=== PATIENT | female | born 1950 | race Caucasian/White ===

== ENCOUNTER 2023-07-16 08:35 | Outpatient (AMB) | payer OTHER, SELFPAY ==
--- NOTE | 2023-07-16 08:55 | MHC.PC.OV ---
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 policy Accompanied by: Self / Same As Patient Allergies bee venom protein (honey bee) Allergy (Intermediate, Verified 07/16/23 09:21) Swelling Penicillins Adverse Reaction (Intermediate, Verified 07/16/23 09:21) hives vicotin Adverse Reaction (Severe, Uncoded 07/16/23 09:07) Flushing Medication List - Last Reconciled 07/16/23 by Perry Silverio PA-C atorvastatin 20 mg PO DAILY 90 days losartan-hydrochlorothiazide 50-12.5 mg 1 tab PO DAILY 90 days metoprolol succinate ER 25 mg PO DAILY 90 days pantoprazole 40 mg PO DAILY 90 days valacyclovir 500 mg PO DAILY 90 days Tobacco use date assessed: 07/16/23 Fall risk assessment: No Falls in past year Last assessed Fall Risk: 07/16/23 Dental Screening Dental Screen Date: 07/16/23 Did you have a dental visit in the last 12 months?: Yes Did you have a dental problem in the last 6 months where you did not have access to dental care?: No Was dental information given to patient?: 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 Patient's past medical history significant for hyperlipidemia, hypertension, right hip osteoarthritis, GERD. Previous PCP was in [place] .. Hypertension: Blood pressure today in office acceptable. She has been off of Aldactone over the last several months in her blood pressure has been stable. Otherwise denies any headaches, vision issues, dizziness or presyncopal episodes. .. Hyperlipidemia: Continues on statin therapy without any side effect. . Now seeing orthopedic right hip and is due for a Hip replacement in October of 2023. She has gotten cortisone injections which have helped her reduce her right hip pain. .. VAccine:UTD with COVID Vaccine, Shingles - see scanned in document MAmmo: had a recent mammo [facility]. Colonoscopy: Has an updated colon cancer - done spring 2022. ( q 5 years) - fmhx of colon cancer. 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 1. Little interest or pleasure in doing things: not at all 2. Feeling down, depressed, or hopeless: not at all 3. Trouble falling or staying asleep, or sleeping too much: not at all 4. Feeling tired or having little energy: not at all 5. Poor appetite or overeating: not at all 6. Feeling bad about yourself - or that you are a failure or have let yourself or your family down: not at all 7. Trouble concentrating on things, such as reading the newspaper or watching television: not at all 8. Moving or speaking so slowly that other people could have noticed. Or the opposite - being so fidgety or restless that you have been moving around a lot more than usual: not at all 9. Thoughts that you would be better off or of hurting yourself in some way: not at all Total score: 0 Depression Screening Interpretation: Negative 48883 - PHQ-9 Billing: Yes Source: Developed by Drs. Adeel Montenegro, Ericka Car, Ruperto Hernández and colleagues, with an educational kelly from [employer]. Thrive Questionnaire I am a: Patient What is your living situation today?: I have a steady place to live Within the past 12 months, did the food you bought not last and you didn't have the money to get more?: Never true Within the past 12 months, did you worry whether your food would run out before you got money to buy more?: Never true Do you have trouble paying for medicines?: No Do you have trouble getting transportation to medical appointments?: No Do you have trouble paying your heating and electricity bill?: No Do you have trouble taking care of your child, family member or friend?: No Do you have trouble with day-to-day activities such as bathing, preparing meals, shopping, managing finances, etc.?: No Are you currently unemployed and looking for a job?: No Are you interested in more education?: No Please select the resources that you would like help with: None AUDIT C Alcohol Use Questionnaire (AUDIT-C) 1. How often do you have a drink containing alcohol?: 2-3 times a week 2. How many drinks containing alcohol do you have on a typical day when you are drinking?: 1 or 2 Total Score: 3 JANETH-7 AMB Questionnaire JANETH-7 Feeling nervous, anxious, or on edge: 0 = Not at all Not being able to stop or control worryin = Not at all Worrying too much about different things: 0 = Not at all Trouble relaxin = Not at all Being so restless that it is hard to sit still: 0 = Not at all Becoming easily annoyed or irritable: 0 = Not at all Feeling afraid as if something awful might happen: 0 = Not at all Total JANETH-7 score (0-4 normal; 5-9 mild; 10-14 moderate; 15-21 severe): 0 Source: Developed by Drs. Adeel Montenegro, Ericka Car, Ruperto Hernández and colleagues, with an educational kelly from [employer]. JANETH-7 Assessment Billing JANETH-7 Assessment Tool: JANETH-7 Assessment 80197 Review of Systems Const Denies headache(s) Eyes Denies loss of vision ENT Denies vertigo, Denies dizziness, Denies headache(s) and Denies sore throat Card Denies chest pain, Denies leg edema and Denies lightheadedness Resp Denies cough, Denies hemoptysis and Denies wheezing GI Denies abdominal pain, Denies melena, Denies constipation, Denies diarrhea and Denies vomiting Denies urinary frequency, Denies dysuria and Denies urinary urgency Musc Denies arthralgias, Denies joint swelling, Denies numbness and Denies tingling Neuro Denies Abnormal speech present, Denies behavioral changes, Denies vertigo, Denies dizziness, Denies headache(s), Denies loss of vision, Denies memory loss, Denies numbness and Denies tingling Psych Denies anxiety, Denies behavioral changes, Denies depression, Denies memory loss and Denies panic attacks Manuel/Lymph Denies easy bleeding and Denies easy bruising Aller/Immun Denies wheezing Physical exam (Primary Care) Vital Signs: Last Vital Signs Pulse 56 07/16/23 08:57 BP 126/70 07/16/23 08:57 Pulse Ox 98 07/16/23 08:57 Oxygen Delivery Method Room Air 07/16/23 08:57 BMI result Body Mass Index 33.3 BMI Assessment/Plan discussion: High Tobacco/Smoking Status: Tobacco use Status Tobacco use date assessed 07/16/23 07/16/23 09:13 Patient Tobacco Use Status Never used Tobacco 07/16/23 09:31 PHQ-9: PHQ-9 Score PHQ-9: Total score 0 07/16/23 09:34 Depression Screening Interpretation: Negative Const Other: Obese General: healthy appearing, no acute distress, alert and awake Nutritional Appearance: well nourished Orientation/consciousness: oriented to person, oriented to place and oriented to time HENMT Ears: TM's normal bilaterally General nose exam: Normal nasal mucous membranes and turbinates present Eyes Conjunctivae: conjunctivae normal Sclerae: sclerae normal Pupils: Equal, round and reactive pupils present Neck Neck: Yes no lymphadenopathy and Yes no JVD Thyroid: Thyroid normal Carotids: no bruits Resp Effort & Inspection: normal respiratory effort and not tachypneic Auscultation: no crackles, no rales, no rhonchi and no wheezes Cardio Rate: regular rate Rhythm: regular rhythm Heart sounds: no murmurs and normal S1 and S2 GI Palpation (GI): Soft to palpation, nontender, no hepatomegaly and no splenomegaly Auscultation: normal bowel sounds Skin General skin exam: no rashes or lesions noted and dry skin Neuro General: oriented to person, oriented to place and oriented to time Cranial nerves: Yes Equal, round and reactive pupils present Speech: No Abnormal speech present Gait exam (Neuro): Normal gait present Motor exam (neuro): no tremor noted Extrem Right upper extremity: full ROM Left upper extremity: full ROM Right lower extremity: full ROM; no edema Left lower extremity: full ROM; no edema Psych Mental Status: mental status grossly normal Speech and movement: Normal speech and movement present Affect: normal affect Attitude: cooperative Thought process: Normal thought process present Assessment and Plan Assessment & Plan (1) HLD (hyperlipidemia): Code(s): E78.5 - Hyperlipidemia, unspecified Qualifiers: Hyperlipidemia type: pure hypercholesterolemia Qualified Code(s): E78.00 - Pure hypercholesterolemia, unspecified Plan: Patient continues on statin therapy and has been stable on current dose. Will check a lipid panel to evaluate for propria total cholesterol and LDL. Goal LDL to be below 130 (2) HTN (hypertension): Code(s): I10 - Essential (primary) hypertension Qualifiers: Hypertension type: primary hypertension Qualified Code(s): I10 - Essential (primary) hypertension Plan: Patient's blood pressure acceptable today in office. Has not been on aldactone for many months and reports her blood pressures have been stable. Will hold off on restarting Aldactone at this time. Goal blood pressures to be below 140/90 (3) Herpes simplex: Code(s): B00.9 - Herpesviral infection, unspecified Plan: Continues on suppressive therapy for herpes simplex virus infections. (4) GERD (gastroesophageal reflux disease): Code(s): K21.9 - Gastro-esophageal reflux disease without esophagitis Qualifiers: Esophagitis presence: without esophagitis Qualified Code(s): K21.9 - Gastro-esophageal reflux disease without esophagitis Plan: She does get GERD symptoms from time to time that is diet related. Does use pantoprazole on a very limited basis. She does report getting endoscopy without any evidence of active gastritis. She will continue to of stain from gastric irritant foods. (5) Osteoarthritis of right hip: Code(s): M16.11 - Unilateral primary osteoarthritis, right hip Qualifiers: Osteoarthritis type: primary Qualified Code(s): M16.11 - Unilateral primary osteoarthritis, right hip Plan: Followed by orthopedic in [place] (Dr. Conley). Reports she is due for right hip replacement in October 2023. (6) Obese: Code(s): E66.9 - Obesity, unspecified Qualifiers: Body mass index: BMI 33.0-33.9 Obesity classification: adult class 1 (BMI 30 - 34.9) Obesity type: due to excess calories Serious obesity comorbidity presence: without serious comorbidity Qualified Code(s): E66.09 - Other obesity due to excess calories; Z68.33 - Body mass index [BMI] 33.0-33.9, adult Plan: Patient does understand her BMI is over 30 and work on being more physically active and adapting to better eating habits to reduce her weight. Orders: Orders Comprehensive Prospect. Panel Fast Today I10 - Essential (primary) hypertension Lipid Panel Today E78.00 - Pure hypercholesterolemia, unspecified Microalbumin, Random (w Creat) Today I10 - Essential (primary) hypertension Medications: New metoprolol succinate ER 25 mg PO DAILY 90 tabs 2RF 90 days I10 - Essential (primary) hypertension losartan-hydrochlorothiazide 50-12.5 mg 1 tab PO DAILY 90 tabs 2RF 90 days I10 - Essential (primary) hypertension valacyclovir 500 mg PO DAILY 90 tabs 2RF 90 days B00.9 - Herpesviral infection, unspecified pantoprazole 40 mg PO DAILY 90 ea 0RF 90 days K21.9 - Gastro-esophageal reflux disease without esophagitis atorvastatin 20 mg PO DAILY 90 tabs 2RF 90 days I10 - Essential (primary) hypertension Coding Level of Care Code New Pt Level 4 (36209) Diagnoses Pure hypercholesterolemia E78.00 Hyperlipidemia type: pure hypercholesterolemia Primary hypertension I10 Hypertension type: primary hypertension Herpes simplex B00.9 Gastroesophageal reflux disease without esophagitis K21.9 Esophagitis presence: without esophagitis Primary osteoarthritis of right hip M16.11 Osteoarthritis type: primary Class 1 obesity due to excess calories without serious comorbidity with body mass index (BMI) of 33.0 to 33.9 in adult E66.09; Z68.33 Body mass index: BMI 33.0-33.9 Obesity classification: adult class 1 (BMI 30 - 34.9) Obesity type: due to excess calories Serious obesity comorbidity presence: without serious comorbidity Additional Codes JANETH-7 Assessment Billing - JANETH-7 Assessment Tool: JANETH-7 Assessment [id number] ([id number])
[2023-07-16 08:57] VITALS: BP 126/70; PULSE 56; O2SAT 98; BMI 33.3
== END 2023-07-16 09:58 | disposition home or self-care (01) ==
PROVIDERS: PCP Physician Assistant; Visit Provider Physician Assistant
DX: I10 Essential (primary) hypertension (principal); K21.9 Gastro-esophageal reflux disease without esophagitis; E66.09 Other obesity due to excess calories; Z68.33 Body mass index [BMI] 33.0-33.9, adult; E78.00 Pure hypercholesterolemia, unspecified; B00.9 Herpesviral infection, unspecified; M16.11 Unilateral primary osteoarthritis, right hip
CPT/HCPCS: 99204

== ENCOUNTER 2023-07-18 08:40 | Outpatient (REF) | payer OTHER, SELFPAY ==
[2023-07-18 10:39] LABS: Alanine Aminotransferase 23 U/L (0-31); Albumin Level 4.4 g/dL (3.5-5.0); Alkaline Phosphatase 61 U/L (39-117); Anion Gap 10 (12-20); Aspartate Amino Transferase 23 U/L (5-31); Bilirubin Total 0.6 mg/dL (0.0-1.0); Blood Urea Nitrogen 17 mg/dL (9-16); Calcium 10.3 mg/dL (8.4-10.2); Carbon Dioxide 30 mmol/L (22-29); Chloride 103 mmol/L (96-108); Cholesterol 177 mg/dL (<200); Estimated Glomerular Filt Rate > 60; Glucose Fasting 100 mg/dL (60-99); HDL Cholesterol 44 mg/dL (>40); LDL Cholesterol Calculated 92 mg/dL (<100); Potassium 4.3 mmol/L (3.3-5.1); Sodium 139 mmol/L (135-145); Total Protein 6.6 g/dL (6.5-8.0); Triglycerides 208 mg/dL (<150)
[2023-07-18 10:57] LABS: Creatinine Urine 137.13 mg/dL; Microalbum/Creatinine Ratio Ur 42.2 ug/mg cr (<30)
== END 2023-07-18 08:41 | disposition home or self-care (01) ==
LOC: HO.LAB 08:40
PROVIDERS: PCP Physician Assistant; Visit Provider Physician Assistant
DX: I10 Essential (primary) hypertension (principal); E78.00 Pure hypercholesterolemia, unspecified
CPT/HCPCS: 36415; 80053; 80061; 82043; 82570

== ENCOUNTER 2023-09-19 09:19 | Outpatient (REF) | payer OTHER, SELFPAY ==
--- NOTE | ~2023-09-19 | XR_ITS ---
EXAMINATION: XR CHEST 2 VIEWS CLINICAL INFORMATION: Acute bronchitis. COMPARISON: None. TECHNIQUE: Frontal and lateral views of the chest were obtained. FINDINGS: The heart, great vessels, pulmonary vasculature and mediastinum are normal. The lungs show no focal infiltrate, effusion or pneumothorax. There is no acute osseous abnormality. XR/XR chest 2V IMPRESSION: No active cardiopulmonary disease.
== END 2023-09-19 09:20 | disposition home or self-care (01) ==
LOC: HO.XRAY 09:19
PROVIDERS: PCP Physician Assistant; Visit Provider Physician Assistant
DX: J20.9 Acute bronchitis, unspecified (principal)
CPT/HCPCS: 71046

== ENCOUNTER 2023-11-27 08:49 | Outpatient (AMB) | payer OTHER, SELFPAY ==
[2023-11-27 09:13] VITALS: BP 152/72; PULSE 60; O2SAT 99; BMI 33.4
--- NOTE | 2023-11-27 09:15 | A.OFFVIS_ITS ---
Intake Vital Signs 11/27/23 09:13 Height 5 ft 8 in Weight 220 lb BMI 33.4 BP 152/72 H Blood Pressure Location Lt brachial Position Sitting Pulse 60 Pulse Source Pulse Oximeter Pulse Oximetry (%) 99 Oxygen Delivery Method Room Air Intake Visit Reasons: AWV G0438 Intake Note: Patient is here for an Annual Wellness Visit. 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 Patient has a past medical history significant for hyperlipidemia, hypertension, GERD, recently had total hip arthroplasty surgery. Today we discussed patient's point hope ira of care and end of life planning. MOLST filled out .. Hypertension: Since her hip replacement she has noted elevated blood pressure, has been taking NSAIDs. She would like to restart spironolactone and increasing her losartan dose for better blood pressure control. Vaccine:UTD with COVID Vaccine, Shingles - see scanned in document MAmmo: had a recent mammo [facility]. Colonoscopy: Has an updated colon cancer - done spring 2022. ( q 5 years) - fmhx of colon cancer. HPI Comments History of Present Illness Details reviewed past medical history- yes reviewed surgical / hospitalization history- yes reviewed current medications- yes reviewed family history- yes home safety throw rugs? grab bars? raised toilet seat? working smoke detectors? activities of daily living difficulty bathing or showering? difficulty dressing? difficulty using the toilet? difficulty getting in and out of bed? difficulty walking? receives help from other person's with any of the above tasks? instrumental activities of daily living uses telephone - gets to place out of walking distance- go shopping for groceries- repairs own meals- does own minor home maintenance- does own laundry- does own housework- manages own money- currently takes medication- end of life planning discussed advanced directives- yes advanced directives on file? discussed wishes expressed in advanced directives. fall risk have you had any falls with injuries in the past year? have you had 2 or more falls in the past year? 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 [employer] Cognitive needs: No Hearing needs: No Vision needs: Yes Questionnaire Medicare Wellness Checkup [age] What gender do you identify with?: female During the past 4 weeks, how much have you been bothered by emotional problems such as feeling anxious, depressed, irritable, sad or downhearted, and blue?: moderately During the past 4 weeks, has your physical & emotional health limited your social activities with family, friends, neighbors, or groups?: quite a bit (Total hip replacement on 10/25/23 at [facility].) During the past 4 weeks, how much bodily pain have you generally had?: moderate pain During the past 4 weeks, was someone available to help you if you needed & wanted help?: yes, as much as I wanted During the past 4 weeks, what was the hardest physical activity you could do for at least 2 minutes?: light Can you get to places out of walking distance without help? (For eg., can you travel alone on buses, taxis or drive your car?): Yes Can you go shopping for groceries or clothes without someone's help?: Yes Can you prepare your own meals?: Yes Can you do your housework without help?: Yes Because of any health problems, do you need the help of another person with your personal care needs such as eating, bathing, dressing or getting around the house?: No Can you handle your own money without help?: Yes During the past 4 weeks, how would you rate your health in general?: good During the past 4 weeks how have things been going for you?: good & bad parts about equal Are you having difficulties driving your car?: no Do you always fasten your seat belt when you are in a car?: yes, usually During past 4 weeks, have you been bothered by the following: never: Sexual problems?, Trouble eating well?, Teeth or denture problems? and Problems using the telephone? and sometimes: Falling or dizzy when standing up and Tiredness or fatigue? Have you fallen 2 or more times in the past year?: No Are you afraid of falling?: No Are you a smoker?: no During the past 4 weeks, how many drinks of wine, beer, or other alcoholic bever ages did you have?: 1 drink or less per week Do you exercise for about 20 minutes 3 or more times a week?: yes, all the time Have you been given information to help with the following?: yes: Hazards in your house that might hurt you? and yes: Keeping track of your medications? How often do you have trouble taking medicines the way you have been told to take them?: I always take medicine as prescribed How confident are you that you can control & manage most of your health problems?: very confident What is your race?: White Mini Mental State Exam (MMSE) Orientation What is the (year) (season) (date) (day) (month)?: year and season Where are we (state) (county) (town or city) (hospital) (floor)?: state and town or city Attention & Calculation (CHOOSE ONE) Ask pt to begin with 100 & count backward by 7. Stop after 5 repeats. If pt cannot ask them to spell the word WORLD backward.: 93, 86, 79, 72 and 65 Spell WORLD backwards (DLROW): 5 letters Score Score: 14 Activity of Daily Living Bathing - sponge bath, tub bath or shower: receives no assistance (gets in/out by self, if usual bathing means Dressing - getting clothes from closets & drawers, including inner/outer garme nts & fasteners.: gets clothes & gets completely dressed without help Toileting - going to the 'toilet room' for urine/bowel elimination & cleaning self/arranging clothes: goes to toilet room, cleans self, arranges clothes without help Transfer: moves in & out of bed and chair without help (may use support object) Continence: has occasional 'accidents' Feeding: feeds self without help Total Score: 0 Information obtained from: patient Using telephone: independent Traveling: independent Shopping: independent Preparing meals: independent Housework: independent Taking medicine: independent Managing money: independent PHQ-9 Over the last 2 weeks, how often have you been bothered by any of the following problems? 1. Little interest or pleasure in doing things: more than half the days 2. Feeling down, depressed, or hopeless: several days 3. Trouble falling or staying asleep, or sleeping too much: not at all 4. Feeling tired or having little energy: several days 5. Poor appetite or overeating: several days 6. Feeling bad about yourself - or that you are a failure or have let yourself or your family down: several days 7. Trouble concentrating on things, such as reading the newspaper or watching television: not at all 8. Moving or speaking so slowly that other people could have noticed. Or the opposite - being so fidgety or restless that you have been moving around a lot more than usual: not at all 9. Thoughts that you would be better off or of hurting yourself in some way: not at all Total score: 6 Depression Screening Interpretation: Positive Depression Screening Follow-up: Existing condition Depression Screening Done: Yes 82187 - PHQ-9 Billing: Yes Source: Developed by Drs. Adeel Montenegro, Ericka Car, Ruperto Hernández and colleagues, with an educational kelly from [employer]. Physical Exam Vital Signs: Last Vital Signs Pulse 60 11/27/23 09:13 BP 152/72 H 11/27/23 09:13 Pulse Ox 99 11/27/23 09:13 Oxygen Delivery Method Room Air 11/27/23 09:13 BMI result Body Mass Index 33.4 HEENT Other: hearing screening whisper test- pss Eyes Other: vision screening- not assessed- wears corrective lenses Other: urinary incontinence? Does report minimal amount of stress incontinence Neuro Other: balance- somewhat impaired due to being status post hip arthroplasty Romberg- normal tandem walk test- able walk-in turned test-able rise from sit to stand- within 5 seconds- recent total hip arthroplasty Assessment & Plan Assessment & Plan (1) Medicare annual wellness visit, initial: Code(s): Z00.00 - Encounter for general adult medical examination without abnormal findings (2) HTN (hypertension): Code(s): I10 - Essential (primary) hypertension Qualifiers: Hypertension type: primary hypertension Qualified Code(s): I10 - Essential (primary) hypertension Plan: Patient's blood pressure elevated today. Likely due to taking NSAIDs secondary to her pain from a total hip arthroplasty. Will restart spironolactone and increase her dose of losartan.. Advised to continue monitoring blood pressure at home (3) HLD (hyperlipidemia): Code(s): E78.5 - Hyperlipidemia, unspecified Qualifiers: Hyperlipidemia type: pure hypercholesterolemia Qualified Code(s): E78.00 - Pure hypercholesterolemia, unspecified Plan: Patient continues on statin therapy. Will recheck her lipid panel to assure normal. Will LDL is to remain below 130 (4) MDD (major depressive disorder), recurrent episode, mild: Code(s): F33.0 - Major depressive disorder, recurrent, mild Plan: Patient's PHQ-9 score positive for mild depression to which she reports is due to being in some pain in his status post total hip arthroplasty. Not interested in starting any depression medication Plan As per HPI today reviewed patient's point hope ira of care and filled out a MOLST form Orders: Orders Lipid Panel Today E78.00 - Pure hypercholesterolemia, unspecified Microalbumin, Random (w Creat) Today I10 - Essential (primary) hypertension Comprehensive [place]. Panel Fast Today I10 - Essential (primary) hypertension Complete Blood Count no Diff Today I10 - Essential (primary) hypertension Medications: New losartan-hydrochlorothiazide 100-12.5 mg 1 tab PO DAILY 90 days 90 tabs 1RF I10 - Essential (primary) hypertension spironolactone 50 mg PO DAILY 90 days 90 tabs 1RF I10 - Essential (primary) hypertension celecoxib 200 mg PO DAILY 30 days PRN 30 caps 0RF pain M16.11 - Unilateral primary osteoarthritis, right hip Quality Reporting (2019) Depression/Bipolar (159/160/161/177) PHQ-9: Total score: 6 Coding Level of Care Code Medicare First (G0438) Est Pt Level 3 (54900) Diagnoses Medicare annual wellness visit, initial Z00.00 Primary hypertension I10 Hypertension type: primary hypertension Pure hypercholesterolemia E78.00 Hyperlipidemia type: pure hypercholesterolemia MDD (major depressive disorder), recurrent episode, mild F33.0 CPT Codes Advance Care Planning - Advance Care Planning discussion: On file, no changes ([id number]) Advance Care Planning - Time spent: 1-15 minutes, on File ([id number]) Advance Care Planning Advance Care Planning discussion: On file, no changes Date of discussion: 11/27/23 Forms completed: MOLST Time spent: 1-15 minutes, on File Actual minutes spent: 8
== END 2023-11-27 10:11 | disposition home or self-care (01) ==
PROVIDERS: PCP Physician Assistant; Visit Provider Physician Assistant
DX: Z00.00 Encounter for general adult medical examination without abnormal findings (principal); I10 Essential (primary) hypertension; E78.00 Pure hypercholesterolemia, unspecified; F33.0 Major depressive disorder, recurrent, mild
CPT/HCPCS: 1123F; G0438

== ENCOUNTER 2024-02-12 13:11 | Outpatient (AMB) | payer OTHER, SELFPAY ==
[2024-02-12 13:17] VITALS: BP 114/62; PULSE 78; O2SAT 97; BMI 32.0
--- NOTE | 2024-02-12 13:17 | A.OFFPC_ITS ---
Vital Signs 02/12/24 13:17 Height 5 ft 8 in Weight 210 lb 8 oz BMI 32.0 BP 114/62 Blood Pressure Location Lt brachial Position Sitting Pulse 78 Pulse Source Pulse Oximeter Pulse Oximetry (%) 97 Oxygen Delivery Method Room Air Intake Visit Reasons: OCULAR MIGRAINE Intake Note: The patient is here for an ocular migraine. Today, the concern is a hard, red spot around the bottom right area that sometimes urias or itches. If scratched, it oozes out. 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 Accompanied by: Self / Same As Patient Allergies bee venom protein (honey bee) Allergy (Intermediate, Verified 02/12/24 13:31) Swelling Penicillins Adverse Reaction (Intermediate, Verified 02/12/24 13:31) hives vicotin Adverse Reaction (Severe, Uncoded 02/12/24 13:27) [place] Medication List - Last Reconciled 02/12/24 by Perry Silverio PA-C atorvastatin 20 mg PO DAILY 90 days celecoxib 200 mg PO DAILY PRN 30 days losartan-hydrochlorothiazide 100-12.5 mg 1 tab PO DAILY 90 days metoprolol succinate ER 25 mg PO DAILY [address] 40 mg PO DAILY 90 days spironolactone 50 mg PO DAILY 90 days valacyclovir 500 mg PO DAILY 90 days Tobacco use date assessed: 02/12/24 Fall risk assessment: No Falls in past year Last assessed Fall Risk: 02/12/24 Dental Screening Dental Screen Date: 02/12/24 Did you have a dental visit in the last 12 months?: Yes Did you have a dental problem in the last 6 months where you did not have access to dental care?: No Was dental information given to patient?: Patient has dentist HPI OCULAR MIGRAINE HPI Details Patient is a 73-year-old female here today for annual wellness visit. Patient has a past medical history significant for hyperlipidemia, hypertension, GERD, recently had total hip arthroplasty surgery. --> She reports she has been having 2 ep isodes forgetfulness, disorientation and forgetting names that last about 20 minutes over the last 6 weeks. She is concerned about these symptoms. She otherwise denies any sustained focal neurological deficits, chest discomfort, dizziness or dyspnea on exertion. Also reports having a coccyx skin lesion that intermittently appears in the upper aspect of her coccyx. She reports this has been evident over the last several years. [facility] Medical History (Updated 02/12/24 @ 13:45 by Perry Silverio PA-C) Encounter for colonoscopy in patient with family history of colon cancer Surgical History History of total right hip replacement Family History Mother Colon cancer Sister Colon polyp Father Esophageal cancer Social History Housing: House Alcohol intake: current Alcohol intake frequency: holidays/special occasions only Patient Tobacco Use Status: Never used Tobacco e-Cigarette/Vaping Use: Never Used Second Hand Smoke Exposure: No Current occupational status: employed and retired Current occupation: [employer] a [employer] Cognitive needs: No Hearing needs: No Vision needs: Yes Review of Systems Const Denies headache(s) Eyes Denies loss of vision ENT Denies vertigo, Denies dizziness, Denies headache(s) and Denies sore throat Card Denies chest pain, Denies leg edema and Denies lightheadedness Resp Denies cough, Denies hemoptysis and Denies wheezing GI Denies abdominal pain, Denies melena, Denies constipation, Denies diarrhea and Denies vomiting Denies urinary frequency, Denies dysuria and Denies urinary urgency Musc Denies arthralgias, Denies joint swelling, Denies numbness and Denies tingling Neuro Denies Abnormal speech present, Denies behavioral changes, Denies vertigo, Denies dizziness, Denies headache(s), Denies loss of vision, Denies memory loss, Denies numbness and Denies tingling Psych Denies anxiety, Denies behavioral changes, Denies depression, Denies memory loss and Denies panic attacks Manuel/Lymph Denies easy bleeding and Denies easy bruising Aller/Immun Denies wheezing Physical exam (Primary Care) Vital Signs: Last Vital Signs Pulse 78 02/12/24 13:17 BP 114/62 02/12/24 13:17 Pulse Ox 97 02/12/24 13:17 Oxygen Delivery Method Room Air 02/12/24 13:17 BMI result Body Mass Index 32.0 Tobacco/Smoking Status: Tobacco use Status Tobacco use date assessed 04/23/24 04/23/24 13:18 Patient Tobacco Use Status Never used Tobacco 02/12/24 13:18 e-Cigarette/Vaping Use Never Used 02/12/24 13:28 Const General: healthy appearing, no acute distress, alert and awake Nutritional Appearance: well nourished Orientation/consciousness: oriented to person, oriented to place and oriented to time HENMT Ears: TM's normal bilaterally General nose exam: Normal nasal mucous membranes and turbinates present Eyes Conjunctivae: conjunctivae normal Sclerae: sclerae normal Pupils: Equal, round and reactive pupils present Neck Neck: Yes no lymphadenopathy and Yes no JVD Thyroid: Thyroid normal Carotids: no bruits Resp Effort & Inspection: normal respiratory effort and not tachypneic Auscultation: no crackles, no rales, no rhonchi and no wheezes Cardio Rate: regular rate Rhythm: regular rhythm Heart sounds: no murmurs and normal S1 and S2 GI Palpation (GI): Soft to palpation, nontender, no hepatomegaly and no splenomegaly Auscultation: normal bowel sounds Skin General skin exam: no rashes or lesions noted and dry skin Neuro General: oriented to person, oriented to place and oriented to time Cranial nerves: Yes Equal, round and reactive pupils present Speech: No Abnormal speech present Gait exam (Neuro): Normal gait present Motor exam (neuro): no tremor noted Extrem Right upper extremity: full ROM Left upper extremity: full ROM Right lower extremity: full ROM; no edema Left lower extremity: full ROM; no edema Psych Mental Status: mental status grossly normal Speech and movement: Normal speech and movement present Affect: normal affect Attitude: cooperative Thought process: Normal thought process present Assessment and Plan Assessment & Plan (1) Amnesia, global, transient: Code(s): G45.4 - Transient global amnesia Plan: Patient reports 2 episodes of acute disorientation, amnesia and forgetting names over the last 6 weeks. Concerns for ? TIAs. Will send for MRI of brain Continue note modify her risk with blood pressure control cholesterol control. (2) Dermatitis: Code(s): L30.9 - Dermatitis, unspecified Plan: Reports over the last several years having intermittent rash over her coccyx region. She does take Valtrex on a as needed basis for possible viral rash. Will supply patient with a topical steroid ointment for flares. Orders: Orders MR head/brain wo con 02/12/24 G45.4 - Transient global amnesia Medications: New triamcinolone acetonide 0.1% 1 appl topical DAILY 30 grams 0RF 30 days L30.9 - Dermatitis, unspecified Refilled atorvastatin 20 mg PO DAILY 90 tabs 2RF 90 days I10 - Essential (primary) hypertension Coding Level of Care Code Est Pt Level 4 (34789) Diagnoses Amnesia, global, transient G45.4 Dermatitis L30.9
== END 2024-02-12 13:51 | disposition home or self-care (01) ==
PROVIDERS: PCP Physician Assistant; Visit Provider Physician Assistant
DX: G45.4 Transient global amnesia (principal); L30.9 Dermatitis, unspecified
CPT/HCPCS: 99214

== ENCOUNTER 2024-03-07 07:03 | Outpatient (REF) | payer OTHER, SELFPAY ==
--- NOTE | ~2024-03-07 | MR_ITS ---
MR BRAIN WITHOUT CONTRAST CLINICAL INFORMATION: Transient Global amnesia. COMPARISON: None available. TECHNIQUE: MRI of the brain was obtained using routine sequences without contrast. FINDINGS: There is no hydrocephalus, extra-axial surface collection, or herniation. There is global cerebral volume loss and there is moderate chronic microangiopathy. The major flow voids at the skull base are preserved. There is no acute infarct on diffusion-weighted imaging. There is no intracranial hemorrhage on the gradient recalled echo acquisition. The midline structures are normal. The cerebellar tonsils are normally positioned. The cerebellum and brainstem are normal. The craniocervical junction is normal. Osseous marrow signal intensity is homogenous. The visualized soft tissues are unremarkable. MR/MR head/brain wo con IMPRESSION: No acute intracranial findings. There are no diffusion restricting foci within the hippocampi. There is global cerebral volume loss and there is moderate chronic microangiopathy.
== END 2024-03-07 07:04 | disposition home or self-care (01) ==
LOC: HO.MRI 07:03
PROVIDERS: PCP Physician Assistant; Visit Provider Physician Assistant
DX: G45.4 Transient global amnesia (principal)
CPT/HCPCS: 70551

== ENCOUNTER 2024-04-07 15:13 | Emergency (ER) | payer OTHER, SELFPAY ==
--- NOTE | ~2024-04-07 | CT_ITS ---
EXAMINATION: CT ABDOMEN AND PELVIS WITH CONTRAST CLINICAL INFORMATION: Abdominal pain. COMPARISON: None available. TECHNIQUE: Multidetector volumetric images were obtained from the superior aspect of the liver through the pubic symphysis following administration 85 mL of Omnipaque 350 intravenous contrast. Sagittal and coronal reformatted images were obtained on the technologist's workstation. Oral contrast: No This CT examination was performed using dose optimization techniques as appropriate, variously including the following: *Automated exposure control *Adjustment of mA and/or kV according to patient size (this includes techniques or standardized protocols for targeted exams where dose is matched to indication/reason for exam; i.e. extremities or head) *Use of iterative reconstruction technique DLP: 768 mGy-cm FINDINGS: LUNG BASES: The visualized lung bases are unremarkable. LIVER, GALLBLADDER, AND BILIARY TREE: The liver is normal in size, shape, and attenuation. No focal hepatic lesion or biliary ductal dilatation is present. The gallbladder is unremarkable with no evidence of radiopaque gallstones, gallbladder wall thickening, or obvious pericholecystic inflammatory changes. PANCREAS: Unremarkable. SPLEEN: Unremarkable. ADRENAL GLANDS: Unremarkable. KIDNEYS AND URETERS: The kidneys are normal in size, shape, and attenuation. There is a nonobstructing 2 mm calculus midpole right kidney. There is no hydronephrosis. BLADDER: Unremarkable. GASTROINTESTINAL TRACT: The small and large bowel are unremarkable. The appendix is unremarkable. ABDOMINAL WALL: No significant hernia is appreciated. LYMPH NODES: Normal. VASCULAR: There is atherosclerotic plaque of the abdominal aorta and proximal branches PELVIC VISCERA: Unremarkable. OSSEOUS STRUCTURES: There is diffuse moderate thoracolumbar degenerative change. A right hip prosthesis is noted. There is mild to moderate left hip degenerative change. CT/CT abdomen pelvis w IV con IMPRESSION: 1. There is a nonobstructing 2 mm calculus in the midpole of the right kidney. There is no hydronephrosis. 2. There is diffuse moderate thoracolumbar degenerative change. There is mild to moderate left hip degenerative change. 3. No acute intra-abdominal process. Fleischner guidelines were followed.
[2024-04-07 15:29] VITALS: BP 160/58; PULSE 59; RESP 16; TEMP 36.1; O2SAT 99; BMI 31.3
--- NOTE | 2024-04-07 15:29 | ED_ITS ---
HPI - Back Pain/Injury General Chief Complaint: Abdominal Pain Stated Complaint: lower back pain,vomiting Time Seen by Provider: 04/07/24 23:18 Source: patient and family Mode of arrival: ambulatory History of Present Illness ED Provider: Dr Galaviz HPI Narrative: 73-year-old male who presents with right-sided back pain but is also experiencing pain on the right lower quadrant and right upper quadrant, this has been associated with nausea and she denies any urinary symptoms such as pain/burning/frequency. She also reports some vomiting and states that initially she had constipation but she took milk of magnesia with good affect. Patient has positive surgical history of hysterectomy. Related Data Previous Rx's ?Medication ?Instructions ?Recorded metoprolol succinate 25 mg 25 mg PO DAILY 90 days #90 tabs 07/16/23 tablet,extended release 24 hr pantoprazole 40 mg granules 40 mg PO DAILY 90 days #90 ea 07/16/23 delayed-release for susp in packet valacyclovir 500 mg tablet 500 mg PO DAILY 90 days #90 tabs 07/16/23 celecoxib 200 mg capsule 200 mg PO DAILY PRN pain 30 days 11/27/23 #30 caps losartan 100 1 tab PO DAILY 90 days #90 tabs 11/27/23 mg-hydrochlorothiazide 12.5 mg tablet spironolactone 50 mg tablet 50 mg PO DAILY 90 days #90 tabs 11/27/23 atorvastatin 20 mg tablet 20 mg PO DAILY 90 days #90 tabs 02/12/24 triamcinolone acetonide 0.1 % 1 appl topical DAILY 30 days #30 02/12/24 topical ointment grams ketorolac 10 mg tablet 10 mg PO Q8H PRN pain #10 tabs 04/08/24 ondansetron 4 mg disintegrating 4 mg PO Q8H PRN nausea and 04/08/24 tablet vomiting #7 tabs tamsulosin 0.4 mg capsule (Flomax) 0.4 mg PO BEDTIME #5 caps 04/08/24 Allergies Allergy/AdvReac Type Severity Reaction Status Date / Time bee venom protein (honey bee) Allergy Intermediate Swelling Verified 04/07/24 15:32 acetaminophen [From Vicodin] Allergy Flushing Verified 04/07/24 15:32 hydrocodone [From Vicodin] Allergy Flushing Verified 04/07/24 15:32 Penicillins AdvReac Intermediate hives Verified 04/07/24 15:32 vicotin AdvReac Severe Flushing Uncoded 02/12/24 13:27 Review of Systems 2 Review of Systems: Pertinent positives and negatives as stated in HPI [facility] Past Medical History Source: nursing notes reviewed Medical History Encounter for colonoscopy in patient with family history of colon cancer Surgical History History of total right hip replacement Family History Family History Mother Colon cancer Sister Colon polyp Father Esophageal cancer Social History Social History Housing: House Alcohol intake: current Alcohol intake frequency: holidays/special occasions only Patient Tobacco Use Status: Never used Tobacco Smoked in Last 30 Days: No e-Cigarette/Vaping Use: Never Used Second Hand Smoke Exposure: No Use of substances other than those prescribed or required for medical reasons: No Advance Directives: No Advance Directives Information Provided: No Current occupational status: employed and retired 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 GENERAL: Well developed, well nourished, in no acute distress. HEAD: Normocephalic/atraumatic EYES: PERRLA, EOMI EARS: Ext canals without abnormality NOSE: Nares patent bilateral OROPHARYNX: no oral lesions noted, posterior pharynx clear NECK: Supple, no adenopathy LUNGS: Normal breath sounds. No adventitious sounds or accessory muscle use. SpO2<98> CARDIOVASCULAR: Regular rate and rhythm without noted murmurs ABDOMEN: Soft, diffusely tender, maximal on the right side, non-distended with bowel sounds. MUSCULOSKELETAL: No tenderness, deformities, or effusions noted on gross inspection. EXTREMITIES: No cyanosis, clubbing or edema. SKIN: Inspection of the skin reveals no rashes NEUROLOGIC: Alert and oriented x 4. Strength and sensation to light touch were grossly intact x 4. Course Course Course Narrative: This is a rapid medical exam completed by Jimy GARCIA: Additional HPI, ROS, PE not included below will be deferred to primary provider. Right sided low back pain with associated nausea and vomiting. Denies urinary issues. Reports she has had loose stools for the past year but had hard stools yesterday and tool miralax with liquid stools today. Right hip replacement in October and has been feeling 'off balance' over the past several weeks. Denies fevers, chills, hematuria Medications Administered Discontinued Medications Generic Name Dose Route Start Last Admin Trade Name Koryq PRN Reason Stop Dose Admin Acetaminophen 975 mg 04/07/24 19:59 04/07/24 20:04 Acetaminophen 325 Mg Tablet PO 04/07/24 20:00 975 mg ONCE ONE Administration Sodium Chloride 1,000 mls @ 999 mls/hr 04/07/24 23:45 04/08/24 01:12 Ns IV 04/08/24 00:45 Infused .Q1H1M JAMEEL Infusion Iohexol 85 ml 04/08/24 00:02 04/08/24 00:02 Iohexol 350 Mg/Ml 100 Ml Infus..Btl IV 04/08/24 00:03 85 ml ONCE ONE Administration Ketorolac Tromethamine 15 mg 04/07/24 23:36 04/08/24 00:02 Ketorolac Tromethamine 30 Mg/Ml Vial IVPUSH 04/07/24 23:37 15 mg ONCE ONE Administration Medical Decision Making Medical Decision Making [facility] Narrative: 2345: 73-year-old female with history and clinical presentation, DDX: Diverticulitis, renal colic, appendicitis, obstruction, UTI I reviewed all investigations and hematologic indices are negative for leukocytosis/anemia/thrombocytopenia. Chemistry indices are negative for ARLETTE/liver enzyme derangements and there is a mild elevation of potassium, patient received IV fluids and will repeat BMP, urinalysis is negative for UTI but evidence of WBCs. Patient received combination analgesics as well as 1 L of IV fluids and on re- evaluation reports complete resolution of pain. CT scan significant for ureterolithiasis and though reported as nonobstructing patient has had pain and discomfort for 2 days with associated nausea. As patient's pain is well controlled and she is able to tolerate p.o. intake she will be discharged and given a referral to follow-up with Dr. Willingham for outpatient treatment Differential Diagnosis Differential Diagnoses: The differential diagnosis associated with the presentation includes Please see the discussion above Admission/Observation Consideration of admission/observation: Escalation of care including admission/observation considered Please see the discussion above Lab Data MDM Lab Attestation statement: I reviewed the patient's lab results. Please see the discussion above 04/07/24 16:27 04/07/24 16:27 Labs: Lab Results 04/07/24 04/07/24 Range/Units 16:27 20:18 WBC 9.7 (4.8-10.8) X10*3/uL RBC 4.50 (4.20-5.50) X10*6/uL Hgb 14.3 (12.0-16.0) g/dl Hct 40.5 (37.0-47.0) % MCV 90.0 (80.0-98.0) fL MCH 31.8 (27.0-33.0) pg MCHC 35.3 H (31.0-35.0) g/dl RDW 13.2 (11.0-16.0) % Plt Count 230 (160-400) X10*3/uL MPV 10.6 (9.4-12.3) fL Immature Gran % (Auto) 0.4 (0.0-0.4) % Neut % (Auto) 80.5 H (45-73) % Lymph % (Auto) 11.9 L (20-40) % Hartley % (Auto) 6.4 (2-11) % Eos % (Auto) 0.5 (0-4) % Baso % (Auto) 0.3 (0-2) % Lymph # (Auto) 1.2 (1.2-4.9) X10*3/uL Hartley # (Auto) 0.6 (0.1-1.2) X10*3/uL Eos # (Auto) 0.1 (0.0-0.4) X10*3/uL Baso # (Auto) 0.0 (0.0-0.2) X10*3/uL Abs Immat Gran (auto) 0.04 H (0.00-0.03) X10*3/uL Absolute Neuts (auto) 7.8 (2.0-8.3) x10*3/uL Absolute Nucleated RBC 0.000 (0.0-0.012) X10*3/uL Nucleated RBC % (auto) 0.0 (0.0-0.2) /100WBC Sodium 136 (135-145) mmol/L Potassium 5.4 H (3.3-5.1) mmol/L Chloride 100 (96-108) mmol/L Carbon Dioxide 28 (22-29) mmol/L Anion Gap 13 (12-20) BUN 26 H (9-16) mg/dL Creatinine 0.80 (0.5-1.4) mg/dL Estim Creat Clear Calc 72.6 Estimated GFR > 60 Random Glucose 108 (60-115) mg/dL Calcium 10.2 (8.4-10.2) mg/dL Total Bilirubin 1.0 (0.0-1.0) mg/dL AST 22 (5-31) U/L ALT 19 (0-31) U/L Alkaline Phosphatase 58 (39-117) U/L Total Protein 7.5 (6.5-8.0) g/dL Albumin 4.9 (3.5-5.0) g/dL Urine Color Yellow Urine Appearance Clear Urine pH 6.0 (5.0-9.0) Ur Specific Clark 1.025 (1.005-1.025) Urine Protein Trace (Neg-Trace) mg/dL Urine Glucose (UA) Negative (Negative) mg/dL Urine Ketones Trace (Negative) mg/dL Urine Blood Negative (Negative) Urine Nitrite Negative (Negative) Ur Leukocyte Esterase Small (1+) H (Negative) Urine RBC 0-2 (0-2) /HPF Urine WBC 11-20 H (0-5) /HPF Ur Squamous Epith Cells 0-2 (0-2) /HPF Urine Bacteria None Seen (None Seen) Hyaline Casts 0-2 (0-2) /LPF Radiology Impression Discussion of test interpretation with radiology: I have reviewed the radiologist's reading. Radiologist Impression: Please see the discussion above Chronic Conditions Patient?s care impacted by: Hypertension Critical Care Time Critical Care Time Critical Care Time: Yes Total Critical Care Time: 60 Attestation: I personally attest to this time spent taking care of the patient. Discharge Plan Discharge Clinical Impression: Renal colic, Ureterolithiasis, Hydronephrosis Patient Disposition: Home, Self-Care Instructions: Renal Colic (ED), Low Oxalate Diet (ED), Hydronephrosis (ED), Ureteral Stones (ED) Additional Instructions: 1. Take medications as prescribed. 2. Call the office of Urology 1st thing in the morning to set up an appointment for re-evaluation further outpatient management. Return to the ER for any worsening symptoms Prescriptions: New ondansetron 4 mg tablet,disintegrating 4 mg PO Q8H PRN (Reason: nausea and vomiting) Qty: 7 0RF tamsulosin [Flomax] 0.4 mg capsule 0.4 mg PO BEDTIME Qty: 5 0RF ketorolac 10 mg tablet 10 mg PO Q8H PRN (Reason: pain) Qty: 10 0RF Rx Instructions: maximum total duration of 5 days from all oral, intranasal, or parenteral formulations No Action atorvastatin 20 mg tablet 20 mg PO DAILY 90 Days Qty: 90 2RF triamcinolone acetonide 0.1 % ointment 1 appl topical DAILY 30 Days Qty: 30 0RF valacyclovir 500 mg tablet 500 mg PO DAILY 90 Days Qty: 90 2RF pantoprazole [address] for susp in packet 40 mg PO DAILY 90 Days Qty: 90 0RF metoprolol succinate 25 mg tablet extended release 24 hr 25 mg PO DAILY 90 Days Qty: 90 2RF spironolactone 50 mg tablet 50 mg PO DAILY 90 Days Qty: 90 1RF losartan-hydrochlorothiazide 100-12.5 mg tablet 1 tab PO DAILY 90 Days Qty: 90 1RF celecoxib 200 mg capsule 200 mg PO DAILY PRN (Reason: pain) 30 Days Qty: 30 0RF Referrals: Parveen Willingham MD [Physician] - Perry Silverio PA-C [Primary Care Provider] - Print Language: Uzbek
[2024-04-07 16:42] LABS: MANUAL DIFF FLAG NO
[2024-04-07 16:47] LABS: Basophils Percent Auto 0.3 % (0-2); Eosinophils Absolute Auto 0.1 X10*3/uL (0.0-0.4); Eosinophils Percent Auto 0.5 % (0-4); Hematocrit 40.5 % (37.0-47.0); Hemoglobin 14.3 g/dl (12.0-16.0); Imm Gran Abs Auto 0.04 X10*3/uL (0.00-0.03); Imm Gran Pct Auto 0.4 % (0.0-0.4); Lymphocytes Absolute Auto 1.2 X10*3/uL (1.2-4.9); Lymphocytes Percent Auto 11.9 % (20-40); Mean Corpuscular HGB Conc 35.3 g/dl (31.0-35.0); Mean Corpuscular Hemoglobin 31.8 pg (27.0-33.0); Mean Platelet Volume 10.6 fL (9.4-12.3); Monocytes Absolute Auto 0.6 X10*3/uL (0.1-1.2); Monocytes Percent Auto 6.4 % (2-11); Neutrophils Absolute Auto 7.8 x10*3/uL (2.0-8.3); Neutrophils Percent Auto 80.5 % (45-73); Platelet Count 230 X10*3/uL (160-400); Red Cell Distribution Width 13.2 % (11.0-16.0); White Blood Count 9.7 X10*3/uL (4.8-10.8)
[2024-04-07 17:00] LABS: Alanine Aminotransferase 19 U/L (0-31); Albumin Level 4.9 g/dL (3.5-5.0); Alkaline Phosphatase 58 U/L (39-117); Anion Gap 13 (12-20); Aspartate Amino Transferase 22 U/L (5-31); Blood Urea Nitrogen 26 mg/dL (9-16); Calcium 10.2 mg/dL (8.4-10.2); Carbon Dioxide 28 mmol/L (22-29); Chloride 100 mmol/L (96-108); Creatinine Clr Calc Pharmacy 72.6; Estimated Glomerular Filt Rate > 60; Glucose Random 108 mg/dL (60-115); Potassium 5.4 mmol/L (3.3-5.1); Sodium 136 mmol/L (135-145); Total Protein 7.5 g/dL (6.5-8.0)
[2024-04-07 19:59] VITALS: BP 152/69; PULSE 54; RESP 18; TEMP 36.5; O2SAT 99
--- NOTE | 2024-04-07 20:00 | PC.NURSE ---
Patient came to triage door stating that she is feeling that she is going to pass out, vital signs updated and stable. Patient still complaining of abdominal pain, tylenol offered and administered per DEC.
[2024-04-07] MEDS: Acetaminophen 325 MG TABLET 975 MG PO (20:04)
[2024-04-07 20:30] LABS: Appearance Urine Clear; Color Urine Yellow; Glucose Urine UA Negative (Negative); Leukocyte Esterase Urine Small (1+) (Negative); Nitrite Urine Negative (Negative); Specific Gravity - Urine 1.025 (1.005-1.025); UMIC TRIGGER UACC YES; Urine Blood Negative (Negative); Urine Ketones Trace mg/dL (Negative); Urine Protein Trace mg/dL (Neg-Trace)
[2024-04-07 20:36] LABS: Bacteria Urine None Seen (None Seen); Hyaline Casts Urine 0-2 /LPF (0-2); RBC Urine 0-2 /HPF (0-2); Squamous Epithelial Cell Urine 0-2 /HPF (0-2); UACC Culture Trigger YES
[2024-04-07 21:10] VITALS: BP 154/63; PULSE 57; RESP 20; TEMP 36.7; O2SAT 98
--- OUTSIDE RECORDS SUMMARY | 2024-04-07 21:15 | XMS_ITS | Continuity of Care Document ---
Author Organization [facility] Address [address] [place] [id number] Care Team Providers Care Professor Of Engineering Name Role Phone Perry Camp Primary Care Physician Encounter [facility] [place] Date(s): 10/25/23 - 10/26/[address] [id number] [[email or web address]] Discharge Disposition: A-Transfer VNA/Home Health Attending Physician: Parveen Conley MD Admitting Physician: Parveen Conley MD Referring Physician: Parveen Conley MD Allergies, Adverse Reactions, Alerts Substance Reaction Severity Status penicillin Active Vicodin facial rash swelling Active Bee Stings rash swelling Active Medications acetaminophen 325 mg oral tablet 650 mg, By Mouth, Every 6 hours, May take OTC not to exceed 3000 mg/day, Refills 0, Maintenance, 10/26/23 7:17:00 EST, Partial fill upon patient request if the prescription is for a schedule II opioid drug. Start Date: 10/26/23 Status: Ordered Aspirin Tablet 325 mg, By Mouth, 2 times a day, Refills 0, Maintenance, 10/26/23 7:21:00 EST, Partial fill upon patient request if the prescription is for a schedule II opioid drug. Start Date: 10/26/23 Status: Ordered atorvastatin 20 mg oral tablet TAKE 1 TABLET BY MOUTH DAILY Start Date: 09/26/23 Status: Ordered celecoxib 200 mg oral capsule = 200 mg, By Mouth, Daily, 0 Refills, Maintenance, 10/26/23 7:27:00 EST, Capsule, Partial fill uponpatient request if the prescription is for a schedule II opioid drug. Start Date: 10/26/23 Status: Ordered Colace Capsule 100 mg, 1, capsule, By Mouth, 2 times a day, Refills 0, Maintenance, 10/26/23 7:28:00 EST, Partial fill upon patient request if the prescription is for a schedule II opioid drug. Start Date: 10/26/23 Status: Ordered hydrochlorothiazide-losartan 12.5 mg-100 mg oral tablet 1 tablet, By Mouth, Daily, # 90 tablet, 0 Refills, Maintenance, 10/18/23 13:54:00 EST, Tablet, Partial fill upon patient request if the prescription is for a schedule II opioid drug. Start Date: 10/18/23 Status: Ordered losartan 50 mg oral tablet 50 mg, Tablet, By Mouth, Hold for: SBP less than 130, 10/26/23 9:00:00 EST Start Date: 10/26/23 Stop Date: 10/26/23 Status: Completed metoprolol 25 mg oral tablet, extended release 25 mg, XL Tablet, By Mouth, 10/26/23 9:00:00 EST Start Date: 10/26/23 Stop Date: 10/26/23 Status: Completed Metoprolol Succinate ER 25 mg oral tablet, extended release TAKE 1 TABLET BY MOUTH DAILY Start Date: 09/26/23 Status: Ordered MiraLax Powder 1 pack/packet = 17 Gm, By Mouth, Daily, PRN Constipation, 0 Refills, Maintenance, 10/26/23 7:28:00 EST, Powder, Partial fill upon patient request if the prescription is for a schedule II opioid drug. Start Date: 10/26/23 Status: Ordered oxyCODONE 5 mg oral tablet See Instructions, PRN, 1-2 tablets By Mouth Every 4 hours, # 84 tablet, Refills 0, Tot. Refills 0, Acute 11/02/23 7:15:00 EST, Pain , Severe, 10/26/23 7:15:00 EST, Instructions Replace Required Details, Route to Pharmacy Electronically, [facility]... Start Date: 10/26/23 Stop Date: 11/02/23 Status: Ordered OxyCODONE IR Tablet 10 mg, Tablet, By Mouth, Every 4 hours, PRN for Pain , Severe, Routine, 10/25/23 10:28:00 EST Start Date: 10/25/23 Stop Date: 10/26/23 Status: Discontinued pantoprazole 40 mg oral delayed release tablet 1 tablet = 40 mg, By Mouth, Daily, PRN heartburn, # 30 tablet, 0 Refills, Maintenance, 09/26/23 11:15:00 EST, EC Tablet Start Date: 09/26/23 Status: Ordered senna 187 mg oral tablet 1 tablet = 8.6 mg, By Mouth, Daily at bedtime, PRN as needed for constipation, 0 Refills, Maintenance, 10/26/23 7:28:00 EST, Tablet, Partial fill upon patient request if the prescription is for a schedule II opioid drug. Start Date: 10/26/23 Status: Ordered traMADol 50 mg oral tablet See Instructions, PRN Pain , Mild, 1-2 tablets By Mouth Every 6 hours not to exceed 400 mg/day, # 56 tablet, 0 Refills, Acute 11/02/23 7:13:00 EST, 10/26/23 7:13:00 EST, Tablet, [facility], Partial fill upon patient request if the pre... Start Date: 10/26/23 Stop Date: 11/02/23 Status: Ordered valACYclovir 500 mg oral tablet TAKE 1 TABLET BY MOUTH DAILY Start Date: 09/26/23 Status: Ordered Problem List Condition Confirmation Course Effective Dates Status H ealth Status Informant Hypertension Confirmed Active Herpes genitalis in women Confirmed Active Hyperlipidemia Confirmed Active Obese class I Confirmed Active Osteoarthritis Confirmed Active Results Radiology Reports * Exam Date Time Procedure Performing Provider Status 10/25/23 10:35 AM Pelvis 1 or 2 Views Ana Rasmussen (Verified) Notes: (Pelvis 1 or 2 Views) Reason For Exam: Postop Prosthesis RESULT: Pelvis 1 or 2 Views Pelvis 1 or 2 Views INDICATION: Status post right hip arthroplasty. COMPARISON: None. FINDINGS: There is no fracture or dislocation. Status post right hip arthroplasty. No obvious prosthesis abnormality. Mild subcutaneous emphysema in the region of the right hip, likely postsurgical. IMPRESSION: Status post right hip arthroplasty with no evidence of acute abnormality. I have personally reviewed the images and I agree with this report. WSN: [id number] Ordering Physician: Jacqueline Washington Dictated By: Ari Ralph MD Dictated Date/Time: 10/25/23 10:54 a Reviewed By: Rosales Alexandre MD, V Signed By: Rosales Alexandre MD, V Signed Date/Time: 10/25/23 10:59 am Transcribed By: JONNA Transcribed Date/Time: 10/25/23 10:49 am * Exam Date Time Procedure Performing Provider Status 10/25/23 9:26 AM C-Arm < 1 Hour Mare Huizar; Auth (Verified) Notes: (C-Arm < 1 Hour) Reason For Exam: osteoarthritis, right total hip replacement, anterior approach RESULT: C-Arm < 1 Hour Pelvis 1 or 2 Views, C-Arm < 1 Hour INDICATION: Reason: osteoarthritis, right total hip replacement, anterior approach COMPARISONS: None TECHNIQUE: Fluoroscopy support was provided. There was no radiologist in attendance. FLUOROSCOPY TIME: 11.3 seconds EXPOSURE: 0.9501 Gycm2 (Dose Area Product) TECHNOLOGIST TIME: 30 minutes FINDINGS: 20 fluoroscopic images of the lower pelvis and right hip obtained by the portable image intensifierin the operating room are available for review. The patient is status post total right hip arthroplasty using computer assisted musculoskeletal navigational technique. The acetabular and femoral components are in excellent position. Please refer to the operative report for more details. IMPRESSION: See above. WSN: [id number] Ordering Physician: Parveen Conley Dictated By: Rosales Alexandre MD, V Dictated Date/Time: 10/25/23 9:35 am Reviewed By: Rosales Alexandre MD, V Signed By: Rosales Alexandre MD, V Signed Date/Time: 10/25/23 9:35 am Transcribed By: JONNA Transcribed Date/Time: 10/25/23 9:32 am * Exam Date Time Procedure Performing Provider Status 10/25/23 9:26 AM Pelvis 1 or 2 Views Mare Huizar; Auth (Verified) Notes: (Pelvis 1 or 2 Views) Reason For Exam: osteoarthritis, right total hip replacement, anterior approach RESULT: Pelvis 1 or 2 Views Pelvis 1 or 2 Views, C-Arm < 1 Hour INDICATION: Reason: osteoarthritis, right total hip replacement, anterior approach COMPARISONS: None TECHNIQUE: Fluoroscopy support was provided. There was no radiologist in attendance. FLUOROSCOPY TIME: 11.3 seconds EXPOSURE: 0.9501 Gycm2 (Dose Area Product) TECHNOLOGIST TIME: 30 minutes FINDINGS: 20 fluoroscopic images of the lower pelvis and right hip obtained by the portable image intensifierin the operating room are available for review. The patient is status post total right hip arthroplasty using computer assisted musculoskeletal navigational technique. The acetabular and femoral components are in excellent position. Please refer to the operative report for more details. IMPRESSION: See above. WSN: [id number] Ordering Physician: Parveen Conley Dictated By: Rosales Alexandre MD, V Dictated Date/Time: 10/25/23 9:35 am Reviewed By: Rosales Alexandre MD, V Signed By: Rosales Alexandre MD, V Signed Date/Time: 10/25/23 9:35 am Transcribed By: JONNA Transcribed Date/Time: 10/25/23 9:32 am Vital Signs Most recent to oldest [Reference Range]: 1 2 3 Height 174 cm (10/26/23 6:33 AM) 174 cm (10/26/23 4:27 AM) 174 cm (10/25/23 11:58 PM) Weight 103.1 kg (10/25/23 11:39 AM) 103.1 kg (10/25/23 6:20 AM) Oxygen Saturation [94-100 %] 98 % (10/26/23 6:33 AM) 98 % (10/26/23 4:27 AM) 100 % (10/25/23 11:58 PM) Pulse Rate [55-90 bpm] 54 bpm *L* (10/26/23 7:55 AM) 52 bpm *L* (10/26/23 6:33 AM) 60 bpm (10/26/23 4:27 AM) Body Mass Index [18.5-24.99 kg/m2] 34.05 kg/m2 *>HHI* (10/25/23 11:39 AM) Blood Pressure [90-138/55-84 mm Hg] 137/52mm Hg (10/26/23 7:56 AM) 137/52mm Hg (10/26/23 7:55 AM) 124/55mm Hg (10/26/23 6:33 AM) Respiratory Rate [16-30 br/min] 18 br/min (10/26/23 7:56 AM) 18 br/min (10/26/23 6:33 AM) 16 br/min (10/26/23 4:36 AM) Temperature [96.8-100.4 DegF] 97.5 DegF (10/26/23 6:33 AM) 98.0 DegF (10/26/23 4:27 AM) 98.6 DegF (10/25/23 11:58 PM) Liters per Minute 6 L/min (10/25/23 10:00 AM) Mode of Delivery (Oxygen) Room air (10/26/23 6:33 AM) Room air (10/26/23 4:27 AM) Room air (10/25/23 11:58 PM) Blood pressure sites Arm, right (10/26/23 6:33 AM) Arm, right (10/26/23 4:27 AM) Arm, right (10/25/23 11:58 PM) Temperature Route Oral (10/26/23 6:33 AM) Oral (10/26/23 4:27 AM) Oral (10/25/23 11:58 PM) Dry Weight 103.1 kg (10/25/23 11:39 AM) Weight Obtained Via Standing scale (10/25/23 11:39 AM) Dry Weight Obtained Via Standing scale (10/25/23 11:39 AM) Social History Social History Type Response Tobacco Other: Lifetime non- smoker. Sex Female History and physical note * Event Display: History and Physical Hospital Authored Date: [id number] * Event Display: History and Physical Hospital Authored Date: [id number] SURGICAL HISTORY AND PHYSICAL DATE: 10/25/2023 PRIMARY DIAGNOSIS: Osteoarthritis of the right hip. REASON FOR ADMISSION: The patient is being admitted for an anterior right total hip arthroplasty with Dr. Parveen Conley, 10/25/2023. HISTORY OF PRESENT ILLNESS: The patient is a pleasant 73-year-old female, who presents here today with complaints of right hip pain. She states the pain has been getting progressively worse. She has tried and failed nonoperative measures, it is interfering with her ability to perform activities of daily living as well as social tasks and she is now ready to pursue an anterior right total hip arthroplasty with Dr. Parveen Conley, 10/25/2023. PAST MEDICAL HISTORY: 1. Osteoarthritis of the right hip. 2. Obesity, BMI 34.1. 3. Hypertension. 4. Hyperlipidemia. 5. Prediabetes. 6. Herpes genitalis. PAST SURGICAL HISTORY: 1. Left knee arthroscopy. 2. Hysterectomy. MEDICATIONS: The current medications include: 1. Atorvastatin 20 mg by mouth once daily. 2. Combination pill hydrochlorothiazide/losartan 12.5/50 by mouth once daily. 3. Metoprolol succinate ER 25 by mouth once daily. 4. Pantoprazole 40 mg by mouth. She states that she takes as needed. 5. Valacyclovir 500 mg by mouth once daily. ALLERGIES: She reports an allergy to VICODIN, PENICILLIN and BEE STINGS, all of which cause hives. SOCIAL HISTORY: The patient is single. She has approximately 1 alcoholic beverage a week. Denies the use of any tobacco or recreational drugs. REVIEW OF SYSTEMS: A 12-point review of systems is negative with the exception in the HPI. PHYSICAL EXAMINATION: VITAL SIGNS: Height 68 inches, weight 225 pounds, temperature 97.3 degrees, blood pressure 134/65, pulse 61 beats per minute. GENERAL: Alert and oriented. Normal insight, affect, grooming. SKIN: Intact without rash or lesion. HEENT: Normocephalic. Conjunctivae pink. CHEST: Lungs are clear to auscultation bilaterally. CARDIOVASCULAR: Heart has a regular rate and rhythm, normal S1, S2. ABDOMEN: Soft, nontender. EXTREMITIES: Lower extremities, the patient's right hip has no erythema, no abrasions and no edema noted. She has a negative straight leg raise test bilaterally. The range of motion, extension 0 degrees, flexion 100-110, internal rotation and flexion 5-15, external rotation 30-35 degrees, [id number] degrees and adduction 10-15 degrees. Bilateral lower extremities have positive motor sensation screening intact. The calves are supple, nontender. Ankle motion is satisfactory and skin about the feet is intact. PREOPERATIVE DIAGNOSTIC DATA: The patient's orthopedic x-ray shows severe DJD present, changes consistent, show joint space narrowing, subchondral sclerosis and osteophyte formation. The arthrosis primarily affects the medial compartment. EKG shows sinus bradycardia at 51 beats per minute. LABORATORY DATA: CBC from 09/26 shows hemoglobin 13.1, hematocrit 39.5, platelet count 230. Coags within normal limits. INR of 1.0. Chemistries demonstrate a hemoglobin A1c of 5.9, creatinine 0.8, estimated GFR of 72. PHYSICIANS: The patient's primary care provider is Ishan Alston ASSESSMENT AND PLAN: The patient has advanced osteoarthritis of the right hip and is now scheduled for an anterior right total hip arthroplasty with Dr. Parveen Conley, 10/25/2023. She was seen by the medical consultative preop clinic, who feel that the patient is a low risk for any major adverse cardiac or pulmonary risk, and there is no absolute medical contraindication to proceeding with the proposed surgery. She reports being up-to-date with dental services. She has no active issues. Wewill plan to use IV tranexamic acid. She will be on aspirin postop for DVT prophylaxis. Discharge plans will be to home with services. The patient has been counseled regarding the risks and benefits of the surgery. Questions have been answered and acknowledges understanding. She wishes to proceed with surgery. She will have one week in-home physical therapy prior to going to outpatient. Prescription sent today include aspirin, Celebrex, Colace, and pantoprazole. She will require script for pain medications upon discharge. CONTACTS: Her sister, Cindy, who can be reached at [phone]. Dictated by: Zelda Alba N.P. Signing Clinician: Parveen Conley M.D. Dictated: 10/17/2023 11:04:44 Transcribed: 05:33:58 AM Transcribed by: DORIS DocID: [id number] PRELIMINARY REPORT UNLESS MANUALLY/ELECTRONICALLY SIGNED Note * Event Display: Adult Preadmission Health Questionnaire Authored Date: [id number] * Matilde Gay RN: PERFORM Event Display: Discharge/Transfer Note Hospital Authored Date: [id number] Nursing Discharge Note Entered On: 10/26/2023 10:55 EST Performed On: 10/26/2023 10:55 EST by Matilde Gay RN Nursing Discharge Note 2 Discharge Time : 10/26/2023 11:55 EST Matilde Gay RN - 10/26/2023 12:01 EST Discharge Level of Care at Discharge : Homehealth/VNA Discharge VNA/Hospice/Home Care(v001) : [facility] Patient Left Unit Via : Wheelchair Patient Accompanied Off Unit with : Responsible adult DC Instructions Provided & Signed by Pt : Yes Patient Understands D/C Instructions : Yes Patient Instructions Discharge Signed : Yes Did Pt have Specialty Bed or Wound Vac : No Matilde Gay RN - 10/26/2023 10:55 EST * Eric Amaral NP: PERFORM, SIGN, VERIFY Event Display: Discharge/Transfer Note Hospital Authored Date: [id number] Patient: BRIANA DIAZ Age: 73 years Sex: Female : 1950 Associated Diagnoses: None Author: Cristin POMPA, Eric Discharge Summary Admission Date: 10/25/2023 Discharge Date: 10/26/2024 Admitting Diagnosis: Right hip osteoarthritis Discharge Diagnosis: Right hip osteoarthritis Final Diagnosis: Right hip osteoarthritis Procedure: Right total hip arthroplasty Surgeon: Dr. Parveen Conley Past Medical History: 1. Osteoarthritis of the right hip. 2. Obesity, BMI 34.1. 3. Hypertension. 4. Hyperlipidemia. 5. Prediabetes. 6. Herpes genitalis. Orthopedics: The patient is status post right total hip arthroplasty. It is anticipated that she will be discharged home today pending PT, OT clearance. The patient is doing well from a surgical standpoint. Her incision is healing well. Neurovascular status is intact. Calves are supple and nontender. The patient is weight bearing as tolerated. Making good progress with Physical Therapy and Occupational therapy. Supervision with ambulation walking 30 feet, ambulating with a walker. Pain is well controlled on her current regimen, Acetaminophen 650 mg every 6 hours, Celebrex, tramadol and oxycodone 5-10 mg every 4 hours as needed. Patient is tolerating this well. She will be sent home with a pr escription for this medication. Prescription: Tramadol 50 mg tablets, take 1 to 2 tablets every 6 hours as needed for mild pain, 7 days, #56 Oxycodone 5 mg tablet, 1-2 tablets every 4 hours as needed for severe pain, 7 days # 84 Hospital course: Relatively uneventful medically. Patient is voiding spontaneously. + bowel sounds. all morning bowel medications will be given in anticipation of a BM prior to discharge. No other issues. No calf tenderness. Current Medication List: Acetaminophen (acetaminophen 325 mg oral tablet) 650 Milligram By Mouth Every 6 hours May take OTC not to exceed 3000 mg/day Aspirin (Aspirin Tablet) 325 Milligram By Mouth 2 times a day Atorvastatin (atorvastatin 20 mg oral tablet) TAKE 1 TABLET BY MOUTH DAILY Celecoxib (celecoxib 200 mg oral capsule) 200 Milligram By Mouth Daily Docusate (Colace Capsule) 100 Milligram 1 capsule By Mouth 2 times a day Hydrochlorothiazide-Losartan (hydrochlorothiazide-losartan 12.5 mg-100 mg oral tablet) 1 tab(s) By Mouth Daily Metoprolol (Metoprolol Succinate ER 25 mg oral tablet, extended release) TAKE 1 TABLET BY MOUTH DAILY Oxycodone (oxyCODONE 5 mg oral tablet) See Instructions as needed 1-2 tablets By Mouth Every 4 hours Pain , Severe Pantoprazole (pantoprazole 40 mg oral delayed release tablet) 1 tab(s) 40 Milligram By Mouth Daily as needed heartburn Polyethylene Glycol 3350 (MiraLax Powder) 1 pack/packet 17 gram By Mouth Daily as needed Constipation Senna (senna 187 mg oral tablet) 1 tab(s) 8.6 Milligram By Mouth Daily at bedtime as needed as needed for constipation Tramadol (traMADol 50 mg oral tablet) See Instructions as needed Pain , Mild 1-2 tablets By Mouth Every 6 hours not to exceed 400 mg/day ValACYclovir (valACYclovir 500 mg oral tablet) TAKE 1 TABLET BY MOUTH DAILY Allergies (Active and Proposed Allergies Only) Bee Stings (Severity: Unknown severity, Onset: Unknown) Reactions: rash swelling Vicodin (Severity: Unknown severity, Onset: Unknown) Reactions: facial rash swelling penicillin (Severity: Unknown severity, Onset: Unknown) Current Labs: BLOOD COUNT & DIFF WBC 14.5 k/mm3 (High) 10/26/2023 00:53 RBC 3.58 m/mm3 (Low) 10/26/2023 00:53 Hgb 11.1 Gm/dL (Low) 10/26/2023 00:53 Hct 32.4 % (Low) 10/26/2023 00:53 MCV 90.5 femtoliters () 10/26/2023 00:53 MCH 31.0 pg () 10/26/2023 00:53 MCHC 34.3 g/dL () 10/26/2023 00:53 Platelet Count 174 k/mm3 () 10/26/2023 00:53 RDW-SD 41.8 femtoliters () 10/26/2023 00:53 MPV 11.2 femtoliters () 10/26/2023 00:53 Nucleated RBC (Automated) 0.0 #/100 WBC'S () 10/26/2023 00:53 Abs. NRBC 0.0 k/mm3 () 10/26/2023 00:53 CHEM GENERAL Sodium 134 mmol/L () 10/26/2023 00:53 Potassium 4.7 mmol/L () 10/26/2023 00:53 Chloride 99 mmol/L () 10/26/2023 00:53 Bicarbonate Level 26 mmol/L () 10/26/2023 00:53 Anion Gap 9 () 10/26/2023 00:53 Glucose, POC 122 mg/dL (High) 10/25/2023 06:35 BUN 28 mg/dL (High) 10/26/2023 00:53 Creatinine-Blood 1.0 mg/dL () 10/26/2023 00:53 Estimated GFR Creatinine 60 ML/MIN/1.73 M2 () 10/26/2023 00:53 URINE OTHER Est Creatinine Clearance 49.92 mL/min () 10/26/2023 03:40 DVT prophylaxis ASA EC 325 mg po bid x 30 days Disposition: Anticipates being discharged today to home. Follow up at [facility] in 2 weeks, patient is aware of this. The patient has an Aquacel dressing in place. She may shower with it and the dressing can be discontinued on POD 14. Discharge Plan Discharge Disposition Discharge: home with VNA. Home Health Face to Face I certify that this patient is under my care and that I or an allowed non- physician practitioner working with me, had a ukyv-fe-kwsy encounter with the patient on this date: 10/26/2023. The encounter with the patient was in whole, or in part, for the following medical condition, whichis the primary reason for home health care: Osteoarthritis of right hip. Physical Therapy: Functional mobility training, Home exercise program to strengthen, increase ROM, Falls prevention training. Occupational Therapy: ADL Management, Fall prevention training, Energy conservation. Homebound due to: Inability to leave home without assistance/supervision, Inability to ambulate without assistance, Pain, decreased strength, and endurance, Unsteady gait, Impaired transfers, Inability to negotiate stairs. Physician Signature: Jarvis AVALOS, Parveen Guerra * Victor Hugo REESE, Matilde: PERFORM Event Display: Patient Education/Instruction Authored Date: [id number] Inpatient Adult Discharge Instructions [place] [id number] Name: BRIANA DIAZ : 1950 Visit: 10/25/2023 05:53:00 Current Date: 10/26/2023 10:56 Account: [id number] Inpatient Adult Discharge Instructions We would like to thank you for allowing us to assist you with your healthcare needs. The following includes patient education materials and information regarding your injury/illness. Our entire staffstrives to provide an excellent experience for our patients and their families. PLEASE ENSURE YOU FOLLOW-UP PER THE INSTRUCTIONS BELOW! ?? YOUR OPINION IS IMPORTANT TO US! Please complete the survey you may receive by mail or email. Your feedback will be used to make improvements to the healthcare experiences of our patients and their families. Surveys are administered by [employer], [employer]. ?? If further treatment with your primary care physician or another doctor is recommended, it is important for you to keep the appointment. Call your primary care physician or return to the Emergency Department immediately if your condition worsens, fails to improve, or new symptoms develop. If you need to find a doctor, you can call [facility] for a referral at [phone] or toll free at [phone] ([phone]) or log in to [email or web address] ?? [facility], in keeping with [facility] guidance, no longer requires face masks for staff, patientsor visitors in most situations. Similiar to time spent indoors at other locations, there is the chance that you were exposed to repiratory viruses during your time with us (such as flu or COVID-19). If you develop symptoms concerning for a viral respiratory infection, please seek testing (and treatment if indicated) from your medical provider or home test kit. ?? You can view and manage your care through the patient portal or by using a health care larissa of your choosing. [employer] is a website that allows you to securely view your medical information including your hospital discharge summary, office visit summaries, medications and follow-up visits. You can also request appointments, renew medications, and request access to your medical information using a health care larissa of your choosing, or just ask a question. You can enroll at [email or web address] or register during your next office visit. You have been discharged from [facility], Patient Care Unit: SW7. If you have any questions regarding these instructions after you leave, please call us and we will be happy to assist you. [facility] Your Care Team Attending Physician Jarvis AVALOS, Parveen Harrell Consulting Providers Jarvis AVALOS, Parveen Harrell Discharging Providers Eric Amaral NP Reason for Admission OA RIGHT HIP 23 HR Your Diagnosis Osteoarthritis of right hip Tests Performed Below is a partial list of the tests performed during your hospitalization. You may have had other tests and procedures not included in this list. Please discuss all test results with your provider. BUN CBC Creatinine Electrolytes GLUCOSE POC XR C-Arm < 1 Hour XR Pelvis 1 or 2 Views Primary Care Provider Perry Camp Advance Directive Health Care Proxy on File No Discharge Vitals Temperature: 97.5 DegF Height: 174 cm Pulse Rate:??54 bpm??Low Weight: 103.1 kg Respiratory Rate: 18 br/min Body Mass Index:??34.05 kg/m2??Critical Systolic Blood Pressure: 137 mm Hg Body surface area: 2.23 Diastolic Blood Pressure:??52 mm Hg??Low ?? Oxygen Saturation: 98 % ?? Studies Pending All tests and labs ordered during this hospital stay have been completed unless listed below. Please discuss all pending results with your provider listed above in these instructions. ?? BUN CBC Creatinine Electrolytes What to do next Instructions From Your Doctor Discharge Orders You Need to Schedule the Following Appointments Follow Up with??[facility] When:??Within Within two weeks Discharge Medications BRIANA DIAZ :1950 Visit Date:10/25/2023 Medications: Please continue your medications until treatment is completed or stopped by your provider. Medications not listed below should be discontinued. Discuss any questions related to medications with your provider. What How Much When Instructions Next Dose New Acetaminophen (acetaminophen 325 mg oral tablet) 650 Milligram Oral Every 6 hours May take OTC ?? not to exceed 3000 mg/ day ?? Oct.26 5:00 pm New Aspirin (Aspirin Tablet) 325 Milligram Oral Twice a day Take 325 mg tablet twice a day for 30 days for the prevention of blood clots. Oct.26 9:00 pm New Celecoxib (celecoxib 200 mg oral capsule) 200 Milligram Oral Daily Oct.27 9:00 am New Docusate (Colace Capsule) 100 Milligram Oral Twice a day Oct.26 9:00 pm New Oxycodone (oxyCODONE 5 mg oral tablet) See instructions 1-2 tablets ??By Mouth Every 4 hours, As needed for Pain , Severe ?? Pickup at [facility] For moderate to severe pain. Do not take if taking Tramadol. Oct.26 12:30??pm New Polyethylene Glycol 3350 (MiraLax Powder) 17 gram Oral Daily as needed for Constipation as needed New Senna (senna 187 mg oral tablet) 1 tab(s) Oral Daily at Bedtime as needed for as needed for constipation as needed New Tramadol (traMADol 50 mg oral tablet) See instructions 1-2 tablets ??By Mouth Every 6 hours not to exceed 400 mg/ day, As needed for Pain , Mild ?? Pickup at [facility] For mild to moderate pain. Do not take if taking Oxycodone. see instructions Unchanged Atorvastatin (atorvastatin 20 mg oral tablet) TAKE 1 TABLET BY MOUTH DAILY ?? Oct.26 9:00 pm Unchanged Hydrochlorothiazide-Losartan (hydrochlorothiazide-losartan 12.5 mg-100 mg oral tablet) 1 tab(s) Oral Daily Oct.27 9:00 am Unchanged Metoprolol (Metoprolol Succinate ER 25 mg oral tablet, extended release) TAKE 1 TABLET BY MOUTH DAILY ?? Oct.27 9:00 am Unchanged Pantoprazole (pantoprazole 40 mg oral delayed release tablet) 1 tab(s) Oral Daily as needed for heartburn Oct.27 9:00 am Unchanged ValACYclovir (valACYclovir 500 mg oral tablet) TAKE 1 TABLET BY MOUTH DAILY ?? Oct.27 9:00 am Pharmacy Information [facility]: [address], [place] [id number] [phone] Test Results Below is a partial list of the most recent Laboratory test results done prior to this discharge. You may have had other tests and procedures not included in this list. Please discuss all test resultswith your provider. Est Creatinine Clearance - 49.92 mL/min (10/26/2023) 23765 (10/25/2023) ? ?Surgical Pathology - Patient Name: BRIANA DIAZ
Lab
Patient : 1950 (Age: 73)
Collection Date: 10/25/2023
Accession Date: 10/25/2023
Sign Out Date: 10/26/2023

Tissue Source:
1:RIGHT FEMORAL HEAD

Final Diagnosis:
Femoral head, right, excision:
- Femoral head with degenerative changes of a rticular cartilaginous surface consistent with osteoarthritis (gross examination).

Primary Pathologist:Jose Martin Hoyos M.D.
electronically signed out by: Jose Martin Hoyos M.D. / KRIS

Clinical History:
Osteoarthritis right hip.

Gross Description:
Labeled "right femoral head . Received in formalin is a 5 x 4.8 x 4.5 cm femoral head with a smooth cut, granular, congested resection margin. The articular surface is diffusely pitted and eroded without eburnation and there is moderate osteophyte formation peripherally. Cut surfaces are focally congested without a discrete mass lesion or areas suspicious for avascular necrosis. The articular surface ranges in thickness from 0.3 to 0.1 cm. The specimen is for gross examination only and no tissue sections are submitted.
(MN)*&lt ;br/>

Phone #: [phone], On-Call Pathologist: [id number] BUN (10/26/2023) ???BUN - 28 mg/dL CBC (10/26/2023) ???WBC - 14.5 k/mm3???RBC - 3.58 m/mm3???Hgb - 11.1 Gm/dL???Hct - 32.4 %???MCV - 90.5 femtoliters???MCH - 31.0 pg???MCHC - 34.3 g/dL???Platelet Count - 174 k/mm3???RDW-SD - 41.8 femtoliters???MPV - 11.2 femtoliters???Nucleated RBC (Automated) - 0.0 #/100 WBC'S???Abs. NRBC - 0.0 k/mm3 Creatinine (10/26/2023) ???Creatinine-Blood - 1.0 mg/dL???Estimated GFR Creatinine - 60 ML/MIN/1.73 M2 Electrolytes (10/26/2023) ???Sodium - 134 mmol/L???Potassium - 4.7 mmol/L???Chloride - 99 mmol/L???Bicarbonate Level - 26 mmol/L???Anion Gap - 9 GLUCOSE POC (10/25/2023) ???Glucose, POC - 122 mg/dL Allergies (NKA means No Known Allergies) Bee Stings??(rash swelling) Vicodin??(facial rash swelling) penicillin Problems Active Problems??(5) Herpes genitalis in women?? Hyperlipidemia?? Hypertension?? Obese class I?? Osteoarthritis?? Education Materials Below is the list of Educational Leaflet Providered with your Discharge Instructions. Total Hip Replacement Discharge Instructions?? Valuables and Belongings I fully understand and agree that [facility] accepts no responsibility for all my personal property including clothing, toilet articles, radios, jewelry, dentures, hearing aids, rings, money, or any other property that is in my possession or is brought to me after admission. I understand certain valuables may be placed in a hospital safe for a short period of time. I understand that the hospital is not liable for loss or damage due to accident, fire, or other natural occurrence while said property is in the safe. I accept full responsibility for any personal property that I keep with me, and will not hold the hospital responsible in case of loss or disappearance. I acknowledge that i have been encouraged to send valuables and belongings home. ?? Review of Valuable and Belonging List: With patient Date for Pt to Sign Valuables/Belongings: 10/25/23 11:48:00 ?? Other Discharge Information ? Case Management Discharge Plan?? Discharge Plan?? Discharge Agency Information?? Discharge Level of Care at Discharge: Homehealth/VNA Name of Agency #1: [facility] Discharge Rx Program: Discharge Prescription Program Service Categories #1: Occupational Therapy, Physical Therapy Discharge [facility]NA/Hospice/Home Care: [facility] Comments #1: The VNA will call you the day after you are discharged to set up a visit time.If you do not hear from them, please call them at [facility] ?? Pulmonary Rehab Status?? Pulmonary Rehab Discharge Status?? Respiratory Rate: 18 br/min ? Common Emergency Awareness Tips IS IT A STROKE? Act FAST and Check for these signs: FACE Does the face look uneven? ARM Does one arm drift down? SPEECH Does their speech sound strange? TIME Call at any sign of stroke ?? Heart Attack Signs Chest discomfort: Most heart attacks involve discomfort in the center of the chest and lasts more than a few minutes, or goes away and comes back. It can feel like uncomfortable pressure, squeezing, fullness or pain. Discomfort in upper body: Symptoms can include pain or discomfort in one or both arms, back, neck, jaw or stomach. Shortness of breath: With or without discomfort. Other signs: Breaking out in a cold sweat, nausea, or lightheaded. Remember, MINUTES DO MATTER. If you experience any of these heart attack warning signs, call to get immediate medical attention! ?? Smoking can increase your chances of developing chronic health problems and can cause harmful effects to other family members in your house. If you smoke, you are strongly encouraged to quit. Please call [facility] at [phone] or [phone] ([phone]) or log in to [email or web address] for referrals to smoking cessation programs. ?? 718 Suicide & Crisis Lifeline is available 14/05 if you or someone you know needs to find a reason to keep living. By calling 468 you'll be connected to a skilled, trained counselor at a crisis center in your area. INPATIENT DISCHARGE INSTRUCTIONS SIGNATURE PAGE BRIANA DIAZ Location:[facility] Registration Date and Time:10/25/2023 05:53 EST Primary Care Physician: Perry Camp, Attending Physician: Jarvis AVALOS, Parveen Harrell, I BRIANA DIAZ, have received the above patient education materials/instructions and have verbalized understanding. If ambulance or transport services are being used I further acknowledge being given a choice of service. ?? If you need to contact me, please call me at this number: . Patient/Supervising Film Or Videotape Editor Name: Patient/Supervising Film Or Videotape Editor Signature: Relationship to Patient: Witness Name/Signature: Date: * Victor Hugo REESE, Matilde: PERFORM Event Display: Patient Education Leaflets Authored Date: [id number] Total Hip Replacement Discharge Instructions ?? 666 Total Hip Replacement Discharge Instructions ? Please read and review your Total Hip Replacement Book for detailed information ??? Your appetite may be decreased but try to maintain a good balanced diet Incision ?Your incision is closed with absorbable stitches and surgical glue. ?The dressing is waterproof. You may shower the next day. ??? Your dressing will stay on for 1-2 weeks ?You cannot go in a bath, pool, ocean, pond, merrill or jacuzzi for 6 weeks. This is to reduce your risk of infection ? You may have some numbness around the incision. This is normal and will improve with time. Some patients have numbness that does not completely go away. ??? You may have skin discoloration (yellowish or bruising) around your incision which may develop. ??? Ice and elevation ? Ice is important to help keep swelling down. ?Keep your leg elevated as much as possible. ?Ice your hip 4 times a day for 20 minutes each time. Be sure not to put the ice/ice pack directly on your skin. Use a dishtowel or something similar between your skin and the ice. ??? Xavier Medrano, and Ericka???Fry patients: The blue wedge is to be used between your knees when sleeping and sitting in a chair for the first few weeks. This keeps your hip in the proper position ? Moving ? Moving is especially important. This helps to prevent blood clots. Take short frequent walks. ? Exercises as per physical therapy ??? No driving until approved by your surgeon ??? Continue to move your foot up and down, these exercises help to prevent blood clots and help to decrease swelling in your hip. ?? When to call the Surgeon?CALL [phone] ? If you have shortness of breath or chestpain, call 911 or go to the nearest emergency department. ??? If you have drainage and/or redness around your wound. ??? If you have a fever greater than 101.5 (38.5 degrees Celsius). ??? If you havepersistent calf pain or swelling (This could be a blood clot). ??? If your pain is worsening. ? If you have any difficulty with urination or burning with urination. ?? Cardiology * Event Display: Cardiac Rhythm Strips Authored Date: Hospital Progress note * Matilde Gay RN: VERIFY, PERFORM, MODIFY, SIGN Event Display: Progress Note Hospital Authored Date: Patient: BRIANA DIAZ Age: 73 years Sex: Female : 1950 Associated Diagnoses: None Author: Matilde Gay RN Findings Problem Related to Alteration in Musculoskeletal : Alteration in Musculoskeletal Func/new 10/26/2023 11:00 EST Alteration in Musculoskeletal Related to Mobility, Orthopedic Procedure, Total joint replacement, Other: R ant THR 10/[address] Conley Goals & Outcomes, Musculoskeletal Affected extremity will maintain color/motion/sensation, Pt able to perform ADL's to best of ability, Pt demonstrates precautions/exercise/ transfers per protocol, Pt will ambulate safely with assistive device, Pt will be free from complications of immobility, Pt will report acceptable level of comfort/pain relief Interventions, Musculoskeletal Resolved problem, Interventions no longer in effect Goals/Interventions, Musculoskeletal Yes Musculoskeletal, Problem Start 10/25/2023 11:20 Reviewed Plan with, Musculoskeletal Patient Patient Progression, Musculoskeletal Resolved problem Musculoskeletal, Problem Resolved 10/26/2023 11:18 . Nursing Data Vital Signs : VITAL SIGNS SECTION 10/26/2023 7:56 EST Respiratory Rate 18 br/min Systolic Blood Pressure 137 mm Hg Diastolic Blood Pressure 52 mm Hg L 10/26/2023 7:55 EST Pulse Rate 54 bpm L Systolic Blood Pressure 137 mm Hg Diastolic Blood Pressure 52 mm Hg L 10/26/2023 6:34 EST Early Warning Score 3.00 10/26/2023 6:33 EST Temperature 97.5 DegF Temperature Route Oral Pulse Rate 52 bpm L Respiratory Rate 18 br/min Systolic Blood Pressure 124 mm Hg Diastolic Blood Pressure 55 mm Hg Blood pressure sites Arm, right Mean Arterial Pressure 78 mm Hg Pulse Pressure 69 mm Hg Oxygen Saturation 98 % Mode of Delivery (Oxygen) Room air . Narrative/Incidental Patient A & O x 4. VSS. POD # 1 for R Ant ABDIRAHMAN by Dr. Conley, 10/25/22. Aquacel CDI. +PP, +DF,+PF, +CMS to R LE. Encouraged ank pumps x20 reps hour. ASA and C- Boots for DVT prophylaxis. States pain at rest, 1/10, with movement, 9/10. Scheduled and prn pain meds given with + effect. Denies CP, SOB, N/V. N/T. LS CTA, Compliant with Inc loni hourly usage. ABD SRNT, +BS. LBM 10/24/23. Patient endorses + flatulence. Voiding without difficulty. Eating and drinking without issues. Safety checks completed. Bed in lowest locked position with call cook within reach. Alarm on for safety. Hourly rounding. Up to recliner chair during the day. Call cook within reach. . Evaluation P:Alteration in Musculoskeletal I: Interventions per Plan E:Patient A & O x 4. VSS. POD # 1 for R Ant ABDIRAHMAN by Dr. Conley, 10/25/22. Aquacel CDI. +PP, +DF,+PF, +CMS to R LE. Encouraged ank pumps x20 reps hour. ASA and C-Boots for DVT prophylaxis. Statespain at rest, 1/10, with movement, 9/10. Scheduled and prn pain meds given with + effect. Participated in PT/OT. Cleared for discharge home. Discharge orders received. Discharge paperwork prepared and verbal and written instructions given with verbal and written acknowledgement of understanding of instructions. Paperwork signed and placed in scanning bin. IV removed with tip intact.Patient left with all belongings via w/c with hospital personnel. . Discharge Information Rehabilitation Discharge : Rehab Discharge Index 10/26/2023 9:27 EST Walker: distance >50 10/25/2023 15:04 EST Comments on treatment indicated 73 yo F s/p R ABDIRAHMAN with Dr. Conley on 10/25/23. RLE WBAT with anterior THPs (avoid (excessive ER/ext). Skilled PT for transfers, gait with RW, stairs, therex. Rec home with services (Modified) Walker: distance 20-50 Distance pt will ambulate 100ft with RW Full chart review completed Yes Hospital course Hospital course Other findings see comment Plan of care PT Gait training, Transfer training, Therapeutic exercise, Functional Activities, Balance training, Neuromuscular education 10/25/2023 14:50 EST Comments on treatment indicated OT to address ADL's, transfers, safety Full chart review completed Yes Hospital course PROCEDURE: Pt s/p anterior right total hip arthroplasty with Dr. Parveen Conley, 10/25/2023. Transfer tub/shower OT Plan Supervision * Briana Ocasio RN: PERFORM, SIGN, VERIFY Event Display: Progress Note Hospital Authored Date: [id number] Patient: BRIANA DIAZ Age: 73 years Sex: Female : 1950 Associated Diagnoses: None Author: Briana Ocasio RN Findings Problem Related to Alteration in Musculoskeletal : Alteration in Musculoskeletal Func/new 10/26/2023 2:29 EST Alteration in Musculoskeletal Related to Mobility, Orthopedic Procedure, Total joint replacement, Other: R ant THR 10/[address] Conley Goals & Outcomes, Musculoskeletal Affected extremity will maintain color/motion/sensation, Pt able to perform ADL's to best of ability, Pt demonstrates precautions/exercise/ transfers per protocol, Pt will ambulate safely with assistive device, Pt will be free from complications of immobility, Pt will report acceptable level of comfort/pain relief Interventions, Musculoskeletal Monitor patients ambulation status, monitor Color/Motion/Sensation, Assist with repositioning, Encourage deep breathing & coughing exercises, Notify MD immediately if tissue perfusion deteriorates, Obtain assistive devices as needed, Teach & Encourage use of Incentive spirometer, Teach Pt/caregiver on ADL's & adaptive equipment, Teach Pt/caregiver on exercises, Teach pt/caregiver on use of pain scale, Teach Pt/caregiver complications of immobility, Teach Pt/caregiver techniques to increase mobility, Teach Pt/caregiver on safety precautions BH Goals/Interventions, Musculoskeletal Yes Musculoskeletal, Problem Start 10/25/2023 11:20 Reviewed Plan with, Musculoskeletal Patient Patient Progression, Musculoskeletal Pt progressing according to plan . Nursing Data Vital Signs : VITAL SIGNS SECTION 10/25/2023 23:58 EST Early Warning Score 0.00 10/25/2023 23:58 EST Early Warning Score 2.00 10/25/2023 23:58 EST Temperature 98.6 DegF Temperature Route Oral Pulse Rate 81 bpm Respiratory Rate 16 br/min Systolic Blood Pressure 110 mm Hg Diastolic Blood Pressure 53 mm Hg L Blood pressure sites Arm, right Mean Arterial Pressure 72 mm Hg Pulse Pressure 57 mm Hg Oxygen Saturation 100 % Mode of Delivery (Oxygen) Room air 10/25/2023 20:06 EST Early Warning Score 2.00 10/25/2023 20:03 EST Respiratory Rate 16 br/min 10/25/2023 19:19 EST Early Warning Score 2.00 10/25/2023 19:18 EST Temperature 97.8 DegF Temperature Route Oral Pulse Rate 92 bpm H Respiratory Rate 16 br/min Systolic Blood Pressure 131 mm Hg Diastolic Blood Pressure 59 mm Hg Blood pressure sites Arm, right Mean Arterial Pressure 83 mm Hg Pulse Pressure 72 mm Hg Oxygen Saturation 99 % Mode of Delivery (Oxygen) Room air . Evaluation P: As per nursing care plans listed above I: See interventions listed in care plans above E: Pt is a 73 yo female, s/p anterior RTHA with Dr. Conley on 10/25. A&Ox4, VSS, lungs clear. Pt has +CMS, +D/P, +PP. Pt reports pain of 4/10 to the right hip, scheduled tylenol q6, PRN PO oxy 5 mg given with +effect. BS+, abdomen soft, nontender, nondistended, last BM 10/24. Pt OOB 1 assist withwalker. Pt voiding cyu in the BR with no issues. Aquacel dressing to the right hip C/D/I, ice in place for swelling and discomfort. Pt will be starting ASA for DVT prophylaxis in AM, cboots on bilaterally, patient was encouraged to use incentive spirometer, bed alarm activated for safety, fall prevention and safety education provided, call cook within reach, bed in low locked position. . Discharge Information Case Management Discharge Plan : Case Management Discharge Plan Data 10/25/2023 12:01 EST Discharge Level of Care at Discharge Homehealth/VNA Discharge [facility]ospice/Home Care [facility] Name of Agency #1 [facility] Service Categories #1 Occupational Therapy, Physical Therapy Service Comments #1 The VNA will call you the day after you are discharged to set up a visit time. If you do not hear from them, please call them at [facility] Rehabilitation Discharge : Rehab Discharge Index 10/25/2023 15:04 EST Comments on treatment indicated 73 yo F s/p R ABDIRAHMAN with Dr. Conley on 10/25/23. RLE WBAT with anterior THPs (avoid (excessive ER/ext). Skilled PT for transfers, gait with RW, stairs, therex. Rec home with services (Modified) Walker: distance 20-50 Distance pt will ambulate 100ft with RW Full chart review completed Yes Hospital course Hospital course Other findings see comment Plan of care PT Gait training, Transfer training, Therapeutic exercise, Functional Activities, Balance training, Neuromuscular education 10/25/2023 14:50 EST Comments on treatment indicated OT to address ADL's, transfers, safety Full chart review completed Yes Hospital course PROCEDURE: Pt s/p anterior right total hip arthroplasty with Dr. Parveen Conley, 10/25/2023. Transfer tub/shower OT Plan Supervision * Earline Cooper RN: VERIFY, PERFORM, SIGN Event Display: Progress Note Hospital Authored Date: Patient: BRIANA DIAZ Age: 73 years Sex: Female : 1950 Associated Diagnoses: None Author: Earline Cooper RN Findings Problem Related to Alteration in Musculoskeletal : Alteration in Musculoskeletal Func/new 10/25/2023 11:00 EST Alteration in Musculoskeletal Related to Mobility, Orthopedic Procedure, Total joint replacement, Other: R ant THR 10/[address] Conley Goals & Outcomes, Musculoskeletal Affected extremity will maintain color/motion/sensation, Pt able to perform ADL's to best of ability, Pt demonstrates precautions/exercise/ transfers per protocol, Pt will ambulate safely with assistive device, Pt will be free from complications of immobility, Pt will report acceptable level of comfort/pain relief Interventions, Musculoskeletal Monitor patients ambulation status, monitor Color/Motion/Sensation, Assist with repositioning, Encourage deep breathing & coughing exercises, Notify MD immediately if tissue perfusion deteriorates, Obtain assistive devices as needed, Teach & Encourage use of Incentive spirometer, Teach Pt/caregiver on ADL's & adaptive equipment, Teach pt/caregiver on useof pain scale, Teach Pt/caregiver on safety precautions, Incision care as ordered, [place] Pt/caregiver to Total Hip Replacement protocol, Instruct pt on gait training BH Goals/Interventions, Musculoskeletal Yes Musculoskeletal, Problem Start 10/25/2023 11:20 Reviewed Plan with, Musculoskeletal Patient Patient Progression, Musculoskeletal Plan Initiation . Nursing Data Vital Signs : VITAL SIGNS SECTION 10/25/2023 11:39 EST Temperature 97.2 DegF Temperature Route Oral Pulse Rate 51 bpm L Respiratory Rate 18 br/min Systolic Blood Pressure 143 mm Hg H Diastolic Blood Pressure 78 mm Hg Blood pressure sites Arm, left Mean Arterial Pressure 100 mm Hg Pulse Pressure 65 mm Hg Oxygen Saturation 100 % Mode of Delivery (Oxygen) Room air . Narrative/Incidental Pt arrived from [facility] via stretcher s/p anterior R THR 10/[address] Conley. Pt tx from stretcher to bed with staff sliding, as pt is still numb. Pt A+O x3. Pt denies any pain upon arrival in her R hip. Discussed post-op pain management at great length, plan to start oral pain medication as soon aspossible-pt verbalizes understanding. IVF running per current orders. Pt denies any nausea/vomitting-regular diet initiated. IS provided and pt educated on proper use. Pt accurately demonstrates, encouraged to use 10x per hour. Pt denies any SOB or chest pain currently. Last BM 10/24. Pt bladder scanned upon arrival for 526, will continue to monitor strict I&Os. R anterior hip with aquacel dsg C /D/I. Very weak DF and PF RLE, +PP RLE-will continue to monitor strict CMS. Ice present for comfort. C-boots and plan for aspirin 325 mg. BID for DVT prophylaxis. Pt positively oriented to room [id number], safety and fall precautions, and use of call cook. Discussed plan of care at great length, all questions answered/addressed. Pt to work with PT/OT shortly once full sensation regained and probable discharge plan home with services pending MD/PT/OT rec.. Discharge Information Case Management Discharge Plan : Case Management Discharge Plan Data 10/25/2023 12:01 EST Discharge Level of Care at Discharge Homehealth/VNA Discharge [facility]NA/Hospice/Home Care [facility] Name of Agency #1 [facility] Service Categories #1 Occupational Therapy, Physical Therapy Service Comments #1 The VNA will call you the day after you are discharged to set up a visit time. If you do not hear from them, please call them at [facility] Patient Care team information Care Team Personnel Name: Perry Camp Position: Reference Physician Member Role: PCP Address: Address: [address] [place] [id number]
--- OUTSIDE RECORDS SUMMARY | 2024-04-07 21:15 | XMS_ITS | Continuity of Care Document ---
Author Organization [facility] Address [address] [place] [address]- Care Team Providers Care Cottage Attendant Name Role Phone Perry Camp Primary Care Physician [phone] Encounter [facility] [place] Date(s): 09/26/23 - 10/03/23 [facility] [address], [place] [address] Attending Physician: David Schafer MD Referring Physician: Jarvis AVALOS, Parveen Harrell Allergies, Adverse Reactions, Alerts Substance Reaction Severity Status penicillin Active Vicodin Active Medications atorvastatin 20 mg oral tablet TAKE 1 TABLET BY MOUTH DAILY Start Date: 09/26/23 Status: Ordered hydrochlorothiazide-losartan 12.5 mg-50 mg oral tablet TAKE 1 TABLET BY MOUTH DAILY Start Date: 09/26/23 Status: Ordered Metoprolol Succinate ER 25 mg oral tablet, extended release TAKE 1 TABLET BY MOUTH DAILY Start Date: 09/26/23 Status: Ordered pantoprazole 40 mg oral delayed release tablet 1 tablet = 40 mg, By Mouth, Daily, PRN heartburn, # 30 tablet, 0 Refills, Maintenance, 09/26/23 11:15:00 EST, EC Tablet Start Date: 09/26/23 Status: Ordered valACYclovir 500 mg oral tablet TAKE 1 TABLET BY MOUTH DAILY Start Date: 09/26/23 Status: Ordered Problem List Condition Confirmation Course Effective Dates Status H ealth Status Informant Hypertension Confirmed Active Herpes genitalis in women Confirmed Active Hyperlipidemia Confirmed Active Obese class I Confirmed Active Osteoarthritis Confirmed Active Procedures Procedure Date Related Diagnosis Body Site Status Hysterectomy; knee arthroscopy Completed Vital Signs Most recent to oldest [Reference Range]: 1 Height 172.5 cm (09/26/23 10:58 AM) Weight 101.5 kg (09/26/23 10:58 AM) Oxygen Saturation [94-100 %] 99 % (09/26/23 10:58 AM) Pulse Rate [55-90 bpm] 57 bpm (09/26/23 10:58 AM) Body Mass Index [18.5-24.99 kg/m2] 34.11 kg/m2 *>HHI* (09/26/23 10:58 AM) Blood Pressure [90-138/55-84 mm Hg] 140/ 71mm Hg *H* (09/26/23 10:58 AM) Respiratory Rate [16-30 br/min] 16 br/mi n (09/26/23 10:58 AM) Mode of Delivery (Oxygen) Room air (09/26/23 10:58 AM) Blood pressure sites Arm, left (09/26/23 10:58 AM) Weight Obtained Via Standing scale (09/26/23 10:58 AM) Social History Social History Type Response Tobacco Other: Lifetime non- smoker. Sex Female EKG study * Event Display: ECG 12-Lead Authored Date: Please click on pdf link to open report * Event Display: ECG 12-Lead Authored Date: Ventricular Rate: 51 BPM Atrial Rate: 51 BPM P-R Interval: 166 ms QRS Duration: 102 ms Q-T Interval: 444 ms QTC Calculation(Bazett): 409 ms P Viking: 47 degrees R Viking: -5 degrees T Viking: 39 degrees Sinus bradycardia Minimal voltage criteria for LVH, may be normal variant Borderline ECG No previous ECGs available Confirmed by DANDY ADKINS MD ([id number]) on 09/26/2023 3:11:10 PM [place]: DANDY ADKINS MD Patient Care team information Care Team Personnel Name: Perry Camp Position: Reference Physician Member Role: PCP Address: Address: [address] [place], [place] [address]
--- OUTSIDE RECORDS SUMMARY | 2024-04-07 21:15 | XMS_ITS | Continuity of Care Document ---
Author Organization [facility] ter Address [address] [place] [address]- Care Team Providers Care Dust Collector Ore Crushing Name Role Phone Perry Camp Primary Care Physician [phone] Encounter [facility] [place] Date(s): 09/26/23 - 10/26/[address] [address] Attending Physician: Partha Smyth Admitting Physician: AdmtrPartha Referring Physician: Admtr, Ar8 Allergies, Adverse Reactions, Alerts Substance Reaction Severity [...] opioid drug. Start Date: 10/18/23 Status: Ordered Metoprolol Succinate ER 25 mg [...] Replace Required Details, Route to Pharmacy Electronically, [facility] Start Date: 10/26/23 Stop Date: 11/02/23 Status: Ordered pantoprazole 40 mg oral delayed [...] 11/02/23 7:13:00 EST, 10/26/23 7:13:00 EST, Tablet, [facility], Partial fill upon patient request if [...] class I Confirmed Active Osteoarthritis Confirmed Active Social History Social History Type Response Tobacco Other: Lifetime non- smoker. Sex Female Patient Care team information Care Team Personnel Name: Perry Camp Position: Reference Physician Member Role: PCP Address: Address: [address] [place], [place] [address]
--- OUTSIDE RECORDS SUMMARY | 2024-04-07 21:15 | XMS_ITS | Continuity of Care Document ---
Author Organization [facility] Address [address] [place] [address]- Care Team Providers Care Bridge Toll Collector Name Role Phone Perry Camp Primary Care Physician [phone] [place] [facility] [place]/26[place] - 10/26/23 [facility] [address] [place], [place] [address] [place] Attending Physician: Partha Smyth Admitting Physician: AdmPartha merchant Referring Physician: AdmtrPartha Allergies, Adverse Reactions, Alerts Substance Reaction Severity [...] Replace Required Details, Route to Pharmacy Electronically, [facility] Start Date: 10/26/23 Stop Date: 11/02/23 [...] 11/02/23 7:13:00 EST, 10/26/23 7:13:00 EST, Tablet, [facility], Partial fill upon patient request [...] Physician Member Role: PCP Address: Address: [address] [place], [place] [address] [place]
[2024-04-07 22:50] VITALS: BP 112/64; PULSE 57; RESP 18; TEMP 36.7; O2SAT 98
[2024-04-08] MEDS: 0.9 % Sodium Chloride 1,000 ML 999 ML IV (00:01)
[2024-04-08] MEDS: Ketorolac Tromethamine 30 MG/ML VIAL 15 MG IVPUSH (00:02)
[2024-04-08] MEDS: iohexoL 350 MG/ML 100 ML INFUS..BTL 85 ML IV (00:02)
[2024-04-08 00:27] VITALS: BP 154/65; PULSE 54; RESP 16; TEMP 36.4; O2SAT 98
[2024-04-08 02:01] VITALS: BP 138/63; PULSE 53; RESP 16; TEMP 36.4; O2SAT 97
[2024-04-08 02:25] LABS: Anion Gap 13 (12-20); Blood Urea Nitrogen 27 mg/dL (9-16); Calcium 9.3 mg/dL (8.4-10.2); Carbon Dioxide 24 mmol/L (22-29); Chloride 103 mmol/L (96-108); Creatinine Clr Calc Pharmacy 67.5; Estimated Glomerular Filt Rate > 60; Glucose Random 88 mg/dL (60-115); Potassium 4.2 mmol/L (3.3-5.1); Sodium 136 mmol/L (135-145)
[2024-04-08 02:33] VITALS: BP 138/63; PULSE 53; RESP 16; TEMP 36.4; O2SAT 97
== END 2024-04-08 02:34 | disposition home or self-care (01) ==
PROVIDERS: Nurse Practitioner Family; Emergency Provider Student in an Organized Health Care Education/Training Program; PCP Physician Assistant
DX: N13.2 Hydronephrosis with renal and ureteral calculous obstruction (principal); M54.50 Low back pain, unspecified; R11.2 Nausea with vomiting, unspecified; R10.31 Right lower quadrant pain; R11.0 Nausea; Z79.899 Other long term (current) drug therapy
CPT/HCPCS: 36415; 74177; 80048; 80053; 81001; 85025; 87086; 96361; 96374; 99284; 99285; J1885; Q9967

== ENCOUNTER 2024-05-12 11:00 | Outpatient (REF) | payer OTHER, SELFPAY ==
[2024-05-12 11:50] LABS: Hematocrit 37.7 % (37.0-47.0); Hemoglobin 12.8 g/dl (12.0-16.0); Mean Corpuscular Hemoglobin 31.8 pg (27.0-33.0); Mean Corpuscular Volume 93.5 fL (80.0-98.0); Mean Platelet Volume 10.2 fL (9.4-12.3); Platelet Count 238 X10*3/uL (160-400); Red Blood Count 4.03 X10*6/uL (4.20-5.50); Red Cell Distribution Width 13.2 % (11.0-16.0); White Blood Count 5.9 X10*3/uL (4.8-10.8)
[2024-05-12 12:07] LABS: Creatinine Urine 51.44 mg/dL; Microalbum/Creatinine Ratio Ur 19.4 ug/mg cr (<30)
[2024-05-13 22:19] LABS: A. Phagocytphilium DNA,RT-PCR NOT DETECTED (NOT DETECTED); Babesia Microti DNA, RT-PCR NOT DETECTED (NOT DETECTED); Borrelia Miyamotoi,DNA RT-PCR NOT DETECTED (NOT DETECTED); E.Chaffeensis DNA RT-PCR NOT DETECTED (NOT DETECTED); Lyme(Borrelia ssp)DNA RT-PCR NOT DETECTED (NOT DETECTED)
== END 2024-05-12 11:01 | disposition home or self-care (01) ==
LOC: HO.LAB 11:00
PROVIDERS: PCP Physician Assistant; Visit Provider Physician Assistant
DX: I10 Essential (primary) hypertension (principal); R53.83 Other fatigue
CPT/HCPCS: 36415; 82043; 82570; 85027; 87468; 87469; 87478; 87484; 87798

== ENCOUNTER 2024-05-16 09:05 | Outpatient (REF) | payer OTHER, SELFPAY ==
[2024-05-16 10:25] LABS: Alanine Aminotransferase 24 U/L (0-31); Albumin Level 4.7 g/dL (3.5-5.0); Alkaline Phosphatase 59 U/L (39-117); Anion Gap 11 (12-20); Aspartate Amino Transferase 26 U/L (5-31); Bilirubin Total 0.9 mg/dL (0.0-1.0); Blood Urea Nitrogen 23 mg/dL (9-16); Calcium 9.8 mg/dL (8.4-10.2); Carbon Dioxide 28 mmol/L (22-29); Chloride 102 mmol/L (96-108); Cholesterol 160 mg/dL (<200); Estimated Glomerular Filt Rate 56; Glucose Fasting 99 mg/dL (60-99); HDL Cholesterol 38 mg/dL (>40); LDL Cholesterol Calculated 82 mg/dL (<100); Potassium 4.7 mmol/L (3.3-5.1); Sodium 136 mmol/L (135-145); Total Protein 7.1 g/dL (6.5-8.0); Triglycerides 200 mg/dL (<150)
== END 2024-05-16 09:06 | disposition home or self-care (01) ==
LOC: HO.LAB 09:05
PROVIDERS: PCP Physician Assistant; Visit Provider Physician Assistant
DX: I10 Essential (primary) hypertension (principal); E78.00 Pure hypercholesterolemia, unspecified
CPT/HCPCS: 36415; 80053; 80061

== ENCOUNTER 2024-05-22 13:49 | Outpatient (AMB) | payer OTHER, SELFPAY ==
--- NOTE | 2024-05-22 13:56 | A.OFFVIS_ITS ---
Intake Visit Reasons: 2mm kidney stone ER follow up Intake Note: New Patient is present for ER Follow up-Kidney stone Visit: 04/08/2024 Prescribed Med from ER: Tamsulosin Antibiotic Allergies: Penicillins Blood Thinner:None Patient states that 10 days after her ER Visit she felt alot better Patient denies any pain or discomfort Denies any urinary Issues Software Quality Analyst Required: No Allergies bee venom protein (honey bee) Allergy (Intermediate, Verified 05/22/24 13:58) Swelling acetaminophen [From Vicodin] Allergy (Verified 05/22/24 13:58) Flushing hydrocodone [From Vicodin] Allergy (Verified 05/22/24 13:58) Flushing Penicillins Adverse Reaction (Intermediate, Verified 05/22/24 13:58) hives vicotin Adverse Reaction (Severe, Uncoded 05/22/24 13:58) Flushing Medication List - Last Reconciled 05/22/24 by Megan Flaherty MD atorvastatin 20 mg PO DAILY 90 days estradiol 0.01%(0.1mg/gram) (Estrace) 1 g vaginal DAILY losartan-hydrochlorothiazide 100-12.5 mg 1 tab PO DAILY 90 days metoprolol succinate ER 25 mg PO DAILY [address] 40 mg PO DAILY 90 days spironolactone 50 mg PO DAILY 90 days triamcinolone acetonide 0.1% 1 appl topical DAILY 30 days valacyclovir 500 mg PO DAILY 90 days HPI Comments Details: Briana is a 73-year-old female who was seen in the emergency room on 04/07/2024 with right flank pain. She had a CT scan on 04/08/2024 which noted a 2 mm right kidney stone. She was treated with tamsulosin and states that after several days the pain went away. She states that her had history of k idney stones and about 3 years ago due to bladder cancer. She complains of vaginal dryness, history of hysterectomy age 37 --she states she was initially on estrogen replacement. I have discussed follow-up renal ultrasound. Discussed vaginal estrogen therapy. Follow-up in 3 months. [facility] Medical History (Updated 05/22/24 @ 15:20 by Megan Flaherty MD) Encounter for colonoscopy in patient with family history of colon cancer Surgical History (Updated 05/22/24 @ 12:49 by SHIRAZ Golden) History of hysterectomy History of total right hip replacement Family History Mother Colon cancer Sister Colon polyp Father Esophageal cancer Social History Housing: House Alcohol intake: current Alcohol intake frequency: holidays/special occasions o nly Patient Tobacco Use Status: Never used Tobacco e-Cigarette/Vaping Use: Never Used Second Hand Smoke Exposure: No Current occupational status: employed and retired 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 [employer] Cognitive needs: No Hearing needs: No Vision needs: Yes Physical Exam Const General: cooperative, healthy appearing and no acute distress Orientation/consciousness: patient oriented x3 HEENT Head: Yes normal to inspection, Yes normocephalic and Yes atraumatic Eyes Conjunctivae: conjunctivae normal Neck Neck: Yes normal visual inspection and Yes trachea midline Chest Chest palpation & inspection: normal inspection of the chest Resp Effort & Inspection: normal respiratory effort Cardio Rate: regular rate GI Inspection: Yes normal to inspection Skin General skin exam: no rashes or lesions noted Neuro General: patient oriented x3 Extrem General: No edema Psych Appearance: grossly normal Results AMB Urinalysis, Automated UA Leukoctes 0 Daisy/uL Last Edit by SHIRAZ Golden on 05/22/24 14:02 UA Nitrite Negative Last Edit by SHIRAZ Golden on 05/22/24 14:02 UA Urobilinogen 0.2 mg/dL Last Edit by SHIRAZ Golden on 05/22/24 14:0 2 UA Protein 0 mg/dL Last Edit by SHIRAZ Golden on 05/22/24 14:02 UA pH 6.0 Last Edit by SHIRAZ Golden on 05/22/24 14:02 UA Blood 0 Misael/uL Last Edit by SHIRAZ Golden on 05/22/24 14:02 UA Specific [place] 1.010 Last Edit by SHIRAZ Golden on 05/22/24 14: 02 UA Ketone Negative Last Edit by SHIRAZ Golden on 05/22/24 14:02 UA Bilirubin 0 mg/dL Last Edit by SHIRAZ Golden on 05/22/24 14:02 UA Glucose 0 mg/dL Last Edit by SHIRAZ Golden on 05/22/24 14:02 Results Reviewed Results Reviewed: Laboratory Last Values Urine pH (Auto) 6.0 05/22/24 13:58 Specific [place] (Auto) 1.010 05/22/24 13:58 Urine Protein (Auto) 0 mg/dL 05/22/24 13:58 Glucose (UA)(Auto) 0 mg/dL 05/22/24 13:58 Urine Ketones (Auto) Negative 05/22/24 13:58 Urine Blood (Auto) 0 Misael/uL 05/22/24 13:58 Urine Nitrite (Auto) Negative 05/22/24 13:58 Urine Bilirubin (Auto) 0 mg/dL 05/22/24 13:58 Urine Urobilinogen (Auto) 0.2 mg/dL 05/22/24 13:58 Leukocyte Esterase (Auto) 0 Daisy/uL 05/22/24 13:58 Date of Service: 04/07/24 EXAMINATION: CT ABDOMEN AND PELVIS WITH CONTRAST CLINICAL INFORMATION: Abdominal pain. COMPARISON: None available. TECHNIQUE: Multidetector volumetric images were obtained from the superior aspect of the liver through the pubic symphysis following administration 85 mL of Omnipaque 350 intravenous contrast. Sagittal and coronal reformatted images were obtained on the technologist's workstation. Oral contrast: No This CT examination was performed using dose optimization techniques as appropriate, variously including the following: *Automated exposure control *Adjustment of mA and/or kV according to patient size (this includes techniques or standardized protocols for targeted exams where dose is matched to indication/reason for exam; i.e. extremities or head) *Use of iterative reconstruction technique DLP: 768 mGy-cm FINDINGS: LUNG BASES: The visualized lung bases are unremarkable. LIVER, GALLBLADDER, AND BILIARY TREE: The liver is normal in size, shape, and attenuation. No focal hepatic lesion or biliary ductal dilatation is present. The gallbladder is unremarkable with no evidence of radiopaque gallstones, gallbladder wall thickening, or obvious pericholecystic inflammatory changes. PANCREAS: Unremarkable. SPLEEN: Unremarkable. ADRENAL GLANDS: Unremarkable. KIDNEYS AND URETERS: The kidneys are normal in size, shape, and attenuation. There is a nonobstructing 2 mm calculus midpole right kidney. There is no hydronephrosis. BLADDER: Unremarkable. GASTROINTESTINAL TRACT: The small and large bowel are unremarkable. The appendix is unremarkable. ABDOMINAL WALL: No significant hernia is appreciated. LYMPH NODES: Normal. VASCULAR: There is atherosclerotic plaque of the abdominal aorta and proximal branches PELVIC VISCERA: Unremarkable. OSSEOUS STRUCTURES: There is diffuse moderate thoracolumbar degenerative change. A right hip prosthesis is noted. There is mild to moderate left hip degenerative change. IMPRESSION: 1. There is a nonobstructing 2 mm calculus in the midpole of the right kidney. There is no hydronephrosis. 2. There is diffuse moderate thoracolumbar degenerative change. There is mild to moderate left hip degenerative change. 3. No acute intra-abdominal process. Assessment & Plan Assessment & Plan (1) Kidney stone: Code(s): N20.0 - Calculus of kidney Category: Medical (2) Right flank pain: Code(s): R10.9 - Unspecified abdominal pain Category: Medical (3) Vaginal atrophy: Code(s): N95.2 - Postmenopausal atrophic vaginitis Category: Medical Plan She was evaluated in the emergency room on 04/07/2024 for flank pain and nausea. CTAP-04/08/2024: 2 mm right kidney stone. Flank pain improved. I have discussed follow-up renal ultrasound. Discussed vaginal estrogen therapy. Follow-up in 3 months. Orders: Orders AMB Urinalysis Automated Today Z13.9 - Encounter for screening, unspecified US renal BI Today N20.0 - Calculus of kidney Medications: New estradiol 0.01%(0.1mg/gram) (Estrace) use pea sized amount with fingertip apply vaginally at bedtime 1 g vaginal DAILY 42.5 grams 1RF Patient Instructions: The patient had an opportunity to ask questions regarding treatment plan. The patient expressed understanding and agreement with the above treatment plan. The patient is aware they should contact our office by phone for worsening of their current condition or the appearance of new symptoms. Compliance is encouraged with any medications and followup testing that is ordered. It is a privilege to be allowed the opportunity to participate in the urologic care of your patient. If you have any questions or concerns regarding treatment for the above conditions please do not hesitate to contact me. The office telephone contact is [phone]. This note is constructed in part using voice recognition software. While every effort has been made to ensure accuracy naval aircrewman errors may have been included. Yours sincerely, Megan Flaherty MD Coding Level of Care Code New Pt Level 4 (00440) Diagnoses Kidney stone N20.0 Right flank pain R10.9 Vaginal atrophy N95.2
== END 2024-05-22 14:41 | disposition home or self-care (01) ==
PROVIDERS: PCP Physician Assistant; Visit Provider Urology
DX: N20.0 Calculus of kidney (principal); R10.9 Unspecified abdominal pain; N95.2 Postmenopausal atrophic vaginitis; Z13.9 Encounter for screening, unspecified
CPT/HCPCS: 99204

== ENCOUNTER → 2024-05-22 13:49 | Outpatient (BNVA) | payer OTHER, SELFPAY | PROVIDERS: PCP Physician Assistant; Visit Provider Urology | DX: N20.0 Calculus of kidney (principal); R10.9 Unspecified abdominal pain; N95.2 Postmenopausal atrophic vaginitis | CPT/HCPCS: 81003; 99202 ==

== ENCOUNTER 2024-05-27 08:31 | Outpatient (AMB) | payer OTHER, SELFPAY ==
[2024-05-27 08:46] VITALS: BP 112/60; PULSE 54; O2SAT 98; BMI 30.4
--- NOTE | 2024-05-27 08:46 | MHC.PC.OV ---
Vital Signs 05/27/24 08:46 Height 5 ft 8 in Weight 200 lb 0.5 oz BMI 30.4 BP 112/60 Blood Pressure Location Lt brachial Position Sitting Pulse 54 Pulse Source Pulse Oximeter Pulse Oximetry (%) 98 Oxygen Delivery Method Room Air Intake Visit Reasons: f/u HTN/ HLD Services Rep Required: No Allergies bee venom protein (honey bee) Allergy (Intermediate, Verified 05/27/24 08:58) Swelling acetaminophen [From Vicodin] Allergy (Verified 05/27/24 08:58) Flushing hydrocodone [From Vicodin] Allergy (Verified 05/27/24 08:58) Flushing Penicillins Adverse Reaction (Intermediate, Verified 05/27/24 08:58) hives vicotin Adverse Reaction (Severe, Uncoded 05/27/24 08:58) Flushing Medication List - Last Reconciled 05/27/24 by Perry Silverio PA-C atorvastatin 20 mg PO DAILY 90 days estradiol 0.01%(0.1mg/gram) (Estrace) 1 g vaginal DAILY losartan-hydrochlorothiazide 100-12.5 mg 1 tab PO DAILY 90 days metoprolol succinate ER 25 mg PO DAILY [address] 40 mg PO DAILY 90 days spironolactone 50 mg PO DAILY 90 days triamcinolone acetonide 0.1% 1 appl topical DAILY 30 days valacyclovir 500 mg PO DAILY 90 days Tobacco use date assessed: 02/12/24 Fall risk assessment: No Falls in past year Last assessed Fall Risk: 05/27/24 Dental Screening Dental Screen Date: 02/12/24 HPI f/u HTN/ HLD HPI Details Patient is a 73-year-old female here today for follow-up visit. Patient's past medical history significant for hyperlipidemia, hypertension, right hip osteoarthritis, GERD. Recently seen at the ER for acute abdominal pain was found to have a small kidney stone which seemed to have passed. No further pain noted. Status post right hip replacement: Does report having some right lateral sharp hip pain when sitting down in driving. Otherwise pain has been not noticeable. Also has some left inguinal reach sternal tightness and pain. PLAN:She will do her own home physical therapy. Concern--> reports she has very sensitive skin often having rash formations over upper extremities to which he attributes to working in her garden. .. Hypertension: Blood pressure today in office acceptable. Otherwise denies any headaches, vision issues, dizziness or presyncopal episodes. .. Hyperlipidemia: Continues on statin therapy without any side effect. Laboratory Tests 05/12/24 05/16/24 11:13 09:14 RBC 4.03 L Hgb 12.8 BUN 23 H Creatinine 0.97 Triglycerides 200 H Cholesterol 160 [facility] Medical History (Updated 05/27/24 @ 12:33 by Perry Silverio PA-C) Herpes simplex Kidney pain Encounter for colonoscopy in patient with family history of colon cancer Surgical History History of hysterectomy History of total right hip replacement Family History Mother Colon cancer Sister Colon polyp Father Esophageal cancer Social History Housing: House Alcohol intake: current Alcohol intake frequency: holidays/special occasions only Patient Tobacco Use Status: Never used Tobacco e-Cigarette/Vaping Use: Never Used Second Hand Smoke Exposure: No Current occupational status: employed and retired 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 How often do you have a drink containing alcohol?: 2-3 times a week 2. How many drinks containing alcohol do you have on a typical day when you are drinking?: 1 or 2 Total Score: 3 Review of Systems Const Denies headache(s) Eyes Denies loss of vision ENT Denies vertigo, Denies dizziness, Denies headache(s) and Denies sore throat Card Denies chest pain, Denies leg edema and Denies lightheadedness Resp Denies cough, Denies hemoptysis and Denies wheezing GI Denies abdominal pain, Denies melena, Denies constipation, Denies diarrhea and Denies vomiting Denies urinary frequency, Denies dysuria and Denies urinary urgency Musc Denies arthralgias, Denies joint swelling, Denies numbness and Denies tingling Neuro Denies Abnormal speech present, Denies behavioral changes, Denies vertigo, Denies dizziness, Denies headache(s), Denies loss of vision, Denies memory loss, Denies numbness and Denies tingling Psych Denies anxiety, Denies behavioral changes, Denies depression, Denies memory loss and Denies panic attacks Manuel/Lymph Denies easy bleeding and Denies easy bruising Aller/Immun Denies wheezing Physical exam (Primary Care) Vital Signs: Last Vital Signs Pulse 54 05/27/24 08:46 BP 112/60 05/27/24 08:46 Pulse Ox 98 05/27/24 08:46 Oxygen Delivery Method Room Air 05/27/24 08:46 BMI result Body Mass Index 30.4 Tobacco/Smoking Status: Tobacco use Status Tobacco use date assessed 02/12/24 05/27/24 08:55 Patient Tobacco Use Status Never used Tobacco 05/27/24 08:55 e-Cigarette/Vaping Use Never Used 05/27/24 08:55 Const General: healthy appearing, no acute distress, alert and awake Nutritional Appearance: well nourished Orientation/consciousness: oriented to person, oriented to place and oriented to time HENMT Ears: TM's normal bilaterally General nose exam: Normal nasal mucous membranes and turbinates present Eyes Conjunctivae: conjunctivae normal Sclerae: sclerae normal Pupils: Equal, round and reactive pupils present Neck Neck: Yes no lymphadenopathy and Yes no JVD Thyroid: Thyroid normal Carotids: no bruits Resp Effort & Inspection: normal respiratory effort and not tachypneic Auscultation: no crackles, no rales, no rhonchi and no wheezes Cardio Rate: regular rate Rhythm: regular rhythm Heart sounds: no murmurs and normal S1 and S2 GI Palpation (GI): Soft to palpation, nontender, no hepatomegaly and no splenomegaly Auscultation: normal bowel sounds Skin General skin exam: no rashes or lesions noted and dry skin Neuro General: oriented to person, oriented to place and oriented to time Cranial nerves: Yes Equal, round and reactive pupils present Speech: No Abnormal speech present Gait exam (Neuro): Normal gait present Motor exam (neuro): no tremor noted Extrem Right upper extremity: full ROM Left upper extremity: full ROM Right lower extremity: full ROM; no edema Left lower extremity: full ROM; no edema Psych Mental Status: mental status grossly normal Speech and movement: Normal speech and movement present Affect: normal affect Attitude: cooperative Thought process: Normal thought process present Assessment and Plan Assessment & Plan (1) HLD (hyperlipidemia): Code(s): E78.5 - Hyperlipidemia, unspecified Qualifiers: Hyperlipidemia type: pure hypercholesterolemia Qualified Code(s): E78.00 - Pure hypercholesterolemia, unspecified Plan: Patient continues on statin therapy and has been stable on current dose. Will check a lipid panel to evaluate for propria total cholesterol and LDL. Goal LDL to be below 130 (2) HTN (hypertension): Code(s): I10 - Essential (primary) hypertension Qualifiers: Hypertension type: primary hypertension Qualified Code(s): I10 - Essential (primary) hypertension Plan: Patient's blood pressure acceptable today in office. Has not been on aldactone for many months and reports her blood pressures have been stable. . Goal blood pressures to be below 140/90 (3) Osteoarthritis of right hip: Code(s): M16.11 - Unilateral primary osteoarthritis, right hip Qualifiers: Osteoarthritis type: primary Qualified Code(s): M16.11 - Unilateral primary osteoarthritis, right hip Plan: Followed by orthopedic in [place] (Dr. Conley). She does report having some upper right lateral hip pain especially when sitting down to try. Likely a greater trochanteric bursitis and offered physical therapy though she declines and will like to do her own Orders: Orders Microalbumin, Random (w Creat) Today I10 - Essential (primary) hypertension Comprehensive Aspen. Panel Fast Today I10 - Essential (primary) hypertension Complete Blood Count no Diff Today K21.9 - Gastro-esophageal reflux disease without esophagitis Lipid Panel Today E78.00 - Pure hypercholesterolemia, unspecified Medications: Refilled metoprolol succinate ER 25 mg PO DAILY 90 tabs 2RF 90 days I10 - Essential (primary) hypertension Patient Instructions: Goal: Blood pressure remain below 140/90, LDL to remain below 130 Barriers: Adherence to physical activity and healthy eating habits Coding Level of Care Code Est Pt Level 4 (27601) Diagnoses Pure hypercholesterolemia E78.00 Hyperlipidemia type: pure hypercholesterolemia Primary hypertension I10 Hypertension type: primary hypertension Primary osteoarthritis of right hip M16.11 Osteoarthritis type: primary
== END 2024-05-27 10:15 | disposition home or self-care (01) ==
PROVIDERS: PCP Physician Assistant; Visit Provider Physician Assistant
DX: E78.00 Pure hypercholesterolemia, unspecified (principal); I10 Essential (primary) hypertension; M16.11 Unilateral primary osteoarthritis, right hip
CPT/HCPCS: 99214

== ENCOUNTER 2024-08-07 07:42 | Outpatient (REF) | payer OTHER, SELFPAY ==
--- NOTE | ~2024-08-07 | US_ITS ---
EXAMINATION: US RETROPERITONEAL LIMITED (RENAL ONLY) CLINICAL INFORMATION: Calculus of kidney. COMPARISON: CT abdomen and pelvis 04/07/2024. TECHNIQUE: Real-time imaging of the kidneys. FINDINGS: RIGHT KIDNEY: 11.4 x 5.2 x 4.9 cm (SAG x AP x TRV). The kidney is normal in size, contour, and echogenicity. Renal cortical thickness is normal. No focal parenchymal lesions or hydronephrosis. Echogenic focus likely nonobstructing stone 2 mm. LEFT KIDNEY: 10.9 x 5.5 x 3.9 cm (SAG x AP x TRV). The kidney is normal in size, contour, and echogenicity. Renal cortical thickness is normal. No calculi or focal parenchymal lesions. No hydronephrosis. US/US renal BI IMPRESSION: 1. Echogenic focus in the right kidney likely a nonobstructing stone 2 mm. 2. No ultrasound evidence of renal obstruction or hydronephrosis. Electronically signed by: Mari Bean MD 09/07/2024 08:01 PM RAEGAN VELASQUEZ
== END 2024-08-07 07:43 | disposition home or self-care (01) ==
LOC: HO.US 07:42
PROVIDERS: PCP Physician Assistant; Visit Provider Urology
DX: N20.0 Calculus of kidney (principal)
CPT/HCPCS: 76775

== ENCOUNTER 2024-09-04 11:32 | Outpatient (AMB) | payer OTHER, SELFPAY ==
--- NOTE | 2024-09-04 11:37 | A.OFFVIS_ITS ---
Intake Visit Reasons: 3m/US(US Pending) Intake Note: 3M/us(US Pending) Blood Thinner: none Hand Buffing Wheel Former Required: No Allergies bee venom protein (honey bee) Allergy (Intermediate, Verified 09/04/24 11:53) Swelling acetaminophen [From Vicodin] Allergy (Verified 09/04/24 11:53) Flushing hydrocodone [From Vicodin] Allergy (Verified 09/04/24 11:53) Flushing Penicillins Adverse Reaction (Intermediate, Verified 09/04/24 11:53) hives vicotin Adverse Reaction (Severe, Uncoded 05/27/24 08:58) Flushing Medication List - Last Reconciled 09/04/24 by Megan Flaherty MD atorvastatin 20 mg PO DAILY 90 days estradiol 0.01%(0.1mg/gram) (Estrace) 1 g vaginal DAILY losartan-hydrochlorothiazide 100-12.5 mg 1 tab PO DAILY 90 days metoprolol succinate ER 25 mg PO DAILY [address] 40 mg PO DAILY 90 days spironolactone 50 mg PO DAILY 90 days triamcinolone acetonide 0.1% 1 appl topical DAILY 30 days valacyclovir 500 mg PO DAILY 90 days HPI Comments Details: 09/01/24--Briana was initially evaluated on 05/22/2024 for kidney stone pain. Follow-up renal ultrasound 08/07/2024 again shows a 2 mm stone in the right kidney no hydronephrosis. She states she gets occasional pain on the right flank area in the morning when she wakes up and it goes away. She states that she is using the estrogen cream and it is working well. I discussed that it may not be related to the stone as the stone is tiny and maybe more related to musculoskeletal. I have discussed diet modification to decrease risk of forming more kidney stones. I have discussed low oxalate diet and specific foods to avoid including certain green leafy vegetables, chocalate, nuts, tea, beets, rubarb; low sodium, decreased use of animal protein and the importance of hydration drinking up to 2-2.5 liters of fluids and use of adding lemon to water to increase citrate in the diet. A pamphlet is also provided today. 30 minutes spent in review of records pertaining to this visit and including [id number] discussion with the patient and documentation of this visit. We will continue to monitor kidney stone. Review of chart: 05/22/24--Briana is a 73-year-old female who was seen in the emergency room on 04/07/2024 with right flank pain. She had a CT scan on 04/08/2024 which noted a 2 mm right kidney stone. She was treated with tamsulosin and states that after several days the pain went away. She states that her had history of kidney stones and about 3 years ago due to bladder cancer. She complains of vaginal dryness, history of hysterectomy age 37 --she states she was initially on estrogen replacement. I have discussed follow-up renal ultrasound. Discussed vaginal estrogen therapy. Follow-up in 3 months. [facility] Medical History Herpes simplex Kidney pain Encounter for colonoscopy in patient with family history of colon cancer Surgical History History of hysterectomy History of total right hip replacement Family History Mother Colon cancer Sister Colon polyp Father Esophageal cancer Social History Housing: House Alcohol intake: current Alcohol intake frequency: holidays/special occasions only Patient Tobacco Use Status: Never used Tobacco e-Cigarette/Vaping Use: Never Used Second Hand Smoke Exposure: No Current occupational status: employed and retired 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 [employer] Cognitive needs: No Hearing needs: No Vision needs: Yes Review of Systems Const All systems reviewed & are unremarkable except as noted in HPI and below Reports no additional complaints Eyes Reports no additional complaints ENT Reports no additional complaints Card Reports no additional complaints Resp Reports no additional complaints GI Reports no additional complaints Reports as per HPI Musc Reports no additional complaints Skin/Breast Reports system reviewed and no additional complaints, except as documented Neuro Reports no additional complaints Psych Reports no additional complaints Endo Reports no additional complaints Manuel/Lymph Reports no additional complaints Aller/Immun Reports no additional complaints Results AMB Urinalysis, Automated UA Leukoctes 0 Daisy/uL Last Edit by Linda Kebede on 09/04/24 12:06 UA Nitrite Negative Last Edit by Linda Kebede on 09/04/24 12:06 UA Urobilinogen 0.2 mg/dL Last Edit by Linda Yandy on 09/04/24 12:06 UA Protein 0 mg/dL Last Edit by Linda Yandy on 09/04/24 12:06 UA pH 6.5 Last Edit by Linad Yandy on 09/04/24 12:06 UA Blood 0 Misael/uL Last Edit by Linda Yandy on 09/04/24 12:06 UA Specific [place] 1.015 Last Edit by Linda Yandy on 09/04/24 12:06 UA Ketone Negative Last Edit by Linda Yandy on 09/04/24 12:06 UA Bilirubin 0 mg/dL Last Edit by Linda Yandy on 09/04/24 12:06 UA Glucose 0 mg/dL Last Edit by Linda Yandy on 09/04/24 12:06 Results Reviewed Results Reviewed: Laboratory Last Values Urine pH (Auto) 6.5 09/04/24 11:54 Specific [place] (Auto) 1.015 09/04/24 11:54 Urine Protein (Auto) 0 mg/dL 09/04/24 11:54 Glucose (UA)(Auto) 0 mg/dL 09/04/24 11:54 Urine Ketones (Auto) Negative 09/04/24 11:54 Urine Blood (Auto) 0 Misael/uL 09/04/24 11:54 Urine Nitrite (Auto) Negative 09/04/24 11:54 Urine Bilirubin (Auto) 0 mg/dL 09/04/24 11:54 Urine Urobilinogen (Auto) 0.2 mg/dL 09/04/24 11:54 Leukocyte Esterase (Auto) 0 Daisy/uL 09/04/24 11:54 Reviewed renal ultrasound images: renal ultrasound 08/07/2024 again shows a 2 mm stone in the right kidney no hydronephrosis. Assessment & Plan Assessment & Plan (1) Kidney stone: Code(s): N20.0 - Calculus of kidney Category: Medical (2) Right flank pain: Code(s): R10.9 - Unspecified abdominal pain Category: Medical (3) Vaginal atrophy: Code(s): N95.2 - Postmenopausal atrophic vaginitis Category: Medical Plan Renal ultrasound in 1 year. Continue Estrace. Orders: Orders AMB Urinalysis Automated Today Z13.9 - Encounter for screening, unspecified Medications: Refilled estradiol 0.01%(0.1mg/gram) (Estrace) use pea sized amount with fingertip apply vaginally at bedtime 1 g vaginal DAILY 42.5 grams 3RF Patient Instructions: The patient had an opportunity to ask questions regarding treatment plan. The patient expressed understanding and agreement with the above treatment plan. The patient is aware they should contact our office by phone for worsening of their current condition or the appearance of new symptoms. Compliance is encouraged with any medications and followup testing that is ordered. It is a privilege to be allowed the opportunity to participate in the urologic care of your patient. If you have any questions or concerns regarding treatment for the above conditions please do not hesitate to contact me. The office telephone contact is [phone]. This note is constructed in part using voice recognition software. While every effort has been made to ensure accuracy senior tax accountant errors may have been included. Yours sincerely, Megan Flaherty MD Coding Level of Care Code Est Pt Level 4 (57286) Diagnoses Kidney stone N20.0 Right flank pain R10.9 Vaginal atrophy N95.2
== END 2024-09-04 12:29 | disposition home or self-care (01) ==
PROVIDERS: PCP Physician Assistant; Visit Provider Urology
DX: N20.0 Calculus of kidney (principal); R10.9 Unspecified abdominal pain; N95.2 Postmenopausal atrophic vaginitis; Z13.9 Encounter for screening, unspecified
CPT/HCPCS: 99214

== ENCOUNTER → 2024-09-04 11:32 | Outpatient (BNVA) | payer OTHER, SELFPAY | PROVIDERS: PCP Physician Assistant; Visit Provider Urology | DX: N20.0 Calculus of kidney (principal); R10.9 Unspecified abdominal pain; N95.2 Postmenopausal atrophic vaginitis | CPT/HCPCS: 81003; 99212 ==

== ENCOUNTER 2024-11-21 07:20 | Outpatient (REF) | payer MEDICARE, SELFPAY ==
--- NOTE | ~2024-11-21 | XR_ITS ---
CLINICAL HISTORY: AP LAT OBLIQUE, LOWER BACK PAIN Exam: AP, lateral, spot lateral, and bilateral oblique views of the lumbar spine. Comparison: None. Findings: Mild convex left mid lumbar curvature with apex at L2-3. Alignment is anatomic on the lateral view. No acute fracture. Moderate to severe multilevel degenerative disc disease and degenerative facet disease throughout the lumbar spine, most pronounced at L4-5. Mild degenerative change of the sacroiliac joints. Partial visualization of a right hip arthroplasty. Impression: Spinal curvature as above with moderate to severe multilevel degenerative changes. This document has been electronically signed by: Raymond Rick MD on 11/21/2024 17:37:52
[2024-11-21 08:17] LABS: Hematocrit 40.1 % (37.0-47.0); Hemoglobin 13.7 g/dl (12.0-16.0); Mean Corpuscular HGB Conc 34.2 g/dl (31.0-35.0); Mean Corpuscular Hemoglobin 30.7 pg (27.0-33.0); Mean Corpuscular Volume 89.9 fL (80.0-98.0); Mean Platelet Volume 10.7 fL (9.4-12.3); Platelet Count 221 X10*3/uL (160-400); Red Blood Count 4.46 X10*6/uL (4.20-5.50); White Blood Count 6.3 X10*3/uL (4.8-10.8)
[2024-11-21 08:53] LABS: Alanine Aminotransferase 36 U/L (0-31); Albumin Level 4.6 g/dL (3.5-5.0); Alkaline Phosphatase 72 U/L (39-117); Anion Gap 13 (12-20); Aspartate Amino Transferase 34 U/L (5-31); Bilirubin Total 0.7 mg/dL (0.0-1.0); Blood Urea Nitrogen 23 mg/dL (9-16); Calcium 10.2 mg/dL (8.4-10.2); Carbon Dioxide 28 mmol/L (22-29); Chloride 100 mmol/L (96-108); Cholesterol 148 mg/dL (<200); Estimated Glomerular Filt Rate 59; Glucose Fasting 110 mg/dL (60-99); HDL Cholesterol 38 mg/dL (>40); LDL Cholesterol Calculated 65 mg/dL (<100); Potassium 4.9 mmol/L (3.3-5.1); Sodium 136 mmol/L (135-145); Total Protein 7.4 g/dL (6.5-8.0); Triglycerides 229 mg/dL (<150)
[2024-11-21 09:01] LABS: Creatinine Urine 281.48 mg/dL; Microalbum/Creatinine Ratio Ur 10.3 ug/mg cr (<30)
== END 2024-11-21 07:21 | disposition home or self-care (01) ==
LOC: HO.LAB 07:20
PROVIDERS: Absent Provider Physician Assistant; PCP Physician Assistant; Visit Provider Podiatrist
DX: G60.9 Hereditary and idiopathic neuropathy, unspecified (principal); I10 Essential (primary) hypertension; K21.9 Gastro-esophageal reflux disease without esophagitis; E78.00 Pure hypercholesterolemia, unspecified
CPT/HCPCS: 36415; 72110; 80053; 80061; 82043; 82570; 85027

== ENCOUNTER → 2024-11-21 07:49 | Outpatient (BNV) | payer MEDICARE, SELFPAY | PROVIDERS: Absent Provider Physician Assistant; PCP Physician Assistant; Visit Provider Radiology Diagnostic Radiology | DX: M51.360 Other intervertebral disc degeneration, lumbar region with discogenic back pain only (principal); M43.9 Deforming dorsopathy, unspecified | CPT/HCPCS: 72110 ==

== ENCOUNTER 2024-12-01 09:11 | Outpatient (AMB) | payer MEDICARE, SELFPAY ==
--- NOTE | 2024-12-01 09:21 | AM.OFFVISMDC ---
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 Accompanied by: Self / Same As Patient Allergies bee venom protein (honey bee) Allergy (Intermediate, Verified 12/01/24 09:33) Swelling acetaminophen [From Vicodin] Allergy (Verified 12/01/24 09:33) Flushing hydrocodone [From Vicodin] Allergy (Verified 12/01/24 09:33) [place] Penicillins Adverse Reaction (Intermediate, Verified 12/01/24 09:33) hives vicotin Adverse Reaction (Severe, Uncoded 12/01/24 09:33) [place]ushing Medication List - Last Reconciled 12/01/24 by Perry Silverio PA-C atorvastatin 20 mg PO DAILY 90 days estradiol 0.01%(0.1mg/gram) (Estrace) 1 g vaginal DAILY losartan-hydrochlorothiazide 100-12.5 mg 1 tab PO DAILY 90 days metoprolol succinate ER 25 mg PO DAILY [address] 40 mg PO DAILY 90 days spironolactone 50 mg PO DAILY 90 days triamcinolone acetonide 0.1% 1 appl topical DAILY 30 days valacyclovir 500 mg PO DAILY 90 days HPI SWV [id number] HPI Details Patient is a 74-year-old female here today for an annual wellness visit. Patient's past medical history significant for hyperlipidemia, hypertension, right hip osteoarthritis, GERD. Today we discussed patient's twenty-nine palms of care and end of life planning. We also did discuss patient's comprehensive care plan that was scanned into patient's chart. Vaccine:UTD with COVID Vaccine, Shingles - see scanned in document MAmmo: had a recent mammo [facility]. Colonoscopy: Has an updated colon cancer - done spring 2022. ( q 5 years) - fmhx of colon cancer. Laboratory Tests 07/18/23 05/16/24 11/21/24 09:06 09:14 07:34 RBC Creatinine Fasting Glucose 100 H 99 ALT 24 Triglycerides 200 H Urine Microalbumin 29.0 11/21/24 07:38 RBC 4.46 Creatinine 0.92 Fasting Glucose 110 H ALT 36 H Triglycerides 229 H Urine Microalbumin HPI Comments History of Present Illness Details reviewed past medical history- yes reviewed surgical / hospitalization history- yes reviewed current medications- yes reviewed family history- yes home safety throw rugs? grab bars? raised toilet seat? working smoke detectors? activities of daily living difficulty bathing or showering? difficulty dressing? difficulty using the toilet? difficulty getting in and out of bed? difficulty walking? receives help from other person's with any of the above tasks? instrumental activities of daily living uses telephone - gets to place out of walking distance- go shopping for groceries- repairs own meals- does own minor home maintenance- does own laundry- does own housework- manages own money- currently takes medication- end of life planning discussed advanced directives- yes advanced directives on file? discussed wishes expressed in advanced directives. fall risk have you had any falls with injuries in the past year? have you had 2 or more falls in the past year? fall risk assessment: [facility] Medical History Herpes simplex Kidney pain Encounter for colonoscopy in patient with family history of colon cancer Surgical History History of hysterectomy History of total right hip replacement Family History Mother Colon cancer Sister Colon polyp Father Esophageal cancer Social History Housing: House Alcohol intake: current Alcohol intake frequency: holidays/special occasions only Patient Tobacco Use Status: Never used Tobacco e-Cigarette/Vaping Use: Never Used Second Hand Smoke Exposure: No Current occupational status: employed and retired 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 [employer] Cognitive needs: No Hearing needs: No Vision needs: Yes Questionnaire Mini Mental State Exam (MMSE) Orientation What is the (year) (season) (date) (day) (month)?: year Where are we (state) (county) (town or city) (hospital) (floor)?: town or city Attention & Calculation (CHOOSE ONE) Spell WORLD backwards (DLROW): 5 letters Score Score: 7 Activity of Daily Living Bathing - sponge bath, tub bath or shower: receives no assistance (gets in/out by self, if usual bathing means Dressing - getting clothes from closets & drawers, including inner/outer garments & fasteners.: gets clothes & gets completely dressed without help Toileting - going to the 'toilet room' for urine/bowel elimination & cleaning self/arranging clothes: goes to toilet room, cleans self, arranges clothes without help Transfer: moves in & out of bed and chair without help (may use support object) Continence: controls urination/bowel movements completely by self Feeding: feeds self without help Total Score: 0 Information obtained from: patient Using telephone: independent Traveling: independent Shopping: independent Preparing meals: independent Housework: independent Taking medicine: independent Managing money: independent Thrive Questionnaire Date Thrive assessed: 12/01/24 I am a: Patient What is your living situation today?: I have a steady place to live Within the past 12 months, did the food you bought not last and you didn't have the money to get more?: Never true Within the past 12 months, did you worry whether your food would run out before you got money to buy more?: Never true Do you have trouble paying for medicines?: No Do you have trouble getting transportation to medical appointments?: No Do you have trouble paying your heating and electricity bill?: No Do you have trouble taking care of your child, family member or friend?: No Do you have trouble with day-to-day activities such as bathing, preparing meals, shopping, managing finances, etc.?: No Are you currently unemployed and looking for a job?: No Are you interested in more education?: No Please select the resources that you would like help with: None Currently or been in a relationship where the following occur: No concerns reported THRIVE Score: 0 JANETH-7 AMB Questionnaire JANETH-7 Date JANETH - 7 assessed: 12/01/24 Feeling nervous, anxious, or on edge: 0 = Not at all Not being able to stop or control worryin = Not at all Worrying too much about different things: 0 = Not at all Trouble relaxin = Not at all Being so restless that it is hard to sit still: 0 = Not at all Becoming easily annoyed or irritable: 0 = Not at all Feeling afraid as if something awful might happen: 0 = Not at all Total JANETH-7 score (0-4 normal; 5-9 mild; 10-14 moderate; 15-21 severe): 0 Source: Developed by Drs. Adeel Montenegro, Ericka Cra, Ruperto Hernández and colleagues, with an educational kelly from [employer]. JANETH-7 Assessment Billing JANETH-7 Assessment Tool: JANETH-7 Assessment 82628 AUDIT C Alcohol Use Questionnaire (AUDIT-C) 1. How often do you have a drink containing alcohol?: Monthly or less 2. How many drinks containing alcohol do you have on a typical day when you are drinking?: 1 or 2 3. How often do you have six or more drinks on one occasion?: Never Total Score: 1 Physical Exam Vital Signs: Last Vital Signs Temp 96.9 F 12/01/24 09:32 Pulse 58 12/01/24 09:32 BP 132/60 12/01/24 09:32 Pulse Ox 97 12/01/24 09:32 Oxygen Delivery Method Room Air 12/01/24 09:32 BMI result Body Mass Index 31.3 HEENT Other: hearing screening whisper test-passed Eyes Other: vision screening- 20 20 OS OD OU Other: urinary incontinence? no Neuro Other: balance Romberg- normal tandem walk test- able walk-in turned test- able rise from sit to stand- within 2 seconds Assessment & Plan Assessment & Plan (1) Annual wellness visit: Code(s): Z00.00 - Encounter for general adult medical examination without abnormal findings Plan: As per HPI (2) Post-menopausal: Code(s): Z78.0 - Asymptomatic menopausal state Plan: Willing to get bone density screening (3) Lumbar spine scoliosis: Code(s): M41.9 - Scoliosis, unspecified Qualifiers: Idiopathic scoliosis type: other Scoliosis type: idiopathic Qualified Code(s): M41.26 - Other idiopathic scoliosis, lumbar region Plan: Does seem to have lumbar curvature moderate to severe arthritis. She is willing to try physical therapy for her balance Orders: Orders XR DEXA axial skeleton 12/01/24 Z78.0 - Asymptomatic menopausal state SARS-CoV2/FLU/RSV 12/01/24 R09.89 - Other specified symptoms and signs involving the circulatory and respiratory systems Coding Level of Care Code Medicare Subsequent (G0439) Diagnoses Annual wellness visit Z00.00 Post-menopausal Z78.0 Other idiopathic scoliosis, lumbar region M41.26 Idiopathic scoliosis type: other Scoliosis type: idiopathic CPT Codes Advance Care Planning - Advance Care Planning discussion: On file, no changes ([id number]) Advance Care Planning - Time spent: 1-15 minutes, on File ([id number]) Additional Codes JANETH-7 Assessment Billing - JANETH-7 Assessment Tool: JANETH-7 Assessment 11325 ([id number]) Advance Care Planning Advance Care Planning discussion: On file, no changes Date of discussion: 12/01/24 Who was present: Patient Forms completed: MOLST Time spent: 1-15 minutes, on File Actual minutes spent: 3
[2024-12-01 09:32] VITALS: BP 132/60; PULSE 58; TEMP 36.1; O2SAT 97; BMI 31.3
--- OUTSIDE RECORDS SUMMARY | 2024-12-01 09:41 | XMS_ITS | Data Portability ---
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 Plan of Treatment Reminders Order Date Submit Date Provider Last Modified By Organization Details Last Modified Time Details Appointments None recorded. Lab BMP, serum or plasma 2020 021 [facility] (Not A Draw Site), [address], Luis Felipe 1, [place], [address] 1 04:38:32 HbA1c (hemoglobi n A1c), blood 2021 022 [facility] (Not A Draw Site), [address], Luis Felipe 1, [place], [address] 2 04:48:59 lipid panel, serum 2021 022 [facility] (Not A Draw Site), [address], Luis Feliep 1, [place], [address] 2 04:49:02 CMP, serum or plasma 2021 022 [facility] (Not A Draw Site), [address], [place], [address] 2 04:49:00 Referral behavioral psychother apy referral 2020 021 [email or web address] Not available 08:16:44 otolaryngo logist referral 2020 [email or web address] Keely Rzivi MD (Virtual Visits Available), [address] [facility] [address], [address], , 08:43:16 Procedures None recorded. Surgeries None recorded. Imaging None recorded. Medication Orders spironolac tone 50 mg tablet 2020 [id number], [address], [place], , 15:32:51 spironolac tone 50 mg tablet 2020 [id number], [address], [place], , 14:56:20 valacyclov ir 500 mg tablet 2020 [facility], [address], [place], [address], 09:08:23 atorvastat in 20 mg tablet 2020 [facility], [address], [place], [address], 09:08:26 spironolac tone 50 mg tablet 2020 [facility], [address], [place], [address], 09:08:25 metoprolol succinate ER 25 mg tablet,ext ended release 24 hr 2020 [facility], [address], [place], [address], 09:08:23 losartan 100 mg-hydroch lorothiazi de 12.5 mg tablet 2020 [facility], [address], [place], [address], 09:08:24 Patient TargetsNo targets recorded. Patient Instructions Encounter Date Encounter Id Patient Instructions Last Modified By Organization Details Last Modified Time 12/23/2020 [id number] Continue working on diet (mostly whole-food, mostly plant-based), and exercise (minimum of 30 minutes, 5 days/week of walking). Continue medication as listed in your Patient Summary, available at your patient portal, or via printing at your request. Notify us immediately if you feel your medications are causing a problem. [email or web address] Not available 12/23/2020 14:58:27 01/25/2021 [id number] Continue working on diet (mostly whole-food, mostly plant-based), and exercise (minimum of 30 minutes, 5 days/week of walking). Continue medication as listed in your Patient Summary, available at your patient portal, or via printing at your request. Notify us immediately if you feel your medications are causing a problem. [email or web address] Not available 01/25/2021 14:24:37 10/13/2021 [id number] well visit, over 65: care instructions ftaweel Not available 10/13/2021 09:08:12 preventing falls : care instructions ftaweel Not available 10/13/2021 09:08:12 advance directiv es: care instructions ftaweel Not available 10/13/2021 09:08:12 To promote good health please follow these recommendations: Diet, Physical Activity and Healthy Weight: -Eat a diet low in trans and saturated fats and high in fiber, fruits and vegetables -Engage in regular physical activity and weight bearing exercise -Aim to achieve and maintain ideal body mass index Tobacco and Alcohol Use: -Don't smoke or use other tobacco products -Avoid excessive alcohol intake Medications: -If you use any medications (prescriptions, wltd-jyx-[id number], supplements, herbal), always do so as directed by your health care provider -Avoid misuse of any substances in a manner that is not in accordance with appropriate use Safety: -Use seat belts whenever in the car -Use sunscreen regularly to reduce the risk of skin cancer -Test smoke detectors and CO detectors every 6 months -Remove loose rugs and use hand rails on steps and in bath Cognition: -Being intellectually engaged may benefit the brain. Lots of activities can keep your mind active. For example, read books and magazines. Play games. Take or teach a class. Learn a new skill or hobby. Work or volunteer. -People who engage in meaningful activities, like volunteering or hobbies, say they feel happier and healthier. Vaccinations: -Get your yearly influenza vaccine and follow all immunization recommendations outlined in your personal wellness plan. Continue working on diet (mostly whole-food, mostly plant-based), and exercise (minimum of 30 minutes, 5 days/week of walking). Continue medication as listed in your Patient Summary, available at your patient portal, or via printing at your request. Notify us immediately if you feel your medications are causing a problem. [email or web address] Not available 10/13/2021 08:27:34 05/04/2022 [id number] salivary gland stone: care instructions [email or web address] Not available 05/04/2022 09:08:37 achilles tendon: exercises ftaweel Not available 05/04/2022 09:07:19 Continue working on diet (mostly whole-food, mostly plant-based), and exercise (minimum of 30 minutes, 5 days/week of walking). Continue medication as listed in your Patient Summary, available at your patient portal, or via printing at your request. Notify us immediately if you feel your medications are causing a problem. 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 0 Not Available [facility] (Not A Draw Site) [address] Luis Felipe 1, [place], [address] 12/20/2020 10:22:35 12/17/19 21 12/17/2020 CMP, serum or plasm a albumin 4.9 g/dL 3.5-5. 2 Not Available [facility] (Not A Draw Site) [address] Luis Felipe [address], [place], [id number] 12/20/2020 10:22:35 12/17/1912/17/2020 CMP, serum or plasm a globulin 1.9 g/dL 1.7-3. 7 Not Available [facility] (Not A Draw Site) [address] Luis Felipe [address], [place], [address] 12/20/2020 10:22:35 12/17/1912/17/2020 CMP, serum or plasm a albumin/glob ulin 2.6 ratio 1.1-2. 9 Not Available [facility] (Not A Draw Site) [address] Luis Felipe 1[place], [id number] 12/20/2020 10:22:35 12/17/19 21 12/17/2020 CMP, serum or plasm a glucose 96 mg/dL 70-99 Not Available [facility] (Not A Draw Site) [address] Luis Felipe [address], [place], [address] 12/20/2020 10:22:35 12/17/1912/17/2020 CMP, serum or plasm a sodium 139 mmol/ L 136-14 5 Not Available [facility] (Not A Draw Site) [address] Luis Felipe 1[place], [address] 12/20/2020 10:22:35 12/17/19 21 12/17/2020 CMP, serum or plasm a potassium 5.4 mmol/ L 3.5-5. 1 high Not Available [facility] (Not A Draw Site) [address] Luis Felipe 1[place], [id number] 12/20/2020 10:22:35 12/17/19 21 12/17/2020 CMP, serum or plasm a chloride 98 mmol/ L 98-107 Not Available [facility] (Not A Draw Site) [address] Luis Felipe [address], [place], [address] 12/20/2020 10:22:35 12/17/19 21 12/17/2020 CMP, serum or plasm a CO2 26 mmol/ L 22-29 Not Available [facility] (Not A Draw Site) [address] [place]ipe 1[place], [address] 12/20/2020 10:22:35 12/17/19 21 12/17/2020 CMP, serum or plasm a BUN 20 mg/dL 8-23 Not Available [facility] (Not A Draw Site) [address] Luis Felipe 1[place], [address] 12/20/2020 10:22:35 12/17/19 21 12/17/2020 CMP, serum or plasm a creatinine 0.82 mg/dL 0.50-0 .90 Not Available [facility] (Not A Draw Site) [address] Luis Felipe 1[place], [address] 12/20/2020 10:22:35 12/17/19 21 12/17/2020 CMP, serum or plasm a eGFR non- 71 mL/mi n >=60 Not Available [facility] (Not A Draw Site) [address] Luis Felipe 1[place], [address] 12/20/2020 10:22:35 12/17/1912/17/2020 CMP, serum or plasm a eGFR 83 mL/mi n >=60 Not Available [facility] (Not A Draw Site) [address] [place] Felipe 1[place], [address] 12/20/2020 10:22:35 12/17/1912/17/2020 CMP, serum or plasm a BUN/creat ratio 24.4 ratio 10.0-2 8.0 Not Available [facility] (Not A Draw Site) [address] [place] 1[place], [address] 12/20/2020 10:22:35 12/17/19 21 12/17/2020 CMP, serum or plasm a calcium 10.2 mg/dL 8.8-10 .2 Not Available [facility] (Not A Draw Site) [place], [address] 12/20/2020 10:22:35 12/17/19 21 12/17/2020 CMP, serum or plasm a bilirubin,to dana 0.6 mg/dL <1.2 Not Available [facility] (Not A Draw Site) [place], [id number] 12/20/2020 10:22:35 12/17/19 21 12/17/2020 CMP, serum or plasm a alkaline phosphatase 70 U/L 35-104 Not Available [facility] (Not A Draw Site) [place], [id number] 12/20/2020 10:22:35 12/17/19 21 12/17/2020 CMP, serum or plasm a AST (SGOT) 28 U/L 10-35 Not Available [facility] (Not A Draw Site) [place], [address] 12/20/2020 10:22:35 12/17/19 21 12/17/2020 CMP, serum or plasm a ALT (SGPT) 18 U/L <33 Not Available [facility] (Not A Draw Site) [place], [address] 12/20/2020 10:22:35 12/17/19 21 12/17/2020 TSH + free T4, serum TSH 2.630 uIU/m L 0.270- 4.200 Not Available [facility] (Not A Draw Site) [place], [address] 12/20/2020 10:22:36 12/17/19 21 12/17/2020 TSH + free T4, serum T4, free (FT4) 1.24 NG/dL 0.93-1 .70 Not Available [facility] (Not A Draw Site) [address] [place], [address] 12/20/2020 10:22:36 01/26/2001/25/2021 BMP, serum or plasm a glucose 92 mg/dL 70-99 Not Available [facility] (Not A Draw Site) [address] [place], [id number] 01/26/2021 04:38:32 01/26/2001/25/2021 BMP, serum or plasm a BUN 21 mg/dL 8-23 Not Available [facility] (Not A Draw Site) [address] [place], [address] 01/26/2021 04:38:32 01/26/2001/25/2021 BMP, serum or plasm a creatinine 0.89 mg/dL 0.50-0 .90 Not Available [facility] (Not A Draw Site) [address] [place], [id number] 01/26/2021 04:38:32 01/26/2001/25/2021 BMP, serum or plasm a BUN/creat ratio 23.6 ratio 10.0-2 8.0 Not Available [facility] (Not A Draw Site) [address] [place], [address] 01/26/2021 04:38:32 01/26/2001/25/2021 BMP, serum or plasm a eGFR 75 mL/mi n >=60 Not Available [facility] (Not A Draw Site) [address] [place], [address] 01/26/2021 04:38:32 01/26/2001/25/2021 BMP, serum or plasm a eGFR non- 65 mL/mi n >=60 Not Available [facility] (Not A Draw Site) [address] [place], [id number] 01/26/2021 04:38:32 01/26/2001/25/2021 BMP, serum or plasm a calcium 10.2 mg/dL 8.6-10 .3 NOTE: New Refer ence Range for adult Calci um imple mente d on 2020. Not Available [facility] (Not A Draw Site) [address] [place], [id number] 01/26/2021 04:38:32 01/26/20 21 01/25/2021 BMP, serum or plasm a sodium 136 mmol/ L 136-14 5 Not Available [facility] (Not A Draw Site) [address] Jessica VictorRobyn MD, 01/26/2021 04:38:32 01/26/2001/25/2021 BMP, serum or plasm a potassium 4.6 mmol/ L 3.5-5. 3 NOTE: New Refer ence Range for Potas sium imple mente d on 2020. Not Available [facility] (Not A Draw Site) [address] [place], [id number] 01/26/2021 04:38:32 01/26/2001/25/2021 BMP, serum or plasm a chloride 96 mmol/ L 98-107 low Not Available [facility] (Not A Draw Site) [address] Luis Felipe 1[place], [id number] 01/26/2021 04:38:32 01/26/20 21 01/25/2021 BMP, serum or plasm a CO2 28 mmol/ L 22-29 Not Available [facility] (Not A Draw Site) [address] [facility] 1[place], [id number] 01/26/2021 04:38:32 06/29/20 21 06/29/2021 NOVEL CORON AVIRU S COVID -19 NASOP HARYN X covid-19 nasal/nasoph arynx Not Detect ed not detect ed Pleas e consi leelee re-co llect ion of a new speci men, if clini joie indic ated. The COVID -19 assay is under Emerg ency Use Autho rizat ion (EUA) by the U.S. Food and Drug Admin istra tion. PMG, [employer] is desig nated as a high compl exity labor atory by the [facility] Labor atory Impro vemen t Amend ments of 1987( CLIA) and is quali fied to perfo rm this test. ASSAY INFOR MATIO N: PCR/T MA (lloyd scrip tion media abilio ampli ficat ion). TMA is a Nucle ic Acid Ampli ficat ion Test (NAAT ) recom robert d by the [facility] for passe nger trave l. Not Available [facility] (Not A Draw Site) [address] Luis Felipe 1, [place], [id number] 06/30/2021 09:41:42 10/06/2010/06/2021 HEMOG LOBIN A1C (GLYC OHGB) hemoglobin A1C 5.7 % <5.7 high HEMOG LOBIN A1c AND eAG REFER ENCE RANGE S A1c(% ) DIABE YUSUF CATEG ORY* <5.7 Mae l (non- diabe tic) 5.7-6 .4 Incre ased risk of diabe yusuf =>6.5 Consi stent with diabe yusuf A1c(% ) eAG(E STIMA ABILIO AVERA GE PLASM A GLUCO SE)(m g/dL) 6 126 7 154 8 183 9 212 10 240 11 269 12 298 *jenny mmend ed range s-Gilda rican Di[employer] yusuf [employer] iatio n(201 0) NOTE: The amoun t of glyca abilio hemog lobin as measu red by the HbA1c test may be overe stima abilio in [place] an Ameri cans and daria d not be used as the sole sanya eter of glyce caity burde n. Simil annette, hemol ysis, bev ic hemog lobin varia nts and chemi joie modif ied hemog lobin deriv ative s (as seen in renal failu re, smoki ng, aspir in use) may also affec t glyca abilio hemog lobin level s. Not Available [facility] (Not A Draw Site) [address] Luis Felipe 1, [place], [id number] 10/07/2021 05:34:37 1210/06/2021 CBC W/O DIFF (HEMO GRAM) PLAT. CT WBC 4.75 10^3/ uL 4.00-1 0.10 Not Available [facility] (Not A Draw Site) [place], [address] 10/07/2021 05:34:37 10/06/20 21 10/06/2021 CBC W/O DIFF (HEMO GRAM) PLAT. CT RBC 4.32 10^6/ uL 3.58-5 .19 Not Available [facility] (Not A Draw Site) [place], [id number] 10/07/2021 05:34:37 10/06/2010/06/2021 CBC W/O DIFF (HEMO GRAM) PLAT. CT HGB 13.5 g/dL 11.0-1 5.5 Not Available [facility] (Not A Draw Site) [place], [address] 10/07/2021 05:34:37 10/06/2010/06/2021 CBC W/O DIFF (HEMO GRAM) PLAT. CT HCT 42.6 % 31.6-4 5.3 Not Available [facility] (Not A Draw Site) [place], [id number] 10/07/2021 05:34:37 10/06/2010/06/2021 CBC W/O DIFF (HEMO GRAM) PLAT. CT MCV 98.6 fL 79.0-9 9.5 Not Available [facility] (Not A Draw Site) [place], [id number] 10/07/2021 05:34:37 10/06/2010/06/2021 CBC W/O DIFF (HEMO GRAM) PLAT. CT MCH 31.3 pg 25.2-3 2.6 Not Available [facility] (Not A Draw Site) [place], [id number] 10/07/2021 05:34:37 10/06/20 21 10/06/2021 CBC W/O DIFF (HEMO GRAM) PLAT. CT MCHC 31.7 g/dL 31.0-3 4.7 Not Available [facility] (Not A Draw Site) Brian Victor, [place], [id number] 10/07/2021 05:34:37 10/06/20 21 10/06/2021 CBC W/O DIFF (HEMO GRAM) PLAT. CT RDW 12.5 % 12.0-1 5.5 Not Available [facility] (Not A Draw Site) Brian Victor, [place], [address] 10/07/2021 05:34:37 10/06/2010/06/2021 CBC W/O DIFF (HEMO GRAM) PLAT. CT platelet count 214 10^3/ uL 140-42 5 Not Available [facility] (Not A Draw Site) [place], [id number] 10/07/2021 05:34:37 10/06/2010/06/2021 CBC W/O DIFF (HEMO GRAM) PLAT. CT MPV 11.4 fL 8.6-12 .1 Not Available [facility] (Not A Draw Site) [place], [id number] 10/07/2021 05:34:37 10/06/2010/06/2021 COMPR EHENS RUI METAB OLIC PANEL total protein 7.0 g/dL 6.0-8. 0 Not Available [facility] (Not A Draw Site) [place], [address] 10/07/2021 05:34:38 10/06/20 21 10/06/2021 COMPR EHENS RUI METAB OLIC PANEL albumin 4.9 g/dL 3.5-5. 2 Not Available [facility] (Not A Draw Site) [place], [id number] 10/07/2021 05:34:38 10/06/20 21 10/06/2021 COMPR EHENS RUI METAB OLIC PANEL globulin 2.1 g/dL 1.7-3. 7 Not Available [facility] (Not A Draw Site) [address] Luis Felipe [place], [place], [address] 10/07/2021 05:34:38 10/06/20 21 10/06/2021 COMPR EHENS RUI METAB OLIC PANEL albumin/glob ulin 2.3 ratio 1.1-2. 9 Not Available [facility] (Not A Draw Site) [address] Luis Felipe [place], [place], [address] 10/07/2021 05:34:38 10/06/2010/06/2021 COMPR EHENS RUI METAB OLIC PANEL glucose 104 mg/dL 70-99 high Not Available [facility] (Not A Draw Site) [address] Luis Felipe [place], [place], [id number] 10/07/2021 05:34:38 10/06/2010/06/2021 COMPR EHENS RUI METAB OLIC PANEL sodium 138 mmol/ L 136-14 5 Not Available [facility] (Not A Draw Site) [address] Luis Felipe [place], [place], [address] 10/07/2021 05:34:38 10/06/2010/06/2021 COMPR EHENS RUI METAB OLIC PANEL potassium 5.2 mmol/ L 3.5-5. 3 Not Available [facility] (Not A Draw Site) [address] [place], [id number] 10/07/2021 05:34:38 10/06/20 21 10/06/2021 COMPR EHENS RUI METAB OLIC PANEL chloride 99 mmol/ L 98-107 Not Available [facility] (Not A Draw Site) [address] Felipe [place], [place], [address] 10/07/2021 05:34:38 10/06/20 21 10/06/2021 COMPR EHENS RUI METAB OLIC PANEL CO2 28 mmol/ L 22-29 Not Available [facility] (Not A Draw Site) [address] Luis Felipe [address], [place], [address] 10/07/2021 05:34:38 10/06/20 21 10/06/2021 COMPR EHENS RUI METAB OLIC PANEL BUN 17 mg/dL 8-23 Not Available [facility] (Not A Draw Site) [address] Luis Felipe [address], MD [place], [id number] 10/07/2021 05:34:38 10/06/20 21 10/06/2021 COMPR EHENS RUI METAB OLIC PANEL creatinine 0.92 mg/dL 0.50-0 .90 high Not Available [facility] (Not A Draw Site) [address] Luis Felipe [address], [place], [address] 10/07/2021 05:34:38 10/06/20 21 10/06/2021 COMPR EHENS RUI METAB OLIC PANEL eGFR non- 62 mL/mi n >=60 Not Available [facility] (Not A Draw Site) [address] Luis Felipe [address], [place], [address] 10/07/2021 05:34:38 10/06/20 21 10/06/2021 COMPR EHENS RUI METAB OLIC PANEL eGFR 71 mL/mi n >=60 Not Available [facility] (Not A Draw Site) [address] Luis Felipe [address], MD [place], [address] 10/07/2021 05:34:38 10/06/20 21 10/06/2021 COMPR EHENS RUI METAB OLIC PANEL BUN/creat ratio 18.5 ratio 10.0-2 8.0 Not Available [facility] (Not A Draw Site) [address] Luis Felipe [address], [place], [address] 10/07/2021 05:34:38 10/06/20 21 10/06/2021 COMPR EHENS RUI METAB OLIC PANEL calcium 10.1 mg/dL 8.6-10 .3 Not Available [facility] (Not A Draw Site) [address] [place]ipe 1[place], [id number] 10/07/2021 05:34:38 10/06/20 21 10/06/2021 COMPR EHENS RUI METAB OLIC PANEL bilirubin,to dana 0.6 mg/dL <1.2 Not Available [facility] (Not A Draw Site) [address] Felipe [place], [place], [id number] 10/07/2021 05:34:38 10/06/20 21 10/06/2021 COMPR EHENS RUI METAB OLIC PANEL alkaline phosphatase 60 U/L 42-127 Not Available [facility] (Not A Draw Site) [address] [place], [id number] 10/07/2021 05:34:38 10/06/20 21 10/06/2021 COMPR EHENS RUI METAB OLIC PANEL AST (SGOT) 30 U/L 10-35 Not Available [facility] (Not A Draw Site) [address] [place], [id number] 10/07/2021 05:34:38 10/06/2010/06/2021 COMPR EHENS RUI METAB OLIC PANEL ALT (SGPT) 24 U/L <33 Not Available [facility] (Not A Draw Site) [address] [place], [id number] 10/07/2021 05:34:38 10/06/20 21 10/06/2021 LIPID SCREE N (BASI C LIPID PROFI LE) cholesterol 146 mg/dL <200 Not Available [facility] (Not A Draw Site) [address] [place], [id number] 10/07/2021 05:34:38 10/06/20 21 10/06/2021 LIPID SCREE N (BASI C LIPID PROFI LE) triglyceride 189 mg/dL <150 high Not Available [facility] (Not A Draw Site) [address] [place]ipe 1[place], [id number] 10/07/2021 05:34:38 10/06/20 21 10/06/2021 LIPID SCREE N (BASI C LIPID PROFI LE) HDL cholesterol 42 mg/dL >=50 low Not Available [facility] (Not A Draw Site) [place], [id number] 10/07/2021 05:34:38 10/06/20 21 10/06/2021 LIPID SCREE N (BASI C LIPID PROFI LE) HDL % cholesterol 29 % >14 Resul t(%): Evalu ation : 0-8 ABOVE AVG. (HIGH RISK) 9-14 ABOVE AVG. (MODE RATE RISK) 15-25 AVERA GE RISK 26-10 0 BELOW AVERA GE RISK Not Available [facility] (Not A Draw Site) [place], [id number] 10/07/2021 05:34:38 10/06/2010/06/2021 LIPID SCREE N (BASI C LIPID PROFI LE) chol/HDL risk ratio 3.5 ratio <5.8 Ratio : Evalu ation : Male: Femal e: 0.0-4 .1 0.0-3 .8 BELOW AVERA GE RISK 4.2-7 .3 3.9-5 .7 AVERA GE RISK 7.4-1 1.5 5.8-9 .0 ABOVE AVG. (MODE RATE RISK) >11.5 >9.0 ABOVE AVG. (HIGH RISK) Not Available [facility] (Not A Draw Site) [place], [id number] 10/07/2021 05:34:38 10/06/2010/06/2021 LIPID SCREE N (BASI C LIPID PROFI LE) LDLC/HDL risk ratio 1.58 ratio <3.56 Not Available [facility] (Not A Draw Site) [place], [address] 10/07/2021 05:34:38 10/06/20 21 10/06/2021 LIPID SCREE N (BASI C LIPID PROFI LE) non-HDL cholesterol 104 mg/dL <130 Not Available [facility] (Not A Draw Site) [address], [place], [address] 10/07/2021 05:34:38 10/06/20 21 10/06/2021 LIPID SCREE N (BASI C LIPID PROFI LE) LDL-calculat ed 66 mg/dL <100 Not Available [facility] (Not A Draw Site) [address] Victor, [place], [address] 10/07/2021 05:34:38 10/06/20 21 10/06/2021 LIPID SCREE N (BASI C LIPID PROFI LE) VLDL 38 mg/dL 7-32 high Not Available [facility] (Not A Draw Site) [address] Victor, [place], [address] 10/07/2021 05:34:38 10/06/20 21 10/06/2021 THYRO ID STIMU LATIN G HORMO NE (TSH) TSH 2.140 uIU/m L 0.278- 4.326 Not Available [facility] (Not A Draw Site) [address] Hawks[address] Victro, [place], [id number] 10/07/2021 05:34:39 10/19/20 21 10/19/2021 NOVEL CORON AVIRU S COVID -19 NASOP HARYN X covid-19 nasal/nasoph arynx Not Detect ed not detect ed Pleas e consi leelee re-co llect ion of a new speci men, if clini joie indic ated. The COVID -19 assay is under Emerg ency Use Autho rizat ion (EUA) by the U.S. Food and Drug Admin istra tion. [employer] is desig nated as a high compl exity labor atory by the [employer] [facility] Labor atory Impro vemen t Amend ments of 1987( CLIA) and is quali fied to perfo rm this test. ASSAY INFOR MATIO N: PCR/T MA (lloyd scrip tion media abilio ampli ficat ion). TMA is a Nucle ic Acid Ampli ficat ion Test (NAAT ) recom robert mcdaniel by the CDC for passe don paulino. Not Available [facility] (Not A Draw Site) [address], [place], [address] 10/22/2021 12:27:16 05/04/20 22 05/04/2022 HEMOG LOBIN A1C (GLYC OHGB) hemoglobin A1C 5.6 % <5.7 HEMOG LOBIN A1c AND eAG REFER ENCE RANGE S A1c(% ) DIABE YUSUF CATEG ORY* <5.7 Mae l (non- diabe tic) 5.7-6 .4 Incre ased risk of diabe yusuf =>6.5 Consi stent with diabe yusuf A1c(% ) eAG(E STIMA ABILIO AVERA GE PLASM A GLUCO SE)(m g/dL) 6 126 7 154 8 183 9 212 10 240 11 269 12 298 *jenny mmend ed range s-[facility] n(201 0) NOTE: The amoun t of glyca abilio hemog lobin as measu red by the HbA1c test may be overe stima bailio in [place] cans and shoul d not be used as the sole sanya eter of glyce caity burde n. Simil annette, hemol ysis, bev ic hemog lobin varia nts and chemi joie modif ied hemog lobin deriv ative s (as seen in renal failu re, smoki ng, aspir in use) may also affec t glyca abilio hemog lobin level s. Not Available [facility] (Not A Draw Site) Brian Briscoe 1[place], [id number] 05/05/2022 04:48:58 05/04/2005/04/2022 COMPR EHENS RUI METAB OLIC PANEL total protein 7.0 g/dL 6.0-8. 0 Not Available [facility] (Not A Draw Site) Brian Briscoe 1Robyn [place], [id number] 05/05/2022 04:49:00 05/04/20 22 05/04/2022 COMPR EHENS RUI METAB OLIC PANEL albumin 5.1 g/dL 3.5-5. 2 Not Available [facility] (Not A Draw Site) [address] Brian Briscoe 1, MD Robyn, [id number] 05/05/2022 04:49:00 05/04/20 22 05/04/2022 COMPR EHENS RUI METAB OLIC PANEL globulin 1.9 g/dL 1.7-3. 7 Not Available [facility] (Not A Draw Site) [address] 1, MD Robyn, [id number] 05/05/2022 04:49:00 05/04/2005/04/2022 COMPR EHENS RUI METAB OLIC PANEL albumin/glob ulin 2.7 ratio 1.1-2. 9 Not Available [facility] (Not A Draw Site) [address] Felipe [place], MD Robyn, [address] 05/05/2022 04:49:00 05/04/2005/04/2022 COMPR EHENS RUI METAB OLIC PANEL glucose 109 mg/dL 70-99 high Not Available [facility] (Not A Draw Site) [address], MD Robyn, [id number] 05/05/2022 04:49:00 05/04/20 22 05/04/2022 COMPR EHENS RUI METAB OLIC PANEL sodium 138 mmol/ L 136-14 5 Not Available [facility] (Not A Draw Site) [address], MD Robyn, [address] 05/05/2022 04:49:00 05/04/2005/04/2022 COMPR EHENS RUI METAB OLIC PANEL potassium 5.4 mmol/ L 3.5-5. 3 high Not Available [facility] (Not A Draw Site) [address], MD Robyn, [id number] 05/05/2022 04:49:00 05/04/2005/04/2022 COMPR EHENS RUI METAB OLIC PANEL chloride 99 mmol/ L 98-107 Not Available [facility] (Not A Draw Site) [address] 1, MD Robyn, [id number] 05/05/2022 04:49:00 05/04/20 22 05/04/2022 COMPR EHENS RUI METAB OLIC PANEL CO2 26 mmol/ L 22-29 Not Available [facility] (Not A Draw Site) Brian Arechigay Luis [place], [id number] 05/05/2022 04:49:00 05/04/20 22 05/04/2022 COMPR EHENS RUI METAB OLIC PANEL BUN 22 mg/dL 8-23 Not Available [facility] (Not A Draw Site) [address] Luis [place], [id number] 05/05/2022 04:49:00 05/04/20 22 05/04/2022 COMPR EHENS RUI METAB OLIC PANEL creatinine 0.94 mg/dL 0.50-0 .90 high Not Available [facility] (Not A Draw Site) Brian [address] Felipe [place], MD Robyn, [address] 05/05/2022 04:49:00 05/04/20 22 05/04/2022 COMPR EHENS RUI METAB OLIC PANEL eGFR non- 60 mL/mi n >=60 Not Available [facility] (Not A Draw Site) [address] Luis [place], [id number] 05/05/2022 04:49:00 05/04/20 22 05/04/2022 COMPR EHENS RUI METAB OLIC PANEL eGFR 69 mL/mi n >=60 Not Available [facility] (Not A Draw Site) Brian [address]os[address] Luis [place], [id number] 05/05/2022 04:49:00 05/04/20 22 05/04/2022 COMPR EHENS RUI METAB OLIC PANEL BUN/creat ratio 23.4 ratio 10.0-2 8.0 Not Available [facility] (Not A Draw Site) [address] [place], [id number] 05/05/2022 04:49:00 05/04/20 22 05/04/2022 COMPR EHENS RUI METAB OLIC PANEL calcium 10.7 mg/dL 8.6-10 .3 high Not Available [facility] (Not A Draw Site) [address], MD Robyn, [address] 05/05/2022 04:49:00 05/04/2005/04/2022 COMPR EHENS RUI METAB OLIC PANEL bilirubin,to dana 0.7 mg/dL <1.2 Not Available [facility] (Not A Draw Site) [address] Felipe [place], MD Robyn, [address] 05/05/2022 04:49:00 05/04/20 22 05/04/2022 COMPR EHENS RUI METAB OLIC PANEL alkaline phosphatase 65 U/L 42-127 Not Available [facility] (Not A Draw Site) Brian [address] Luis Felipe [place], MD Robyn, 05/05/2022 04:49:00 05/04/20 22 05/04/2022 COMPR EHENS RUI METAB OLIC PANEL AST (SGOT) 31 U/L 10-35 Not Available [facility] (Not A Draw Site) [address] Luis Felipe 1, MD Robyn, 05/05/2022 04:49:00 05/04/2005/04/2022 COMPR EHENS RUI METAB OLIC PANEL ALT (SGPT) 26 U/L <33 Not Available [facility] (Not A Draw Site) [address] Luis [place], [id number] 05/05/2022 04:49:00 05/04/2005/04/2022 LIPID SCREE N (BASI C LIPID PROFI LE) cholesterol 170 mg/dL <200 Not Available [facility] (Not A Draw Site) [address] Felipe [place], MD Robyn, [address] 05/05/2022 04:49:02 05/04/20 22 05/04/2022 LIPID SCREE N (BASI C LIPID PROFI LE) triglyceride 181 mg/dL <150 high Not Available [facility] (Not A Draw Site) [address] Luis Felipe 1[place], [id number] 05/05/2022 04:49:02 07/14/20 22 05/04/2022 LIPID SCREE N (BASI C LIPID PROFI LE) HDL cholesterol 44 mg/dL >=50 low Not Available [facility] (Not A Draw Site) Brian Briscoe 1, MD Robyn, [id number] 05/05/2022 04:49:02 05/04/20 22 05/04/2022 LIPID SCREE N (BASI C LIPID PROFI LE) HDL % cholesterol 26 % >14 Resul t(%): Evalu ation : 0-8 ABOVE AVG. (HIGH RISK) 9-14 ABOVE AVG. (MODE RATE RISK) 15-25 AVERA GE RISK 26-10 0 BELOW AVERA GE RISK Not Available [facility] (Not A Draw Site) Brian Briscoe 1, MD Robyn, [id number] 05/05/2022 04:49:02 05/04/2005/04/2022 LIPID SCREE N (BASI C LIPID PROFI LE) chol/HDL risk ratio 3.9 ratio <5.8 Ratio : Evalu ation : Male: Femal e: 0.0-4 .1 0.0-3 .8 BELOW AVERA GE RISK 4.2-7 .3 3.9-5 .7 AVERA GE RISK 7.4-1 1.5 5.8-9 .0 ABOVE AVG. (MODE RATE RISK) >11.5 >9.0 ABOVE AVG. (HIGH RISK) Not Available [facility] (Not A Draw Site) [place], [id number] 05/05/2022 04:49:02 05/04/20 22 05/04/2022 LIPID SCREE N (BASI C LIPID PROFI LE) LDLC/HDL risk ratio 2.04 ratio <3.56 Not Available [facility] (Not A Draw Site) [place], [id number] 05/05/2022 04:49:02 05/04/20 22 05/04/2022 LIPID SCREE N (BASI C LIPID PROFI LE) non-HDL cholesterol 126 mg/dL <130 Not Available [facility] (Not A Draw Site) 203 [place], [address] 05/05/2022 04:49:02 05/04/20 22 05/04/2022 LIPID SCREE N (BASI C LIPID PROFI LE) LDL-calculat ed 90 mg/dL <100 Not Available [facility] (Not A Draw Site) [address] Brian Briscoe 1[place]yn [place], [address] 05/05/2022 04:49:02 05/04/20 22 05/04/2022 LIPID SCREE N (BASI C LIPID PROFI LE) VLDL 36 mg/dL 7-32 high Not Available [facility] (Not A Draw Site) 203 Brian Briscoe 1Robyn MD, [address] 05/05/2022 04:49:02 01/23/20 21 01/11/2021 scree carrington mammo gram 3D digit al W prior s REFERR ING PROVID ER: PATT BARAKAT MD [id number] [facility] [address] [facility] PROCED URES: SCREEN ING MAMMOG SANTOS 3D DIGITA L CLINIC AL HISTOR Y: Jamison arambula is 70 years old and is seen for screen ing. FILMS COMPAR ED: The presen t examin ation has been compar ed to prior imagin g studie s. Bilate ral MAMMOG SANTOS: Low-do se tomosy nthesi s 3D views were obtain ed in combin ation with recons tructe d 2D images . The breast s are hetero geneou sly dense. This may lower the sensit ivity of mammog eva. There are no suspic ious findin gs on this examin ation. Benign findin g(s) are noted. There has been no signif icant interv al change . IMPRES BABITA: There is no eviden ce of malign rashid on this examin ation. Contin ued routin e screen ing mammog eva is recomm ended. This mammog santos was interp reted follow ing analys is with Comput er-Aid ed Detect ion techno logy. By law, a lay copy of this report has been sent to your jamison arambula. FINAL ASSESS MENT: Catego ry 2 - Benign findin g During this public health emerge ncy we are using expand ed cleani ng protoc ols and PPE to protec t the jamison arambula. This report was electr onical ly signed by: COLLEEN MCFARLAND MD COPY FURNIS HED: ftaweel [facility] [place] [address], [place], [address], 01/25/2021 14:22:12 05/01/20 22 04/18/2022 MAMMO , scree carrington, digit al, bilat eral REFERR ING PROVID ER: PATT BARAKAT MD [address] [facility] [address] [facility] PROCED URES: SCREEN ING MAMMOG SANTOS 3D DIGITA L CLINIC AL HISTOR Y: Jamison arambula is 71 years old and is seen for screen ing. FILMS COMPAR ED: The presen t examin ation has been compar ed to prior imagin g studie s. Bilate ral MAMMOG SANTOS: Low-do se tomosy nthesi s 3D views were obtain ed in combin ation with recons tructe d 2D images . The breast s are hetero geneou sly dense. This may lower the sensit ivity of mammog eva. There are no suspic ious findin gs on this examin ation. Benign findin g(s) are noted. There has been no signif icant interv al change . IMPRES BABITA: There is no eviden ce of malign rashid on this examin ation. Contin ued routin e screen ing mammog eva is recomm ended. This mammog santos was interp reted follow ing analys is with Comput er-Aid ed Detect ion techno logy. By law, a lay copy of this report has been sent to your jamison arambula. FINAL ASSESS MENT: Catego ry 2 - Benign findin g This report was electr onical ly signed by: ALBERTA ETIENNE MD COPY FURNIS HED: MANE [facility] ([facility] [place] [address], [place], [address], 07/11/2023 21:52:54 07/12/20 22 04/18/2022 MAMMO , scree carrington, digit al, bilat eral No observ ation record ed. [facility] (Medical Records) [id number] [facility] [address], [place], [address], 05/04/2022 09:20:13 Result Notes None recorded. Problems Name Problem SNOMED Code Status Onset Date Resolution Date Notes Provider Name and Address Organization Details Recorded Time Herpes simplex type 2 infection 599741945 Active Not Available [facility] 2 08:51:10 Abnormal findings on diagnosti c imaging of breast 730517190 Completed 200702/05/[address], [place], [address] , [facility] 4 10:06:16 Mammograp hy abnormal 149144301 Completed 200802/05/2014 MD [address], [place], [address] , [facility] 4 10:06:16 Actinic keratosis 590091083 Completed 200402/05/2014 MD [address], [place], [address] , [facility] 4 10:06:16 Degenerat ion of cervical intervert ebral disc 09535949 Active Not Available [facility] 2 08:51:10 Dyspareun ia 87049103 Completed 200504/13/[address], [place], [address] , [facility] 4 11:43:55 Edema 958773296 Completed 200402/05/[address], [place], [address] , [facility] 4 10:06:16 Family history of malignant neoplasm of gastroint estinal tract 107244067 [facility] 17:51:30 Bleeding 275353571 Completed 200602/05/2014 MD [address], [place], [address] , [facility] 4 10:06:16 Benign essential hypertens ion 4436658 Active Not Available [facility] 2 08:51:10 Metabolic syndrome X 161588321 Active Not Available [facility] 2 08:51:10 Eruption 943631995 Completed 06/11/2015 [facility] 5 17:51:30 Adult health examinati on Completed 10/05/2017 MELISSA Mckeon [address], [place], [address] , [facility] 7 09:16:14 Screening mammograp hy Completed 06[facility]11[facility]2015 [facility] 5 17:51:30 Screening for osteoporo sis Completed 06/11/2015 [facility] 5 17:51:30 Menopausa l symptom 75863540 Completed 06/11/2015 [facility] 5 17:51:30 Spontaneo us ecchymosi s 575363946 Completed 200402/05/2014 MD [address], [place], [address] , [facility] 4 10:06:16 Administr ation of diphtheri a and tetanus vaccine Completed 201002/05/2014 MD [address], [place], [address] , [facility] 4 10:06:16 Acute upper respirato ry infection 31343871 Completed 200502/05/2014 Patt Barakat MD [address], [place], [address] , [facility] 4 10:06:16 Atrophic vaginitis 16915274 Completed 06/11/2015 Patt Barakat MD [address], [place], [address] , [facility] 7 10:54:26 Atrophic vaginitis 89420189 Active 2016 Not Available [facility] 2 08:51:10 Hyperlipi demia 55212459 Active Not Available [facility] 2 08:51:10 Specializ ed medical examinati on Completed 201002/05/2014 Patt Barakat MD [address], [place], [address] , [facility] 4 10:06:16 Influenza vaccine needed 98763018326 06 Completed 201102/05/2014 Patt Barakat MD [address], [place], [address] , [facility] 4 10:06:16 Impaired fasting glycemia 025215964 Completed 10/13/2019 MD [address], [address] , [facility] 9 10:05:37 Carotid atheroscl erosis 440141754 Active Not Available [facility] 2 08:51:10 Osteoarth ritis of hip 021749844 Active 2018 Not Available [facility] 2 08:51:10 Prediabet es 599061808 Active 2018 Not Available [facility] 2 08:51:10 Thyroid stimulati ng hormone level above reference range 519519917 Active 2018 Not Available [facility] 2 08:51:10 Polyp of vaginal wall 648053248 Active 2018 Not Available [facility] 2 08:51:10 Exposure to SARS-CoV- 2 Active 2020 Not Available [facility] 2 08:51:10 Mild major depressio n, single episode 43512130 Active 2020 Not Available [facility] 2 08:51:10 Dom feldman 45532723 Active [address], [place], [address] , [facility] 2 09:08:34 Problem Notes None recorded. Procedures Surgical History Date Name Laterality Status Provider Name and Address Organization Details Recorded Time 04/18/20 22 Date of Last Mammogram completed Stacy [facility] 04/27/2022 10:33:12 10/13/20 21 AWV - safety evaluation completed [facility] 10/13/2021 08:12:25 10/13/20 21 AWV - female prevention plan completed MD [address], [place], [address], [facility] 10/13/2021 08:36:02 01/12/20 21 Most Recent Mammogram completed [facility] 10/13/2021 08:00:12 10/07/20 20 Mini-Cog completed [facility] 10/07/2020 14:00:02 10/07/20 20 AWV - safety evaluation completed [facility] 10/07/2020 14:04:01 10/07/20 20 AWV - female prevention plan completed MD [address], [place], [address], [facility] 10/07/2020 14:32:10 10/13/20 19 Mini-Cog completed [facility] 10/13/2019 08:54:58 10/13/20 19 AWV - safety evaluation completed [facility] 10/13/2019 08:55:50 10/13/20 19 AWV - female prevention plan completed MD [address], [place], [address], [facility] 10/13/2019 09:10:13 07/22/20 19 Dermatologic Surgery completed Patt Barakat MD [address], [place], [address], [facility] 10/07/2020 14:41:52 03/14/20 19 Date of Last Colonoscopy completed Maria Eugenia [facility] 10/13/2019 08:38:45 03/14/20 19 Colonoscopy completed Patt Barakat MD [address], [place], [address], [facility] 10/13/2019 08:59:53 10/11/20 18 Mini-Cog completed Pauline W[facility] 10/11/2018 08:08:20 10/11/20 18 AWV - safety evaluation completed Pauline Wills [facility] 10/11/2018 07:59:40 10/11/20 18 AWV - female prevention plan completed MELISSA Mckeon [address], [place], [address], [facility] 10/11/2018 09:00:09 11/22/19 18 Knee arthroscopy/surg tasha completed [facility] 12/06/2017 15:16:36 10/05/20 17 Mini-Cog completed Monserrat [facility] 10/05/2017 09:11:14 10/05/20 17 AWV - safety evaluation completed Monserrat [facility] 10/05/2017 09:02:59 10/05/20 17 AWV - female prevention plan completed MELISSA Mckeon [address], [place], [address], [facility] 10/05/2017 11:19:09 06/14/20 16 Mini-Cog completed [facility] 06/14/2016 08:40:10 06/14/20 16 AWV - safety evaluation completed [facility] 06/14/2016 08:28:11 06/14/20 16 AWV - female prevention plan completed Patt Barakat MD [address], [place], [address], [facility] 06/14/2016 08:51:15 06/14/20 15 Mini-Cog completed Patt Barakat MD [address], [place], [address], [facility] 06/14/2015 15:15:59 06/14/20 15 AWV - safety evaluation completed Patt Barakat MD [address], [place], [address], [facility] 06/14/2015 15:15:59 06/14/20 15 AWV - female prevention plan completed MD [address], [place], [address], [facility] 06/14/2015 15:15:59 02/17/20 15 Most Recent [facility] 14:20:33 04/13/20 14 PHQ-9 completed Patt Barakat MD [address], [place], [address], [facility] 04/13/2014 12:56:58 01/28/20 14 Colonoscopy completed Patt Barakat MD [address], [address], [facility] 04/13/2014 11:46:34 01/12/20 09 Colonoscopy completed Patt Barakat MD [address], [place], [address], [facility] 06/14/2015 15:10:56 07/06/19 95 Hysterectomy with Oopherectomy (ovaries removed) completed Monserrat [facility] 10/05/2017 09:04:35 10/22/18 90 Breast Biopsy completed Patt Barakat MD [address], [place] [address], [facility] 04/13/2014 13:13:19 04/05/19 63 Oral / Dental Surgery completed Patt Barakat MD [address], [place], [address], [facility] 10/13/2019 09:40:51 Imaging Results Imaging Date Name Status LastModified by Organiz ation Details LastModified Time 01/11/2021 screening mammogram 3D digital W priors completed ftaweel [facility] [address], [place], [address], 01/25/2021 14:22:12 04/18/2022 MAMMO, screening, digital, bilateral completed MANE [facility] [address], [place], [address], 07/11/2023 21:52:54 04/18/2022 MAMMO, screening, digital, bilateral completed [email or web address] (Medical Records) [address], [place], [address], 05/04/2022 09:20:13 Procedure Notes None recorded. Medical Equipment None Reported. Allergies Allergen ID Allergen Name Allergen Category Reaction Reaction Severity Criticality Documentation Date Start Date Code Code System Note Provider Name and Address Organization Details Recorded Time 109 honey bee venom environme nt Not available Not available Not available 10/23/2013 16773 7 RxNorm Not Available Not Available Not Available 2079502 acetamino phen / hydrocodo ne medicatio n flushing Not available Not available 01/07/2019 06929 2 RxNorm Not Available Not Available Not Available 2765560 adhesive tape environme nt,medica tion rash mild Not available 10/07/2020 39659 UNK Not Available Not Available Not Available 57854 Product containin g penicilli n and antibioti c (product) medicatio n hives Not available Not available 02/05/20141954 59418 05 SNOMED Not Available Not Available Not Available Medications Name Sig Start Date Stop Date Status Note LastModified by Organization Details LastModified Time losartan 50 mg tablet TAKE 1 TABLET BY MOUTH EVERY DAY active Not Available Not Available No t Available atorvasta tin 40 mg tablet Take 1 tablet(s ) every day by oral route. 05/23 completed Not Available Not Available Not Available atorvasta tin 20 mg tablet TAKE 1 TABLET EVERY DAY active Not Available Not Available No t Available atorvasta tin 10 mg tablet Take one tablet by mouth daily 05/31 completed not taking this dose. 05/31/20 Not Available Not Available Not Available azithromy wilton 250 mg tablet TAKE 2 TABLETS (500 MG) BY ORAL ROUTE ONCE DAILY FOR 1 DAY THEN 1 TABLET (250 MG) BY ORAL ROUTE ONCE DAILY FOR 4 DAYS 10/13 completed pt not taking Not Available Not Available Not Available hydrocodo ne 5 mg-acetam inophen 325 mg tablet 10/11 completed Not Available Not Available Not Available fluoroura cil 5 % topical cream 10/11 completed Not Available Not Available Not Available amlodipin e 2.5 mg tablet TAKE 1 TABLET BY MOUTH EVERY DAY 09/04 completed Not taking 09/04/19 Not Available Not Available Not Available amlodipin e 5 mg tablet Take 1 tablet every day by oral route for 90 days. 11/18 completed I believe dose was increase d(per BRONWYN notes); patient could not remember . Not Available Not Available Not Available valacyclo vir 500 mg tablet Take 1 tablet twice a day by oral route for 5 days. active Not Available Not Available No t Available ciproflox acin 500 mg tablet Take 1 tablet every 12 hours by oral route for 5 days. 10/11 completed Not Available Not Available Not Available triamtere ne 37.5 mg-hydroc hlorothia zide 25 mg capsule TAKE 1 CAPSULE BY MOUTH EVERY DAY NEEDED 06/04 completed Not Available Not Available Not Available triamcino lone acetonide 0.1 % topical cream 10/11 completed Not Available Not Available Not Available amlodipin e 5 mg-benaze pril 20 mg capsule TAKE 1 CAPSULE EVERY DAY 10/14 completed Not Available Not Available Not Available amlodipin e 10 mg tablet TAKE 1 TABLET BY MOUTH EVERY DAY 12/23 completed Not Available Not Available Not Available econazole nitrate 1 % topical cream APPLY TO AFFECTED AREA DAILY TO TWICE DAILY active Not Available Not Available No t Available triamcino lone acetonide 0.1 % topical ointment 06/22 completed Not Available Not Available Not Available benazepri l 20 mg tablet TAKE 1 TABLET BY MOUTH EVERY DAY 05/20 completed Not Available Not Available Not Available mupirocin 2 % topical ointment active Not Available Not Available Not Available metoprolo l succinate ER 25 mg tablet,ex tended release 24 hr Take 1 tablet every day by oral route. active Not Available Not Available No t Available ketoconaz ole 2 % topical cream APPLY TWICE A DAY TO BOTH FEET active Not Available Not Available No t Available spironola ctone 50 mg tablet TAKE 1 TABLET EVERY DAY active Not Available Not Available No t Available neomycin 3.5 mg/g-poly myxin B 10,000 unit/g-de xameth 0.1 % eye oint APPLY TO EYE LID OF LEFT EYE FOUR TIMES A DAY 06/14 completed Not Available Not Available Not Available Estrace 0.01% (0.1 mg/gram) vaginal cream Insert 1 g 3 times a week by vaginal route. 10/01 completed Not Available Not Available Not Available Femring 0.05 mg/24 hr vaginal INSERT 1 RING VAGINALL Y EVERY 3 MONTHS 2013 active Not Available Not Available Not Avai lable Premarin 0.625 mg/gram vaginal cream 1 applicat or full twice weekly active Not Available Not Available No t Available Crestor 20 mg tablet Take 1 tablet every day by oral route. 10/05 completed See pt case. SB 09/14/14 Not Available Not Available Not Available losartan 100 mg-hydroc hlorothia zide 12.5 mg tablet TAKE 1 TABLET EVERY DAY 2021 active Not Available Not Available Not Avai lable Aldara QD 2007 active Not Available Not Available Not Avai lable calcium w/vit D 09/04 completed Not Available Not Available Not Available B Complex QD active Not Available Not Kassandra ilable Not Available Lipitor QD 12/06 completed Not Available Not Available Not Available Vitamins B Complex DAILY 10/11 completed Not Available Not Available Not Available iron QD active Not Available Not Availa ble Not Available Levaquin QD 10/13 completed Not Available Not Available Not Available Centrum QD 2012 active Not Available Not Available Not Avai lable Lotrel QD 2012 active Not Available Not Available Not Avai lable Vagifem QW 2007 active Not Available Not Available Not Avai lable Adult Aspirin 81mg QD 2003 active has not had it in months.. 05/04/22 Not Available Not Available Not Available Crestor DAILY 2012 active Not Available Not Available Not Avai lable Calcium 500 With D QD 10/13 completed pt not taking Not Available Not Available Not Available Suprep Bowel Prep Kit 17.5 gram-3.13 gram-1.6 gram oral solution TAKE DIRECTED BY 01/08 completed BY: HALI ALMANZA LPN; SIGNED BY: HALI ALMANZA LPN; DATE: 014; GENERIC: NA SULFATE- K SULFATE- MG SULF Not Available Not Available Not Available Fluzone 4603-3587 45 mcg (15 mcg x 3)/0.5 mL intramusc ular suspensio n TO BE ADMINIST ERED BY [employer] FOR IMMUNIZA TION active Not Available Not Available No t Available Fluzone High-Dose 2014- (PF) 180 mcg/0.5 mL intramusc ular syringe active Not Available Not Available Not Available Vitamin B12 active Not Available Not Available Not Available Fluzone High-Dose 0027-0289 (PF) 180 mcg/0.5 mL intramusc ular syringe VACCINAT ION ADMINIST ERED BY [facility]ARMACE[facility]vee [facility] 06/22 completed Not Available Not Available Not Available Shingrix (PF) 50 mcg/0.5 mL intramusc ular suspensio n, kit 05/31 completed Not Available Not Available Not Available Fluad Quad 6540-7415 (65yr up)(PF) 60 mcg (15 mcg x 4)/0.5mL IM syringe VACCINAT ION ADMINIST ERED BY PHARMACEnervee [facility] 08/10 completed Not Available Not Available Not Available Vitals Date Recorded Body height Heart rate Body mass index (BMI) Body weight Body temperature Systolic blood pressure Diastolic blood pressure Provider Name and Address Organization Details Last Updated DateTime 1 172.72 cm 60 /min 31.6 kg/m2 01129.2 1 g 97 [degF] 145 mm[Hg] 77 mm[Hg] Pauline Wills [facility] 1 14:34:55 Date Recorded Body height Body temperature Body mass index (BMI) Body weight Heart rate Systolic blood pressure Diastolic blood pressure Provider Name and Address Organization Details Last Updated DateTime 1 172.72 cm 97.7 [degF] 31.5 kg/m2 53920.6 2 g 60 /min 106 mm[Hg] 64 mm[Hg] Stacy [facility] 1 14:16:23 Date Recorded Body height Body temperature Body mass index (BMI) Body weight Heart rate Systolic blood pressure Diastolic blood pressure Provider Name and Address Organization Details Last Updated DateTime 1 172.72 cm 97.8 [degF] 31.3 kg/m2 00463.0 3 g 56 /min 114 mm[Hg] 64 mm[Hg] [facility] 1 13:44:32 Date Recorded Body height Body temperature Body mass index (BMI) Body weight Heart rate Systolic blood pressure Diastolic blood pressure Provider Name and Address Organization Details Last Updated DateTime 1 172.72 cm 97.5 [degF] 32.2 kg/m2 43274.5 8 g 60 /min 118 mm[Hg] 76 mm[Hg] Gregoria You [facility] 1 08:08:59 Date Recorded Body height Body mass index (BMI) Body weight Body temperature Heart rate Systolic blood pressure Diastolic blood pressure Provider Name and Address Organization Details Last Updated DateTime 2 172.72 cm 31.9 kg/m2 23989.4 g 97.5 [degF] 68 /min 108 mm[Hg] 68 mm[Hg] Maria Eugenia Maya [facility] 2 08:32:52 Social History Question Answer Notes LastModified by Organizat ion Details LastModified Time Tobacco Smoking Status Never Smoker Trey [email or web address] [facility] 10/07/2020 13:50:33 Do You Have An Advance Directive? Yes Information not available 06/14/2015 What Is Your Level Of Alcohol Consumption? Occasional Information not available 10/07/2020 Animal Exposure? Yes Information not available 02/05/2014 Do You Wear A Helmet When Biking? Yes Information not available 10/07/2020 Are You Blind Or Do You Have Difficulty Seeing? No Information not available 10/07/2020 What Is Your Level Of Caffeine Consumption? Moderate Information not available 10/07/2020 How Much Tobacco Do You Chew? None Information not available 10/13/2019 Are You Deaf Or Do You Have Serious Difficulty Hearing? No Information not available 10/07/2020 What Type Of Diet Are You Following? REGULAR Information not available 10/07/2020 Do You Or Have You Ever Used E-cigarettes Or Vape? Never Used Electronic Cigarettes Information not available 10/07/2020 Education 4 Year College Informatio n not available 02/05/2014 What Is Your Occupation? Retired Information not available 10/07/2020 Have There Been Any Changes To Your Family Or Social Situation? No Information not available 10/07/2020 Are There Any Guns Present In Your Home? No Information not available 10/07/2020 Hobbies/Activit ies Sewing [email or web address] Information not available 10/05/2014 Live Alone Or With Others? With Others Information not available 02/05/2014 During The Past 4 Weeks, How Much Have You Been Bothered By Emotional Problems Such As Feeling Anxious, Depressed, Irritable, Sad, Or Downhearted And Blue? Moderately Information not available 10/13/2021 Reviewed Prior Year's Health Risk Assessment Yes Information not available 06/14/2015 During The Past 4 Weeks, Has Your Physical And Emotional Health Limited Your Social Activities With Family, Friends, Neighbors, Or Groups? Not At All Information not available 06/14/2015 During The Past 4 Weeks, How Much Bodily Pain Have You Generally Had? No Pain Information not available 10/13/2021 During The Past 4 Weeks, Was Someone Available To Help You If You Needed And Wanted Help? (For Example, If You [place] Very Nervous, Lonely, Or Blue; Got Sick And Had To Stay In Bed; Needed Someone To Talk To; Needed Help With Daily Chores; Or Needed Help Just Taking Care Of Yourself.) Yes As Much As I Wanted Information not available 06/14/2015 During The Past 4 Weeks, What Was The Hardest Physical Activity You Could Do For At Least 2 Minutes? Heavy Information not available 10/13/2021 Can You Get To Places Out Of Walking Distance Without Help? (For Example, Can You Travel Alone On Buses Or Taxis, Or Drive Your Own Car?) Yes Information not available 06/14/2015 Can You Go Shopping For Groceries Or Clothes Without Someone's Help? Yes Information not available 06/14/2015 Can You Prepare Your Own Meals? Yes Information not available 06/14/2015 Can You Do Your Housework Without Help? Yes Information not available 06/14/2015 Because Of Any Health Problems, Do You Need The Help Of Another Person With Your Personal Care Needs Such As Eating, Bathing, Dressing, Or Getting Around The House? No Information not available 06/14/2015 Can You Handle Your Own Money Without Help? Yes Information not available 06/14/2015 During The Past 4 Weeks, How Would You Rate Your Health In General? Excellent Information not available 10/13/2021 How Have Things Been Going For You During The Past 4 Weeks? Pretty Well Information not available 10/13/2021 Do You Always Fasten Your Seat Belt When You Are In A Car? Yes Usually Information not available 06/14/2015 How Often During The Past 4 Weeks Have You Been Bothered By Trouble Eating Well? Never Information not available 06/14/2015 How Often During The Past 4 Weeks Have You Been Bothered By Teeth Or Denture Problems? Never Information not available 06/14/2015 How Often During The Past 4 Weeks Have You Been Bothered By Problems Using The Telephone? Never Information not available 06/14/2015 How Often During The Past 4 Weeks Have You Been Bothered By Tiredness Or Fatigue? Never Information not available 06/14/2015 Have You Fallen Two Or More Times In The Past Year? No Information not available 06/14/2015 Are You Afraid Of Falling? No Information not available 06/14/2015 During The Past 4 Weeks, How Many Drinks Of Wine, Beer, Or Other Alcoholic Beverages Did You Have? One Drink Or Less Per Week Wine Information not available 10/13/2021 Do You Exercise For About 20 Minutes 3 Or More Days Per Week? Yes Most Of The Time Information not available 06/14/2015 Have You Been Given Any Information To Help You With Hazards In Your House That Might Hurt You? Yes [email or web address] Information not available 10/13/2019 Have You Been Given Any Information To Help You With Keeping Track Of Your Medications? No Information not available 06/14/2015 How Often Do You Have Trouble Taking Medicines The Way You Have Been Told To Take Them? I Always Take Them As Prescribed Information not available 06/14/2015 How Confident Are You That You Can Control And Manage Most Of Your Health Problems? Very Confident Information not available 06/14/2015 Are You Having Difficulty Driving Your Car? No Information not available 06/14/2015 How Often Do You Have A DRINK Containing ALCOHOL? 2-4 Times A Month Information not available 01/25/2021 How Often During The Past 4 Weeks Have You Been Bothered By Falling Or Dizziness When Standing Up?* Never [email or web address] Information not available 10/11/2018 Marital Status Passed 01/2021 Information not available 10/13/2021 What Was The Date Of Your Most Recent Tobacco Screening? 10/13/2021 Information not available 10/13/2021 How Many Children Do You Have? 0 Information not available 10/07/2020 Do You Use Protection During Sex? No Information not available 10/07/2020 Do You Use Your Seat Belt Or Car Seat Routinely? Yes Information not available 10/07/2020 Seat Belts Used Routinely Yes Information not available 04/13/2014 Are You Sexually Active? Yes Information not available 10/07/2020 Do You Have Any Siblings? 4 Information not available 10/07/2020 Do You Have Smoke And Carbon Monoxide Detectors In Your Home? Yes Information not available 10/07/2020 Are You Passively Exposed To Smoke? No Information not available 10/07/2020 Do You Or Have You Ever Used Smokeless Tobacco? Never Used Smokeless Tobacco Information not available 10/07/2020 How Much Tobacco Do You Smoke? No Information not available 10/07/2020 General Stress Level Low Information not available 10/05/2014 Do You Use Sunscreen Routinely? Yes Information not available 10/07/2020 How Many Years Have You Smoked Tobacco? 0 Information not available 10/07/2020 Sex: Unknown Functional Status Question Answer Note LastModified by Organizat ion Details LastModified Time Do you have difficulty walking or climbing stairs? No Information not available 10/07/2020 Do you have difficulty doing errands alone? No Information not available 10/07/2020 Do you have difficulty dressing or bathing? No Information not available 10/07/2020 What is your exercise level? Occasional Information not available 10/07/2020 Mental Status Question Answer Note LastModified by Organization D etails LastModified Time Do you have difficulty concentrating, remembering or making decisions? No Information no t available 10/07/2020 Family History Relationship Description Onset Age of this Age Resolved Age Notes LastModified by Organization Details LastModified Time Father Arthritis 65 Not avai lable 10/07/2020 13:50:26 Father Heart disease 75 85 [email or web address] Not available 09/21 15:53:02 Father Malignant tumor of larynx Not available 13:50:26 Mother Malignant tumor of colon 72 87 [email or web address] Not available 2015 08:28:37 Mother Rheumatoid arthritis 70 82 [email or web address] Not available 09/21 15:53:02 Mother Heart disease 60 87 [email or web address] Not available 2015 08:28:37 Mother Cerebrovascu lar accident 84 87 [email or web address] Not available 09:03:47 Sister Diabetes mellitus 50 [email or web address] Not available 2015 08:28:37 Sister Polyp of colon 20 polyps , half pre cancer [email or web address] Not available 10/07/2020 13:50:26 Sister No current problems or disability Not available 13:50:26 Sister No current problems or disability Not available 13:50:26 Sister Polyp of colon Not available 13:50:26 Brother No current problems or disability Not available 13:50:26 Medical History Condition Response HIV or AIDS N Coronary Artery Disease N Gout N Other N Atrial Fibrillation N Blood Transfusion N Erectile Dysfunction N Congenital Heart Disease N Depression N Pneumonia N Breast Disease N Peripheral Arterial Disease N Emphysema or COPD N Gastrointestinal Disease N Sinusitis N Anxiety Disorder N Obesity N Arthritis Y Infertility N Renal / Kidney Disease N Congenital Disorder N Cancer Y IBS N Varicosities N Hospitalization(s) N Dermatologic Disorder N Vision / Eye Disorder N Aortic Aneurysm N Neurologic Disorder N Cerebrovascular Accident (Stroke) N Arrhythmia N Headaches N Fibromyalgia N Musculoskeletal Disease N Polycystic Ovarian Disease (PCOS) N Endocrine Disorder N Gastroesophageal Reflux Disease (GERD) N Migraines N Deep Venous Thrombosis N Immunologic Disorder N Cataracts N Diabetes Mellitus N Autism Spectrum Disorder N Carotid Artery Disease N Hypertension (high blood pressure) Y Hypothyroidism (under active) N Blood Clots/DVT/Pulmonary Embolism N BPH N Abuse / Domestic Violence N Asthma N Hepatitis N Colon Polyp Y Chicken Pox N Hematologic Disease N Ear or Hearing Disorder N Thyroid Disease N Breast Cancer N Developmental or Behavioral Disorders N Pacemaker N Hyperthyroidism (over active) N Allergies (environmental/food) Y Anesthesia Complications N Genitourinary Disease N Cholelithiasis / Gallstones N Cystic Fibrosis N Chronic Obstructive Pulmonary Disease (C OPD) N Genetic / Hereditary Disorder N Seizures / Epilepsy N Cardiovascular Disease N ADHD N Hepatic / Liver Disease N Head Injury N Pulmonary / Lung Disease N Anticoagulant Therapy N Prostate Cancer N Bi-Polar N Transient Ischemic Attack N Osteoporosis/Osteopenia N Anemia N Multiple Sclerosis N Psychiatric Illness N Ovarian Cancer N Hypercholesterolemia (high cholesterol) Y Heart Murmur N Congestive Heart Failure (CHF) N Valvular Heart Disease N Insomnia N Eczema N Diverticulitis N Sleep Apnea N Bronchitis N Myocardial Infarction (heart attack) N Osteoporosis N Gynecological History Statement/Question Response Abnormal Pap Y Date of Last Colonoscopy 03/14/2019 Date of Last Mammogram 04/18/2022 Most Recent Bone Density 02/16/2015 Sexually Active? Y Post Menopausal Bleeding N Menses Monthly N HPV Vaccine N Most Recent Mammogram 01/11/2021 Current Control Method Hysterectom y Age at Menarche 11 Hormone Replacement Therapy N Obstetrics History GPAL:G 0 P 0 0 0 0 Immunizations Vaccine Type Date Status Note Provider Name and Address Organization Details Recorded Time influenza, unspecified formulation 07/01/20 12 completed Maria Eugenia [facility] 05/04/2022 08:31:43 tetanus toxoid, unspecified formulation 10/22/19 02 completed [facility] 05/04/2022 08:31:44 pneumococcal polysaccharide PPV23 01/21/20 14 completed Maria Eugenia [facility] 05/04/2022 08:31:05 Td(adult) unspecified formulation 11/05/19 02 completed Maria Eugenia [facility] 05/04/2022 08:31:45 influenza, unspecified formulation 07/23/20 18 completed [facility] 05/04/2022 08:31:44 influenza, unspecified formulation 08/22/20 14 completed Maria Eugenia [facility] 05/04/2022 08:31:05 Tdap 12/05/19 11 completed Maria Eugenia [facility] 05/04/2022 08:31:05 Hep A, unspecified formulation 09/21/20 09 completed Maria Eugenia Frances[facility] 05/04/2022 08:31:44 Td(adult) unspecified formulation 10/22/19 02 completed Maria Eugenia [facility] 05/04/2022 08:31:45 Hep B, unspecified formulation 09/21/20 09 completed Maria Eugenia [facility] 05/04/2022 08:31:45 Influenza, high-dose, trivalent, PF 06/11/20 20 completed [facility] 05/04/2022 08:31:43 COVID-19, mRNA, LNP-S, PF, 30 mcg/0.3 mL dose 12/28/19 21 completed Maria Eugenia [facility] 05/04/2022 08:31:04 COVID-19, mRNA, LNP-S, PF, 30 mcg/0.3 mL dose 01/19/20 21 completed Maria Eugenia [facility], [facility] 05/04/2022 08:31:04 Influenza, split virus, quadrivalent, preservative 07/01/20 21 completed Maria Eugenia Francesco null, [facility] 05/04/2022 08:31:44 Influenza, split virus, trivalent, preservative 07/01/20 12 completed Maria Eugenia [facility], [facility] 05/04/2022 08:31:04 pneumococcal polysaccharide PPV23 04/13/20 14 completed [facility] 05/04/2022 08:31:04 Hep A-Hep B 07/13/20 10 completed [facility], [facility] 05/04/2022 08:31:04 tetanus toxoid, adsorbed 10/22/19 02 completed Maria Eugenia [facility], [facility] 05/04/2022 08:31:04 typhoid, oral 10/07/20 09 completed Maria Eugenia [facility] 05/04/2022 08:31:04 Hep A, unspecified formulation 09/21/20 09 completed Maria Eugenia [facility] 05/04/2022 08:31:04 pneumococcal, unspecified formulation 01/21/20 14 completed Maria Eugenia [facility] 05/04/2022 08:31:04 zoster recombinant 12/27/19 20 completed Maria Eugenia Francesco null, [facility] 05/04/2022 08:31:04 Influenza, MDCK, quadrivalent, preservative 09/04/20 19 completed Maria Eugenia [facility], [facility] 05/04/2022 08:31:04 Td(adult) unspecified formulation 10/22/19 02 completed Maria Eugenia Francesco null, [facility] 05/04/2022 08:31:04 Influenza, adjuvanted, trivalent, PF 07/23/20 18 completed Maria Eugenia Francesco null, [facility] 05/04/2022 08:31:04 zoster recombinant 04/26/20 20 completed Maria Eugenia [facility], [facility] 05/04/2022 08:31:04 Hep B, unspecified formulation 09/21/20 09 completed [facility], [facility] 05/04/2022 08:31:05 Influenza, high-dose, trivalent, PF 08/19/20 16 completed Maria Eugeniara Maya [facility], [facility] 05/04/2022 08:31:05 Hep A-Hep B 10/07/20 09 [facility]04[facility] 08:31:05 Influenza, split virus, trivalent, preservative 08/26/20 14 completed [facility] 05/04/2022 08:31:05 COVID-19, mRNA, LNP-S, PF, 100 mcg/0.5mL dose or 50 mcg/0.25mL dose 11/09/19 22 completed Maria Eugenia [facility], [facility] 05/04/2022 08:31:04 Pneumococcal conjugate PCV 13 06/23/20 15 completed Maria Eugenia [facility] 05/04/2022 08:31:44 Td (adult), 5 Lf tetanus toxoid, preservative free, adsorbed 10/13/20 21 completed Maria Eugenia [facility] 05/04/2022 08:31:45 Td (adult), 5 Lf tetanus toxoid, preservative free, adsorbed 10/13/20 21 completed Maria Eugenia [facility], [facility] 05/04/2022 08:31:45 Influenza, MDCK, quadrivalent, PF 06/22/20 17 completed Maria Eugenia [facility], [facility] 05/04/2022 08:31:45 zoster recombinant 06/08/20 20 cancelled patient objection Carlos Eduardo [facility], [facility] 06/08/2020 13:53:34 Influenza, high-dose, trivalent, PF 09/05/20 15 completed Maria Eugeniara Maya [facility], [facility] 05/04/2022 08:31:04 pneumococcal polysaccharide PPV23 01/21/20 14 [facility] 08:31:44 influenza, unspecified formulation 08/19/20 16 completed [facility] 08:31:45 Past Encounters Encounter ID Performer Location Encounter Start Date Encounter Closed Date Diagnosis/Indication Diagnosis SNOMED-CT Code Diagnosis ICD10 Code Diagnosis Note [id number] [facility] () [address] 0 06/16/2004 00:00:00 [id number] [address] [place] [id number] 0 12/23/2004 00:00:00 [id number] [address] 0 06/29/2005 00:00:00 [id number] [address] 0 12/04/2005 00:00:[address] [facility] () [address] [place] [address] 03/01/2006 00:00:00 [id number] () [address] 0 12/31/2006 00:00:00 [id number] [facility] () [address] [place] [address] 07/11/2007 00:00:00 [id number] () [address] 0 10/10/2007 00:00:00 [id number] [facility] () [address] 0 01/16/2008 00:00:00 1615 [facility] (IP) [address] [place] [address] 02/18/2008 00:00:00 1616 [facility] (IP) [address] [place] [address] 10/13/2008 00:00:00 1617 [facility] (IP) [address] [place] [address] 10/20/2009 00:00:00 1618 [facility] ([facility]) [address] [place] [address] 01/19/2010 00:00:00 1619 [facility] (IP) [address] [place] [address] 05/05/2010 00:00:00 1620 G_PMA_V [facility] (IP) [address] [place] [address] 12/05/2010 00:00:00 [id number] Ethel Malhotra MD G_PMA_V [facility] (IP) [address] [place] [address] 03/14/2011 00:00:00 1622 G_PMA_V [facility] (IP) [address] [place] [address] 06/08/2011 00:00:00 1623 [facility] (IP) [address] [place] [address] 01/09/2012 00:00:00 1624 [facility] (IP) [address] [place] [address] 07/01/2012 00:00:00 1625 G_PMA_V [facility] (IP) [address] [place] [address] 02/11/2013 00:00:00 [id number] Patt Barakat MD [facility]_ [facility]* [address] [place] [address] ,[address] [place], [place] [address] 02/05/2014 09:29:37 02/05/2014 10:29:09 Benign essential hypertension 8836928 Hyperlipidemia [id number] Eruption 651752533 Atrophic vaginitis 99891123 [id number] Patt Barakat MD [facility]_ [facility]* [address] [place] [address] ,[address] [place], [place] [address] 04/13/2014 12:30:48 04/13/2014 14:16:28 Adult health examination [id number] Administra tion of pneumococcal vaccine 55876905 Benign ess ential hypertension 0069274 Hyperlipidemia 17251280 Atrophic vaginitis 68329050 [id number] Patt Barakat MD [facility]_ [facility]* [address] [place] [address] ,[address] [place], [place] [address] 10/05/2014 15:34:16 10/05/2014 16:31:27 Benign essential hypertension 1319011 Hyperlipidemia 49723251 Atrophic vaginitis 97681379 [id number] [facility]* [address] [place] [address] ,[address] [place], [place] 9 06/14/2015 14:18:34 06/14/2015 15:34:48 Adult health examination [id number] Carotid atherosclerosis 992117602 Administra tion of pneumococcal vaccine 44501732 Benign ess ential hypertension 3190658 Impaired f asting glycemia 059411835 Hyperlipidemia 82413540 [id number] Patt Barakat MD [facility]_ [facility]* [address] [place] [address] ,[address] [place], [place] 9 12/15/2015 09:47:50 12/15/2015 11:59:06 Impaired fasting glycemia 249063222 R73.01 Hyperlipidemia 42280244 E78.5 Carotid atherosclerosis 101052075 I65.23 Benign ess ential hypertension 8000755 I10 [id number] Patt Barakat MD PMG_IM[facility]_ [facility]* [address] [place] [address] ,[address] [place], [place] 9 06/14/2016 08:27:06 06/14/2016 09:27:55 Adult health examination 849466493 Z00.01 Benign ess ential hypertension 7846179 I10 Impaired f asting glycemia 968755173 R73.01 Herpes sim plex type 2 infection 698157228 B00.9 Hyperlipidemia 26484018 E78.5 [id number] Patt Barakat MD [facility]_ [facility]* [address] [place] [address] ,[address] [place], [place] 9 09/29/2016 10:11:33 09/29/2016 11:43:02 Cough 11265522 R05 [id number] Patt Barakat MD [facility]* [address] [place] [address] ,[address] [place], [place] 9 12/13/2016 07:39:58 12/13/2016 16:17:00 Benign essential hypertension 5075760 I10 Hyperlipidemia 94230167 E78.5 Hallux kailey antwon AND bunion [id number] M20.11 Impaired f asting glycemia 059358476 R73.01 Osteoarthritis 829144006 M15.0 Will send for imaging if pain does not reduce after stretching /exercise/ palliative care [id number] MELISSA Mckeon PM_IMAR_ [facility]* [address] [place] [address] ,[address] [place], [place] 9 10/05/2017 08:42:48 10/05/2017 13:08:14 Adult health examination 883925729 Z00.00 Herpes sim plex type 2 infection 142079754 B00.9 Benign ess ential hypertension 0268585 I10 Impaired f asting glycemia 843548654 R73.01 Hyperlipidemia 09895109 E78.5 Atrophic vaginitis 28849 000 N95.2 Traveler's diarrhea 1184 0006 A04.1 To take along with while travelling to [place] for 2 weeks. [id number] Adeel Momin DPM PMG_DFAC_ [facility]* [address] [place] [address] 01/03/2017 15:16:47 01/03/2017 16:39:54 Acquired hallux valgus 12608090 M20.11 Localized, secondary osteoarthritis of the ankle and/or foot 787342620 M19.271 1st MTPJ Capsulitis 3554278 M77.5 1 Tailor's bunion 4384452 M21.621 [id number] Patt Barakat MD PM_AR_ [facility]* [address] [place] [address] ,[address] [place], [place] 9 06/22/2017 10:09:06 06/22/2017 11:08:24 Benign essential hypertension 5692767 I10 Impaired f asting glycemia 405425843 R73.01 Hyperlipidemia 26497459 E78.5 Atrophic vaginitis 78805 000 N95.2 Herpes sim plex type 2 infection 583600097 B00.9 Administra tion of influenza vaccine 12957765 Z23 [id number] MELISSA Mckeon [facility]* [address] [place] [address] ,[facility] [address] [place], [place] 9 10/11/2018 07:41:10 10/11/2018 15:00:47 Adult health examination 928429457 Z00.00 Hyperlipidemia 18623032 E78.5 Benign ess ential hypertension 8214895 I10 On examina tion - reduced movement of hip 898496599 R29.898 Willing to be donor of kidney 621658297 Z00.5 Would like to be considered for donating her kidney to a friend for whom she is a match. 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 Increase Amlodipine . Weekly home BP and record, and FOV in 3 months with cuff. Carotid atherosclerosis 984789859 I65.23 Hyperlipidemia 41262914 E78.5 Consider increasing Atorvastat in pending Carotid US results. Mammography abnormal 168 645988 R92.8 Osteoarthritis of hip 23 7513481 M16.9 Prediabetes 228808909 R7 3.[address] imulating hormone level above reference range 636145885 R79.89 Discussed; no need for supplement and will recheck in 3 months. Polyp of vaginal wall 24 8596281 N84.2 No concerning features on exam. Recheck in 3 months, and consider Cp Bleacher Operator referral if worsens or becomes more symptomati c. [id number] MELISSA Mckeon PM_IMAR_ [facility]* [address] [place] [address] ,[address] [place], [place] 9 01/07/2019 08:09:42 01/07/2019 10:00:41 Benign essential hypertension 4513923 I10 Increase benazepril to BID dosing. Recheck BP 2x/day for 1 week, report values back via portal for further recs. [id number] Shanique Das NP PM_AR_ [facility]* [address] [place] [address] ,[address] [place], [place] 9 05/20/2019 15:24:08 05/21/2019 09:40:17 Benign essential hypertension 8304268 I10 will use dyazide prn for now for edema and reduce to 5mg amlodipine daily and continue to monitor home BP; if swelling resolves and BP acceptable on only 5mg amlodipine will continue w/ just the 5mg amlodipine ; otherwise, consider switch to diovan or losartan Edema of l ower extremity 740308454 R60.0 [id number] Shanique Das NP [facility]* [address] [place] [address] ,[address] [place], [place] 9 06/19/2019 11:01:25 06/19/2019 12:40:38 Benign essential hypertension 6122199 I10 increase losartan and add HCT to help w/ swelling and better BP control; TLC encouraged as well, watch salt; will f/u w/ pt in 3 wks for BP log [id number] Rani Pastor MD PMG_IMAR_ [facility]* [address] [place] [address] ,[address] [place], [place] 9 09/04/2019 13:41:40 09/05/2019 12:21:04 Benign essential hypertension 7129919 I10 Active or passive immunization 416363093 Z23 Screening for malignant neoplasm of breast 415998892 Z12.39 Administra tion of influenza vaccine 94952306 Z23 [id number] Patt Barakat MD PM_IMAR_ [facility]* [address] [place] [address] ,[address] [place], [place] 9 01/11/2020 17:44:00 01/13/2020 12:57:26 Hyperlipidemia 08063794 E78.5 Labs reviewed. Improved. Continue current medication . Recheck at [facility]. Carotid atherosclerosis 356073141 I65.23 Verified again by carotid US. Consider repeat scan 2024. Benign ess ential hypertension 9548889 I10 Improved. Recheck at [facility] and refill meds. [id number] Patt Barakat MD [facility]* [address] [place] [address] ,[facility] [address] [place], [place] 9 05/31/2020 13:10:35 06/01/2020 14:50:47 Benign essential hypertension 3127059 I10 As above reduce amlodipine and watch. Herpes sim plex type 2 infection 574348612 B00.9 Edema of l ower extremity 685017855 R60.0 New problem. Discussed; likely multifacto rial. Discussed more aggressive salt reduction. Reduce amlodipine to 5 mg daily, elevation, and FOV 2 months. [id number] Patt Barakat MD [facility]* [address] [place] [address] ,[facility] [address] [place], [place] 9 08/10/2020 13:20:55 08/11/2020 14:23:34 Benign essential hypertension 1450059 I10 Continue current meds as BP controlled , with reduced edema on lower amlodipine dose. Hyperlipidemia 52628615 E78.5 Labs reviewed. Improved. Continue current medication . Recheck at [facility]. [id number] Patt Barakat MD PM_AR_ [facility]* [address] [place] [address] ,[address] [place], [place] 9 10/07/2020 13:48:08 10/07/2020 15:10:48 Adult health examination 616605272 Z00.01 Hyperlipidemia 12285576 E78.5 Labs reviewed. Improved. Continue current medication . Recheck at [facility]. Carotid atherosclerosis 244981019 I65.23 Verified again by carotid US. Consider repeat scan 2024. Thyroid st imulating hormone level above reference range 092496334 R79.89 Prediabetes 184511018 R7 3.03 Improved. Watch yearly. Benign ess ential hypertension 8610505 I10 Screening mammography 24 800734 Z12.31 [id number] Patt Barakat MD PM_IMAR_ [facility]* [address] [place] [address] ,[address] [place], [place] 9 11/18/2020 14:19:19 11/23/2020 13:33:26 Edema of lower extremity 492781713 R60.0 Worsened problem. Due to poor compliance to diet, due to critically ill. Will add spironolac tone and FOV for recheck and labs in 1 month, sooner if no better/wor se. [id number] Patt Barakat MD [facility]_ [facility]* [address] [place] [address] ,[address] [place], [place] 9 12/23/2020 14:04:29 12/24/2020 14:30:20 Benign essential hypertension 8081325 I10 Hold Amlodipine , continue spironolac tone, metoprolol , Los HCTZ, and recheck in 1 month with BMP at that time. If home BP's > 140/90, add back 5 mg Amlodipine . [id number] Patt Barakat MD PM_IMAR_ [facility]* [address] [place] [address] ,[address] [place], [place] 9 01/25/2021 13:35:01 01/26/2021 12:28:02 Benign essential hypertension 0530163 I10 Improved based on her home numbers. IF BMP is OK, continue current rx (refill Spironolac tone once labs are back). [id number] Patt Barakat MD PM_IMTETE_ [facility]* [address] [place] [address] ,[address] [place], [place] 9 10/13/2021 07:44:18 10/17/2021 13:04:30 Adult health examination 790832513 Z00.01 Benign ess ential hypertension 0320765 I10 Well controlled . Refill meds. Herpes sim plex type 2 infection 175718433 B00.9 Hyperlipidemia 26840436 E78.5 Controlled on current rx. Prediabetes 021628588 R7 3.03 Worse. Recheck in 6 months at [facility]. Mild major depression, single episode 19201562 F32.0 New onset. Due to loss of 02/09. She has good support system, and therapy through her islam. Re-eval in 6 months. Administra tion of diphtheria and tetanus vaccine 03050220 Z23 Chronic pharyngitis 1400 04 J31.2 [id number] Patt Barakat MD PMG_IMAR_ [facility]* [address] [facility] ,[address] [place] [address] 05/04/2022 08:25:18 05/04/2022 12:35:17 Benign essential hypertension 6856540 I10 Well controlled . Continue current meds. Hyperlipidemia 48267749 E78.5 Recheck labs and continue current meds. Prediabetes 906445155 R7 3.03 Worse. Recheck today. Healthy lifestyle discussed. Mild major depression, single episode 63682226 F32.0 Ongoing, but mildly improved. Due to loss of 02/09. She has good support system, and therapy through her islam. She feels she does not need further interventi on at this time. Discussed [place]; she will consider. Left Achil les tendinitis 8040825495 32913 M76.62 Sialoadenitis 05485905 K 11.20 Health Concerns Section Related Observation LastModified by Organization Detai ls LastModified Time None Recorded Concern Status LastModified by Organization Details LastModified Time None Recorded Advance Directives Directive Y: Payers Encounter Date Sequence Insurance Name Policy Number Policy Lawrence Covered Member ID Lawrence Member ID Guarantor Name 11/18/2020 2 [employer] (MEDICARE SUPPLEMENT) Briana Verdin [id number] Briana Verdin 11/18/2020 1 MEDICARE B-DC: [employer] [place] Briana Verdin [id number] Briana Verdin 12/23/2020 2 [employer] (MEDICARE SUPPLEMENT) Briana Verdin [id number] Briana Verdin 12/23/2020 1 MEDICARE B-DC: [employer] [place] Briana Hernandezty [id number] Briana Nielsen Grasty 01/25/2021 2 [employer] (MEDICARE SUPPLEMENT) Briana Hernandezty [id number] Briana Nielsen Grasty 01/25/2021 1 MEDICARE B-DC: [employer] [place] Briana Hernandezty [id number] 1 Briana Nielsen Grasty 10/13/2021 2 [employer] (MEDICARE SUPPLEMENT) Briana Hernandezty [id number] Briana Nielsen Grasty 10/13/2021 1 MEDICARE B-DC: [employer] [place] Briana Hernandezty [id number] 1 Briana Nielsen Grasty 05/04/2022 1 [employer] (MEDICARE REPLACEMENT/ ADVANTAGE - PPO) Briana Hernandezty [id number] Briana Nielsen Grasty 05/04/2022 2 [employer] (MEDICARE SUPPLEMENT) Briana Nielsen Grasty [id number] Briana Hernandezty Notes Date Note Type Note Provider Name and Address Organization Details Recorded Time 1 text/html EdemaReported bypatient.Symptoms:no shortness of breath; no shortness of breath during exertion; no cough;swelling in lower legs only;weight gain (8 lbs) Quality:legs swell equally Context:prior history of edema Patt Barakat MD [address], [place], [address], [facility] 11/18/2020 15:33:31 1 text/html EdemaReported bypatient.Symptoms:no shortness of breath; no shortness of breath during exertion; no cough;swelling in lower legs only;weight gain (8 lbs) Quality:legs swell equally Context:prior history of edemaF/U HypertensionReported bypatient.Blood Pressure Readings:does not monitor blood pressure Lifestyle:compliant with diet N; compliant with exercise N Medications:taking medications as directed Y; side effects from medication N Associated Symptoms:no dizziness/lightheadedness; no chest pain; no shortness of breath; no palpitations; no numbness/loss of sensation; no calf pain with exertion;edema(improved on spironolactone) Also from metastatic bladder cancer. Sister here for support. Also stress related ocular migraines. MD [address], [place], [address], [facility] 12/23/2020 14:59:12 1 text/html F/U HypertensionReported bypatient.Blood Pressure Readings:average blood pressure readings: 130/70's; average pulse: 58 Lifestyle:compliant with diet N; compliant with exercise N Medications:taking medications as directed Y; side effects from medication N Associated Symptoms:no dizziness/lightheadedness; no chest pain; no shortness of breath; no palpitations; no numbness/loss of sensation; no calf pain with exertion;edema(improved on spironolactone and off amlodipine) Also from metastatic bladder cancer. Sister here for support. Also stress related ocular migraines. Patt Barakat MD [address], [place], [address], [facility] 01/25/2021 14:28:38 1 text/html F/U Diabetes/Pre-diabetesReport ed bypatient.Control:usually well controlled;worsened since last visit Compliance:compliant with diet; gets regular/adequate exerciseF/U HyperlipidemiaReported bypatient.Type of hyperlipidemia:combined Control:at goal Current Therapy:prescription medication: atorvastatin Compliance:compliant with diet N; adequate exercise N; compliant with medication Y; side effects of medication N Risk Factors:carotid ultrasound plaque Associated Symptoms:no chest pain; no shortness of breath; no calf pain with exertion; no myalgiaF/U HypertensionReported bypatient.Blood Pressure Readings:average blood pressure readings: 120's/upper 70's; average pulse: upper 50's; measured at home Lifestyle:compliant with diet N; compliant with exercise N Medications:taking medications as directed Y; side effects from medication N Associated Symptoms:no dizziness/lightheadedness; no chest pain; no shortness of breath; no palpitations; no edema; no numbness/loss of sensation; no calf pain with exertion Noticing stiffness in hips, groin area, gradually over the last year. Not limiting. Also had stage 4 bladder cancer, and 01/2021.Also ST, recurrent, L sided, lasts for 30 min and goes away, 2-3 months. No hoarseness. Sl. improvement. Also has intermittent rash on chest, occasional mild itch, for several months. Currently gone. MD [address], [place], [address], [facility] 10/13/2021 09:10:59 2 text/html F/U Diabetes/Pre-diabetesReport ed bypatient.Control:usually well controlled;worsened since last visit Compliance:compliant with diet; gets regular/adequate exerciseF/U HyperlipidemiaReported bypatient.Type of hyperlipidemia:combined Control:at goal Current Therapy:prescription medication: atorvastatin Compliance:compliant with diet N; adequate exercise Y (for several weeks); compliant with medication Y; side effects of medication N Risk Factors:carotid ultrasound plaque Associated Symptoms:no chest pain; no shortness of breath; no calf pain with exertion; no myalgiaF/U HypertensionReported bypatient.Blood Pressure Readings:average blood pressure readings: 120's/low 70's; average pulse: upper 50's; measured at home Lifestyle:compliant with diet N; compliant with exercise Y (for several weeks) Medications:taking medications as directed Y; side effects from medication N Associated Symptoms:no dizziness/lightheadedness; no chest pain; no shortness of breath; no palpitations; no edema; no numbness/loss of sensation; no calf pain with exertion Also pain L Achilles area since 10/2021. Saw Adeel Hudson (Maintenance Engineer), rx'd boot and stretches, with mild improvement.Also had episode of L parotid gland swelling. Resolved with chewing on lemon wedges. MD [address], [place], [address], [facility] 05/04/2022 09:16:55 OBGyn Episode No OBEpisode recorded.
== END 2024-12-01 11:10 | disposition home or self-care (01) ==
PROVIDERS: PCP Physician Assistant; Visit Provider Physician Assistant
DX: Z00.00 Encounter for general adult medical examination without abnormal findings (principal); Z78.0 Asymptomatic menopausal state; M41.26 Other idiopathic scoliosis, lumbar region

== ENCOUNTER → 2024-12-01 09:11 | Outpatient (BNVA) | payer MEDICARE, SELFPAY | PROVIDERS: PCP Physician Assistant; Visit Provider Physician Assistant | DX: Z00.00 Encounter for general adult medical examination without abnormal findings (principal); Z78.0 Asymptomatic menopausal state; M41.26 Other idiopathic scoliosis, lumbar region | CPT/HCPCS: 96127 ==

== ENCOUNTER 2025-01-02 09:00 | Outpatient (REF) | payer MEDICARE, SELFPAY ==
--- NOTE | ~2025-01-02 | MM_ITS ---
EXAMINATION: DXA BONE DENSITY AXIAL HISTORY: Estrogen deficiency TECHNIQUE: [employer] Dual energy absorptiometry (DEXA) of the lumbar spine, total left hip, and femoral neck was performed. COMPARISON: There are no prior studies for comparison. FINDINGS: The bone mineral density of the lumbar spine is 1.739 with a T-score of 4.7, and a Z-score of 5.5. The bone mineral density of the left total hip is 1.253 with a T-score of 2.0, and a Z-score of 3.1. The bone mineral density of the left femoral neck is 1.232 with a T-score of 1.4, and a Z-score of 2.8. FRACTURE RISK: The FRAX index suggests a risk of major osteoporotic fracture of 5.4%, and of hip fracture 0.2%. MM/XR DEXA axial skeleton IMPRESSION: Based on bone mineral density, and according to World Health Organization (WHO) criteria, the diagnosis is consistent with normal bone mineral density. All bone density values are in grams per centimeter squared (g/cm2). Statistically, 68% of repeat scans fall within 1 SD (+/- 0.010 g/cm2 for AP spine L1-L4) and 1 SD (+/- 0.012 g/cm2 for femur total) FRAX is a trademark of the [employer] [place] for Metabolic Bone Disease, a World Health Organization (WHO) Collaborating Center. Electronically signed by: Adeel Bridges MD 01/02/2025 09:58 AM EDT
== END 2025-01-02 09:01 | disposition home or self-care (01) ==
LOC: HO.MAMMO 09:00
PROVIDERS: PCP Physician Assistant; Visit Provider Physician Assistant
DX: Z13.820 Encounter for screening for osteoporosis (principal); Z78.0 Asymptomatic menopausal state
CPT/HCPCS: 77080

== ENCOUNTER → 2025-01-02 09:15 | Outpatient (BNV) | payer MEDICARE, SELFPAY | PROVIDERS: PCP Physician Assistant; Visit Provider Radiology Diagnostic Radiology | DX: E28.39 Other primary ovarian failure (principal) | CPT/HCPCS: 77080 ==

== ENCOUNTER 2025-03-02 09:18 | Outpatient (REF) | payer MEDICARE, SELFPAY ==
--- OUTSIDE RECORDS SUMMARY | 2025-03-02 09:25 | XMS_ITS ---
Author Name [facility] Organization Unknown Encounters Encounter Type Encounter Reason Primary Diagnosis Location Date Ambulatory [facility] 05/04/2022 Ambulatory [facility] 10/19/2021 Ambulatory [facility] 10/13/2021 Ambulatory [facility] 10/06/2021 Ambulatory [facility] 06/29/2021
[2025-03-02 11:23] LABS: Hematocrit 38.8 % (37.0-47.0); Hemoglobin 13.2 g/dl (12.0-16.0); Mean Corpuscular Volume 91.1 fL (80.0-98.0); Mean Platelet Volume 11.5 fL (9.4-12.3); Platelet Count 207 X10*3/uL (160-400); Red Blood Count 4.26 X10*6/uL (4.20-5.50); White Blood Count 6.1 X10*3/uL (4.8-10.8)
[2025-03-02 13:43] LABS: Alanine Aminotransferase 32 U/L (0-31); Albumin Level 4.4 g/dL (3.5-5.0); Anion Gap 13 (12-20); Aspartate Amino Transferase 37 U/L (5-31); Bilirubin Total 0.6 mg/dL (0.0-1.0); Blood Urea Nitrogen 19 mg/dL (9-16); Calcium 9.9 mg/dL (8.4-10.2); Carbon Dioxide 26 mmol/L (22-29); Chloride 102 mmol/L (96-108); Cholesterol 144 mg/dL (<200); Estimated Glomerular Filt Rate > 60; Glucose Fasting 117 mg/dL (60-99); HDL Cholesterol 41 mg/dL (>40); LDL Cholesterol Calculated 66 mg/dL (<100); Potassium 4.7 mmol/L (3.3-5.1); Sodium 136 mmol/L (135-145); Total Protein 6.6 g/dL (6.5-8.0); Triglycerides 189 mg/dL (<150)
[2025-03-02 15:17] LABS: Alkaline Phosphatase 59 U/L (39-117)
== END 2025-03-02 09:19 | disposition home or self-care (01) ==
LOC: HO.WFDLDS 09:18
PROVIDERS: Visit Provider Physician Assistant
DX: I10 Essential (primary) hypertension (principal); E78.00 Pure hypercholesterolemia, unspecified
CPT/HCPCS: 36415; 80053; 80061; 85027

== ENCOUNTER 2025-03-04 10:17 | Outpatient (AMB) | payer MEDICARE, SELFPAY ==
--- NOTE | 2025-03-04 10:35 | A.OFFPC_ITS ---
Vital Signs 03/04/25 10:38 Height 5 ft 6.77 in Weight 206 lb 6 oz BMI 32.5 BP 120/56 L Blood Pressure Location Lt brachial Position Sitting Respiration 16 Pulse 52 Pulse Source Pulse Oximeter Temp 97.1 F Temp Source Temporal Artery Scan Pulse Oximetry (%) 97 Oxygen Delivery Method Room Air Intake Visit Reasons: f/u IGM Cotton Baler Required: No Accompanied by: Self / Same As Patient Allergies bee venom protein (honey bee) Allergy (Intermediate, Verified 03/04/25 10:57) Swelling acetaminophen [From Vicodin] Allergy (Verified 03/04/25 10:57) Flushing hydrocodone [From Vicodin] Allergy (Verified 03/04/25 10:57) [place] Penicillins Adverse Reaction (Intermediate, Verified 03/04/25 10:57) hives vicotin Adverse Reaction (Severe, Uncoded 03/04/25 10:57) [place] Medication List - Last Reconciled 03/04/25 by Perry Silverio PA-C atorvastatin 20 mg PO DAILY 90 days estradiol 0.01%(0.1mg/gram) (Estrace) 1 g vaginal DAILY losartan-hydrochlorothiazide 100-12.5 mg 1 tab PO DAILY 90 days metoprolol succinate ER 25 mg PO DAILY [address] 40 mg PO DAILY 90 days spironolactone 50 mg PO DAILY 90 days triamcinolone acetonide 0.1% 1 appl topical DAILY 30 days valacyclovir 500 mg PO DAILY 90 days Tobacco use date assessed: 03/04/25 Fall risk assessment: No Falls in past year Last assessed Fall Risk: 03/04/25 Dental Screening Dental Screen Date: 03/04/25 Did you have a dental visit in the last 12 months?: Yes Did you have a dental problem in the last 6 months where you did not have access to dental care?: No Was dental information given to patient?: Patient has dentist HPI f/u IGM HPI Details Patient is a 74-year-old female here today for follow-up visit. Patient's past medical history significant for hyperlipidemia, hypertension, right hip osteoarthritis, GERD. Status post right hip replacement: Does report having some right lateral sharp hip pain when sitting down in driving. Otherwise pain has been not noticeable. Also has some left inguinal reach sternal tightness and pain. PLAN:She will do her own home physical therapy. Concern--> has multiple concerns today in office... reports she has very sensitive skin often having rash formations over upper extremities to which he attributes to working in her garden. Also reports continues to have loose stools and has an upcoming appointment with GI and will discuss colonoscopy. She does have family history of colon cancer. She has gotten regular colonoscopies which have been benign. -->She also reports getting somewhat benjamin rt of breath upon walking further distances. Unclear if this is related to lower heart rate secondary to a beta- skylar. Advised on taking only half dose (12.5 mg) of her metoprolol to see if her exercise tolerance gets better. .. Hypertension: Blood pressure today in office slightly on the lower side today. Otherwise denies any headaches, vision issues, dizziness or presyncopal episodes. .. Hyperlipidemia: Continues on statin therapy without any side effect. Reviewed patient's lab and noted elevated liver enzymes and a fasting blood sugar recently. Laboratory Tests 11/21/24 11/21/24 03/02/25 07:34 07:38 09:19 RBC 4.26 Creatinine 0.87 Fasting Glucose 110 H 117 H AST 37 H ALT 32 H Triglycerides 189 H Cholesterol 144 LDL Cholesterol, C alc 66 HDL Cholesterol 41 Urine Microalbumin 29.0 PFSH Medical History Herpes simplex Kidney pain Encounter for colonoscopy in patient with family history of colon cancer Surgical History History of hysterectomy History of total right hip replacement Family History Mother Colon cancer Sister Colon polyp Father Esophageal cancer Social History Housing: House Alcohol intake: current Alcohol intake frequency: holidays/special occasions only Patient Tobacco Use Status: Never used Tobacco e-Cigarette/Vaping Use: Never Used Second Hand Smoke Exposure: No service: No Current occupational status: employed and retired 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 1. Little interest or pleasure in doing things: several days 2. Feeling down, depressed, or hopeless: not at all 3. Trouble falling or staying asleep, or sleeping too much: not at all 4. Feeling tired or having little energy: several days 5. Poor appetite or overeating: several days 6. Feeling bad about yourself - or that you are a failure or have let yourself or your family down: not at all 7. Trouble concentrating on things, such as reading the newspaper or watching television: not at all 8. Moving or speaking so slowly that other people could have noticed. Or the opposite - being so fidgety or restless that you have been moving around a lot more than usual: not at all 9. Thoughts that you would be better off or of hurting yourself in some way: not at all Total score: 3 Depression Screening Interpretation: Positive Depression Screening Follow-up: Existing condition Depression Screening Done: Yes 42723 - PHQ-9 Billing: Yes Source: Developed by Drs. Adeel Montenegro, Ericka Car, Ruperto Hernández and colleagues, with an educational kelly from [employer]. Thrive Questionnaire Date Thrive assessed: 03/04/25 I am a: Patient What is your living situation today?: I have a steady place to live Within the past 12 months, did the food you bought not last and you didn't have the money to get more?: Never true Within the past 12 months, did you worry whether your food would run out before you got money to buy more?: Never true Do you have trouble paying for medicines?: No Do you have trouble getting transportation to medical appointments?: No Do you have trouble paying your heating and electricity bill?: No Do you have trouble taking care of your child, family member or friend?: No Do you have trouble with day-to-day activities such as bathing, preparing meals, shopping, managing finances, etc.?: No Are you currently unemployed and looking for a job?: No Are you interested in more education?: No Please select the resources that you would like help with: None Currently or been in a relationship where the following occur: No concerns reported THRIVE Score: 0 AUDIT C Alcohol Use Questionnaire (AUDIT-C) 1. How often do you have a drink containing alcohol?: 2-3 times a week 2. How many drinks containing alcohol do you have on a typical day when you are drinking?: 1 or 2 3. How often do you have six or more drinks on one occasion?: Never Total Score: 3 JANETH-7 AMB Questionnaire JANETH-7 Date JANETH - 7 assessed: 03/04/25 Feeling nervous, anxious, or on edge: 0 = Not at all Not being able to stop or control worryin = Not at all Worrying too much about different things: 0 = Not at all Trouble relaxin = Not at all Being so restless that it is hard to sit still: 0 = Not at all Becoming easily annoyed or irritable: 1 = Several days Feeling afraid as if something awful might happen: 0 = Not at all Total JANETH-7 score (0-4 normal; 5-9 mild; 10-14 moderate; 15-21 severe): 1 Source: Developed by Drs. Adeel Montenegro, Ericka Car, Ruperto Hernández and colleagues, with an educational kelly from [employer]. JANETH-7 Assessment Billing JANETH-7 Assessment Tool: JANETH-7 Assessment 34204 Review of Systems Const Denies headache(s) Eyes Denies loss of vision ENT Denies vertigo, Denies dizziness, Denies headache(s) and Denies sore throat Card Denies chest pain, Denies leg edema and Denies lightheadedness Resp Denies cough, Denies hemoptysis and Denies wheezing GI Denies abdominal pain, Denies melena, Denies constipation, Denies diarrhea and Denies vomiting Denies urinary frequency, Denies dysuria and Denies urinary urgency Musc Denies arthralgias, Denies joint swelling, Denies numbness and Denies tingling Neuro Denies Abnormal speech present, Denies behavioral changes, Denies vertigo, Denies dizziness, Denies headache(s), Denies loss of vision, Denies memory loss, Denies numbness and Denies tingling Psych Denies anxiety, Denies behavioral changes, Denies depression, Denies memory loss and Denies panic attacks Manuel/Lymph Denies easy bleeding and Denies easy bruising Aller/Immun Denies wheezing Physical exam (Primary Care) Vital Signs: Last Vital Signs Temp 97.1 F 03/04/25 10:38 Pulse 52 03/04/25 10:38 Resp 16 03/04/25 10:38 BP 120/56 L 03/04/25 10:38 Pulse Ox 97 03/04/25 10:38 Oxygen Delivery Method Room Air 03/04/25 10:38 BMI result Body Mass Index 32.5 Tobacco/Smoking Status: Tobacco use Status Tobacco use date assessed 03/04/25 03/04/25 10:48 Patient Tobacco Use Status Never used Tobacco 03/04/25 10:35 e-Cigarette/Vaping Use Never Used 03/04/25 10:35 PHQ-9: PHQ-9 Score PHQ-9: Total score 3 03/04/25 11:12 Depression Screening Interpretation: Positive Depression Screening Follow-up: Existing condition Thrive Assessment: Date of Thrive Assessment Date Thrive assessed 03/04/25 03/04/25 10:48 Currently or been in a relationship where the following occur: No concerns reported Const General: healthy appearing, no acute distress, alert and awake Nutritional Appearance: well nourished Orientation/consciousness: oriented to person, oriented to place and oriented to time HENMT Ears: TM's normal bilaterally General nose exam: Normal nasal mucous membranes and turbinates present Eyes Conjunctivae: conjunctivae normal Sclerae: sclerae normal Pupils: Equal, round and reactive pupils present Neck Neck: Yes no lymphadenopathy and Yes no JVD Thyroid: Thyroid normal Carotids: no bruits Resp Effort & Inspection: normal respiratory effort and not tachypneic Auscultation: no crackles, no rales, no rhonchi and no wheezes Cardio Rate: regular rate Rhythm: regular rhythm Heart sounds: no murmurs and normal S1 and S2 GI Palpation (GI): Soft to palpation, nontender, no hepatomegaly and no splenomegaly Auscultation: normal bowel sounds Skin General skin exam: no rashes or lesions noted and dry skin Neuro General: oriented to person, oriented to place and oriented to time Cranial nerves: Yes Equal, round and reactive pupils present Speech: No Abnormal speech present Gait exam (Neuro): Normal gait present Motor exam (neuro): no tremor noted Extrem Right upper extremity: full ROM Left upper extremity: full ROM Right lower extremity: full ROM; no edema Left lower extremity: full ROM; no edema Psych Mental Status: mental status grossly normal Speech and movement: Normal speech and movement present Affect: normal affect Attitude: cooperative Thought process: Normal thought process present Coding Level of Care Code Est Pt Level 4 (89146) Diagnoses Primary hypertension I10 Hypertension type: primary hypertension Pure hypercholesterolemia E78.00 Hyperlipidemia type: pure hypercholesterolemia Gastroesophageal reflux disease without esophagitis K21.9 Esophagitis presence: without esophagitis Diarrhea, unspecified type R19.7 Diarrhea type: unspecified type Liver enzyme elevation R74.8 Elevated fasting blood sugar R73.01 Class 1 obesity E66.811 MDD (major depressive disorder), recurrent episode, mild F33.0 Additional Codes JANETH-7 Assessment Billing - JANETH-7 Assessment Tool: JANETH-7 Assessment 94030 ([id number]) PHQ-9 - 06168 - PHQ-9 Billing: Yes ([id number]) Assessment & Plan Assessment & Plan (1) HTN (hypertension): Code(s): I10 - Essential (primary) hypertension Category: Medical Qualifiers: Hypertension type: primary hypertension Qualified Code(s): I10 - Essential (primary) hypertension Plan: Patient's blood pressure acceptable today, noted diastolic on a bit of lower side. Will discontinue her hydrochlorothiazide and continue losartan at current dose of 100 mg. Advised to continue monitoring blood pressure at home, goal blood pressures to be below 140/90 and above 100/60 (2) HLD (hyperlipidemia): Code(s): E78.5 - Hyperlipidemia, unspecified Category: Medical Qualifiers: Hyperlipidemia type: pure hypercholesterolemia Qualified Code(s): E78.0 0 - Pure hypercholesterolemia, unspecified Plan: Patient continues on statin therapy. Most recent lipid panel showing good control over total cholesterol and LDL.. Will reduce her atorvastatin potency as we have noted elevated liver enzymes recently. Will recheck her lipid panel to assure normal. Will LDL is to remain below 130 (3) GERD (gastroesophageal reflux disease): Code(s): K21.9 - Gastro-esophageal reflux disease without esophagitis Category: Medical Qualifiers: Esophagitis presence: without esophagitis Qualified Code(s): K21.9 - Gastro-esophageal reflux disease without esophagitis Plan: Continues on pantoprazole with decent affect on reducing her GERD symptoms. (4) Frequent loose stools: Code(s): R19.7 - Diarrhea, unspecified Category: Medical Qualifiers: Diarrhea type: unspecified type Qualified Code(s): R19.7 - Diarrhea, unspecified Plan: Metamucil recommended to manage symptoms while awaiting gastroenterology consultation. (5) Liver enzyme elevation: Code(s): R74.8 - Abnormal levels of other serum enzymes Category: Medical Plan: Will reduce her dose of statin therapy and recheck liver enzymes. Of note did have CT of the abdomen in 2022 that did not show any evidence of fatty liver. (6) Elevated fasting blood sugar: Code(s): R73.01 - Impaired fasting glucose Category: Medical Plan: Patient will work on low carbohydrate diet in trying to be more physically active to reduce weight. Will continue to follow fasting blood sugar (7) Class 1 obesity: Code(s): E66.811 - Obesity, class 1 Category: Medical Plan: Patient does understand her BMI is over 30 will try to work on being more physically active and adapt to better eating habits to reduce her weight (8) MDD (major depressive disorder), recurrent episode, mild: Code(s): F33.0 - Major depressive disorder, recurrent, mild Category: Medical Plan: Patient's PHQ-9 score positive for mild depression which has been existing condition for her. She is not interested in any medication or mental health therapy at this time as she feels she has good family support. Orders: Orders PT Evaluation and Treatment 03/04/25 M41.26 - Other idiopathic scoliosis, lumbar region Lipid Panel 03/04/25 E78.00 - Pure hypercholesterolemia, unspecified Complete Blood Count no Diff 03/04/25 I10 - Essential (primary) hypertension Comprehensive [place]. Panel Fast 03/04/25 I10 - Essential (primary) hypertension Hemoglobin A1c 03/04/25 R73.01 - Impaired fasting glucose Medications: New atorvastatin 10 mg PO DAILY 90 tabs 1RF 90 days E78.00 - Pure hypercholesterolemia, unspecified losartan 100 mg PO DAILY 90 tabs 1RF 90 days I10 - Essential (primary) hypertension Refilled metoprolol succinate ER 25 mg PO DAILY 90 tabs 2RF 90 days I10 - Essential (primary) hypertension triamcinolone acetonide 0.1% 1 appl topical DAILY 30 grams 0RF 30 days L30.9 - Dermatitis, unspecified Discontinued atorvastatin Discontinued Reason: Doctor's Order 20 mg PO DAILY 90 days 90 tabs 2RF I10 - Essential (primary) hypertension On Hold losartan-hydrochlorothiazide 100-12.5 mg Hold Comment: Doctor's Order 1 tab PO DAILY 90 days 90 tabs 2RF I10 - Essential (primary) hypertension Patient Instructions: Goal: Blood pressure to be below 140/90 Barriers: Adherence to physical activity and healthy eating habits
[2025-03-04 10:38] VITALS: BP 120/56; PULSE 52; RESP 16; TEMP 36.2; O2SAT 97; BMI 32.5
--- OUTSIDE RECORDS SUMMARY | 2025-03-04 11:17 | XMS_ITS | Data Portability ---
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 Plan of Treatment Reminders Order Date Submit Date Provider Last Modified By Organization Details Last Modified Time Details Appointments None recorded. Lab HbA1c (hemoglobi n A1c), blood [address] [facility] (Not A Draw Site), [address], Luis Felipe 1, [place], [id number] 2 04:48:59 lipid panel, serum [address] [facility] (Not A Draw Site), [address], Luis Felipe 1, [place], [address] 2 04:49:02 CMP, serum or plasma [address] [facility] (Not A Draw Site), [address], Luis Felipe 1, [place], [address] 2 04:49:00 BMP, serum or plasma [address] [facility] (Not A Draw Site), [address], Luis Felipe 1, [place], [address] 1 04:38:32 Referral behavioral psychother apy referral 2020 021 [email or web address] Not available 08:16:44 otolaryngo logist referral 2020 Keely Rizvi MD (Virtual Visits Available), [address] [facility], [address], [address], 08:43:16 Procedures None recorded. Surgeries None recorded. Imaging None recorded. Medication Orders valacyclov ir 500 mg tablet 2020 [facility], [address], [place], [address], 09:08:23 atorvastat in 20 mg tablet 2020 [facility], [address], [place], [address], 09:08:26 spironolac tone 50 mg tablet 2020 [facility], [address], [place], [address], 09:08:25 metoprolol succinate ER 25 mg tablet,ext ended release 24 hr 2020 [facility], [address], [place], [address], 09:08:23 losartan 100 mg-hydroch lorothiazi de 12.5 mg tablet 2020 [facility], [address], [place], [address], 09:08:24 spironolac tone 50 mg tablet 2020 021 [id number], [address], [place], , 14:56:20 spironolac tone 50 mg tablet 01/28/ 2021 01/28/2 021 INTERFACE [id number], [address] [place], [address], 15:32:51 Patient TargetsNo targets recorded. Patient Instructions Encounter Date Encounter Id Patient Instructions Last Modified By Organization Details Last Modified Time 12/23/2020 [id number] Continue working on diet (mostly whole-food, mostly plant-based), and exercise (minimum of 30 minutes, 5 days/week of walking). Continue medication as listed in your Patient Summary, available at your patient portal, or via printing at your request. Notify us immediately if you feel your medications are causing a problem. [email or web address] Not available 12/23/2020 14:58:27 01/25/2021 [id number] Continue working on diet (mostly whole-food, mostly plant-based), and exercise (minimum of 30 minutes, 5 days/week of walking). Continue medication as listed in your Patient Summary, available at your patient portal, or via printing at your request. Notify us immediately if you feel your medications are causing a problem. [email or web address] Not available 01/25/2021 14:24:37 10/13/2021 [id number] well visit, over 65: care instructions [email or web address] [...] Medications: -If you use any medications (prescriptions, [id number], supplements, herbal), always do so as directed [...] problem. [email or web address] Not available 10/13/2021 08:27:34 05/04/2022 [id number] salivary gland stone: care instructions [email or web address] Not [...] Patt Barakat, Internal Medicine, Encounter Date: 10/13/2021 Equipment Service Technician Referral fo r Chronic pharyngitis Referring Physician: Patt Barakat, Internal Medicine, Encounter Date: 10/13/2021 Results Created Date Observation Date Name Description Value Unit Range Abnormal Flag Note LastModifiedBy Organization Detail LastModifiedTime 12/17/19 21 12/17/2020 CMP, serum or plasm a total protein 6.8 g/dL 6.0-8. [address] [facility] (Not A Draw Site) [address] Luis Felipe 1, [place], [address] 12/20/2020 10:22:35 12/17/19 21 12/17/2020 CMP, serum or plasm a albumin 4.9 g/dL 3.5-5. [address] [facility] (Not A Draw Site) [address] Luis Felipe 1, [place], [address] 12/20/2020 10:22:35 12/17/1912/17/2020 CMP, serum or plasm a globulin 1.9 g/dL 1.7-3. [address] [facility] (Not A Draw Site) [address] Luis Felipe 1, [place], [address] 12/20/2020 10:22:35 12/17/1912/17/2020 CMP, serum or plasm a albumin/glob ulin 2.6 ratio 1.1-2. [address] [facility] (Not A Draw Site) [address] Luis Felipe 1[place], [address] 12/20/2020 10:22:35 12/17/19 21 12/17/2020 CMP, serum or plasm a glucose 96 mg/dL 70-[address] [facility] (Not A Draw Site) [address] Luis Felipe 1, [place], [address] 12/20/2020 10:22:35 12/17/1912/17/2020 CMP, serum or plasm a sodium 139 mmol/ L 136-[address] [facility] (Not A Draw Site) [address] [place] 1[place], [id number] 12/20/2020 10:22:35 12/17/19 21 12/17/2020 CMP, serum or plasm a potassium 5.4 mmol/ L 3.5-5. [address] [facility] (Not A Draw Site) [address] Luis Felipe 1[place], [id number] 12/20/2020 10:22:35 12/17/19 21 12/17/2020 CMP, serum or plasm a chloride 98 mmol/ L 98-[address] [facility] (Not A Draw Site) [address] Luis Felipe 1, [place], [address] 12/20/2020 10:22:35 12/17/19 21 12/17/2020 CMP, serum or plasm a CO2 26 mmol/ L 22-[address] [facility] (Not A Draw Site) [address] Luis Felipe 1[place], [address] 12/20/2020 10:22:35 12/17/19 21 12/17/2020 CMP, serum or plasm a BUN 20 mg/dL 8-[address] [facility] (Not A Draw Site) [address] Luis Felipe 1[place], [address] 12/20/2020 10:22:35 12/17/19 21 12/17/2020 CMP, serum or plasm a creatinine 0.82 mg/dL 0.50-[address] [facility] (Not A Draw Site) [address] Luis Felipe 1[place], [address] 12/20/2020 10:22:35 12/17/19 21 12/17/2020 CMP, serum or plasm a eGFR non- 71 mL/mi n >=[address] [facility] (Not A Draw Site) [address] Luis Felipe 1[place], [address] 12/20/2020 10:22:35 12/17/1912/17/2020 CMP, serum or plasm a eGFR 83 mL/mi n >=[address] [facility] (Not A Draw Site) [address] Luis Felipe 1[place], [address] 12/20/2020 10:22:35 12/17/1912/17/2020 CMP, serum or plasm a BUN/creat ratio 24.4 ratio 10.0-[address] [facility] (Not A Draw Site) [address] Luis Felipe 1[place], [address] 12/20/2020 10:22:35 12/17/19 21 12/17/2020 CMP, serum or plasm a calcium 10.2 mg/dL 8.8-[address] [facility] (Not A Draw Site) [place], [id number] 12/20/2020 10:22:35 12/17/19 21 12/17/2020 CMP, serum or plasm a bilirubin,to dana 0.6 mg/dL <1.[address] [facility] (Not A Draw Site) [place], [address] 12/20/2020 10:22:35 12/17/19 21 12/17/2020 CMP, serum or plasm a alkaline phosphatase 70 U/L 35-104 Not Available [facility] (Not A Draw Site) [place], [address] 12/20/2020 10:22:35 12/17/19 21 12/17/2020 CMP, serum or plasm a AST (SGOT) 28 U/L 10-[address] [facility] (Not A Draw Site) [place], [address] 12/20/2020 10:22:35 12/17/19 21 12/17/2020 CMP, serum or plasm a ALT (SGPT) 18 U/L <[address] [facility] (Not A Draw Site) [place], [address] 12/20/2020 10:22:35 12/17/19 21 12/17/2020 TSH + free T4, serum TSH 2.630 uIU/m L 0.270- 4.[address] [facility] (Not A Draw Site) [place], [address] 12/20/2020 10:22:36 12/17/19 21 12/17/2020 TSH + free T4, serum T4, free (FT4) 1.24 NG/dL 0.93-[address] [facility] (Not A Draw Site) [address] [place], [address] 12/20/2020 10:22:36 01/26/2001/25/2021 BMP, serum or plasm a glucose 92 mg/dL 70-[address] [facility] (Not A Draw Site) [address] [place], [address] 01/26/2021 04:38:32 01/26/2001/25/2021 BMP, serum or plasm a BUN 21 mg/dL 8-[address] [facility] (Not A Draw Site) [address] [place], [address] 01/26/2021 04:38:32 01/26/2001/25/2021 BMP, serum or plasm a creatinine 0.89 mg/dL 0.50-[address] [facility] (Not A Draw Site) [address] [place], [address] 01/26/2021 04:38:32 01/26/2001/25/2021 BMP, serum or plasm a BUN/creat ratio 23.6 ratio 10.0-[address] [facility] (Not A Draw Site) [address] [place], [address] 01/26/2021 04:38:32 01/26/2001/25/2021 BMP, serum or plasm a eGFR 75 mL/mi n >=[address] [facility] (Not A Draw Site) [address] [place], [address] 01/26/2021 04:38:32 01/26/2001/25/2021 BMP, serum or plasm a eGFR non- 65 mL/mi n >=[address] [facility] (Not A Draw Site) [address], [address] 01/26/2021 04:38:32 01/26/2001/25/2021 BMP, serum or plasm a calcium 10.2 mg/dL 8.6-10 .3 NOTE: New Refer ence Range for adult Calci um imple mente d on 2020. Not Available [facility] (Not A Draw Site) [address] [place], [address] 01/26/2021 04:38:32 01/26/20 21 01/25/2021 BMP, serum or plasm a sodium 136 mmol/ L 136-[address] [facility] (Not A Draw Site) [address] Jessica VictorRobyn MD, 01/26/2021 04:38:32 01/26/2001/25/2021 BMP, serum or plasm a potassium 4.6 mmol/ L 3.5-5. 3 NOTE: New Refer ence Range for Potas sium imple mente d on 2020. Not Available [facility] (Not A Draw Site) [address] [place], [id number] 01/26/2021 04:38:32 01/26/2001/25/2021 BMP, serum or plasm a chloride 96 mmol/ L 98-[address] [facility] (Not A Draw Site) [address] Luis [place] 1[place], [address] 01/26/2021 04:38:32 01/26/20 21 01/25/2021 BMP, serum or plasm a CO2 28 mmol/ L 22-[address] [facility] (Not A Draw Site) [address] [facility] 1[place], [address] 01/26/2021 04:38:32 06/29/20 21 06/29/2021 NOVEL CORON AVIRU S COVID -19 NASOP HARYN X covid-19 nasal/nasoph arynx Not Detect ed not detect ed Pleas e consi leelee re-co llect ion of a new speci men, if clini joie indic ated. The COVID -19 assay is under Emerg ency Use Autho rizat ion (EUA) by the U.S. Food and Drug Admin istra tion. PMG, [employer] is desig nated as a high [...] (NAAT ) recom robert d by the [facility] for passe nger trave l. Not Available [facility] (Not A Draw Site) [address] Luis Felipe 1, [place], [address] 06/30/2021 09:41:42 10/06/2010/06/2021 HEMOG LOBIN A1C (GLYC [...] abilio hemog lobin level s. Not Available [facility] (Not A Draw Site) [address] Luis Felipe 1, [place], [address] 10/07/2021 05:34:37 1210/06/2021 CBC W/O DIFF (HEMO GRAM) PLAT. CT WBC 4.75 10^3/ uL 4.00-[address] [facility] (Not A Draw Site) [place], [address] 10/07/2021 05:34:37 10/06/20 21 10/06/2021 CBC W/O DIFF (HEMO GRAM) PLAT. CT RBC 4.32 10^6/ uL 3.58-[address] [facility] (Not A Draw Site) [place], [address] 10/07/2021 05:34:37 10/06/2010/06/2021 CBC W/O DIFF (HEMO GRAM) PLAT. CT HGB 13.5 g/dL 11.0-[address] [facility] (Not A Draw Site) [place], [address] 10/07/2021 05:34:37 10/06/2010/06/2021 CBC W/O DIFF (HEMO GRAM) PLAT. CT HCT 42.6 % 31.6-[address] [facility] (Not A Draw Site) [place], [address] 10/07/2021 05:34:37 10/06/2010/06/2021 CBC W/O DIFF (HEMO GRAM) PLAT. CT MCV 98.6 fL 79.0-[address] [facility] (Not A Draw Site) [place], [id number] 10/07/2021 05:34:37 10/06/2010/06/2021 CBC W/O DIFF (HEMO GRAM) PLAT. CT MCH 31.3 pg 25.2-[address] [facility] (Not A Draw Site) [place], [address] 10/07/2021 05:34:37 10/06/20 21 10/06/2021 CBC W/O DIFF (HEMO GRAM) PLAT. CT MCHC 31.7 g/dL 31.0-[address] [facility] (Not A Draw Site) Brian Victor, [place], [address] 10/07/2021 05:34:37 10/06/20 21 10/06/2021 CBC W/O DIFF (HEMO GRAM) PLAT. CT RDW 12.5 % 12.0-[address] [facility] (Not A Draw Site) Brian Victor, [place], [address] 10/07/2021 05:34:37 10/06/2010/06/2021 CBC W/O DIFF (HEMO GRAM) PLAT. CT platelet count 214 10^3/ uL 140-[address] [facility] (Not A Draw Site) [place], [address] 10/07/2021 05:34:37 10/06/2010/06/2021 CBC W/O DIFF (HEMO GRAM) PLAT. CT MPV 11.4 fL 8.6-[address] [facility] (Not A Draw Site) [place], [id number] 10/07/2021 05:34:37 10/06/2010/06/2021 COMPR EHENS RUI METAB OLIC PANEL total protein 7.0 g/dL 6.0-8. [address] [facility] (Not A Draw Site) [place], [address] 10/07/2021 05:34:38 10/06/20 21 10/06/2021 COMPR EHENS RUI METAB OLIC PANEL albumin 4.9 g/dL 3.5-5. [address] [facility] (Not A Draw Site) [place], [address] 10/07/2021 05:34:38 10/06/20 21 10/06/2021 COMPR EHENS RUI METAB OLIC PANEL globulin 2.1 g/dL 1.7-3. [address] [facility] (Not A Draw Site) [address] Luis Felipe [place], [place], [address] 10/07/2021 05:34:38 10/06/20 21 10/06/2021 COMPR EHENS RUI METAB OLIC PANEL albumin/glob ulin 2.3 ratio 1.1-2. [address] [facility] (Not A Draw Site) [address] Luis Felipe [place], [place], [address] 10/07/2021 05:34:38 10/06/2010/06/2021 COMPR EHENS RUI METAB OLIC PANEL glucose 104 mg/dL 70-[address] [facility] (Not A Draw Site) [address] Luis Felipe [place], [place], [address] 10/07/2021 05:34:38 10/06/2010/06/2021 COMPR EHENS RUI METAB OLIC PANEL sodium 138 mmol/ L 136-[address] [facility] (Not A Draw Site) [address] Luis Felipe [place], [place], [id number] 10/07/2021 05:34:38 10/06/2010/06/2021 COMPR EHENS RUI METAB OLIC PANEL potassium 5.2 mmol/ L 3.5-5. [address] [facility] (Not A Draw Site) [address] [place], [address] 10/07/2021 05:34:38 10/06/20 21 10/06/2021 COMPR EHENS RUI METAB OLIC PANEL chloride 99 mmol/ L 98-[address] [facility] (Not A Draw Site) [address] Luis Felipe [place], [place], [address] 10/07/2021 05:34:38 10/06/20 21 10/06/2021 COMPR EHENS RUI METAB OLIC PANEL CO2 28 mmol/ L 22-[address] [facility] (Not A Draw Site) [address] Luis Felipe 1, MD [place], [address] 10/07/2021 05:34:38 10/06/20 21 10/06/2021 COMPR EHENS RUI METAB OLIC PANEL BUN 17 mg/dL 8-[address] [facility] (Not A Draw Site) [address] Luis Felipe 1, MD [place], [address] 10/07/2021 05:34:38 10/06/20 21 10/06/2021 COMPR EHENS RUI METAB OLIC PANEL creatinine 0.92 mg/dL 0.50-0 [address] [facility] (Not A Draw Site) [address] Luis Felipe [address], MD [place], [address] 10/07/2021 05:34:38 10/06/20 21 10/06/2021 COMPR EHENS RUI METAB OLIC PANEL eGFR non- 62 mL/mi n >=[address] [facility] (Not A Draw Site) [address] Luis Felipe [address], MD [place], [address] 10/07/2021 05:34:38 10/06/20 21 10/06/2021 COMPR EHENS RUI METAB OLIC PANEL eGFR 71 mL/mi n >=[address] [facility] (Not A Draw Site) [address] Luis Felipe 1, MD [place], [address] 10/07/2021 05:34:38 10/06/20 21 10/06/2021 COMPR EHENS RUI METAB OLIC PANEL BUN/creat ratio 18.5 ratio 10.0-[address] [facility] (Not A Draw Site) [address] Luis Felipe 1, MD [place], [address] 10/07/2021 05:34:38 10/06/20 21 10/06/2021 COMPR EHENS RUI METAB OLIC PANEL calcium 10.1 mg/dL 8.6-[address] [facility] (Not A Draw Site) [address] [place] 1[place], [address] 10/07/2021 05:34:38 10/06/20 21 10/06/2021 COMPR EHENS RUI METAB OLIC PANEL bilirubin,to dana 0.6 mg/dL <1.[address] [facility] (Not A Draw Site) [address] Luis Felipe [place], [place], [address] 10/07/2021 05:34:38 10/06/20 21 10/06/2021 COMPR EHENS RUI METAB OLIC PANEL alkaline phosphatase 60 U/L 42-127 Not Available [facility] (Not A Draw Site) [address] [place], [address] 10/07/2021 05:34:38 10/06/20 21 10/06/2021 COMPR EHENS RUI METAB OLIC PANEL AST (SGOT) 30 U/L 10-[address] [facility] (Not A Draw Site) [address] [place], [address] 10/07/2021 05:34:38 10/06/2010/06/2021 COMPR EHENS RUI METAB OLIC PANEL ALT (SGPT) 24 U/L <[address] [facility] (Not A Draw Site) [address], [address] 10/07/2021 05:34:38 10/06/20 21 10/06/2021 LIPID SCREE N (BASI C LIPID PROFI LE) cholesterol 146 mg/dL <[address] [facility] (Not A Draw Site) [address] [place], [address] 10/07/2021 05:34:38 10/06/20 21 10/06/2021 LIPID SCREE N (BASI C LIPID PROFI LE) triglyceride 189 mg/dL <150 high Not Available [facility] (Not A Draw Site) [address] Luis Felipe 1[place], [address] 10/07/2021 05:34:38 10/06/20 21 10/06/2021 LIPID SCREE N (BASI C LIPID PROFI LE) HDL cholesterol 42 mg/dL >=50 low Not Available [facility] (Not A Draw Site) [place], [address] 10/07/2021 05:34:38 10/06/20 21 10/06/2021 LIPID SCREE N (BASI C LIPID PROFI LE) HDL % cholesterol 29 % >14 Resul t(%): Evalu ation : 0-8 ABOVE AVG. (HIGH RISK) 9-14 ABOVE AVG. (MODE RATE RISK) 15-25 AVERA GE RISK 26-10 0 BELOW AVERA GE RISK Not Available [facility] (Not A Draw Site) [place], [id number] 10/07/2021 05:34:38 10/06/2010/06/2021 LIPID SCREE N (BASI C LIPID PROFI LE) chol/HDL risk ratio 3.5 ratio <5.8 Ratio : Evalu ation : Male: Femal e: 0.0-4 .1 0.0-3 .8 BELOW AVERA GE RISK 4.2-7 .3 3.9-5 .7 AVERA GE RISK 7.4-1 1.5 5.8-9 .0 ABOVE AVG. (MODE RATE RISK) >11.5 >9.0 ABOVE AVG. (HIGH RISK) Not Available [facility] (Not A Draw Site) [place], [address] 10/07/2021 05:34:38 10/06/2010/06/2021 LIPID SCREE N (BASI C LIPID PROFI LE) LDLC/HDL risk ratio 1.58 ratio <3.56 Not Available [facility] (Not A Draw Site) [place], [address] 10/07/2021 05:34:38 10/06/20 21 10/06/2021 LIPID SCREE N (BASI C LIPID PROFI LE) non-HDL cholesterol 104 mg/dL <130 Not Available [facility] (Not A Draw Site) [address] Victor, [place], [address] 10/07/2021 05:34:38 10/06/20 21 10/06/2021 LIPID SCREE N (BASI C LIPID PROFI LE) LDL-calculat ed 66 mg/dL <[address] [facility] (Not A Draw Site) [address] Hawks[address] Victor, [place], [address] 10/07/2021 05:34:38 10/06/20 21 10/06/2021 LIPID SCREE N (BASI C LIPID PROFI LE) VLDL 38 mg/dL 7-[address] [facility] (Not A Draw Site) [address] Hawksrinivasa Victor, [place], [address] 10/07/2021 05:34:38 10/06/20 21 10/06/2021 THYRO ID STIMU LATIN G HORMO NE (TSH) TSH 2.140 uIU/m L 0.278- 4.[address] [facility] (Not A Draw Site) [address] Hawksrinivasa Victor, [place], [address] 10/07/2021 05:34:39 10/19/20 21 10/19/2021 NOVEL CORON AVIRU S COVID -19 NASOP HARYN X covid-19 nasal/nasoph arynx Not Detect ed not detect ed Pleas e consi leelee re-co llect ion of a new speci men, if clini joie indic ated. The COVID -19 assay is under Emerg ency Use Autho rizat ion (EUA) by the U.S. Food and Drug Admin istra tion. [employer] is desig nated as a high compl [...] CDC for passe don paulino. Not Available [facility] (Not A Draw Site) [address] Luis Felipe 1, [place], [address] 10/22/2021 12:27:16 05/04/20 22 05/04/2022 HEMOG LOBIN [...] abilio in [place] [employer] and shoul [...] abilio hemog lobin level s. Not Available [facility] (Not A Draw Site) [address] [place], [id number] 05/05/2022 04:48:58 05/04/2005/04/2022 COMPR EHENS RUI METAB OLIC PANEL total protein 7.0 g/dL 6.0-8. [address] [facility] (Not A Draw Site) [address] [place] 1[place], [address] 05/05/2022 04:49:00 05/04/20 22 05/04/2022 COMPR EHENS RUI METAB OLIC PANEL albumin 5.1 g/dL 3.5-5. [address] [facility] (Not A Draw Site) [address], [place], [address] 05/05/2022 04:49:00 05/04/20 22 05/04/2022 COMPR EHENS RUI METAB OLIC PANEL globulin 1.9 g/dL 1.7-3. [address] [facility] (Not A Draw Site) [address] Luis Felipe 1, [place], [address] 05/05/2022 04:49:00 05/04/2005/04/2022 COMPR EHENS RUI METAB OLIC PANEL albumin/glob ulin 2.7 ratio 1.1-2. [address] [facility] (Not A Draw Site) [address] Luis Felipe [place], [place], [address] 05/05/2022 04:49:00 05/04/2005/04/2022 COMPR EHENS RUI METAB OLIC PANEL glucose 109 mg/dL 70-[address] [facility] (Not A Draw Site) [address] Luis Felipe 1, [place], [address] 05/05/2022 04:49:00 05/04/20 22 05/04/2022 COMPR EHENS RUI METAB OLIC PANEL sodium 138 mmol/ L 136-[address] [facility] (Not A Draw Site) [address] Luis Felipe 1, MD [place], [address] 05/05/2022 04:49:00 05/04/2005/04/2022 COMPR EHENS RUI METAB OLIC PANEL potassium 5.4 mmol/ L 3.5-5. [address] [facility] (Not A Draw Site) [address] Luis Felipe [address], [place], [address] 05/05/2022 04:49:00 05/04/2005/04/2022 COMPR EHENS RUI METAB OLIC PANEL chloride 99 mmol/ L 98-[address] [facility] (Not A Draw Site) [address] Luis Felipe 1, MD [place], [address] 05/05/2022 04:49:00 05/04/20 22 05/04/2022 COMPR EHENS RUI METAB OLIC PANEL CO2 26 mmol/ L 22-[address] [facility] (Not A Draw Site) [address] [place] [place], [address] 05/05/2022 04:49:00 05/04/20 22 05/04/2022 COMPR EHENS RUI METAB OLIC PANEL BUN 22 mg/dL 8-[address] [facility] (Not A Draw Site) [address] [place], [address] 05/05/2022 04:49:00 05/04/20 22 05/04/2022 COMPR EHENS RUI METAB OLIC PANEL creatinine 0.94 mg/dL 0.50-0 [address] [facility] (Not A Draw Site) [address] Luis Felipe [place], [place], [address] 05/05/2022 04:49:00 05/04/20 22 05/04/2022 COMPR EHENS RUI METAB OLIC PANEL eGFR non- 60 mL/mi n >=[address] [facility] (Not A Draw Site) [address] [place], [address] 05/05/2022 04:49:00 05/04/20 22 05/04/2022 COMPR EHENS RUI METAB OLIC PANEL eGFR 69 mL/mi n >=[address] [facility] (Not A Draw Site) [address] [place], [address] 05/05/2022 04:49:00 05/04/20 22 05/04/2022 COMPR EHENS RUI METAB OLIC PANEL BUN/creat ratio 23.4 ratio 10.0-[address] [facility] (Not A Draw Site) Brian [address] [place], [id number] 05/05/2022 04:49:00 05/04/20 22 05/04/2022 COMPR EHENS RUI METAB OLIC PANEL calcium 10.7 mg/dL 8.6-[address] [facility] (Not A Draw Site) [address], [place], [address] 05/05/2022 04:49:00 05/04/2005/04/2022 COMPR EHENS RUI METAB OLIC PANEL bilirubin,to dana 0.7 mg/dL <1.[address] [facility] (Not A Draw Site) [address] [place], [place], [address] 05/05/2022 04:49:00 05/04/20 22 05/04/2022 COMPR EHENS RUI METAB OLIC PANEL alkaline phosphatase 65 U/L 42-127 Not Available [facility] (Not A Draw Site) [address] Fair[place], MD [place]yn, 05/05/2022 04:49:00 05/04/20 22 05/04/2022 COMPR EHENS RUI METAB OLIC PANEL AST (SGOT) 31 U/L 10-[address] [facility] (Not A Draw Site) [address], MD Robyn, 05/05/2022 04:49:00 05/04/2005/04/2022 COMPR EHENS RUI METAB OLIC PANEL ALT (SGPT) 26 U/L <[address] [facility] (Not A Draw Site) [address] [place], [id number] 05/05/2022 04:49:00 05/04/2005/04/2022 LIPID SCREE N (BASI C LIPID PROFI LE) cholesterol 170 mg/dL <[address] [facility] (Not A Draw Site) [address] [place], [place], [address] 05/05/2022 04:49:02 05/04/20 22 05/04/2022 LIPID SCREE N (BASI C LIPID PROFI LE) triglyceride 181 mg/dL <150 high Not Available [facility] (Not A Draw Site) [address] 1[place], [address] 05/05/2022 04:49:02 07/14/20 22 05/04/2022 LIPID SCREE N (BASI C LIPID PROFI LE) HDL cholesterol 44 mg/dL >=50 low Not Available [facility] (Not A Draw Site) [address], MD [place], [address] 05/05/2022 04:49:02 05/04/20 22 05/04/2022 LIPID SCREE N (BASI C LIPID PROFI LE) HDL % cholesterol 26 % >14 Resul t(%): Evalu ation : 0-8 ABOVE AVG. (HIGH RISK) 9-14 ABOVE AVG. (MODE RATE RISK) 15-25 AVERA GE RISK 26-10 0 BELOW AVERA GE RISK Not Available [facility] (Not A Draw Site) [address] 1, MD [place], [address] 05/05/2022 04:49:02 05/04/2005/04/2022 LIPID SCREE N (BASI C LIPID PROFI LE) chol/HDL risk ratio 3.9 ratio <5.8 Ratio : Evalu ation : Male: Femal e: 0.0-4 .1 0.0-3 .8 BELOW AVERA GE RISK 4.2-7 .3 3.9-5 .7 AVERA GE RISK 7.4-1 1.5 5.8-9 .0 ABOVE AVG. (MODE RATE RISK) >11.5 >9.0 ABOVE AVG. (HIGH RISK) Not Available [facility] (Not A Draw Site) [place], [address] 05/05/2022 04:49:02 05/04/20 22 05/04/2022 LIPID SCREE N (BASI C LIPID PROFI LE) LDLC/HDL risk ratio 2.04 ratio <3.56 Not Available [facility] (Not A Draw Site) [place], [address] 05/05/2022 04:49:02 05/04/20 22 05/04/2022 LIPID SCREE N (BASI C LIPID PROFI LE) non-HDL cholesterol 126 mg/dL <130 Not Available [facility] (Not A Draw Site) [address] [place], [address] 05/05/2022 04:49:02 05/04/20 22 05/04/2022 LIPID SCREE N (BASI C LIPID PROFI LE) LDL-calculat ed 90 mg/dL <[address] [facility] (Not A Draw Site) [address] Briscoe 1[place]yn [place], [address] 05/05/2022 04:49:02 05/04/20 22 05/04/2022 LIPID SCREE N (BASI C LIPID PROFI LE) VLDL 36 mg/dL 7-[address] [facility] (Not A Draw Site) [address] Briscoe 1[place]yn [place], [address] 05/05/2022 04:49:02 01/23/20 21 01/11/2021 scree carrington mammo gram 3D digit al W prior s REFERR ING PROVID ER: PATT BARAKAT MD [id number] [facility] [facility] PROCED URES: SCREEN ING MAMMOG SANTOS [...] COLLEEN MCFARLAND MD COPY FURNIS HED: ftaweel [facility] [place] [address], [place], [address], 01/25/2021 14:22:12 05/01/20 22 04/18/2022 MAMMO , scree carrington, digit al, bilat eral REFERR ING PROVID ER: PATT BARAKAT MD [address] [facility] [facility] PROCED URES: SCREEN ING MAMMOG SANTOS [...] ALBERTA ETIENNE MD COPY FURNIS HED: MANE [facility] [place] [address], [place], [address], 07/11/2023 21:52:54 07/12/20 22 04/18/2022 MAMMO , scree carrington, digit al, bilat eral No observ ation record ed. [facility] (Medical Records) [id number] [facility] [address], [place], [address], 05/04/2022 09:20:13 Result Notes None recorded. 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 Not Available [facility] 2 08:51:10 Abnormal findings on diagnosti c imaging of breast 199591291 Completed 200702/05/[address], [place], [address] , [facility] 4 10:06:16 Mammograp hy abnormal 378055944 Completed 200802/05/2014 MD [address], [place], [address] , [facility] 4 10:06:16 Actinic keratosis 589571428 Completed 200402/05/2014 MD [address], [place], [address] , [facility] 4 10:06:16 Degenerat ion of cervical intervert ebral disc 12526399 Active Not Available [facility] 2 08:51:10 Dyspareun ia 48622031 Completed 200504/13/[address], [place], [address] , [facility] 4 11:43:55 Edema 938613955 Completed 200402/05/[address], [place], [address] , [facility] 4 10:06:16 Family history of malignant neoplasm of gastroint estinal tract 643524881 Com[facility] 06/11/2015 [facility] 5 17:51:30 Bleeding 661286591 Completed 200602/05/2014 MD [address], [place], [address] , [facility] 4 10:06:16 Benign essential hypertens ion 7195298 Active Not Available [facility] 2 08:51:10 Metabolic syndrome X 371757259 Active Not Available [facility] 2 08:51:10 Eruption 928464771 Completed 06/11/2015 [facility] 5 17:51:30 Adult health examinati on Completed 10/05/2017 MELISSA Mckeon [address], [place], [address] , [facility] 7 09:16:14 Screening mammograp hy Completed 06/11/2015 [facility] 5 17:51:30 Screening for osteoporo sis Completed 06/11/2015 [facility] 5 17:51:30 Menopausa l symptom 24517023 Completed 06/11/2015 [facility] 5 17:51:30 Spontaneo us ecchymosi s 309467882 Completed 200402/05/2014 MD [address], [place], [address] , [facility] 4 10:06:16 Administr ation of diphtheri a and tetanus vaccine Completed 201002/05/2014 MD [address], [place], [address] , [facility] 4 10:06:16 Acute upper respirato ry infection 82992010 Completed 200502/05/2014 Patt Barakat MD [address], [place], [address] , [facility] 4 10:06:16 Atrophic vaginitis 58786404 Completed 06/11/2015 Patt Barakat MD [address], [place], [address] , [facility] 7 10:54:26 Atrophic vaginitis 74593538 Active 2016 Not Available [facility] 2 08:51:10 Hyperlipi demia 47749200 Active Not Available [facility] 2 08:51:10 Specializ ed medical examinati on Completed 201002/05/2014 Patt Barakat MD [address], [place], [address] , [facility] 4 10:06:16 Influenza vaccine needed 71596890425 06 Completed 201102/05/2014 Patt Barakat MD [address], [place], [address] , [facility] 4 10:06:16 Impaired fasting glycemia 352309233 Completed 10/13/2019 MD [address], [place], [address] , [facility] 9 10:05:37 Carotid atheroscl erosis 193142541 Active Not Available [facility] 2 08:51:10 Osteoarth ritis of hip 276353223 Active 2018 Not Available [facility] 2 08:51:10 Prediabet es 518755761 Active 2018 Not Available [facility] 2 08:51:10 Thyroid stimulati ng hormone level above reference range 652222178 Active 2018 Not Available [facility] 2 08:51:10 Polyp of vaginal wall 335762292 Active 2018 Not Available [facility] 2 08:51:10 Exposure to SARS-CoV- 2 Active 2020 Not Available [facility] 2 08:51:10 Mild major depressio n, single episode 14034984 Active 2020 Not Available [facility] 2 08:51:10 Dom feldman 01248876 Active [address], [place], [address] , [facility] 2 09:08:34 Problem Notes None recorded. Procedures Surgical History Date Name Laterality Status Provider Name and Address Organization Details Recorded Time 04/18/20 22 Date of Last Mammogram completed Stacy Andrews [facility] 04/27/2022 10:33:12 10/13/20 21 AWV - safety evaluation completed [facility] 10/13/2021 08:12:25 10/13/20 21 AWV - female prevention plan completed MD [address], [place], [address], [facility] 10/13/2021 08:36:02 01/12/20 21 Most Recent Mammogram completed [facility] 10/13/2021 08:00:12 10/07/20 20 Mini-Cog completed [facility] 10/07/2020 14:00:02 10/07/20 20 AWV - safety evaluation completed [facility] 10/07/2020 14:04:01 10/07/20 20 AWV - female prevention plan completed MD [address], [place], [address], [facility] 10/07/2020 14:32:10 10/13/20 19 Mini-Cog completed [facility] 10/13/2019 08:54:58 10/13/20 19 AWV - safety evaluation completed [facility] 10/13/2019 08:55:50 10/13/20 19 AWV - female prevention plan completed MD [address], [place], [address], [facility] 10/13/2019 09:10:13 07/22/20 19 Dermatologic Surgery completed Patt Barakat MD [address], [place], [address], [facility] 10/07/2020 14:41:52 03/14/20 19 Date of Last Colonoscopy completed Maria Eugenia Maya [facility] 10/13/2019 08:38:45 03/14/20 19 Colonoscopy completed Patt Barakat MD [address], [place], [address], [facility] 10/13/2019 08:59:53 10/11/20 18 Mini-Cog completed Pauline Wills [facility] 10/11/2018 08:08:20 10/11/20 18 AWV - safety evaluation completed Pauline Wills [facility] 10/11/2018 07:59:40 10/11/20 18 AWV - female prevention plan completed MELISSA Mckeon [address], [place], [address], [facility] 10/11/2018 09:00:09 11/22/19 18 Knee arthroscopy/surg tasha completed [facility] 12/06/2017 15:16:36 10/05/20 17 Mini-Cog completed Monserrat [facility] 10/05/2017 09:11:14 10/05/20 17 AWV - safety evaluation completed Monserrat [facility] 10/05/2017 09:02:59 10/05/20 17 AWV - female prevention plan completed MELISSA Mckeon [address], [place], [address], [facility] 10/05/2017 11:19:09 06/14/20 16 Mini-Cog completed [facility] 06/14/2016 08:40:10 06/14/20 16 AWV - safety evaluation completed [facility] 06/14/2016 08:28:11 06/14/20 16 AWV - female prevention plan completed Patt Barakat MD [address], [place], [address], [facility] 06/14/2016 08:51:15 06/14/20 15 Mini-Cog completed Patt Barakat MD [address], [place], [address], [facility] 06/14/2015 15:15:59 06/14/20 15 AWV - safety evaluation completed Patt Barakat MD [address], [place], [address], [facility] 06/14/2015 15:15:59 06/14/20 15 AWV - female prevention plan completed MD [address], [place], [address], [facility] 06/14/2015 15:15:59 02/17/20 15 Most Recent [facility]2015 14:20:33 04/13/20 14 PHQ-9 completed Patt Barakat MD [address], [place], [address], [facility] 04/13/2014 12:56:58 01/28/20 14 Colonoscopy completed Patt Barakat MD [address], [place], [address], [facility] 04/13/2014 11:46:34 01/12/20 09 Colonoscopy completed Patt Barakat MD [address], [place], [address], [facility] 06/14/2015 15:10:56 07/06/19 95 Hysterectomy with Oopherectomy (ovaries removed) completed Monserrat Santa [facility] 10/05/2017 09:04:35 10/22/18 90 Breast Biopsy completed Patt Barakat MD [address], [place] [address], [facility] 04/13/2014 13:13:19 04/05/19 63 Oral / Dental Surgery completed MD [address], [place], [address], [facility] 10/13/2019 09:40:51 Imaging Results Imaging Date Name Status LastModified by Organiz ation Details LastModified Time 01/11/2021 screening mammogram 3D digital W priors completed ftaweel [facility] [place] [address], [place], [address], 01/25/2021 14:22:12 04/18/2022 MAMMO, screening, digital, bilateral completed MANE [facility] [place] [address], [place], [address], 07/11/2023 21:52:54 04/18/2022 MAMMO, screening, digital, bilateral completed [email or web address] [facility] (Medical Records) [address], [place], [address], 05/04/2022 09:20:13 Procedure Notes None recorded. Medical Equipment None Reported. Allergies Allergen ID Allergen Name Allergen Category Reaction Reaction Severity Criticality Documentation Date Start Date Code Code System Note Provider Name and Address Organization Details Recorded Time 109 honey bee venom environme nt Not available Not available Not available 10/23/2013 84184 7 RxNorm Miracle Guy [facility] 5 17:54:41 6981406 acetamino phen / hydrocodo ne medicatio n flushing Not available Not available 01/07/2019 56733 2 RxNorm Mandy Link [facility] 9 08:22:11 7551446 adhesive tape environme nt,medica tion rash mild Not available 10/07/2020 [address] UNK MD [address], [place], [address], [facility] 0 15:02:57 29769 Product containin g penicilli n (product) medicatio n hives Not available Not available 02/05/20141954 97895 8001 TEVIN Barakat MD [address], [place], [address], [facility] 4 09:57:35 Medications Name Sig Start Date Stop Date [...] Not Available Not Available Not Available Fluzone 45 mcg (15 mcg x 3)/0.5 mL intramusc ular suspensio n TO BE ADMINIST ERED BY [employer] FOR IMMUNIZA TION active Not Available Not Available No t Available Fluzone High-Dose (PF) 180 mcg/0.5 mL intramusc ular syringe active Not Available Not Available Not Available Vitamin B12 active Not Available Not Available Not Available Fluzone High-Dose (PF) 180 mcg/0.5 mL intramusc ular syringe VACCINAT ION ADMINIST ERED BY PHARMACI ST 06/22 completed Not Available Not Available Not Available Shingrix (PF) 50 mcg/0.5 mL intramusc ular tomasz ba kit 05/31 completed Not Available Not Available Not Available Fluad Quad (65yr up)(PF) 60 mcg (15 mcg x 4)/0.5mL IM syringe VACCINAT ION ADMINIST ERED BY KEM FARFAN 08/10 completed Not Available Not Available Not Available Vitals Date Recorded Body height Heart rate Body mass index (BMI) Body weight Body temperature Systolic blood pressure Diastolic blood pressure Provider Name and Address Organization Details Last Updated DateTime 1 172.72 cm 60 /min 31.6 kg/m2 02187.2 1 g 97 [degF] 145 mm[Hg] 77 mm[Hg] Pauline Wills [facility] 1 14:34:55 Date Recorded Body height Body temperature Body mass index (BMI) Body weight Heart rate Systolic blood pressure Diastolic blood pressure Provider Name and Address Organization Details Last Updated DateTime 1 172.72 cm 97.7 [degF] 31.5 kg/m2 73043.6 2 g 60 /min 106 mm[Hg] 64 mm[facility]Hg[facility] 14:16:23 Date Recorded Body height Body temperature Body mass index (BMI) Body weight Heart rate Systolic blood pressure Diastolic blood pressure Provider Name and Address Organization Details Last Updated DateTime 1 172.72 cm 97.8 [degF] 31.3 kg/m2 83174.0 3 g 56 /min 114 mm[Hg] 64 mm[Hg] [facility] 1 13:44:32 Date Recorded Body height Body temperature Body mass index (BMI) Body weight Heart rate Systolic blood pressure Diastolic blood pressure Provider Name and Address Organization Details Last Updated DateTime 1 172.72 cm 97.5 [degF] 32.2 kg/m2 61994.5 8 g 60 /min 118 mm[Hg] 76 mm[Hg] Gregoria Orta [facility] 1 08:08:59 Date Recorded Body height Body mass index (BMI) Body weight Body temperature Heart rate Systolic blood pressure Diastolic blood pressure Provider Name and Address Organization Details Last Updated DateTime 2 172.72 cm 31.9 kg/m2 66842.4 g 97.5 [degF] 68 /min 108 mm[Hg] 68 mm[Hg] Maria Eugenia Maya [facility] 2 08:32:52 Social History Question Answer Notes LastModified by Organizat ion Details LastModified Time Tobacco Smoking Status Never Smoker [facility] 10/07/2020 13:50:33 Do You Have An Advance Directive? Yes Information not available 06/14/2015 Animal Exposure? Yes Information not available 02/05/2014 [...] You Following? REGULAR Information not available 10/07/2020 Education 4 Year College Informatio n not available 02/05/2014 Have There Been Any Changes To Your Family Or Social Situation? No Information not available 10/07/2020 Are There Any Guns Present In Your Home? No Information not available 10/07/2020 Hobbies/Activit ies Sewing [email or web address] Information not available 10/05/2014 Live Alone Or [...] And Wanted Help? (For Example, If You Delton Very Nervous, Lonely, Or Blue; Got Sick [...] Your House That Might Hurt You? Yes [email or web address] Information not available 10/13/2019 Have You Been [...] DRINK Containing ALCOHOL? 2-4 Times A Month [email or web address] Information not available 01/25/2021 How Often During The Past 4 Weeks Have You Been Bothered By Falling Or Dizziness When Standing Up?* Never [email or web address] Information not available 10/11/2018 Marital Status Passed [...] To Smoke? No Information not available 10/07/2020 How Much Tobacco Do You Smoke? No Information not available 10/07/2020 General Stress Level Low [email or web address] Information not available 10/05/2014 Do You Use Sunscreen Routinely? Yes Information not available 10/07/2020 How Many Years Have You Smoked Tobacco? 0 Information not available 10/07/2020 Do You Have Difficulty Walking Or Climbing Stairs? No Information not available 10/07/2020 Sex: Unknown Functional Status Question Answer Note LastModified by Organizat ion Details LastModified Time What is your level of alcohol consumption? Occasional Information not available 10/07/2020 Do you or have you ever used smokeless tobacco? Never used smokeless tobacco Information not available 10/07/2020 Do you have difficulty doing errands alone? No Information not available 10/07/2020 What is your occupation? retired Information not available 10/07/2020 Do you have difficulty dressing or bathing? No Information not available 10/07/2020 Do you or have you ever used e-cigarettes or vape? Never used electronic cigarettes Information not available 10/07/2020 What is your [...] LastModified Time Father Arthritis 65 Not avai [email or web address] 10/07/2020 13:50:26 Father Heart disease 75 85 [email or web address] Not available 09/21 15:53:02 Father Malignant tumor of larynx Not available 13:50:26 Mother Malignant tumor of colon 72 87 [email or web address] Not available 2015 08:28:37 Mother Rheumatoid arthritis 70 82 [email or web address] Not available 09/21 15:53:02 Mother Heart disease [...] N Blood Transfusion N Erectile Dysfunction N Depression N Congenital Heart Disease N Pneumonia N Breast Disease N Peripheral Arterial Disease N Emphysema or COPD N Gastrointestinal Disease N Sinusitis N Anxiety Disorder N Obesity N Arthritis Y Infertility N Renal / Kidney Disease N Congenital Disorder N Cancer Y IBS N Varicosities N Hospitalization(s) N Dermatologic Disorder N Aortic Aneurysm N Vision / Eye Disorder N Neurologic Disorder N Cerebrovascular Accident (Stroke) N Arrhythmia N Fibromyalgia N Headaches N Musculoskeletal Disease N Polycystic Ovarian Disease (PCOS) N Endocrine Disorder N Gastroesophageal Reflux Disease (GERD) N Migraines N Deep Venous Thrombosis N Immunologic Disorder N Cataracts N Diabetes Mellitus N Autism Spectrum Disorder N Carotid Artery Disease N Hypertension (high blood pressure) Y Hypothyroidism (under active) N BPH N Blood Clots/DVT/Pulmonary Embolism N Abuse / Domestic Violence N Asthma [...] Injury N Pulmonary / Lung Disease N Prostate Cancer N Anticoagulant Therapy N Bi-Polar N Transient Ischemic Attack N [...] unspecified formulation 07/01/20 12 completed Maria Eugenia [facility] 05/04/2022 08:31:43 tetanus toxoid, unspecified formulation 10/22/19 02 completed Maria Eugenia [facility] 05/04/2022 08:31:44 pneumococcal polysaccharide PPV23 01/21/20 14 completed Maria Eugenia [facility] 05/04/2022 08:31:05 Td(adult) unspecified formulation 11/05/19 02 completed Maria Eugenia Francesco [facility] 05/04/2022 08:31:45 influenza, unspecified formulation 07/23/20 18 completed Maria Eugenia Francesco [facility] 05/04/2022 08:31:44 influenza, unspecified formulation 08/22/20 14 completed Maria Eugenia [facility] 05/04/2022 08:31:05 Tdap 12/05/19 11 completed Maria Eugenia Francesco [facility] 05/04/2022 08:31:05 Hep A, unspecified formulation 09/21/20 09 completed Maria Eugenia [facility] 05/04/2022 08:31:44 Td(adult) unspecified formulation 10/22/19 02 completed Maria Eugenia Francesco [facility], [facility] 05/04/2022 08:31:45 Hep B, unspecified formulation 09/21/20 09 completed Maria Eugenia Francesco [facility], [facility] 05/04/2022 08:31:45 Influenza, high-dose, trivalent, PF 06/11/20 20 completed Maria Eugenia Francesco [facility], [facility] 05/04/2022 08:31:43 COVID-19, mRNA, LNP-S, PF, 30 mcg/0.3 mL dose 12/28/19 21 completed Maria Eugenia Francesco null, [facility] 05/04/2022 08:31:04 COVID-19, mRNA, LNP-S, PF, 30 mcg/0.3 mL dose 01/19/20 21 completed Maria Eugenia [facility], [facility] 05/04/2022 08:31:04 Influenza, split virus, quadrivalent, preservative 07/01/20 21 completed Maria Eugenia Francesco [facility], [facility] 05/04/2022 08:31:44 Influenza, split virus, trivalent, preservative 07/01/20 12 completed Maria Eugenia [facility], [facility] 05/04/2022 08:31:04 pneumococcal polysaccharide PPV23 04/13/20 14 completed Maria Eugenia [facility] 05/04/2022 08:31:04 Hep A-Hep B 07/13/20 10 completed Maria Eugenia [facility], [facility] 05/04/2022 08:31:04 tetanus toxoid, adsorbed 10/22/19 02 completed Maria Eugenia Francesco null, [facility] 05/04/2022 08:31:04 typhoid, oral 10/07/20 09 completed Maria Eugenia Francesco [facility], [facility] 05/04/2022 08:31:04 Hep A, unspecified formulation 09/21/20 09 completed Maria Eugenia Francesco null, [facility] 05/04/2022 08:31:04 pneumococcal, unspecified formulation 01/21/20 14 completed [facility] 08:31:04 zoster recombinant 12/27/19 20 completed Maria Eugenia [facility] 05/04/2022 08:31:04 Influenza, MDCK, quadrivalent, preservative 09/04/20 19 completed [facility] 05/04/2022 08:31:04 Td(adult) unspecified formulation 10/22/19 02 completed [facility] 05/04/2022 08:31:04 Influenza, adjuvanted, trivalent, PF 07/23/20 18 completed Maria Eugenia [facility] 05/04/2022 08:31:04 zoster recombinant 04/26/20 20 completed [facility] 05/04/2022 08:31:04 Hep B, unspecified formulation 09/21/20 09 completed [facility] 05/04/2022 08:31:05 Influenza, high-dose, trivalent, PF 08/19/20 16 completed [facility] 05/04/2022 08:31:05 Hep A-Hep B 10/07/20 09 completed [facility] 05/04/2022 08:31:05 Influenza, split virus, trivalent, preservative 08/26/20 14 completed [facility] 05/04/2022 08:31:05 COVID-19, mRNA, LNP-S, PF, 100 mcg/0.5mL dose or 50 mcg/0.25mL dose 11/09/19 22 completed [facility] 05/04/2022 08:31:04 Pneumococcal conjugate PCV 13 06/23/20 15 completed [facility] 05/04/2022 08:31:44 Td (adult), 5 Lf tetanus toxoid, preservative free, adsorbed 10/13/20 21 completed [facility] 05/04/2022 08:31:45 Td (adult), 5 Lf tetanus toxoid, preservative free, adsorbed 10/13/20 21 completed Maria Eugenia [facility] 05/04/2022 08:31:45 Influenza, MDCK, quadrivalent, PF 06/22/20 17 completed Maria Eugenia Francesco null, [facility] 05/04/2022 08:31:45 zoster recombinant 06/08/20 20 cancelled patient objection Carlos Eduardo Vo [facility], [facility] 06/08/2020 13:53:34 Influenza, high-dose, trivalent, PF 09/05/20 15 completed [facility] null, [facility] 05/04/2022 08:31:04 pneumococcal polysaccharide PPV23 01/21/20 14 completed [facility] null, [facility] 05/04/2022 08:31:44 influenza, unspecified formulation 08/19/20 16 completed [facility], [facility] 05/04/2022 08:31:45 Past Encounters Encounter ID Performer Location Encounter Start Date Encounter Closed Date Diagnosis/Indication Diagnosis SNOMED-CT Code Diagnosis ICD10 Code Diagnosis Note [id number] () [address] [place] [address] 06/16/2004 00:00:00 1607 [facility] () [address] [place] [address] 12/23/2004 00:00:00 1608 [facility] () [address] [place] [address] 06/29/2005 00:00:00 1609 [facility] () [address] [place] [address] 12/04/2005 00:00:00 1610 [facility] () [address] [place] [address] 03/01/2006 00:00:00 1611 [facility] () [address] [place] [address] 12/31/2006 00:00:00 1612 [facility] () [address] [place] [address] 07/11/2007 00:00:00 1613 [facility] (IP) [address] [place] [address] 10/10/2007 00:00:[address] [facility] (IP) [address] [place] [address] 01/16/2008 00:00:00 1615 [facility] (IP) [address] [place] [address] 02/18/2008 00:00:00 1616 [facility] (IP) [address] [place] [address] 10/13/2008 00:00:00 1617 [facility] (IP) [address] [place] [address] 10/20/2009 00:00:00 1618 [facility] (IP) [address] [place] [address] 01/19/2010 00:00:00 1619 [facility] (IP) [address] [place] [address] 05/05/2010 00:00:00 1620 [facility] (IP) [address] [place] [address] 12/05/2010 00:00:00 1621 [facility] (IP) [address] [place] [address] 03/14/2011 00:00:00 1622 [facility] (IP) [address] [place] [address] 06/08/2011 00:00:00 1623 [facility] (IP) [address] [place] [address] 01/09/2012 00:00:00 1624 [facility] () [address] [place] [address] 07/01/2012 00:00:00 1625 [facility] (IP) [address] [place] [address] 02/11/2013 00:00:00 [id number] Patt Barakat MD [facility]* [address] [place] [address] ,[address] [place], [place] 9 02/05/2014 09:29:37 02/05/2014 10:29:09 Benign essential hypertension 8093632 Hyperlipidemia 05659767 Eruption 115680997 Atrophic vaginitis 00591698 [id number] Patt Barakat MD [facility]* [address] [place] [address] ,[address] [place], [place] 9 04/13/2014 12:30:48 04/13/2014 14:16:28 Adult health examination 231431703 Administra tion of pneumococcal vaccine 64018800 Benign ess ential hypertension 8166032 Hyperlipidemia 17706358 Atrophic vaginitis 79590305 [id number] Patt Barakat MD [facility]* [address] [place] [address] ,[address] [place], [place] 9 10/05/2014 15:34:16 10/05/2014 16:31:27 Benign essential hypertension 8329039 Hyperlipidemia 54241497 Atrophic vaginitis 02786223 [id number] Patt Barakat MD [facility]* [address] [place] [address] ,[address] [place], [place] 9 06/14/2015 14:18:34 06/14/2015 15:34:48 Adult health examination 978921420 Carotid atherosclerosis 959124131 Administra tion of pneumococcal vaccine 61744425 Benign ess ential hypertension 1708596 Impaired f asting glycemia 961812579 Hyperlipidemia 95933631 [id number] Patt Barakat MD [facility]* [address] [place] [address] ,[address] [place], [place] 9 12/15/2015 09:47:50 12/15/2015 11:59:06 Impaired fasting glycemia 936061427 R73.01 Hyperlipidemia 12535683 E78.5 Carotid atherosclerosis 952848455 I65.23 Benign ess ential hypertension 1028960 I10 [id number] Patt Barakat MD [facility]* [address] [place] [address] ,[address] [place], [place] 9 06/14/2016 08:27:06 06/14/2016 09:27:55 Adult health examination 968305764 Z00.01 Benign ess ential hypertension 6813255 I10 Impaired f asting glycemia 145703869 R73.01 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 Hyperlipidemia 33002044 E78.5 [id number] MELISSA Mckeon [facility]_ [facility]* [address] [place] [address] ,[address] [place], [place] 9 09/29/2016 10:11:33 09/29/2016 11:43:02 Cough 26995806 R05 [id number] MELISSA Mckeon [facility]_ [facility]* [address] [place] [address] ,[address] [place], [place] 9 12/13/2016 07:39:58 12/13/2016 16:17:00 Benign essential hypertension 8563758 I10 Hyperlipidemia 92675619 E78.5 Hallux kailey antwon AND bunion 314387865 M20.11 Impaired f asting glycemia 297031338 R73.01 Osteoarthritis 976465471 M15.0 Will send for imaging if pain does not reduce after stretching /exercise/ palliative care [id number] MELISSA Mckeon [facility]IM[facility]_ [facility]* [address] [place] [address] ,[address] [place], [place] 9 10/05/2017 08:42:48 10/05/2017 13:08:14 Adult health examination 708078019 Z00.00 Herpes sim plex type 2 infection 158993962 B00.9 Benign ess ential hypertension 7667377 I10 Impaired f asting glycemia 516252959 R73.01 Hyperlipidemia 69159865 E78.5 Atrophic vaginitis 87578 000 N95.2 Traveler's diarrhea 1184 0006 A04.1 To take along with while travelling to [place] for 2 weeks. [id number] Adeel Momin DPM [facility]_ [place] [facility]* [address] [place] [address] 01/03/2017 15:16:47 01/03/2017 16:39:54 Acquired hallux valgus 48257444 M20.11 Localized, secondary osteoarthritis of the ankle and/or foot 163917319 M19.271 1st MTPJ Capsulitis 1809048 M77.5 1 Tailor's bunion 0897130 M21.621 [id number] Patt Barakat MD [facility]* [address] [place] [address] ,[address] [place], [place] 9 06/22/2017 10:09:06 06/22/2017 11:08:24 Benign essential hypertension 3882910 I10 Impaired f asting glycemia 852408628 R73.01 Hyperlipidemia 83016860 E78.5 Atrophic vaginitis 40748 000 N95.2 Herpes sim plex type 2 infection 829219006 B00.9 Administra tion of influenza vaccine 38802573 Z23 [id number] MELISSA Mckeon [facility]_ [facility]* [address] [place] [address] ,[address] [place], [place] 9 10/11/2018 07:41:10 10/11/2018 15:00:47 Adult health examination 529142463 Z00.00 Hyperlipidemia 83878604 E78.5 Benign ess ential hypertension 1915156 I10 On examina tion - reduced movement of hip 371403451 R29.898 Willing to be donor of kidney 012231090 Z00.5 Would like to be considered for donating her kidney to a friend for whom she is a match. 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 Increase Amlodipine . Weekly home BP and record, and FOV in 3 months with cuff. Carotid atherosclerosis 401344863 I65.23 Hyperlipidemia 36066194 E78.5 Consider increasing Atorvastat in pending Carotid US results. Mammography abnormal 168 495941 R92.8 Osteoarthritis of hip 23 9022627 M16.9 Prediabetes 203588279 R7 3.[address] imulating hormone level above reference range 701613765 R79.89 Discussed; no need for supplement and will recheck in 3 months. 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 Recheck in 3 months, and consider Advanced Practice Provider referral if worsens or becomes more symptomati c. [id number] MELISSA Mckeon [facility]* [address] [place] [address] ,[address] [place], [place] 9 01/07/2019 08:09:42 01/07/2019 10:00:41 Benign essential hypertension 2095942 I10 Increase benazepril to BID dosing. Recheck BP 2x/day for 1 week, report values back via portal for further recs. [id number] Shanique Das NP [facility]* [address] [place] [address] ,[address] [place], [place] 9 05/20/2019 15:24:08 05/21/2019 09:40:17 Benign essential hypertension 6438879 I10 will use dyazide prn for now for edema and reduce to 5mg amlodipine daily and continue to monitor home BP; if swelling resolves and BP acceptable on only 5mg amlodipine will continue w/ just the 5mg amlodipine ; otherwise, consider switch to diovan or losartan Edema of l ower extremity 571948774 R60.0 [id number] Shanique Das NP [facility]* [address] [place] [address] ,[address] [place], [place] 9 06/19/2019 11:01:25 06/19/2019 12:40:38 Benign essential hypertension 3318325 I10 increase losartan and add HCT to help w/ swelling and better BP control; TLC encouraged as well, watch salt; will f/u w/ pt in 3 wks for BP log [id number] Rani Pastor MD [facility]* [address] [place] [address] ,[address] [place], [place] 9 09/04/2019 13:41:40 09/05/2019 12:21:04 Benign essential hypertension 9206752 I10 Active or passive immunization 675270412 Z23 Screening for malignant neoplasm of breast 319512298 Z12.39 Administra tion of influenza vaccine 41145960 Z23 [id number] Patt Barakat MD [facility]* [address] [place] [address] ,[facility] [address] [place], [place] 9 01/11/2020 17:44:00 01/13/2020 12:57:26 Hyperlipidemia 99279815 E78.5 Labs reviewed. Improved. Continue current medication . Recheck at [facility]. Carotid atherosclerosis 192058249 I65.23 Verified again by carotid US. Consider repeat scan 2024. Benign ess ential hypertension 3098123 I10 Improved. Recheck at [facility] and refill meds. [id number] Patt Barakat MD [facility]* [address] [place] [address] ,[facility] [address] [place], [place] 9 05/31/2020 13:10:35 06/01/2020 14:50:47 Benign essential hypertension 0856164 I10 As above reduce amlodipine and watch. Herpes sim plex type 2 infection 222625998 B00.9 Edema of l ower extremity 269389066 R60.0 New problem. Discussed; likely multifacto rial. Discussed more aggressive salt reduction. Reduce amlodipine to 5 mg daily, elevation, and FOV 2 months. [id number] Patt Barakat MD [facility]* [address] [place] [address] ,[address] [place], [place] 9 08/10/2020 13:20:55 08/11/2020 14:23:34 Benign essential hypertension 4647704 I10 Continue current meds as BP controlled , with reduced edema on lower amlodipine dose. Hyperlipidemia 56479607 E78.5 Labs reviewed. Improved. Continue current medication . Recheck at AW. [id number] Patt Barakat MD PM_[facility]TETE_ [facility]* [address] [place] [address] ,[address] [place], [place] 9 10/07/2020 13:48:08 10/07/2020 15:10:48 Adult health examination 144036343 Z00.01 Hyperlipidemia 67244270 E78.5 Labs reviewed. Improved. Continue current medication . Recheck at [facility]. Carotid atherosclerosis 384194685 I65.23 Verified again by carotid US. Consider repeat scan 2024. Thyroid st imulating hormone level above reference range 362091750 R79.89 Prediabetes 793781403 R7 3.03 Improved. Watch yearly. Benign ess ential hypertension 1355343 I10 Screening mammography 24 031449 Z12.31 [id number] Patt Barakat MD [facility]_ [facility]* [address] [place] [address] ,[address] [place], [place] 9 11/18/2020 14:19:19 11/23/2020 13:33:26 Edema of lower extremity 998861895 R60.0 Worsened problem. Due to poor compliance to diet, due to critically ill. Will add spironolac tone and FOV for recheck and labs in 1 month, sooner if no better/wor se. [id number] Patt Barakat MD [facility]_ [facility]* [address] [place] [address] ,[address] [place], [place] 9 12/23/2020 14:04:29 12/24/2020 14:30:20 Benign essential hypertension 1474338 I10 Hold Amlodipine , continue spironolac tone, metoprolol , Los HCTZ, and recheck in 1 month with BMP at that time. If home BP's > 140/90, add back 5 mg Amlodipine . [id number] Patt Barakat MD PM_TETE_ [facility]* [address] [place] [address] ,[address] [place], [place] 9 01/25/2021 13:35:01 01/26/2021 12:28:02 Benign essential hypertension 3827940 I10 Improved based on her home numbers. IF BMP is OK, continue current rx (refill Spironolac tone once labs are back). [id number] Patt Barakat MD [facility]_ [facility]* [address] [place] [address] ,[address] [place], [place] 9 10/13/2021 07:44:18 10/17/2021 13:04:30 Adult health examination 833608089 Z00.01 Benign ess ential hypertension 7915200 I10 Well controlled . Refill meds. Herpes sim plex type 2 infection 162828152 B00.9 Hyperlipidemia 21183402 E78.5 Controlled on current rx. Prediabetes 416202719 R7 3.03 Worse. Recheck in 6 months at [facility]. 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 Due to loss of 02/09. She has good support system, and therapy through her zoroastrianism. Re-eval in 6 months. Administra tion of diphtheria and tetanus vaccine 19529056 Z23 Chronic pharyngitis 1400 04 J31.2 [id number] Patt Barakat MD [facility]_ [place] [facility]* [address] ,[address] [place], [place] [address] 05/04/2022 08:25:18 05/04/2022 12:35:17 Benign essential hypertension 2192990 I10 Well controlled . Continue current meds. Hyperlipidemia 26039647 E78.5 Recheck labs and continue current meds. Prediabetes 673143832 R7 3.03 Worse. Recheck today. Healthy lifestyle discussed. Mild major depression, single episode 51365091 F32.0 Ongoing, but mildly improved. Due to loss of 02/09. She has good support system, and therapy through her zoroastrianism. She feels she does not need further interventi on at this time. Discussed [place]; she will consider. Left Achil les tendinitis 6798012522 97102 M76.62 Sialoadenitis 52207786 K 11.20 Health Concerns Section Related Observation LastModified by Organization Ollie villalobos LastModified Time None Recorded Concern Status LastModified by Organization Details LastModified Time None Recorded Advance Directives Directive Y: Payers Insurance Date Sequence Insurance Name Policy Number Policy Lawrence Covered Member ID Lawrence Member ID Guarantor Name 05/06/2022 1 [employer] (MEDICARE REPLACEMENT/ADV ANTAGE - PPO) Briana Nielsen Grasty [id number] Briana Nielsen Grasty 10/02/2021 1 [facility]: ANTHEM BCBS (PPO) PCU Briana Nielsen Grasty [id number] Briana Nielsen Grasty 10/02/2021 1 [facility]: [employer] (PPO) PCU Briana Nielsen Grasty [id number] Briana Nielsen Grasty 10/02/2021 1 [place] Briana Nielsen Grasty [id number] Briana Nielsen Grasty 10/02/2021 1 [employer] - CHOICE [facility] (MEDICARE REPLACEMENT PPO) [id number] Briana Grasty [id number] Briana Nielsen Grasty 10/02/2021 2 [employer] (MEDICARE REPLACEMENT/ADV ANTAGE - PPO) Briana Grasty [id number] Briana M Grasty 10/02/2021 2 [employer] (MEDICARE SUPPLEMENT) Briana Grasty [id number] Briana M Grasty 10/02/2021 2 [employer] (MEDICARE SUPPLEMENT) Briana Nielsen Grasty [id number] Briana Nielsen Grasty 10/25/2022 2 [employer] (MEDICARE SUPPLEMENT) Briana Nielsen Grasty [id number] Briana Nielsen Grasty 05/04/2022 1 MEDICARE B-DC: [employer] MEDICARE [place] Briana Nielsen Grasty [id number] Briana Nielsen Grasty Notes Date Note Type Note Provider Name and Address Organization Details Recorded Time 1 text/html EdemaReported bypatient.Symptoms:no shortness of breath; no shortness of breath during exertion; no cough;swelling in lower legs only;weight gain (8 lbs) Quality:legs swell equally Context:prior history of edema Patt Barakat MD [address], [place], [address], [facility] 11/18/2020 15:33:31 1 text/html EdemaReported bypatient.Symptoms:no shortness [...] MD Cynthia Hat[address], [place], [address], [facility] 12/23/2020 14:59:12 1 text/html F/U HypertensionReported bypatient.Blood [...] MD Cynthia [address], [place], [address], [facility] 01/25/2021 14:28:38 1 text/html F/U Diabetes/Pre-diabetesReport ed [...] mild itch, for several months. Currently gone. Patt aBrakat MD [address], [place], [address], [facility] [employer], [facility] 10/13/2021 09:10:59 2 text/html F/U Diabetes/Pre-diabetesReport ed [...] Achilles area since 10/2021. Saw Adeel Hudson ([employer]), rx'd boot and stretches, with mild improvement.Also had episode of L parotid gland swelling. Resolved with chewing on lemon wedges. Patt Barakat MD [address], [place], [address], [facility] 05/04/2022 09:16:55 OBGyn Episode No OBEpisode recorded.
== END 2025-03-04 11:37 | disposition home or self-care (01) ==
LOC: HO.HMCH 10:18
PROVIDERS: PCP Physician Assistant; Visit Provider Physician Assistant
DX: I10 Essential (primary) hypertension (principal); E78.00 Pure hypercholesterolemia, unspecified; E66.811 Obesity, class 1; Z68.32 Body mass index [BMI] 32.0-32.9, adult; K21.9 Gastro-esophageal reflux disease without esophagitis; R19.7 Diarrhea, unspecified; R74.8 Abnormal levels of other serum enzymes; R73.01 Impaired fasting glucose; F33.0 Major depressive disorder, recurrent, mild

== ENCOUNTER → 2025-03-04 10:17 | Outpatient (BNVA) | payer MEDICARE, SELFPAY | PROVIDERS: PCP Physician Assistant; Visit Provider Physician Assistant | DX: I10 Essential (primary) hypertension (principal); M16.11 Unilateral primary osteoarthritis, right hip; K21.9 Gastro-esophageal reflux disease without esophagitis; R06.02 Shortness of breath; E78.00 Pure hypercholesterolemia, unspecified; R19.7 Diarrhea, unspecified; R74.8 Abnormal levels of other serum enzymes; R73.01 Impaired fasting glucose; E66.811 Obesity, class 1; F33.0 Major depressive disorder, recurrent, mild; M41.26 Other idiopathic scoliosis, lumbar region; L30.9 Dermatitis, unspecified; Z68.32 Body mass index [BMI] 32.0-32.9, adult | CPT/HCPCS: 96127; 99212 ==

== ENCOUNTER 2025-04-21 11:58 | Outpatient (REF) | payer MEDICARE, SELFPAY ==
--- NOTE | ~2025-04-21 | XR_ITS ---
CLINICAL HISTORY: J40 - Bronchitis, not specified as acute or chronic 2 view chest x-ray Comparison: None provided Findings: The lungs are clear. Heart size is normal. No acute fracture. IMPRESSION: 1. No acute findings. This document has been electronically signed by: Basil Funez MD on 04/23/2025 09:58:14
--- OUTSIDE RECORDS SUMMARY | 2025-04-21 13:08 | XMS_ITS ---
Author Name [facility] Organization Unknown Encounters Encounter Type Encounter Reason Primary Diagnosis Location Date Ambulatory [facility] 05/04/2022 Ambulatory [facility] 10/19/2021 Ambulatory [facility] 10/13/2021 Ambulatory [facility] 10/06/2021 Ambulatory [facility] 06/29/2021
--- OUTSIDE RECORDS SUMMARY | 2025-04-21 13:09 | XMS_ITS | Data Portability ---
Author Organization [facility], [facility] Office* Address [address] [place] [address] Care Team Providers Care Fundraising Sale Representative Name Role Phone PATT BARAKAT Primary Care Provider [phone] Assessment No assessment recorded. Plan of Treatment Reminders Order Date Submit Date Provider Last Modified By Organization Details Last Modified Time Details Appointments None recorded. Lab HbA1c (hemoglobi n A1c), blood 2021 022 [facility] (Not A Draw Site), [address], [place], [address] 2 04:48:59 lipid panel, serum 2021 022 [facility] (Not A Draw Site), [address], Luis Felipe 1, [place], [address] 2 04:49:02 CMP, serum or plasma 2021 022 [facility] (Not A Draw Site), [address], Luis Felipe 1, [place], [address] 2 04:49:00 BMP, serum or plasma 2020 021 [facility] (Not A Draw Site), [address], Luis Felipe 1, [place], [address] 1 04:38:32 Referral behavioral psychother apy referral 2020 021 [email or web address] Not available 08:16:44 [email or web address] logist referral 2020 [email or web address] Keely Rizvi MD (Virtual Visits Available), [id number] [facility], [address], , 08:43:16 Procedures None recorded. Surgeries None recorded. Imaging None recorded. Medication Orders valacyclov ir 500 mg tablet 2020 [facility], [address] [facility], [place], [address], 09:08:23 atorvastat in 20 mg tablet 2020 [facility], [address] [facility], [place], [address], 09:08:26 spironolac tone 50 mg tablet 2020 [facility], [address] [facility], [place], [address], 09:08:25 metoprolol succinate ER 25 mg tablet,ext ended release 24 hr 2020 [facility], [address] [facility], [place], [address], 09:08:23 losartan 100 mg-hydroch lorothiazi de 12.5 mg tablet 2020 [facility], [address] [facility], [place], [address], 09:08:24 spironolac tone 50 mg tablet 2020 [id number], [address] [place], [place], , 14:56:20 spironolac tone 50 mg tablet 2020 021 [id number], [address] [facility], [place], [address], 15:32:51 Patient TargetsNo targets recorded. Patient Instructions Encounter Date Encounter Id Patient Instructions Last Modified By Organization Details Last Modified Time 12/23/2020 [id number] Continue working on diet (mostly whole-food, mostly plant-based), and exercise (minimum of 30 minutes, 5 days/week of walking). Continue medication as listed in your Patient Summary, available at your patient portal, or via printing at your request. Notify us immediately if you feel your medications are causing a problem. [email or web address] Not available 12/23/2020 14:58:27 01/25/2021 [id number] Continue working on diet (mostly whole-food, mostly plant-based), and exercise (minimum of 30 minutes, 5 days/week of walking). Continue medication as listed in your Patient Summary, available at your patient portal, or via printing at your request. Notify us immediately if you feel your medications are causing a problem. [email or web address] Not available 01/25/2021 14:24:37 10/13/2021 [id number] well visit, over 65: care instructions [email or web address] [...] Medications: -If you use any medications (prescriptions, uwth-woo-fcbtfag, supplements, herbal), always do so as directed [...] problem. 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 0 Not Available [facility] (Not A Draw Site) [address] [place], [id number] 12/20/2020 10:22:35 12/17/19 21 12/17/2020 CMP, serum or plasm a albumin 4.9 g/dL 3.5-5. 2 Not Available [facility] (Not A Draw Site) [address] [place] [address], [id number] 12/20/2020 10:22:35 12/17/19 21 12/17/2020 CMP, serum or plasm a globulin 1.9 g/dL 1.7-3. 7 Not Available [facility] (Not A Draw Site) [address] [place], [id number] 12/20/2020 10:22:35 12/17/19 21 12/17/2020 CMP, serum or plasm a albumin/glob ulin 2.6 ratio 1.1-2. 9 Not Available [facility] (Not A Draw Site) [address] [place] [address], [id number] 12/20/2020 10:22:35 12/17/19 21 12/17/2020 CMP, serum or plasm a glucose 96 mg/dL 70-99 Not Available [facility] (Not A Draw Site) [address] [place], [address] 12/20/2020 10:22:35 12/17/1912/17/2020 CMP, serum or plasm a sodium 139 mmol/ L 136-14 5 Not Available [facility] (Not A Draw Site) [address] [place], [address] 12/20/2020 10:22:35 12/17/19 21 12/17/2020 CMP, serum or plasm a potassium 5.4 mmol/ L 3.5-5. 1 high Not Available [facility] (Not A Draw Site) [address] [place] 1[place], [id number] 12/20/2020 10:22:35 12/17/19 21 12/17/2020 CMP, serum or plasm a chloride 98 mmol/ L 98-107 Not Available [facility] (Not A Draw Site) [address] [place], [address] 12/20/2020 10:22:35 12/17/19 21 12/17/2020 CMP, serum or plasm a CO2 26 mmol/ L 22-29 Not Available [facility] (Not A Draw Site) [address] [place], [address] 12/20/2020 10:22:35 12/17/19 21 12/17/2020 CMP, serum or plasm a BUN 20 mg/dL 8-23 Not Available [facility] (Not A Draw Site) [address] [place], [address] 12/20/2020 10:22:35 12/17/19 21 12/17/2020 CMP, serum or plasm a creatinine 0.82 mg/dL 0.50-0 .90 Not Available [facility] (Not A Draw Site) [address] [place], [id number] 12/20/2020 10:22:35 12/17/19 21 12/17/2020 CMP, serum or plasm a eGFR non- 71 mL/mi n >=60 Not Available [facility] (Not A Draw Site) [address] [place], [address] 12/20/2020 10:22:35 12/17/19 21 12/17/2020 CMP, serum or plasm a eGFR 83 mL/mi n >=60 Not Available [facility] (Not A Draw Site) [address] [place], [address] 12/20/2020 10:22:35 12/17/19 21 12/17/2020 CMP, serum or plasm a BUN/creat ratio 24.4 ratio 10.0-2 8.0 Not Available [facility] (Not A Draw Site) [address] [place] 1[place], [address] 12/20/2020 10:22:35 12/17/19 21 12/17/2020 CMP, serum or plasm a calcium 10.2 mg/dL 8.8-10 .2 Not Available [facility] (Not A Draw Site) [place], [address] 12/20/2020 10:22:35 12/17/19 21 12/17/2020 CMP, serum or plasm a bilirubin,to dana 0.6 mg/dL <1.2 Not Available [facility] (Not A Draw Site) [place], [address] 12/20/2020 10:22:35 12/17/19 21 12/17/2020 CMP, serum or plasm a alkaline phosphatase 70 U/L 35-104 Not Available [facility] (Not A Draw Site) [place], [address] 12/20/2020 10:22:35 12/17/19 21 12/17/2020 CMP, serum or plasm a AST (SGOT) 28 U/L 10-35 Not Available [facility] (Not A Draw Site) [address], [address] 12/20/2020 10:22:35 12/17/19 21 12/17/2020 CMP, serum or plasm a ALT (SGPT) 18 U/L <33 Not Available [facility] (Not A Draw Site) [place], [address] 12/20/2020 10:22:35 12/17/19 21 12/17/2020 TSH + free T4, serum TSH 2.630 uIU/m L 0.270- 4.200 Not Available [facility] (Not A Draw Site) [place], [address] 12/20/2020 10:22:36 12/17/19 21 12/17/2020 TSH + free T4, serum T4, free (FT4) 1.24 NG/dL 0.93-1 .70 Not Available [facility] (Not A Draw Site) [address] [place] [address], [address] 12/20/2020 10:22:36 01/26/2001/25/2021 BMP, serum or plasm a glucose 92 mg/dL 70-99 Not Available [facility] (Not A Draw Site) [address] [place], [address] 01/26/2021 04:38:32 01/26/2001/25/2021 BMP, serum or plasm a BUN 21 mg/dL 8-23 Not Available [facility] (Not A Draw Site) [address] [place], [address] 01/26/2021 04:38:32 01/26/2001/25/2021 BMP, serum or plasm a creatinine 0.89 mg/dL 0.50-0 .90 Not Available [facility] (Not A Draw Site) [address] [place], [address] 01/26/2021 04:38:32 01/26/2001/25/2021 BMP, serum or plasm a BUN/creat ratio 23.6 ratio 10.0-2 8.0 Not Available [facility] (Not A Draw Site) [address] [place] [address], [address] 01/26/2021 04:38:32 01/26/2001/25/2021 BMP, serum or plasm a eGFR 75 mL/mi n >=60 Not Available [facility] (Not A Draw Site) [address] [place] 1[place], [address] 01/26/2021 04:38:32 01/26/2001/25/2021 BMP, serum or plasm a eGFR non- 65 mL/mi n >=60 Not Available [facility] (Not A Draw Site) [address] [place] [address], [address] 01/26/2021 04:38:32 01/26/2001/25/2021 BMP, serum or plasm a calcium 10.2 mg/dL 8.6-10 .3 NOTE: New Refer ence Range for adult Calci um imple mente d on 2020. Not Available [facility] (Not A Draw Site) [address] [place] [address], [address] 01/26/2021 04:38:32 01/26/2001/25/2021 BMP, serum or plasm a sodium 136 mmol/ L 136-14 5 Not Available [facility] A Draw Site) [facility] 1[place], [address] 01/26/2021 04:38:32 01/26/2001/25/2021 BMP, serum or plasm a potassium 4.6 mmol/ L 3.5-5. 3 NOTE: New Refer ence Range for Potas sium imple mente d on 2020. Not Available [facility] (Not A Draw Site) [place] [facility] 1[place], [address] 01/26/2021 04:38:32 01/26/2001/25/2021 BMP, serum or plasm a chloride 96 mmol/ L 98-107 low Not Available [facility] (Not A Draw Site) [place] [facility] 1, [place], [address] 01/26/2021 04:38:32 01/26/2001/25/2021 BMP, serum or plasm a CO2 28 mmol/ L 22-29 Not Available [facility] (Not A Draw Site) [place] [facility] 1[place], [address] 01/26/2021 04:38:32 06/29/20 21 06/29/2021 NOVEL CORON AVIRU S COVID -19 NASOP HARYN X covid-19 nasal/nasoph arynx Not Detect ed not detect ed Pleas e consi leelee re-co llect ion of a new speci men, if clini joie indic ated. The COVID -19 assay is under Emerg ency Use Autho rizat ion (EUA) by the U.S. Food and Drug Admin istra tion. PMG, [employer] is desig nated as a high [...] (NAAT ) recom robert d by the CDC for passe nger trave l. Not Available [facility] (Not A Draw Site) [address] [place] 1, [place], [address] 06/30/2021 09:41:42 10/06/20 21 10/06/2021 HEMOG LOBIN A1C (GLYC OHGB) hemoglobin A1C [...] 0) NOTE: The amoun t of glyca aiblio hemog lobin as measu red by the [...] abilio hemog lobin level s. Not Available [facility] (Not A Draw Site) [address] [place] 1, [place], [address] 10/07/2021 05:34:37 10/06/20 21 10/06/2021 CBC W/O DIFF (HEMO GRAM) PLAT. CT WBC 4.75 10^3/ uL 4.00-1 0.10 Not Available [facility] (Not A Draw Site) [address], [place], [address] 10/07/2021 05:34:37 10/06/20 21 10/06/2021 CBC W/O DIFF (HEMO GRAM) PLAT. CT RBC 4.32 10^6/ uL 3.58-5 .19 Not Available [facility] (Not A Draw Site) [address], [place], [address] 10/07/2021 05:34:37 10/06/2010/06/2021 CBC W/O DIFF (HEMO GRAM) PLAT. CT HGB 13.5 g/dL 11.0-1 5.5 Not Available [facility] (Not A Draw Site) [place], [id number] 10/07/2021 05:34:37 10/06/20 21 10/06/2021 CBC W/O DIFF (HEMO GRAM) PLAT. CT HCT 42.6 % 31.6-4 5.3 Not Available [facility] (Not A Draw Site) [place], [address] 10/07/2021 05:34:37 10/06/2010/06/2021 CBC W/O DIFF (HEMO GRAM) PLAT. CT MCV 98.6 fL 79.0-9 9.5 Not Available [facility] (Not A Draw Site) [place], [address] 10/07/2021 05:34:37 10/06/2010/06/2021 CBC W/O DIFF (HEMO GRAM) PLAT. CT MCH 31.3 pg 25.2-3 2.6 Not Available [facility] (Not A Draw Site) [place], [address] 10/07/2021 05:34:37 10/06/20 21 10/06/2021 CBC W/O DIFF (HEMO GRAM) PLAT. CT MCHC 31.7 g/dL 31.0-3 4.7 Not Available [facility] (Not A Draw Site) [address], [place], [address] 10/07/2021 05:34:37 10/06/20 21 10/06/2021 CBC W/O DIFF (HEMO GRAM) PLAT. CT RDW 12.5 % 12.0-1 5.5 Not Available [facility] (Not A Draw Site) [address], [place], [address] 10/07/2021 05:34:37 10/06/2010/06/2021 CBC W/O DIFF (HEMO GRAM) PLAT. CT platelet count 214 10^3/ uL 140-42 5 Not Available [facility] (Not A Draw Site) [place], [address] 10/07/2021 05:34:37 10/06/2010/06/2021 CBC W/O DIFF (HEMO GRAM) PLAT. CT MPV 11.4 fL 8.6-12 .1 Not Available [facility] (Not A Draw Site) [place], [address] 10/07/2021 05:34:37 10/06/2010/06/2021 COMPR EHENS RUI METAB OLIC PANEL total protein 7.0 g/dL 6.0-8. 0 Not Available [facility] (Not A Draw Site) [place], [address] 10/07/2021 05:34:38 10/06/2010/06/2021 COMPR EHENS RUI METAB OLIC PANEL albumin 4.9 g/dL 3.5-5. 2 Not Available [facility] (Not A Draw Site) [place], [address] 10/07/2021 05:34:38 10/06/20 21 10/06/2021 COMPR EHENS RIU METAB OLIC PANEL globulin 2.1 g/dL 1.7-3. 7 Not Available [facility] (Not A Draw Site) [address] [place], [place], [address] 10/07/2021 05:34:38 10/06/20 21 10/06/2021 COMPR EHENS RUI METAB OLIC PANEL albumin/glob ulin 2.3 ratio 1.1-2. 9 Not Available [facility] (Not A Draw Site) [address] [place], [place], [address] 10/07/2021 05:34:38 10/06/2010/06/2021 COMPR EHENS RUI METAB OLIC PANEL glucose 104 mg/dL 70-99 high Not Available [facility] (Not A Draw Site) [address] [place], [address] 10/07/2021 05:34:38 10/06/2010/06/2021 COMPR EHENS RUI METAB OLIC PANEL sodium 138 mmol/ L 136-14 5 Not Available [facility] (Not A Draw Site) [address] [place], [place], [address] 10/07/2021 05:34:38 10/06/2010/06/2021 COMPR EHENS RUI METAB OLIC PANEL potassium 5.2 mmol/ L 3.5-5. 3 Not Available [facility] (Not A Draw Site) [address] [place], [address] 10/07/2021 05:34:38 10/06/20 21 10/06/2021 COMPR EHENS RUI METAB OLIC PANEL chloride 99 mmol/ L 98-107 Not Available [facility] (Not A Draw Site) [address] [place], [place], [address] 10/07/2021 05:34:38 10/06/20 21 10/06/2021 COMPR EHENS RUI METAB OLIC PANEL CO2 28 mmol/ L 22-29 Not Available [facility] (Not A Draw Site) [address] [place], [place], [address] 10/07/2021 05:34:38 10/06/20 21 10/06/2021 COMPR EHENS RUI METAB OLIC PANEL BUN 17 mg/dL 8-23 Not Available [facility] (Not A Draw Site) [address] [place], [place], [address] 10/07/2021 05:34:38 10/06/20 21 10/06/2021 COMPR EHENS RUI METAB OLIC PANEL creatinine 0.92 mg/dL 0.50-0 .90 high Not Available [facility] (Not A Draw Site) [address], [place], [address] 10/07/2021 05:34:38 10/06/20 21 10/06/2021 COMPR EHENS RUI METAB OLIC PANEL eGFR non- 62 mL/mi n >=60 Not Available [facility] (Not A Draw Site) [address], [place], [address] 10/07/2021 05:34:38 10/06/20 21 10/06/2021 COMPR EHENS RUI METAB OLIC PANEL eGFR 71 mL/mi n >=60 Not Available [facility] (Not A Draw Site) [address] [place], [address] 10/07/2021 05:34:38 10/06/2010/06/2021 COMPR EHENS RUI METAB OLIC PANEL BUN/creat ratio 18.5 ratio 10.0-2 8.0 Not Available [facility] (Not A Draw Site) [address] [place], [address] 10/07/2021 05:34:38 10/06/20 21 10/06/2021 COMPR EHENS RUI METAB OLIC PANEL calcium 10.1 mg/dL 8.6-10 .3 Not Available [facility] (Not A Draw Site) [address] [place], [id number] 10/07/2021 05:34:38 10/06/20 21 10/06/2021 COMPR EHENS RUI METAB OLIC PANEL bilirubin,to dana 0.6 mg/dL <1.2 Not Available [facility] (Not A Draw Site) [address] [place], [place], [address] 10/07/2021 05:34:38 10/06/20 21 10/06/2021 COMPR EHENS RUI METAB OLIC PANEL alkaline phosphatase 60 U/L 42-127 Not Available [facility] (Not A Draw Site) [address] [place], [place], [address] 10/07/2021 05:34:38 10/06/20 21 10/06/2021 COMPR EHENS RUI METAB OLIC PANEL AST (SGOT) 30 U/L 10-35 Not Available [facility] (Not A Draw Site) [address], [place], [address] 10/07/2021 05:34:38 10/06/20 21 10/06/2021 COMPR EHENS RUI METAB OLIC PANEL ALT (SGPT) 24 U/L <33 Not Available [facility] (Not A Draw Site) [address] [place], [place], [address] 10/07/2021 05:34:38 10/06/20 21 10/06/2021 LIPID SCREE N (BASI C LIPID PROFI LE) cholesterol 146 mg/dL <200 Not Available [facility] (Not A Draw Site) [address] [place], [place], [address] 10/07/2021 05:34:38 10/06/20 21 10/06/2021 LIPID SCREE N (BASI C LIPID PROFI LE) triglyceride 189 mg/dL <150 high Not Available [facility] (Not A Draw Site) [address] [place], [place], [address] 10/07/2021 05:34:38 10/06/20 21 10/06/2021 LIPID SCREE N (BASI C LIPID PROFI LE) HDL cholesterol 42 mg/dL >=50 low Not Available [facility] (Not A Draw Site) [place], [id number] 10/07/2021 05:34:38 10/06/20 21 10/06/2021 LIPID SCREE N (BASI C LIPID PROFI LE) HDL % cholesterol 29 % >14 Resul t(%): Evalu ation : 0-8 ABOVE AVG. (HIGH RISK) 9-14 ABOVE AVG. (MODE RATE RISK) 15-25 AVERA GE RISK 26-10 0 BELOW AVERA GE RISK Not Available [facility] (Not A Draw Site) [place], [address] 10/07/2021 05:34:38 10/06/20 21 10/06/2021 LIPID SCREE N (BASI C LIPID PROFI LE) chol/HDL risk ratio 3.5 ratio <5.8 Ratio : Evalu ation : Male: Femal e: 0.0-4 .1 0.0-3 .8 BELOW AVERA GE RISK 4.2-7 .3 3.9-5 .7 AVERA GE RISK 7.4-1 1.5 5.8-9 .0 ABOVE AVG. (MODE RATE RISK) >11.5 >9.0 ABOVE AVG. (HIGH RISK) Not Available [facility] (Not A Draw Site) [place], [address] 10/07/2021 05:34:38 10/06/20 21 10/06/2021 LIPID SCREE N (BASI C LIPID PROFI LE) LDLC/HDL risk ratio 1.58 ratio <3.56 Not Available [facility] (Not A Draw Site) [place], [address] 10/07/2021 05:34:38 10/06/20 21 10/06/2021 LIPID SCREE N (BASI C LIPID PROFI LE) non-HDL cholesterol 104 mg/dL <130 Not Available [facility] (Not A Draw Site) [address], [place], [address] 10/07/2021 05:34:38 10/06/20 21 10/06/2021 LIPID SCREE N (BASI C LIPID PROFI LE) LDL-calculat ed 66 mg/dL <100 Not Available [facility] (Not A Draw Site) [address] [place], [place], [address] 10/07/2021 05:34:38 10/06/20 21 10/06/2021 LIPID SCREE N (BASI C LIPID PROFI LE) VLDL 38 mg/dL 7-32 high Not Available [facility] (Not A Draw Site) [address] [place], [place], [address] 10/07/2021 05:34:38 10/06/20 21 10/06/2021 THYRO ID STIMU LATIN G HORMO NE (TSH) TSH 2.140 uIU/m L 0.278- 4.326 Not Available [facility] (Not A Draw Site) [address], [place], [address] 10/07/2021 05:34:39 10/19/20 21 10/19/2021 NOVEL CORON AVIRU S COVID -19 NASOP HARYN X covid-19 nasal/nasoph arynx Not Detect ed not detect ed Pleas e consi leelee re-co llect ion of a new speci men, if clini joie indic ated. The COVID -19 assay is under Emerg ency Use Autho rizat ion (EUA) by the U.S. Food and Drug Admin istra tion. PMG, [employer]. is desig nated as a high compl [...] CDC for passe don paulino. Not Available [facility] (Not A Draw Site) [address] [place] 1, [place], [address] 10/22/2021 12:27:16 05/04/2005/04/2022 HEMOG LOBIN A1C (GLYC OHGB) hemoglobin A1C [...] abilio hemog lobin level s. Not Available [facility] (Not A Draw Site) [address], [place], [address] 05/05/2022 04:48:58 05/04/20 22 05/04/2022 COMPR EHENS RUI METAB OLIC PANEL total protein 7.0 g/dL 6.0-8. 0 Not Available [facility] (Not A Draw Site) [address], [place], [address] 05/05/2022 04:49:00 05/04/2005/04/2022 COMPR EHENS RUI METAB OLIC PANEL albumin 5.1 g/dL 3.5-5. 2 Not Available [facility] (Not A Draw Site) [address] [place], [place], [address] 05/05/2022 04:49:00 05/04/20 22 05/04/2022 COMPR EHENS RUI METAB OLIC PANEL globulin 1.9 g/dL 1.7-3. 7 Not Available [facility] (Not A Draw Site) [address] [place], [place], [address] 05/05/2022 04:49:00 05/04/2005/04/2022 COMPR EHENS RUI METAB OLIC PANEL albumin/glob ulin 2.7 ratio 1.1-2. 9 Not Available [facility] (Not A Draw Site) [address] [place], [place], [address] 05/05/2022 04:49:00 05/04/20 22 05/04/2022 COMPR EHENS RUI METAB OLIC PANEL glucose 109 mg/dL 70-99 high Not Available [facility] (Not A Draw Site) [address] [place], [place], [address] 05/05/2022 04:49:00 05/04/20 22 05/04/2022 COMPR EHENS RUI METAB OLIC PANEL sodium 138 mmol/ L 136-14 5 Not Available [facility] (Not A Draw Site) [address] [place], [address] 05/05/2022 04:49:00 05/04/20 22 05/04/2022 COMPR EHENS RUI METAB OLIC PANEL potassium 5.4 mmol/ L 3.5-5. 3 high Not Available [facility] (Not A Draw Site) [address], [place], [address] 05/05/2022 04:49:00 05/04/2005/04/2022 COMPR EHENS RUI METAB OLIC PANEL chloride 99 mmol/ L 98-107 Not Available [facility] (Not A Draw Site) [address] [place], [place], [address] 05/05/2022 04:49:00 0705/04/2022 COMPR EHENS RUI METAB OLIC PANEL CO2 26 mmol/ L 22-29 Not Available [facility] (Not A Draw Site) [address], [place], [address] 05/05/2022 04:49:00 05/04/20 22 05/04/2022 COMPR EHENS RUI METAB OLIC PANEL BUN 22 mg/dL 8-23 Not Available [facility] (Not A Draw Site) [address], [place], [address] 05/05/2022 04:49:00 05/04/20 22 05/04/2022 COMPR EHENS RUI METAB OLIC PANEL creatinine 0.94 mg/dL 0.50-0 .90 high Not Available [facility] (Not A Draw Site) [address] [place], [address] 05/05/2022 04:49:00 05/04/20 22 05/04/2022 COMPR EHENS RUI METAB OLIC PANEL eGFR non- 60 mL/mi n >=60 Not Available [facility] (Not A Draw Site) [address], [place], [address] 05/05/2022 04:49:00 05/04/20 22 05/04/2022 COMPR EHENS RUI METAB OLIC PANEL eGFR 69 mL/mi n >=60 Not Available [facility] (Not A Draw Site) [address] [place], [address] 05/05/2022 04:49:00 05/04/20 22 05/04/2022 COMPR EHENS RUI METAB OLIC PANEL BUN/creat ratio 23.4 ratio 10.0-2 8.0 Not Available [facility] (Not A Draw Site) [address] Felipe 1[place], [id number] 05/05/2022 04:49:00 05/04/20 22 05/04/2022 COMPR EHENS RUI METAB OLIC PANEL calcium 10.7 mg/dL 8.6-10 .3 high Not Available [facility] (Not A Draw Site) [address] Felipe [place], [place], [id number] 05/05/2022 04:49:00 05/04/2005/04/2022 COMPR EHENS RUI METAB OLIC PANEL bilirubin,to dana 0.7 mg/dL <1.2 Not Available [facility] (Not A Draw Site) [address] Luis Felipe [place], [id number] 05/05/2022 04:49:00 05/04/20 22 05/04/2022 COMPR EHENS RUI METAB OLIC PANEL alkaline phosphatase 65 U/L 42-127 Not Available [facility] (Not A Draw Site) Brian [place]igay [place], [id number] 05/05/2022 04:49:00 05/04/20 22 05/04/2022 COMPR EHENS RUI METAB OLIC PANEL AST (SGOT) 31 U/L 10-35 Not Available [facility] (Not A Draw Site) Brian Ríoswy [place], [id number] 05/05/2022 04:49:00 05/04/20 22 05/04/2022 COMPR EHENS RUI METAB OLIC PANEL ALT (SGPT) 26 U/L <33 Not Available [facility] (Not A Draw Site) Brian Ríoswy [place], [id number] 05/05/2022 04:49:00 05/04/20 22 05/04/2022 LIPID SCREE N (BASI C LIPID PROFI LE) cholesterol 170 mg/dL <200 Not Available [facility] (Not A Draw Site) [address] [place], [id number] 05/05/2022 04:49:02 05/04/20 22 05/04/2022 LIPID SCREE N (BASI C LIPID PROFI LE) triglyceride 181 mg/dL <150 high Not Available [facility] (Not A Draw Site) [place], [id number] 05/05/2022 04:49:02 05/04/20 22 05/04/2022 LIPID SCREE N (BASI C LIPID PROFI LE) HDL cholesterol 44 mg/dL >=50 low Not Available [facility] (Not A Draw Site) Brian Briscoe 1, MD Robyn, [id number] 05/05/2022 04:49:02 05/04/20 22 05/04/2022 LIPID SCREE N (BASI C LIPID PROFI LE) HDL % cholesterol 26 % >14 Resul t(%): Evalu ation : 0-8 ABOVE AVG. (HIGH RISK) 9-14 ABOVE AVG. (MODE RATE RISK) 15-25 AVERA GE RISK 26-10 0 BELOW AVERA GE RISK Not Available [facility] (Not A Draw Site) Brian Briscoe 1, MD Robyn, [id number] 05/05/2022 04:49:02 05/04/2005/04/2022 LIPID SCREE N (BASI C LIPID PROFI LE) chol/HDL risk ratio 3.9 ratio <5.8 Ratio : Evalu ation : Male: Femal e: 0.0-4 .1 0.0-3 .8 BELOW AVERA GE RISK 4.2-7 .3 3.9-5 .7 AVERA GE RISK 7.4-1 1.5 5.8-9 .0 ABOVE AVG. (MODE RATE RISK) >11.5 >9.0 ABOVE AVG. (HIGH RISK) Not Available [facility] (Not A Draw Site) Brianroland Briscoe 1[place]yn [place], [id number] 05/05/2022 04:49:02 05/04/20 22 05/04/2022 LIPID SCREE N (BASI C LIPID PROFI LE) LDLC/HDL risk ratio 2.04 ratio <3.56 Not Available [facility] (Not A Draw Site) Brian Jessica Briscoe 1[place]yn [place], [id number] 05/05/2022 04:49:02 05/04/20 22 05/04/2022 LIPID SCREE N (BASI C LIPID PROFI LE) non-HDL cholesterol 126 mg/dL <130 Not Available [facility] (Not A Draw Site) [address] [place], [id number] 05/05/2022 04:49:02 05/04/20 22 05/04/2022 LIPID SCREE N (BASI C LIPID PROFI LE) LDL-calculat ed 90 mg/dL <100 Not Available [facility] (Not A Draw Site) 203 Brian Briscoe 1[place]yn [place], [id number] 05/05/2022 04:49:02 05/04/20 22 05/04/2022 LIPID SCREE N (BASI C LIPID PROFI LE) VLDL 36 mg/dL 7-32 high Not Available [facility] (Not A Draw Site) Brian Briscoe 1[place]yn [place], [id number] 05/05/2022 04:49:02 01/23/20 21 01/11/2021 scree carrington mammo gram 3D digit al W prior s REFERR ING PROVID ER: PATT BARAKAT MD [address] [facility] [address] [facility] PROCED URES: SCREEN ING MAMMOG SANTOS 3D [...] There is no eviden ce of malign rashdi on this examin ation. Contin ued routin [...] ols and PPE to protec t the patirigoberto arambula. This report was electr onical ly signed by: COLLEEN MCFARLAND MD COPY FURNIS HED: [email or web address] [facility] ([facility] [place] [address], [place], [address], 01/25/2021 14:22:12 05/01/20 22 04/18/2022 MAMMO , scree carrington, digit al, bilat eral REFERR ING PROVID ER: PATT BARAKAT MD [address] [facility] [address] [facility] PROCED URES: SCREEN ING MAMMOG SANTOS 3D DIGITA L CLINIC AL HISTOR Y: Patirigoberto arambula is 71 years old and is [...] this report has been sent to your patirigoberto t. FINAL ASSESS MENT: Catego ry 2 - Benign findin g This report was electr onical ly signed by: ALBERTA ETIENNE MD COPY FURNIS HED: MANE [facility] ([facility] [place] [address], [place], [address], 07/11/2023 21:52:54 05/02/20 22 04/18/2022 MAMMO , kendall shultz, digit al, bilat eral No observ ation record ed. ycdanny [facility] (Medical Records) [id number] [facility] [address], [place], [address], 05/04/2022 09:20:13 Result Notes Documentation Provider Name and Address Organization Details Recorded Time Mammo, Screening, Digital, Bilateral : REFERRING PROVIDER: PATT BARAKAT MD [address] [facility] [address] [facility] PROCEDURES: SCREENING MAMMOGRAM 3D DIGITAL CLINICAL HISTORY: Patient is 71 years old and is seen for screening. FILMS COMPARED: The present examination has been compared to prior imaging studies. Bilateral MAMMOGRAM: Low-dose tomosynthesis 3D views were obtained in combination with reconstructed 2D images. The breasts are heterogeneously dense. This may lower the sensitivity of mammography. There are no suspicious findings on this examination. Benign finding(s) are noted. There has been no significant interval change. IMPRESSION: There is no evidence of malignancy on this examination. Continued routine screening mammography is recommended. This mammogram was interpreted following analysis with Computer-Aided Detection technology. By law, a lay copy of this report has been sent to your patient. FINAL ASSESSMENT: Category 2 - Benign finding This report was electronically signed by: NEVA ETIENNE MD COPY FURNISHED: Stacy Andrews [facility] 05/08/2022 08:39:31 Problems Name Problem SNOMED Code Status Onset Date Resolution Date Notes Provider Name and Address Organization Details Recorded Time Herpes simplex type 2 infection 124909583 Active Not Available [facility] 2 08:51:10 Abnormal findings on diagnosti c imaging of breast 907280241 Completed 200702/05/2014 MD Cynthia [address], [place], [address] , [facility] 4 10:06:16 Mammograp hy abnormal 891866985 Completed 200802/05/2014 MD Cynthia [address], [place], [address] , [facility] 4 10:06:16 Actinic keratosis 040835738 Completed 200402/05/2014 Patt Barakat MD [address], [place], [address] , [facility] 4 10:06:16 Degenerat ion of cervical intervert ebral disc 98197900 Active Not Available [facility] 2 08:51:10 Dyspareun ia 89179665 Completed 200504/13/2014 Patt Barakat MD [address], [place], [address] , [facility] 4 11:43:55 Edema 461480829 Completed 200402/05/2014 Patt Barakat MD [address], [place], [address] , [facility] 4 10:06:16 Family history of malignant neoplasm of gastroint estinal tract 613887280 [facility]11[facility] 5 17:51:30 Bleeding 509121136 Completed 200602/05/2014 Patt Barakat MD [address], [place], [address] , [facility] 4 10:06:16 Benign essential hypertens ion 8763329 Active Not Available [facility] 2 08:51:10 Metabolic syndrome X 578424386 Active Not Available [facility] 2 08:51:10 Eruption 221761688 Completed 06/11/2015 [facility] 5 17:51:30 Adult health examinati on Completed 10/05/2017 MELISSA Mckeon [address], [place], [address] , [facility] 7 09:16:14 Screening mammograp hy Completed 06/11/2015 Miracle zavala, [facility] 5 17:51:30 Screening for osteoporo sis Completed 06/11/2015 [facility] 5 17:51:30 Menopausa l symptom 88645186 Completed 06/11/2015 [facility] 5 17:51:30 Spontaneo us ecchymosi s 685538326 Completed 200402/05/2014 MD Cynthia [address], [place], [address] , [facility] 4 10:06:16 Administr ation of diphtheri a and tetanus vaccine Completed 201002/05/2014 MD Cynthia [address], [place], [address] , [facility] 4 10:06:16 Acute upper respirato ry infection 70431328 Completed 200502/05/2014 MD Cynthia [address], [place], [address] , [facility] 4 10:06:16 Atrophic vaginitis 52527331 Completed 06/11/2015 MD Cynthia [address], [place], [address] , [facility] 7 10:54:26 Atrophic vaginitis 87003641 Active 2016 Not Available [facility] 2 08:51:10 Hyperlipi demia 82265187 Active Not Available [facility] 2 08:51:10 Specializ ed medical examinati on Completed 201002/05/2014 MD Cynthia [address], [place], [address] , [facility] 4 10:06:16 Influenza vaccine needed 93600420330 06 Completed 201102/05/2014 MD [address], [place], [address] , [facility] 4 10:06:16 Impaired fasting glycemia 887224326 Completed 10/13/2019 Patt Barakat MD [address], [place], [address] , [facility] 9 10:05:37 Carotid atheroscl erosis 229503937 Active Not Available [facility] 2 08:51:10 Osteoarth ritis of hip 166511041 Active 2018 Not Available [facility] 2 08:51:10 Prediabet es 596177269 Active 2018 Not Available [facility] 2 08:51:10 Thyroid stimulati ng hormone level above reference range 519928841 Active 2018 Not Available [facility] 2 08:51:10 Polyp of vaginal wall 634505910 Active 2018 Not Available [facility] 2 08:51:10 Exposure to SARS-CoV- 2 Active 2020 Not Available [facility] 2 08:51:10 Mild major depressio n, single episode 59878468 Active 2020 Not Available [facility] 2 08:51:10 Sialoaden itis 57118508 Active 2021 Patt Barakat MD [address], [place], [address] , [facility] 2 09:08:34 Problem Notes None recorded. Procedures Surgical History Date Name Laterality Status Provider Name and Address Organization Details Recorded Time 04/18/20 22 Date of Last Mammogram completed Stacy Andrews [facility] 04/27/2022 10:33:12 10/13/20 21 AWV - safety evaluation completed Gregoria Orta [facility] 10/13/2021 08:12:25 10/13/20 21 AWV - female prevention plan completed MD [address], [place], [address], [facility] 10/13/2021 08:36:02 01/12/20 21 Most Recent Mammogram completed Gregoria Orta [facility] 10/13/2021 08:00:12 10/07/20 20 Mini-Cog completed [facility] 10/07/2020 14:00:02 10/07/20 20 AWV - safety evaluation completed [facility] 10/07/2020 14:04:01 10/07/20 20 AWV - female prevention plan completed MD Cynthia [address], [place], [address], [facility] 10/07/2020 14:32:10 10/13/20 19 Mini-Cog completed [facility] 10/13/2019 08:54:58 10/13/20 19 AWV - safety evaluation completed [facility] 10/13/2019 08:55:50 10/13/20 19 AWV - female prevention plan completed Patt Barakat MD [address], [place], [address], [facility] 10/13/2019 09:10:13 07/22/20 19 Dermatologic Surgery completed Patt Barakat MD [address], [place], [address], [facility] 10/07/2020 14:41:52 03/14/20 19 Date of Last Colonoscopy completed [facility] 10/13/2019 08:38:45 03/14/20 19 Colonoscopy completed Patt Barakat MD [address], [place], [address], [facility] 10/13/2019 08:59:53 10/11/20 18 [facility] 08:08:20 10/11/20 18 AWV - safety evaluation completed [facility] 10/11/2018 07:59:40 10/11/20 18 AWV - female prevention plan completed MELISSA Mckeon [address], [place], [address], [facility] 10/11/2018 09:00:09 11/22/19 18 Knee arthroscopy/surg tasha completed [facility] 12/06/2017 15:16:36 10/05/20 17 Mini-Cog completed [facility] 10/05/2017 09:11:14 10/05/20 17 AWV - safety evaluation completed [facility] 10/05/2017 09:02:59 10/05/20 17 AWV - female prevention plan completed MELISSA Mckeon [address], [place], [address], [facility] 10/05/2017 11:19:09 06/14/20 16 Mini-Cog completed [facility] 06/14/2016 08:40:10 06/14/20 16 AWV - safety evaluation completed [facility] 06/14/2016 08:28:11 06/14/20 16 AWV - female prevention plan completed Patt Barakat MD [address], [place], [address], [facility] 06/14/2016 08:51:15 06/14/20 15 Mini-Cog completed Patt Barakat MD [address], [place], [address], [facility] 06/14/2015 15:15:59 06/14/20 15 AWV - safety evaluation completed Patt Barakat MD [address], [place], [address], [facility] 06/14/2015 15:15:59 06/14/20 15 AWV - female prevention plan completed Patt Barakat MD [address], [place], [address], [facility] 06/14/2015 15:15:59 02/17/20 15 Most Recent Bone Density completed [facility] 06/14/2015 14:20:33 04/13/20 14 PHQ-9 completed MD [address], [place], [place], [address] [place] [address], [facility] 04/13/2014 12:56:58 01/28/20 14 Colonoscopy completed MD Cynthia [address], [place], [place], [address] [place] [address], [facility] 04/13/2014 11:46:34 01/12/20 09 Colonoscopy completed MD Cynthia [address], [place], [place], [address] [place] [address], [facility] 06/14/2015 15:10:56 07/06/19 95 Hysterectomy with Oopherectomy (ovaries removed) completed Monserrat Santa [facility] 10/05/2017 09:04:35 10/22/18 90 Breast Biopsy completed MD Cynthia [address], [place], [place], [address] [place] [address], [facility] 04/13/2014 13:13:19 04/05/19 63 Oral / Dental Surgery completed MD Cynthia [address], [place], [place], [address] [place] [address], [facility] 10/13/2019 09:40:51 Imaging Results None recorded. Procedure Notes None recorded. Medical Equipment None Reported. Allergies Allergen ID Allergen Name Allergen Category Reaction Reaction Severity Criticality Documentation Date Start Date Code Code System Note Provider Name and Address Organization Details Recorded Time 109 honey bee venom environme nt Not available Not available Not available 10/23/2013 15469 7 RxNorm Miracle Guy [facility] 5 17:54:41 0766333 acetamino phen / hydrocodo ne medicatio n flushing Not available Not available 01/07/2019 57222 2 RxNorm Mandy Goins [facility] 9 08:22:11 1152457 adhesive tape environme nt,medica tion rash mild Not available 10/07/2020 13458 UNK Patt Barakat MD [address], [place], [address], [facility] 0 15:02:57 26509 Product containin g penicilli n (product) medicatio n hives Not available Not available 02/05/20141954 24276 8001 SNOMED Patt Barakat MD [address], [place], [address], [facility] 4 09:57:35 Medications Name Sig Start Date [...] route. 10/05 completed See pt case. SB 11/24/14 Not Available Not Available Not Available losartan [...] Not Available Not Available Not Available Fluzone 1230-3031 45 mcg (15 mcg x 3)/0.5 mL intramusc ular suspensio n TO BE ADMINIST ERED BY [employer] FOR IMMUNIZA TION active Not Available Not Available No t Available Fluzone High-Dose (PF) 180 mcg/0.5 mL intramusc ular syringe active Not Available Not Available Not Available Vitamin B12 active Not Available Not Available Not Available Fluzone High-Dose (PF) 180 mcg/0.5 mL intramusc ular syringe VACCINAT ION ADMINIST ERED BY [facility] ST 06/22 completed Not Available Not Available Not Available Shingrix (PF) 50 mcg/0.5 mL intramusc ular suspensio n, kit 05/31 completed Not Available Not Available Not Available Fluad Quad (65yr up)(PF) 60 mcg (15 mcg x 4)/0.5mL IM syringe VACCINAT ION ADMINIST ERED BY PHARMACI ST 08/10 completed Not Available Not Available Not Available Vitals Date Recorded Body height Heart rate Body mass index (BMI) Body weight Body temperature Systolic blood pressure Diastolic blood pressure Provider Name and Address Organization Details Last Updated DateTime 1 172.72 cm 60 /min 31.6 kg/m2 97722.2 1 g 97 [degF] 145 mm[Hg] 77 mm[Hg] Pauline Wills [facility] 1 14:34:55 Date Recorded Body height Body temperature Body mass index (BMI) Body weight Heart rate Systolic blood pressure Diastolic blood pressure Provider Name and Address Organization Details Last Updated DateTime 1 172.72 cm 97.7 [degF] 31.5 kg/m2 17949.6 2 g 60 /min 106 mm[Hg] 64 mm[Hg] [facility] 1 14:16:23 Date Recorded Body height Body temperature Body mass index (BMI) Body weight Heart rate Systolic blood pressure Diastolic blood pressure Provider Name and Address Organization Details Last Updated DateTime 1 172.72 cm 97.8 [degF] 31.3 kg/m2 91687.0 3 g 56 /min 114 mm[Hg] 64 mm[Hg] Stacy [facility] 1 13:44:32 Date Recorded Body height Body mass index (BMI) Body weight Body temperature Heart rate Systolic blood pressure Diastolic blood pressure Provider Name and Address Organization Details Last Updated DateTime 2 172.72 cm 31.9 kg/m2 66491.4 g 97.5 [degF] 68 /min 108 mm[Hg] 68 mm[Hg] Maria Eugenia Maya [facility] 2 08:32:52 Date Recorded Body height Body temperature Body mass index (BMI) Body weight Heart rate Systolic blood pressure Diastolic blood pressure Provider Name and Address Organization Details Last Updated DateTime 1 172.72 cm 97.5 [degF] 32.2 kg/m2 17797.5 8 g 60 /min 118 mm[Hg] 76 mm[Hg] Gregoria Orta [facility] 1 08:08:59 Social History Question Answer Notes LastModified by Organizat ion Details LastModified Time Tobacco Smoking Status [facility]2020 13:50:33 Do You Have An Advance [...] Information not available 10/07/2020 Hobbies/Activit ies Sewing [email or web address] Information not available 10/05/2014 Live Alone Or [...] And Wanted Help? (For Example, If You [place] Very Nervous, Lonely, Or Blue; Got Sick [...] Your House That Might Hurt You? Yes [email or web address] Information not available 10/13/2019 Have You Been [...] DRINK Containing ALCOHOL? 2-4 Times A Month [email or web address] Information not available 01/25/2021 How Often During The Past 4 Weeks Have You Been Bothered By Falling Or Dizziness When Standing Up?* Never [email or web address] Information not available 10/11/2018 Marital Status Passed [...] not available 10/07/2020 General Stress Level Low [email or web address] Information not available 10/05/2014 Do You Use [...] 10/07/2020 13:50:26 Father Heart disease 75 85 [email or web address] Not available 09/21 15:53:02 Father Malignant tumor of larynx Not available 13:50:26 Mother Malignant tumor of colon 72 87 [email or web address] Not available 2015 08:28:37 Mother Rheumatoid arthritis 70 82 [email or web address] Not available 09/21 15:53:02 Mother Heart disease [...] Headaches N Fibromyalgia N Musculoskeletal Disease N Endocrine Disorder N Polycystic Ovarian Disease (PCOS) N Gastroesophageal Reflux Disease (GERD) N Migraines [...] Hereditary Disorder N Seizures / Epilepsy N ADHD N Cardiovascular Disease N Hepatic / Liver Disease N Head [...] unspecified formulation 07/01/20 12 completed Maria Eugenia [facility] 05/04/2022 08:31:43 tetanus toxoid, unspecified formulation 10/22/19 02 completed Maria Eugenia Maya [facility] 05/04/2022 08:31:44 pneumococcal polysaccharide PPV23 01/21/20 14 completed Maria Eugenia [facility] 05/04/2022 08:31:05 Td(adult) unspecified formulation 11/05/19 02 completed Maria Eugenia Maya [facility] 05/04/2022 08:31:45 influenza, unspecified formulation 07/23/20 18 completed Maria Eugenia Maya [facility] 05/04/2022 08:31:44 influenza, unspecified formulation 08/22/20 14 completed [facility] 08:31:05 Tdap 12/05/19 11 completed Maria Eugenia Maya [facility] 05/04/2022 08:31:05 Hep A, unspecified formulation 09/21/20 09 completed Maria Eugenia [facility], [facility] 05/04/2022 08:31:44 Td(adult) unspecified formulation 10/22/19 02 completed Maria Eugenia Francesco [facility], [facility] 05/04/2022 08:31:45 Hep B, unspecified formulation 09/21/20 09 completed Maria Eugenia Francesco null, [facility] 05/04/2022 08:31:45 Influenza, high-dose, trivalent, PF 06/11/20 20 completed Maria Eugenia Francesco null, [facility] 05/04/2022 08:31:43 COVID-19, mRNA, LNP-S, PF, 30 mcg/0.3 mL dose 12/28/19 21 completed Maria Eugenia [facility], [facility] 05/04/2022 08:31:04 COVID-19, mRNA, LNP-S, PF, 30 mcg/0.3 mL dose 01/19/20 21 completed Maria Eugenia Francesco [facility], [facility] 05/04/2022 08:31:04 Influenza, split virus, quadrivalent, preservative 07/01/20 21 completed Maria Uegenia Francesco [facility], [facility] 05/04/2022 08:31:44 Influenza, split virus, trivalent, preservative 07/01/20 12 completed Maria Eugenia [facility], [facility] 05/04/2022 08:31:04 pneumococcal polysaccharide PPV23 04/13/20 14 completed Maria Eugeniara Maya [facility], [facility] 05/04/2022 08:31:04 Hep A-Hep B 07/13/20 10 completed Maria Eugenia Francesco null, [facility] 05/04/2022 08:31:04 tetanus toxoid, adsorbed 10/22/19 02 completed Maria Eugenia Francesco null, [facility] 05/04/2022 08:31:04 typhoid, oral 10/07/20 09 completed [facility] 08:31:04 Hep A, unspecified formulation 09/21/20 09 completed Maria Eugeniara Maya null, [facility] 05/04/2022 08:31:04 pneumococcal, unspecified formulation 01/21/20 14 completed Maria Eugenia Francesco null, [facility] 05/04/2022 08:31:04 zoster recombinant 12/27/19 20 completed Maria Eugenia Francesco null, [facility] 05/04/2022 08:31:04 Influenza, MDCK, quadrivalent, preservative 09/04/20 19 completed Maria Eugenia Francesco null, [facility] 05/04/2022 08:31:04 Td(adult) unspecified formulation 10/22/19 02 completed Maria Eugenia Francesco null, [facility] 05/04/2022 08:31:04 Influenza, adjuvanted, trivalent, PF 07/23/20 18 completed Maria Eugenia Francesco null, [facility] 05/04/2022 08:31:04 zoster recombinant 04/26/20 20 completed Maria Eugenia Francesco null, [facility] 05/04/2022 08:31:04 Hep B, unspecified formulation 09/21/20 09 completed Maria Eugeniara Maya [facility] 05/04/2022 08:31:05 Influenza, high-dose, trivalent, PF 08/19/20 16 [facility] 08[facility]31[facility]05 Hep A-Hep B 10/07/20 09 completed Maria Eugenia Francesco [facility] 05/04/2022 08:31:05 Influenza, split virus, trivalent, preservative 08/26/20 14 completed Maria Eugenia [facility] 05/04/2022 08:31:05 COVID-19, mRNA, LNP-S, PF, 100 mcg/0.5mL dose or 50 mcg/0.25mL dose 11/09/19 22 completed Maria Eugenia Francesco null, [facility] 05/04/2022 08:31:04 Pneumococcal conjugate PCV 13 06/23/20 15 [facility] 08:31:44 Td (adult), 5 Lf tetanus toxoid, preservative free, adsorbed 10/13/20 21 completed Maria Eugenia Francesco null, [facility] 05/04/2022 08:31:45 Td (adult), 5 Lf tetanus toxoid, preservative free, adsorbed 10/13/20 21 completed Maria Eugeniara Maya null, [facility] 05/04/2022 08:31:45 Influenza, MDCK, quadrivalent, PF 06/22/20 17 completed Maria Eugenia Francesco null, [facility] 05/04/2022 08:31:45 zoster recombinant 06/08/20 20 cancelled patient objection Carlos Eduardo Vo null, [facility] 06/08/2020 13:53:34 Influenza, high-dose, trivalent, PF 09/05/20 15 completed Maria Eugeniara Maya null, [facility] 05/04/2022 08:31:04 pneumococcal polysaccharide PPV23 01/21/20 14 completed [facility] null, [facility] 05/04/2022 08:31:44 influenza, unspecified formulation 08/19/20 16 completed [facility], [facility] 05/04/2022 08:31:45 Past Encounters Encounter ID Performer Location Encounter Start Date Encounter Closed Date Diagnosis/Indication Diagnosis SNOMED-CT Code Diagnosis ICD10 Code Diagnosis Note [id number] [facility] () [address] [place] [address] 06/16/2004 00:00:00 1607 [facility] () [address] [place] [address] 12/23/2004 00:00:00 1608 [facility] () [address] [place] [address] 06/29/2005 00:00:00 1609 [facility] () [address] [place] [address] 12/04/2005 00:00:00 1610 [facility] () [place] [address] 03/01/2006 00:00:00 1611 [facility] () [address] [place] [address] 12/31/2006 00:00:00 1612 [facility] (IP) [address] [place] [address] 07/11/2007 00:00:00 1613 [facility] (IP) [address] [place] [address] 10/10/2007 00:00:00 1614 [facility] (IP) [address] [address] 01/16/2008 00:00:00 1615 [facility] (IP) [address] [address] 02/18/2008 00:00:00 1616 [facility] (IP) [address] [place] [address] 10/13/2008 00:00:00 1617 [facility] (IP) [address] [place] [address] 10/20/2009 00:00:00 1618 [facility] (IP) [address] [place] [address] 01/19/2010 00:00:00 1619 [facility] (IP) [address] [place] [address] 05/05/2010 00:00:00 1620 [facility] (IP) [address] [place] [address] 12/05/2010 00:00:00 1621 [facility] (IP) [address] [place] [address] 03/14/2011 00:00:00 1622 [facility] (IP) [address] [place] [address] 06/08/2011 00:00:00 1623 [facility] () [address] [place] [address] 01/09/2012 00:00:00 1624 [facility] () [address] [place] [address] 07/01/2012 00:00:00 1625 [facility] () [address] [place] [address] 02/11/2013 00:00:00 [id number] Patt Barakat MD PMG_IMAR_ [facility]* [address] [place] [address] ,[address] [place], [place] [address] 02/05/2014 09:29:37 02/05/2014 10:29:09 Benign essential hypertension 3857108 Hyperlipidemia 22349040 Eruption 137127226 Atrophic vaginitis 98058695 [id number] Patt Barakat MD [facility]* [address] [place] [address] ,[address] [place], [place] [address] 04/13/2014 12:30:48 04/13/2014 14:16:28 Adult health examination 067778489 Administra tion of pneumococcal vaccine 95644615 Benign ess ential hypertension 2223197 Hyperlipidemia 41471553 Atrophic vaginitis 02484520 [id number] Patt Barakat MD [facility]_ [facility]* [address] [place] [address] ,[address] [place], [place] 9 10/05/2014 15:34:16 10/05/2014 16:31:27 Benign essential hypertension 1884522 Hyperlipidemia 10205271 Atrophic vaginitis 31018688 [id number] Patt Barakat MD [facility]* [address] [place] [address] ,[address] [place], [place] 9 06/14/2015 14:18:34 06/14/2015 15:34:48 Adult health examination 986372206 Carotid atherosclerosis 847010345 Administra tion of pneumococcal vaccine 24001018 Benign ess ential hypertension 2261567 Impaired f asting glycemia 360625237 Hyperlipidemia 50008700 [id number] Patt Barakat MD [facility]_ [facility]* [address] ,[address] [place], [place] [address] 12/15/2015 09:47:50 12/15/2015 11:59:06 Impaired fasting glycemia 269641319 R73.01 Hyperlipidemia 58115515 E78.5 Carotid atherosclerosis 770356817 I65.23 Benign ess ential hypertension 9689475 I10 [id number] Patt Barakat MD [facility]_ [facility]* [address] [place] [address] ,[address] [place], [place] 9 06/14/2016 08:27:06 06/14/2016 09:27:55 Adult health examination 720788119 Z00.01 Benign ess ential hypertension 1366163 I10 Impaired f asting glycemia 910561847 R73.01 Herpes sim plex type 2 infection 409026644 B00.9 Hyperlipidemia 60221724 E78.5 [id number] MELISSA Mckeon JeannetteIMTETE_ [facility]* [address] [place] [address] ,[address] [place], [place] [address] 09/29/2016 10:11:33 09/29/2016 11:43:02 Cough 21711522 R05 [id number] MELISSA Mckeon JeannetteIMTETE_ [facility]* [address] [place] [address] ,[address] [place], [place] 9 12/13/2016 07:39:58 12/13/2016 16:17:00 Benign essential hypertension 1680598 I10 Hyperlipidemia 72943487 E78.5 Hallux kailey antwon AND bunion 267243844 M20.11 Impaired f asting glycemia 424777691 R73.01 Osteoarthritis 006572324 M15.0 Will send for imaging if pain does not reduce after stretching /exercise/ palliative care [id number] MELISSA MckeonIMTETE_ [facility]* [address] [place] [address] ,[address] [place], [place] 9 10/05/2017 08:42:48 10/05/2017 13:08:14 Adult health examination 491699994 Z00.00 Herpes sim plex type 2 infection 963974827 B00.9 Benign ess ential hypertension 5103727 I10 Impaired f asting glycemia 865094269 R73.01 Hyperlipidemia 61767185 E78.5 Atrophic vaginitis 31009 000 N95.2 Traveler's diarrhea 1184 0006 A04.1 To take along with while travelling to [place] for 2 weeks. [id number] Adeel Momin DPM PM_DFAC_ [facility]* [address] [place] [address] 01/03/2017 15:16:47 01/03/2017 16:39:54 Acquired hallux valgus 38653432 M20.11 Localized, secondary osteoarthritis of the ankle and/or foot 708478275 M19.271 1st MTPJ Capsulitis 7286478 M77.5 1 Tailor's bunion 5163021 M21.621 [id number] Patt Barakat MD [facility]* [address] [facility] ,[address] [place], [place] [address] 06/22/2017 10:09:06 06/22/2017 11:08:24 Benign essential hypertension 6806615 I10 Impaired f asting glycemia 978872487 R73.01 Hyperlipidemia 33942228 E78.5 Atrophic vaginitis 59040 000 N95.2 Herpes sim plex type 2 infection 342318720 B00.9 Administra tion of influenza vaccine 37559459 Z23 [id number] MELISSA Mckeon [facility]* [address] ,[address] [place], [place] [address] 10/11/2018 07:41:10 10/11/2018 15:00:47 Adult health examination 000039577 Z00.00 Hyperlipidemia 95830914 E78.5 Benign ess ential hypertension 1720720 I10 On examina tion - reduced movement of hip 030728477 R29.898 Willing to be donor of kidney 350332666 Z00.5 Would like to be considered for donating her kidney to a friend for whom she is a match. 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 Increase Amlodipine . Weekly home BP and record, and FOV in 3 months with cuff. Carotid atherosclerosis 093828370 I65.23 Hyperlipidemia 44009693 E78.5 Consider increasing Atorvastat in pending Carotid US results. Mammography abnormal 168 675772 R92.8 Osteoarthritis of hip 23 3622233 M16.9 Prediabetes 565464231 R7 3.[address] imulating hormone level above reference range 644150317 R79.89 Discussed; no need for supplement and will recheck in 3 months. Polyp of vaginal wall 24 6441516 N84.2 No concerning features on exam. Recheck in 3 months, and consider Cad[employer]ater referral if worsens or becomes more symptomati c. [id number] MELISSA Mckeon PMG_IMAR_ [facility]* [address] [place] [address] ,[address] [place], [place] [address] 01/07/2019 08:09:42 01/07/2019 10:00:41 Benign essential hypertension 7807751 I10 Increase benazepril to BID dosing. Recheck BP 2x/day for 1 week, report values back via portal for further recs. [id number] Shanique Das NP PMG_IMTETE_ [facility]* [address] [place] [address] ,[address] [place], [place] [address] 05/20/2019 15:24:08 05/21/2019 09:40:17 Benign essential hypertension 0359200 I10 will use dyazide prn for now for edema and reduce to 5mg amlodipine daily and continue to monitor home BP; if swelling resolves and BP acceptable on only 5mg amlodipine will continue w/ just the 5mg amlodipine ; otherwise, consider switch to diovan or losartan Edema of l ower extremity 269504547 R60.0 [id number] Shanique Das NP [facility]_ [facility]* [address] [place] [address] ,[address] [place], [place] [address] 06/19/2019 11:01:25 06/19/2019 12:40:38 Benign essential hypertension 3298990 I10 increase losartan and add HCT to help w/ swelling and better BP control; TLC encouraged as well, watch salt; will f/u w/ pt in 3 wks for BP log [id number] Rani Pastor MD PM_IMAR_ [facility]* [address] [place] [address] ,[address] [place], [place] [address] 09/04/2019 13:41:40 09/05/2019 12:21:04 Benign essential hypertension 8218800 I10 Active or passive immunization 791254320 Z23 Screening for malignant neoplasm of breast 009539610 Z12.39 Administra tion of influenza vaccine 82225954 Z23 [id number] Patt Barakat MD PM_IMAR_ [facility]* [address] [place] [address] ,[address] [place], [place] [address] 01/11/2020 17:44:00 01/13/2020 12:57:26 Hyperlipidemia 42146430 E78.5 Labs reviewed. Improved. Continue current medication . Recheck at [facility]. Carotid atherosclerosis 540192846 I65.23 Verified again by carotid US. Consider repeat scan 2024. Benign ess ential hypertension 2643038 I10 Improved. Recheck at [facility] and refill meds. [id number] Patt Barakat MD [facility]_ [facility]* [address] [place] [address] ,[address] [place], [place] [address] 05/31/2020 13:10:35 06/01/2020 14:50:47 Benign essential hypertension 0486485 I10 As above reduce amlodipine and watch. Herpes sim plex type 2 infection 147520050 B00.9 Edema of l ower extremity 262167963 R60.0 New problem. Discussed; likely multifacto rial. Discussed more aggressive salt reduction. Reduce amlodipine to 5 mg daily, elevation, and FOV 2 months. [id number] Patt Barakat MD [facility]G_IM[facility]_ [facility]* [address] [place] [address] ,[address] [place], [place] [address] 08/10/2020 13:20:55 08/11/2020 14:23:34 Benign essential hypertension 7307635 I10 Continue current meds as BP controlled , with reduced edema on lower amlodipine dose. Hyperlipidemia 59138683 E78.5 Labs reviewed. Improved. Continue current medication . Recheck at [facility]. [id number] Patt Barakat MD PM_IMTETE_ [facility]* [address] [place] [address] ,[address] [place], [place] 9 10/07/2020 13:48:08 10/07/2020 15:10:48 Adult health examination 441537134 Z00.01 Hyperlipidemia 90497556 E78.5 Labs reviewed. Improved. Continue current medication . Recheck at [facility]. Carotid atherosclerosis 904362512 I65.23 Verified again by carotid US. Consider repeat scan 2024. Thyroid st imulating hormone level above reference range 767988159 R79.89 Prediabetes 678068981 R7 3.03 Improved. Watch yearly. Benign ess ential hypertension 3267608 I10 Screening mammography 24 352084 Z12.31 [id number] Patt Barakat MD [facility]_ [facility]* [address] [place] [address] ,[address] [place], [place] [address] 11/18/2020 14:19:19 11/23/2020 13:33:26 Edema of lower extremity 250050441 R60.0 Worsened problem. Due to poor compliance to diet, due to critically ill. Will add spironolac tone and FOV for recheck and labs in 1 month, sooner if no better/wor se. [id number] Patt Barakat MD [facility]_ [facility]* [address] [place] [address] ,[address] [place], [place] [address] 12/23/2020 14:04:29 12/24/2020 14:30:20 Benign essential hypertension 2584062 I10 Hold Amlodipine , continue spironolac tone, metoprolol , Los HCTZ, and recheck in 1 month with BMP at that time. If home BP's > 140/90, add back 5 mg Amlodipine . [id number] Patt Barakat MD PMG_IMAR_ [facility]* [address] [place] [address] ,[address] [place], [place] [address] 01/25/2021 13:35:01 01/26/2021 12:28:02 Benign essential hypertension 5557869 I10 Improved based on her home numbers. IF BMP is OK, continue current rx (refill Spironolac tone once labs are back). [id number] Patt Barakat MD [facility]* [address] [place] [address] ,[address] [place], [place] [address] 10/13/2021 07:44:18 10/17/2021 13:04:30 Adult health examination 199781648 Z00.01 Benign ess ential hypertension 7118506 I10 Well controlled . Refill meds. Herpes sim plex type 2 infection 752184923 B00.9 Hyperlipidemia 06402293 E78.5 Controlled on current rx. Prediabetes 291022911 R7 3.03 Worse. Recheck in 6 months at [facility]. Mild major depression, single episode 39537745 F32.0 New onset. Due to loss of 02/09. She has good support system, and therapy through her hindu. Re-eval in 6 months. Administra tion of diphtheria and tetanus vaccine 83264704 Z23 Chronic pharyngitis 1400 04 J31.2 [id number] Patt Barakat MD [facility]* [address] ,[address] [place], [place] [address] 05/04/2022 08:25:18 05/04/2022 12:35:17 Benign essential hypertension 8776500 I10 Well controlled . Continue current meds. Hyperlipidemia 43483401 E78.5 Recheck labs and continue current meds. Prediabetes 561147791 R7 3.03 Worse. Recheck today. Healthy lifestyle discussed. Mild major depression, single episode 54459100 F32.0 Ongoing, but mildly improved. Due to loss of 02/09. She has good support system, and therapy through her hindu. She feels she does not need further interventi on at this time. Discussed [place]; she will consider. Left Achil les tendinitis 0708651053 23084 M76.62 Sialoadenitis 56430345 K 11.20 Health Concerns Section Related Observation LastModified by Organization Detai ls LastModified Time None Recorded Concern Status LastModified by Organization Details LastModified Time None Recorded Advance Directives Directive Y: Payers Insurance Date Sequence Insurance Name Policy Number Policy Lawrence Covered Member ID Lawrence Member ID Guarantor Name 05/06/2022 1 [employer] (MEDICARE REPLACEMENT/ADV ANTAGE - PPO) Briana Nielsen Grasty [id number] Briana Nielsen Grasty 10/02/2021 1 [facility] (PPO[facility]U Briana Nielsen Grasty [id number] Briana Nielsen Grasty 10/02/2021 1 [facility]: [employer] (PPO) PCU Briana Nielsen Grasty [id number] Briana Nielsen Grasty 10/02/2021 1 [place] Briana Nielsen Grasty [id number] Briana Nielsen Grasty 10/02/2021 1 [employer] (MEDICARE REPLACEMENT/ADV ANTAGE - PPO) [id number] Briana Grasty [id number] Briana Nielsen Grasty 10/02/2021 2 [employer] (MEDICARE REPLACEMENT/ADV ANTAGE - PPO) Briana Grasty [id number] Briana Gia Grasty 10/02/2021 2 [employer] (MEDICARE SUPPLEMENT) Briana Grasty [id number] Briana M Grasty 10/02/2021 2 [employer] (MEDICARE SUPPLEMENT) Briana Nielsen Grasty [id number] Briana Nielsen Grasty 10/25/2022 2 [employer] [employer] (MEDICARE SUPPLEMENT) Briana Nielsen Grasty [id number] Briana Nielsen Grasty 05/04/2022 1 MEDICARE B-DC: [employer] MED[place]ARE [place] Briana Nielsen Grasty [id number] Briana Nielsen Grasty Notes Date Note Type Note Provider Name and Address Organization Details Recorded Time 1 text/html EdemaReported bypatient.Symptoms:no shortness of breath; no shortness of breath during exertion; no cough;swelling in lower legs only;weight gain (8 lbs) Quality:legs swell equally Context:prior history of edema Patt TaMD [address], [place], [address], [facility] 11/18/2020 15:33:31 1 text/html EdemaReported bypatient.Symptoms:no shortness [...] stress related ocular migraines. MD [address], [place], [address], [facility] 12/23/2020 14:59:12 1 text/html F/U HypertensionReported bypatient.Blood [...] stress related ocular migraines. MD [address], [place], [address], [facility] 01/25/2021 14:28:38 1 text/html F/U Diabetes/Pre-diabetesReport ed [...] itch, for several months. Currently gone. Patt Barakat MD [address], [place], [address], [facility] [employer] [facility] 10/13/2021 09:10:59 2 text/html F/U Diabetes/Pre-diabetesReport [...] Achilles area since 10/2021. Saw Adeel Hudson ([employer] Driver), rx'd boot and stretches, with mild improvement.Also had episode of L parotid gland swelling. Resolved with chewing on lemon wedges. Patt Barakat MD [address], [place], [address], [facility] 05/04/2022 09:16:55 OBGyn Episode No OBEpisode recorded.
== END 2025-04-21 11:59 | disposition home or self-care (01) ==
LOC: HO.XRAY 11:58
PROVIDERS: PCP Physician Assistant; Visit Provider Physician Assistant
DX: J40 Bronchitis, not specified as acute or chronic (principal)
CPT/HCPCS: 71046

== ENCOUNTER → 2025-04-21 12:07 | Outpatient (BNV) | payer MEDICARE, SELFPAY | PROVIDERS: PCP Physician Assistant; Visit Provider Specialist | DX: J40 Bronchitis, not specified as acute or chronic (principal) | CPT/HCPCS: 71046 ==

== ENCOUNTER 2025-06-03 08:47 | Outpatient (AMB) | payer MEDICARE, SELFPAY ==
--- NOTE | 2025-06-03 08:48 | MHC.OFFVIS ---
Intake Visit Reasons: Diarrhea Intake Note: Briana presents as a telehealth today for diarrhea and hx of colon cancer. CC: states that she has had loose stools for 2 years - history of colion cancer for her and her family. No blood or pains in the stomach and states that sometimes her stools are like baby poop . Last colonoscopy was in 2022 Swing Type Lathe Operator Required: No Allergies bee venom protein (honey bee) Allergy (Intermediate, Verified 03/04/25 10:57) Swelling acetaminophen (From Vicodin) Allergy (Verified 03/04/25 10:57) Flushing hydrocodone (From Vicodin) Allergy (Verified 03/04/25 10:57) Flushing Penicillins Adverse Reaction (Intermediate, Verified 03/04/25 10:57) hives vicotin Adverse Reaction (Severe, Uncoded 03/04/25 10:57) Flushing HPI Comments Details: 74 y.o F with PMH of HLD, HTN, hx of hip replacement who is here as telehealth visit to establish care for chronic diarrhea. Reports moved from [place] in early 2022. Had a colonoscopy at that time which was routine. Since moving to [place] she has noticed BM fluctuate between soft to hard marbles. Stool caliber is thinner. No abd pain, no blood. She has very extensive fam hx of CRC and looking to get a relook colo. Most recent colo 2022 with 2-3 polyps. Fam hx: mother CRC in her 60s. sister: 40 polyps in most recent colonoscopy. niece (daughter of said sister): dx with stage IV CRC [facility] Medical History (Updated 06/03/25 @ 12:01 by Pinky Hall MD) Herpes simplex Kidney pain Encounter for colonoscopy in patient with family history of colon cancer Surgical History (Updated 06/03/25 @ 08:54 by SHIRAZ Egan) Hx of colonoscopy History of hysterectomy History of total right hip replacement Family History Mother Colon cancer Sister Colon polyp Father Esophageal cancer Family/Other Colon cancer Social History Housing: House Alcohol intake: current Alcohol intake frequency: holidays/special occasions only Patient Tobacco Use Status: Never used Tobacco e-Cigarette/Vaping Use: Never Used Second Hand Smoke Exposure: No service: No Current occupational status: employed and retired 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 [employer] Cognitive needs: No Hearing needs: No Vision needs: Yes Review of Systems Const All systems reviewed & are unremarkable except as noted in HPI and below Physical Exam Exam Exam: Video visit: No acute distress No icterus noted No facial asymmetry Speaking in full sentences Telehealth Telehealth Telehealth Platform: [employer] Location of provider rendering services: practice address Location of patient: address on file Patient Identification confirmed using: Name, : Yes Telehealth method: video Patient verbally consented to treatment: Yes Patient verbally consented to billing insurance company: Yes Patient informed of any privacy concerns related to visit: Yes Minutes spent on Phone/Video with Pt.: 15 Assessment & Plan Assessment & Plan (1) Change in bowel habit: Code(s): R19.4 - Change in bowel habit Category: Medical (2) Family history of colon cancer: Code(s): Z80.0 - Family history of malignant neoplasm of digestive organs Category: Medical Plan Given the recent change in bowel habits in the setting of strong family hx, imperative to do luminal eval to r/o large friable polyp, mass etc. She was also advised to discuss any genetic testing results her sister may have had. Low suspicion for colitis as pt does not report alyse diarrhea but rather change in consistency and caliber of stools. Will check celiac serology. Pt reports will be going for blood work later this week for pcp. Plan: - Labs as below - Urgent colo to be booked - PEG prep sent and instructions reviewed and sent on portal Orders: Orders Transglutaminase IgA Today R19.4 - Change in bowel habit Immunoglobulin A Today R19.4 - Change in bowel habit Medications: New peg 3350-electrolytes 236-22.74-6.74 -5.86 gram (Golytely) as per split prep instructions, until fecal effluent is clear 240 mL PO Q10M 4,000 mL 0RF colonoscopy Coding Level of Care Code Tele New Pt Level 4 (75167) Diagnoses Change in bowel habit R19.4 Family history of colon cancer Z80.0
--- OUTSIDE RECORDS SUMMARY | 2025-06-03 09:03 | XMS_ITS | Encounter Summary ---
Author Organization [facility] Address [address] [place] [id number] Phone Care Team Providers Care Test Equipment Mechanic Name Role Phone Perry Silverio Primary Care Provider + Encounter Details Date Type Department Care Team (Late st Contact Info) Description 06/13/2023 Procedure Pass [facility], [address] [address] Social History Tobacco Use Types Packs/Day Years Used Date Smoking Tobacco: Never Alcohol Use Standard Drinks/Week Comments Yes 3 (1 standard drink = 0.6 oz pur e alcohol) Education Answer Date Recorded Are you interested in more education? Not on katelyn e 03/02/2023 Are you concerned about learning? Not on file 03/02/2023 No 03/02/2023 No 03/02/2023 Digital Access Answer Date Recorded No 03/20/2023 No 03/20/2023 Reliable internet access at home? Not on file 03/20/2023 Device with a working camera? Not on file Comments No Sex and Gender Information Value Date Recorded Sex Assigned at Female 06/06/2024 4:33 PM EDT Legal Sex Female 9:54 AM EST Gender Identity Female 06/06/2024 4:33 PM EDT Sexual Orientation Straight 06/06/2024 4: 33 PM EDT documented as of this encounter Plan of Treatment Not on file documented as of this encounter Visit Diagnoses Not on filedocumented in this encounter Care Teams Test Equipment Mechanic Relationship Specialty Start Date End Date Perry Silverio PA [address] [place] [address] PCP - General Physician Adult Education Professional 06/13/23 documented as of this encounter Additional Source Comments The information contained in this document represents components of the legal health record. It is not the complete legal health record.[facility]
== END 2025-06-03 18:22 | disposition home or self-care (01) ==
LOC: HO.HGI 08:47
PROVIDERS: PCP Physician Assistant; Visit Provider Internal Medicine
DX: R19.4 Change in bowel habit (principal); Z80.0 Family history of malignant neoplasm of digestive organs
CPT/HCPCS: 99204

== ENCOUNTER 2025-06-05 06:46 | Outpatient (REF) | payer MEDICARE, SELFPAY ==
[2025-06-06 08:18] LABS: Immunoglobulin A 135 mg/dL (70-320)
== END 2025-06-05 06:47 | disposition home or self-care (01) ==
LOC: HO.LAB 06:46
PROVIDERS: Internal Medicine; PCP Physician Assistant; Visit Provider Physician Assistant
DX: Z01.84 Encounter for antibody response examination (principal); R19.4 Change in bowel habit
CPT/HCPCS: 36415; 82784; 86364

== ENCOUNTER 2025-06-10 09:58 | Outpatient (AMB) | payer MEDICARE, SELFPAY ==
[2025-06-10 10:01] VITALS: BP 110/64; PULSE 77; O2SAT 99; BMI 32.5
--- NOTE | 2025-06-10 10:01 | A.OFFPC_ITS ---
Vital Signs 06/10/25 10:01 Height 5 ft 6.77 in Weight 206 lb 2 oz BMI 32.5 BP 110/64 Blood Pressure Location Lt brachial Position Sitting Pulse 77 Pulse Oximetry (%) 99 Oxygen Delivery Method Room Air Intake Visit Reasons: f/u HTN/ HLD Peripheral Equipment Operator Required: No Accompanied by: Self / Same As Patient Allergies bee venom protein (honey bee) Allergy (Intermediate, Verified 06/10/25 10:16) Swelling acetaminophen (From Vicodin) Allergy (Verified 06/10/25 10:16) Flushing hydrocodone (From Vicodin) Allergy (Verified 06/10/25 10:16) Flushing Penicillins Adverse Reaction (Intermediate, Verified 06/10/25 10:16) hives vicotin Adverse Reaction (Severe, Uncoded 06/10/25 10:16) Flushing Medication List - Last Reconciled 06/10/25 by Perry Silverio PA-C atorvastatin 10 mg PO DAILY 90 days estradiol 0.01%(0.1mg/gram) (Estrace) 1 g vaginal DAILY losartan 100 mg PO DAILY 90 days metoprolol succinate ER 25 mg PO DAILY 90 days peg 3350-electrolytes 236-22.74-6.74 -5.86 gram (Golytely) 240 mL PO Q10M spironolactone 50 mg PO DAILY 90 days triamcinolone acetonide 0.1% 1 appl topical DAILY 30 days valacyclovir 500 mg PO DAILY 90 days Tobacco use date assessed: 06/10/25 Fall risk assessment: No Falls in past year Last assessed Fall Risk: 06/10/25 Dental Screening Dental Screen Date: 06/10/25 Did you have a dental visit in the last 12 months?: No Did you have a dental problem in the last 6 months where you did not have access to dental care?: No Was dental information given to patient?: No HPI f/u HTN/ HLD HPI Details Patient is a 74-year-old female here today for follow-up visit. Patient's past medical history significant for hyperlipidemia, hypertension, right hip osteoarthritis, GERD. Status post right hip replacement: Does report having some right lateral sharp hip pain when sitting down in driving. Otherwise pain has been not noticeable. Also has some left inguinal reach sternal tightness and pain. She plans on continuing physical therapy. Rash: The patient experiences skin sensitivity and has developed a rash, which she describes as red welts that itch intensely, sometimes leading to bleeding from scratching. She has been using a topical cream previously prescribed, but it has not provided significant relief. .. Hypertension: Blood pressure today in office slightly on the lower side today. Otherwise denies any headaches, vision issues, dizziness or presyncopal episodes. .. Hyperlipidemia: Continues on statin therapy without any side effect. [facility] Medical History (Updated 06/10/25 @ 10:24 by Perry Silverio PA-C) Herpes simplex Kidney pain Encounter for colonoscopy in patient with family history of colon cancer Surgical History Hx of colonoscopy History of hysterectomy History of total right hip replacement Family History Mother Colon cancer Sister Colon polyp Father Esophageal cancer Family/Other Colon cancer Social History Housing: House Alcohol intake: current Alcohol intake frequency: holidays/special occasions only Patient Tobacco Use Status: Never used Tobacco e-Cigarette/Vaping Use: Never Used Second Hand Smoke Exposure: No service: No Current occupational status: employed and retired 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 [employer] Cognitive needs: No Hearing needs: No Vision needs: Yes Questionnaire Thrive Questionnaire Date Thrive assessed: 03/04/25 I am a: Patient What is your living situation today?: I have a steady place to live Within the past 12 months, did the food you bought not last and you didn't have the money to get more?: Never true Within the past 12 months, did you worry whether your food would run out before you got money to buy more?: Never true Do you have trouble paying for medicines?: No Do you have trouble getting transportation to medical appointments?: No Do you have trouble paying your heating and electricity bill?: No Do you have trouble taking care of your child, family member or friend?: No Do you have trouble with day-to-day activities such as bathing, preparing meals, shopping, managing finances, etc.?: No Are you currently unemployed and looking for a job?: No Are you interested in more education?: No Please select the resources that you would like help with: None Currently or been in a relationship where the following occur: No concerns reported THRIVE Score: 0 JANETH-7 AMB Questionnaire JANETH-7 Date JANETH - 7 assessed: 03/04/25 Source: Developed by Drs. Adeel Montenegro, Ericka Car, Ruperto Hernández and colleagues, with an educational kelly from [employer]. Review of Systems Const Denies headache(s) Eyes Denies loss of vision ENT Denies vertigo, Denies dizziness, Denies headache(s) and Denies sore throat Card Denies chest pain, Denies leg edema and Denies lightheadedness Resp Denies cough, Denies hemoptysis and Denies wheezing GI Denies abdominal pain, Denies melena, Denies constipation, Denies diarrhea and Denies vomiting Denies urinary frequency, Denies dysuria and Denies urinary urgency Musc Denies arthralgias, Denies joint swelling, Denies numbness and Denies tingling Neuro Denies Abnormal speech present, Denies behavioral changes, Denies vertigo, Denies dizziness, Denies headache(s), Denies loss of vision, Denies memory loss, Denies numbness and Denies tingling Psych Denies anxiety, Denies behavioral changes, Denies depression, Denies memory loss and Denies panic attacks Manuel/Lymph Denies easy bleeding and Denies easy bruising Aller/Immun Denies wheezing Physical exam (Primary Care) Vital Signs: Last Vital Signs Pulse 77 06/10/25 10:01 BP 110/64 06/10/25 10:01 Pulse Ox 99 06/10/25 10:01 Oxygen Delivery Method Room Air 06/10/25 10:01 BMI result Body Mass Index 32.5 Tobacco/Smoking Status: Tobacco use Status Tobacco use date assessed 06/10/25 06/10/25 10:07 Patient Tobacco Use Status Never used Tobacco 06/10/25 10:07 e-Cigarette/Vaping Use Never Used 06/10/25 10:07 Thrive Assessment: Date of Thrive Assessment Date Thrive assessed 03/04/25 06/10/25 10:07 Currently or been in a relationship where the following occur: No concerns reported Const General: healthy appearing, no acute distress, alert and awake Nutritional Appearance: well nourished Orientation/consciousness: oriented to person, oriented to place and oriented to time HENMA Ears: TM's normal bilaterally General nose exam: Normal nasal mucous membranes and turbinates present Eyes Conjunctivae: conjunctivae normal Sclerae: sclerae normal Pupils: Equal, round and reactive pupils present Neck Neck: Yes no lymphadenopathy and Yes no JVD Thyroid: Thyroid normal Carotids: no bruits Resp Effort & Inspection: normal respiratory effort and not tachypneic Auscultation: no crackles, no rales, no rhonchi and no wheezes Cardio Rate: regular rate Rhythm: regular rhythm Heart sounds: no murmurs and normal S1 and S2 GI Palpation (GI): Soft to palpation, nontender, no hepatomegaly and no splenomegaly Auscultation: normal bowel sounds Skin Other: Pruritic Rash particularly over anterior aspects informs General skin exam: dry skin Neuro General: oriented to person, oriented to place and oriented to time Cranial nerves: Yes Equal, round and reactive pupils present Speech: No Abnormal speech present Gait exam (Neuro): Normal gait present Motor exam (neuro): no tremor noted Extrem Right upper extremity: full ROM Left upper extremity: full ROM Right lower extremity: full ROM; no edema Left lower extremity: full ROM; no edema Psych Mental Status: mental status grossly normal Speech and movement: Normal speech and movement present Affect: normal affect Attitude: cooperative Thought process: Normal thought process present Immunizations pneumoc 20-kailey conj-dip cr(PF) 0.5 mL IM syringe Performing Provider: Perry Silverio PA-C [facility] Administered by: aMe Marrero RN on 06/10/25 10:56 Dose Route Admin Location Dispensed Lot Number Expiration Date [facility] Cleaner Housekeeping 0.5 mL IM Right Deltoid 0.5 mL [id number] 05/20/26 4690-9210-21 Clear Water Outdoor/[employer] Total Dispensed Waste 0.5 mL 0 % VIS Given Date VIS Provided VIS Publication Date 06/10/25 Single Vaccine 25 Eligibility Eligibility Date Funding Source Not [facility] Eligible 06/10/25 Private Coding Level of Care Code Est Pt Level 4 (48279) Diagnoses Primary hypertension I10 Hypertension type: primary hypertension Pure hypercholesterolemia E78.00 Hyperlipidemia type: pure hypercholesterolemia Gastroesophageal reflux disease without esophagitis K21.9 Esophagitis presence: without esophagitis Diarrhea, unspecified type R19.7 Diarrhea type: unspecified type Elevated fasting blood sugar R73.01 Class 1 obesity E66.811 Fungal dermatitis B36.9 Assessment & Plan Assessment & Plan (1) HTN (hypertension): Code(s): I10 - Essential (primary) hypertension Category: Medical Qualifiers: Hypertension type: primary hypertension Qualified Code(s): I10 - Essential (primary) hypertension Plan: Patient's blood pressure acceptable today, will continue current dose of losartan. We have discontinued her hydrochlorothiazide due to low blood pressures. Advised to continue monitoring blood pressure at home, goal blood pressures to be below 140/90 and above 100/60 (2) HLD (hyperlipidemia): Code(s): E78.5 - Hyperlipidemia, unspecified Category: Medical Qualifiers: Hyperlipidemia type: pure hypercholesterolemia Qualified Code(s): E78. 00 - Pure hypercholesterolemia, unspecified Plan: Patient continues on statin therapy. Most recent lipid panel showing good control over total cholesterol and LDL.. Will reduce her atorvastatin potency as we have noted elevated liver enzymes recently. Will recheck her lipid panel to assure normal. Will LDL is to remain below 130 (3) GERD (gastroesophageal reflux disease): Code(s): K21.9 - Gastro-esophageal reflux disease without esophagitis Category: Medical Qualifiers: Esophagitis presence: without esophagitis Qualified Code(s): K21.9 - Gastro-esophageal reflux disease without esophagitis Plan: Continues on pantoprazole with decent affect on reducing her GERD symptoms. (4) Frequent loose stools: Code(s): R19.7 - Diarrhea, unspecified Category: Medical Qualifiers: Diarrhea type: unspecified type Qualified Code(s): R19.7 - Diarrhea, unspecified Plan: Has followed up with GI. She is due for a colonoscopy. Metamucil recommended to manage symptoms while awaiting gastroenterology consultation. (5) Elevated fasting blood sugar: Code(s): R73.01 - Impaired fasting glucose Category: Medical Plan: Patient will work on low carbohydrate diet in trying to be more physically active to reduce weight. Will continue to follow fasting blood sugar (6) Class 1 obesity: Code(s): E66.811 - Obesity, class 1 Category: Medical Plan: Patient does understand her BMI is over 30 will try to work on being more physically active and adapt to better eating habits to reduce her weight (7) Fungal dermatitis: Code(s): B36.9 - Superficial mycosis, unspecified Category: Medical Plan: The patient presents with a skin rash characterized by red welts and itching. A new antifungal cream has been prescribed to address potential fungal involvement. Orders: Orders Pneumococcal 20 Immunization 06/10/25 B36.9 - Superficial mycosis, unspecified, Z23 - Encounter for immunization Medications: New ketoconazole 2% 1 appl topical DAILY 30 grams 1RF 4 weeks B36.9 - Superficial mycosis, unspecified On Hold triamcinolone acetonide 0.1% Hold Comment: Doctor's Order 1 appl topical DAILY 30 days 30 grams 0RF L30.9 - Dermatitis, unspecified
--- OUTSIDE RECORDS SUMMARY | 2025-06-10 10:57 | XMS_ITS | Encounter Summary ---
Author Organization [facility] Address [address] [place] [phone] Phone Care Team Providers Care Dry Cleaning Manager Name Role Phone Perry Silverio Primary Care Provider + Encounter Details Date Type Department Care Team (Late st Contact Info) Description 06/13/2023 Procedure Pass [facility], [address] [address] Social History Tobacco Use Types Packs/Day Years [...] on filedocumented in this encounter Care Teams Dry Cleaning Manager Relationship Specialty Start Date End Date Perry Silverio PA [address] [place] [address] PCP - General Physician Main [employer] [place] 06/13/23 documented as of this encounter Additional Source Comments The information contained in this document represents components of the legal health record. It is not the complete legal health record.[facility]
== END 2025-06-10 10:36 | disposition home or self-care (01) ==
LOC: HO.HMCH 09:58
PROVIDERS: PCP Physician Assistant; Visit Provider Physician Assistant
DX: Z23 Encounter for immunization (principal); B36.9 Superficial mycosis, unspecified

== ENCOUNTER → 2025-06-10 09:58 | Outpatient (BNVA) | payer MEDICARE, SELFPAY | PROVIDERS: PCP Physician Assistant; Visit Provider Physician Assistant | DX: I10 Essential (primary) hypertension (principal); E78.5 Hyperlipidemia, unspecified; K21.9 Gastro-esophageal reflux disease without esophagitis; M25.551 Pain in right hip; E78.00 Pure hypercholesterolemia, unspecified; R19.7 Diarrhea, unspecified; R73.01 Impaired fasting glucose; E66.811 Obesity, class 1; B36.9 Superficial mycosis, unspecified; Z68.32 Body mass index [BMI] 32.0-32.9, adult; Z96.641 Presence of right artificial hip joint; Z23 Encounter for immunization | CPT/HCPCS: 90471; 90677; 99212 ==

== ENCOUNTER 2025-06-16 07:02 | Outpatient (RCR) | payer MEDICARE, SELFPAY | END 2025-09-16 13:38 | disposition home or self-care (01) | LOC: HO.PT 07:02 | PROVIDERS: PCP Physician Assistant; Visit Provider Physician Assistant | DX: M41.26 Other idiopathic scoliosis, lumbar region (principal) | CPT/HCPCS: 97110; 97112; 97162; 97535 ==

== ENCOUNTER 2025-06-19 08:00 | Day surgery (SDC) | payer MEDICARE, SELFPAY ==
--- OUTSIDE RECORDS SUMMARY | 2025-06-04 06:55 | XMS_ITS | Encounter Summary ---
Author Organization [facility] Address [address] [place] [phone] Phone Care Team Providers Care Equipment Manager Name Role Phone Perry Silverio Primary Care Provider + Encounter Details Date Type Department Care Team (Late st Contact Info) Description 06/13/2023 Procedure Pass [facility], [address] [address] Social History Tobacco Use Types Packs/Day Years [...] on filedocumented in this encounter Care Teams Equipment Manager Relationship Specialty Start Date End Date Perry Silverio PA [address] [place] [address] PCP - General Physician Veterinary Virus Serum Inspector 06/13/23 documented as of this encounter Additional Source Comments The information contained in this document represents components of the legal health record. It is not the complete legal health record.[facility]
[2025-06-17 07:48] VITALS: BMI 33.2
--- NOTE | 2025-06-18 10:37 | HO.ANESPROP2 ---
Documented by User: Radha Moss NP 06/18/25 10:39 HPI - Anesthesia Eval Consult details Narrative: 74yo F for Colonoscopy PMFSH Active Problems Active Problems: All Active Problems Fungal dermatitis (Acute) Family history of colon cancer (Acute) Change in bowel habit (Acute) Bronchitis (Acute) Low back pain (Acute) Class 1 obesity (Acute) Elevated fasting blood sugar (Acute) Liver enzyme elevation (Acute) Frequent loose stools (Acute) Lumbar spine scoliosis (Acute) Post-menopausal (Acute) Annual wellness visit (Acute) Vaginal atrophy (Acute) Right flank pain (Acute) Kidney stone (Acute) Dermatitis (Acute) Amnesia, global, transient (Acute) MDD (major depressive disorder), recurrent episode, mild (Acute) Medicare annual wellness visit, initial (Acute) Acute bronchitis (Acute) Obese (Acute) Osteoarthritis of right hip (Acute) GERD (gastroesophageal reflux disease) (Acute) HTN (hypertension) (Acute) HLD (hyperlipidemia) (Acute) Past Medical History Medical History Herpes simplex Kidney pain Encounter for colonoscopy in patient with family history of colon cancer Family History Family History Mother Colon cancer Sister Colon polyp Father Esophageal cancer Family/Other Colon cancer Surgical History Surgical History Hx of colonoscopy History of hysterectomy History of total right hip replacement Social History Social History Housing: House Alcohol intake: current Alcohol intake frequency: holidays/special occasions only Patient Tobacco Use Status: Never used Tobacco e-Cigarette/Vaping Use: Never Used Second Hand Smoke Exposure: No Advance Directives: No Advance Directives Information Provided: Yes service: No Current occupational status: employed and retired 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 [employer] Cognitive needs: No Hearing needs: No Vision needs: Yes Meds Allergies Allergy/AdvReac Type Severity Reaction Status Date / Time bee venom protein (honey bee) Allergy Intermediate Swelling Verified 06/10/25 10:16 acetaminophen (From Vicodin) Allergy Flushing Verified 06/10/25 10:16 hydrocodone (From Vicodin) Allergy Flushing Verified 06/10/25 10:16 Penicillins AdvReac Intermediate hives Verified 06/10/25 10:16 vicotin AdvReac Severe Flushing Uncoded 06/10/25 10:16 Exam Height,Weight and Vital Signs: Height 5 ft 6 in Weight 93.44 kg Pertinent Lab Results Pertinent Lab Results: Laboratory Tests 03/02/25 09:19 WBC 6.1 Hgb 13.2 Hct 38.8 Plt Count 207 Sodium 136 Potassium 4.7 Chloride 102 Carbon Dioxide 26 BUN 19 H Creatinine 0.87 Assessment and Plan Assessment Anesthesia Assessment: Chart Reviewed Documented by User: Roslyn Parker MD 06/19/25 08:54 PMFSH Past Medical History Medical History Herpes simplex Kidney pain Encounter for colonoscopy in patient with family history of colon cancer Family History Family History Mother Colon cancer Sister Colon polyp Father Esophageal cancer Family/Other Colon cancer Family history of problems with anesthesia: No Surgical History Surgical History Hx of colonoscopy History of hysterectomy History of total right hip replacement History of Problems with Anesthesia: No Social History Social History Housing: House Alcohol intake: current Alcohol intake frequency: holidays/special occasions only Patient Tobacco Use Status: Never used Tobacco e-Cigarette/Vaping Use: Never Used Second Hand Smoke Exposure: No Advance Directives: No Advance Directives Information Provided: Yes service: No Current occupational status: employed and retired 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 [employer] Cognitive needs: No Hearing needs: No Vision needs: Yes Meds Allergies Allergy/AdvReac Type Severity Reaction Status Date / Time bee venom protein (honey bee) Allergy Intermediate Swelling Verified 06/10/25 10:16 acetaminophen (From Vicodin) Allergy Flushing Verified 06/10/25 10:16 hydrocodone (From Vicodin) Allergy Flushing Verified 06/10/25 10:16 Penicillins AdvReac Intermediate hives Verified 06/10/25 10:16 vicotin AdvReac Severe Flushing Uncoded 06/10/25 10:16 Exam Airway Mallampati Class: II TM Dist: <=3cm Neck ROM: Limited Heart: rrr Lungs: cta Assessment and Plan Assessment Anesthesia Assessment: Anesthesia Plan Discussed Final Anesthetic Review Family History of Problems with Anesthesia: No History of Problems with Anesthesia: No NPO: Yes ASA Class: II Final Preanesthetic Review: No Changes in Pt Med Stat, Meds/Allgs Chart Reviewed, Consent Obtained/Reviewed and Anes Risks/Benef Reviewed Patient Risk: Low Procedure Risk: Low Anesthetic Plan Anesthetic Plan: MAC: Disposition: Standard PACU
[2025-06-19 08:47] VITALS: BMI 32.9
--- NOTE | 2025-06-19 08:47 | MHC.SHP ---
Pre-Procedural Eval Section A - 24 Hr Update-Section A only Date of Service: 06/19/25 The patient is an INPATIENT: No The patient has been examined within 24 hours of the surgical procedure. The History & Physical has been completed within 30 days and I have reviewed it.: Yes Section B - Complete if H&P > 30 days Chief Complaint: hx malignant neoplasm of digestive,change bowel Allergies: Allergies Allergy/AdvReac Type Severity Reaction Status Date / Time bee venom protein (honey bee) Allergy Intermediate Swelling Verified 06/10/25 10:16 acetaminophen (From Vicodin) Allergy Flushing Verified 06/10/25 10:16 hydrocodone (From Vicodin) Allergy Flushing Verified 06/10/25 10:16 Penicillins AdvReac Intermediate hives Verified 06/10/25 10:16 vicotin AdvReac Severe Flushing Uncoded 06/10/25 10:16 Plan Diagnosis/Plan: Unchanged I have reviewed the history and physical and performed a pertinent physical examination on my patient. No changes have occurred unless specified. Time Spent With Patient Time: Total time managing care of this patient today ____ minutes.
[2025-06-19 09:10] VITALS: BP 131/67; PULSE 55; RESP 15; TEMP 36.2; O2SAT 99
[2025-06-19] MEDS: Lactated Ringers 1,000 ML 100 ML IVCONT (09:13)
[2025-06-19 10:00] VITALS: BP 113/60; PULSE 54; RESP 12; TEMP 36.1; O2SAT 97
--- NOTE | 2025-06-19 10:01 | P.OP_ITS ---
Operative Note Operative Note Date of Service: 06/19/25 Narrative: Procedure: Colonoscopy Indication: Change in bowel habits, family history of colon cancer Endoscopist: Pinky Hall MD Anesthesia Provider: Dino Owen CRNA Anesthesia type: MAC Instrument: Olympus [id number]-[id number] Consent: Indication, risks vs benefits, and alternatives were discussed with the patient who gave written informed consent to proceed. EKG, pulse, pulse oximetry and blood pressure were monitored throughout the procedure. Please see anesthesi a flowsheet. Procedure: The patient was brought to the procedure room and placed in the left lateral decubitus position. IV medications were administered by the anesthesia provider in attendance. A digital rectal exam was performed which was normal. The colonoscope was then inserted through the anus and advanced through the colon to the cecum at 75 cm,and terminal ileum. Mucosa was carefully examined under high definition white light as the instrument was slowly withdrawn in a retrograde panoramic fashion. Retroflexion was performed in ascending colon and rectum. The procedure was not difficult. There were no immediate obvious complications. The quality of the prep was BBPS: 3+2+3 = adequate Withdrawal time 6 minutes. Limitations: No limitations. Findings: Mucosa: Normal to cecum and terminal ileum. Cold forceps biopsies were taken from right and left colon and sent for histology. Protruding lesions: * Medium iternal hemorrhoids without stigmata of recent bleeding. Impression: 1. Normal colon mucosa (biopsy) 2. Internal hemorrhoids Recommendations: - Follow path results. - Repeat colonoscopy in 5 years if patient in good health, due to family history
[2025-06-19 10:15] VITALS: BP 124/56; PULSE 53; RESP 16; TEMP 36.1; O2SAT 97
== END 2025-06-19 12:27 | disposition home or self-care (01) ==
PROVIDERS: PCP Physician Assistant; Visit Provider Internal Medicine
PROC: 0DJD8ZZ Inspection of Lower Intestinal Tract, Via Natural or Artificial Opening Endoscopic (ICD-10-PCS; CPT 45378; principal; 2025-06-19 10:10)
DX: R19.4 Change in bowel habit (principal); K64.8 Other hemorrhoids; Z80.0 Family history of malignant neoplasm of digestive organs; Z83.719 Family history of colon polyps, unspecified; I10 Essential (primary) hypertension; E78.5 Hyperlipidemia, unspecified; K21.9 Gastro-esophageal reflux disease without esophagitis; Z79.02 Long term (current) use of antithrombotics/antiplatelets; Z79.899 Other long term (current) drug therapy
CPT/HCPCS: 45380; 88305; J2003; J2704

== ENCOUNTER → 2025-06-19 08:00 | Outpatient (BNV) | payer MEDICARE, SELFPAY | PROVIDERS: PCP Physician Assistant; Visit Provider Internal Medicine | DX: R19.4 Change in bowel habit (principal); Z80.0 Family history of malignant neoplasm of digestive organs; K64.8 Other hemorrhoids | CPT/HCPCS: 45380 ==

== ENCOUNTER 2025-07-25 07:07 | Outpatient (REF) | payer MEDICARE, SELFPAY ==
--- OUTSIDE RECORDS SUMMARY | 2025-07-25 07:10 | XMS_ITS | Encounter Summary ---
Author Organization [facility] Address [address] [place] [address] Phone Care Team Providers Care Lead Simulation Modeling Engineer Name Role Phone Perry Silverio Primary Care Provider + Encounter Details Date Type Department Care Team (Late st Contact Info) Description 06/13/2023 Transcribe Orders Virtual Department [address] [place] [address] Perry Silverio PA [address] [place] [address] Breast screening (Primary Dx) Social History Tobacco Use Types Packs/Day Years Used Date Smoking Tobacco: Never Assessed Education Answer Date Recorded Are you interested in more education? Not on katelyn e 03/02/2023 Are you concerned about learning? Not on file 03/02/2023 No 03/02/2023 No 03/02/2023 Digital Access Answer Date Recorded No 03/20/2023 No 03/20/2023 Reliable internet access at home? Not on file 03/20/2023 Device with a working camera? Not on file Comments Unknown Sex and Gender Information Value Date Recorded Sex Assigned at Female 06/06/2024 4:33 PM EDT Legal Sex Female 9:54 AM EST Gender Identity Female 06/06/2024 4:33 PM EDT Sexual Orientation Straight 06/06/2024 4: 33 PM EDT documented as of this encounter Plan of Treatment Not on file documented as of this encounter Results * BI MAMMOGRAM SCREENING WITH TOMOSYNTHESIS WITH CAD (BILATERAL) (07/11/2023 2:57 PM EDT) Anatomical Region Laterality Modality Breast Left, Breast Right, Breast Bilateral Bila teral Mammography 07/23/2023 8:27 AM EDT Impressions 07/23/2023 8:31 AM EDT BILATERAL BREASTS: No evidence of malignancy. Normal interval follow-up is recommended. BI-RADS: BI-RADS CATEGORY: 2 - Benign finding. DENSITY: There are scattered fibroglandular densities. Narrative 07/23/2023 8:31 AM EDT History: Breast cancer screening. STUDY: Bilateral screening mammography with tomosynthesis and CAD TECHNIQUE: Bilateral full-field digital screening mammography is obtained and read in conjunction with computer-aided detection. Tomosynthesis as well as 2-D C view imaging were obtained. COMPARISON: None available.. FINDINGS: Breast tissue consists of a combination of fatty and fibroglandular elements. There are scattered benign calcifications bilaterally. Tissue asymmetries are without masslike features. No suspicious mass, concerning group of calcifications or suspicious asymmetry identified. Procedure Note Kevin Snowden MD - 07/23/2023 History: Breast cancer screening. STUDY: Bilateral screening mammography with tomosynthesis and CAD TECHNIQUE: Bilateral full-field digital screening mammography is obtainedand read in conjunction with computer-aided detection. Tomosynthesis aswell as 2-D C view imaging were obtained. COMPARISON: None available.. FINDINGS: Breast tissue consists of a combination of fatty andfibroglandular elements. There are scattered benign calcificationsbilaterally. Tissue asymmetries are without masslike features. Nosuspicious mass, concerning group of calcifications or suspiciousasymmetry identified. IMPRESSION: BILATERAL BREASTS: No evidence of malignancy. Normal interval follow-up isrecommended. BI-RADS: BI-RADS CATEGORY: 2 - Benign finding. DENSITY: There are scattered fibroglandular densities. Perry PHILLIPS IMG MG EXAMS Final Re sult documented in this encounter Visit Diagnoses Diagnosis Breast screening- Primary Breast screening, unspecified Breast screening Breast screening, unspecified documented in this encounter Care Teams Lead Simulation Modeling Engineer Relationship Specialty Start Date End Date Perry Silverio PA [address] [place] [address] PCP - General Physician Salesperson Automobiles 06/13/23 documented as of this encounter Additional Source Comments The information contained in this document represents components of the legal health record. It is not the complete legal health record.[facility]
--- OUTSIDE RECORDS SUMMARY | 2025-07-25 07:10 | XMS_ITS | Clinical Summary ---
Author Organization [facility] Address [address] [place] [address] Phone Care Team Providers Care Explosive Ordnance Specialist Name Role Phone Perry Silverio Primary Care Provider + Allergies Active Allergy Reactions Criticality Noted Date Comments Adhesive Rash Low 05/04/2024 Hydrocodone-Acetaminophen Flushing 05/04/2024 Other Reaction(s): facial rash swelling Penicillins Hives 02/03/1955 Venom-Honey Bee Rash Low 05/04/2024 Medications celecoxib, bulk, 100 % Powd Take 200 mg by mouth daily. 10/17/2023 Active docusate (COLACE) 100 mg tablet Take 100 mg by mouth 2 (two) times a day. 10/17/2023 Active oxyCODONE 5 MG immediate release tablet Take 5 mg by mouth every 4 (four) hours as needed for pain (specific location in comments). 10/26/2023 Active aspirin 325 MG tablet Take 325 mg by mouth 2 (two) times a day. 10/17/2023 Active traMADoL (ULTRAM) 50 mg tablet Take 50 mg by mouth every 6 (six) hours as needed for pain (specific location in comments). 10/26/2023 Active atorvastatin (LIPITOR) 20 MG tablet Take 20 mg by mouth daily. 07/16/2023 Active pantoprazole (PROTONIX) 40 MG tablet Take 40 mg by mouth daily. 10/17/2023 Active acetaminophen (TYLENOL) 325 mg capsule Take 650 mg by mouth every 6 (six) hours as needed for pain (specific location in comments). 10/26/2023 Active losartan-hydroC HLOROthiazide (HYZAAR) 100-12.5 mg per tablet Take 1 tablet by mouth daily. 10/09/2023 Active metoprolol succinate (TOPROL XL) 25 MG 24 hr tablet Take 25 mg by mouth daily. 12/30/2022 Active valACYclovir (VALTREX) 500 MG tablet Take 500 mg by mouth daily. 07/16/2023 Active celecoxib (CELEBREX) 200 MG capsule Take 200 mg by mouth. 10/26/2023 Active spironolactone (ALDACTONE) 25 MG tablet Take 25 mg by mouth daily. Active Family History Medical History Relation Comments Cancer Father laryngeal Cancer Maternal Grandmother Colon Cancer Mother Colon Breast cancer Paternal Grandmother Relation Status Comments Father Maternal Grandmother Mother Paternal Grandmother Social History Tobacco Use Types Packs/Day Years Used Date Smoking Tobacco: Never Tobacco Cessation:Counseling Given: Not Answered Alcohol Use Standard Drinks/Week Comments Yes 3 (1 standard drink = 0.6 oz pur e alcohol) Home Health Assessment: Transportation Answer Date Recorded Lack of Transportation (Medical) No 11/01/2023 Lack of Transportation (Non-Medical) No 11/01/2023 Patient Unable or Declines to Respond No 11/01/2023 Education Answer Date Recorded Are you interested in more education? Not on katelyn e 10/25/2023 Are you concerned about learning? Not on file 10/25/2023 No 10/25/2023 No 10/25/2023 Digital Access Answer Date Recorded No 10/25/2023 No 10/25/2023 Reliable internet access at home? Not on file 10/25/2023 Device with a working camera? Not on file Comments No Sex and Gender Information Value Date Recorded Sex Assigned at Female 06/06/2024 4:33 PM EDT Legal Sex Female 9:54 AM EST Gender Identity Female 06/06/2024 4:33 PM EDT Sexual Orientation Straight 06/06/2024 4: 33 PM EDT Last Filed Vital Signs Vital Sign Reading Time Taken Comments Blood Pressure 109/66 05/04/2024 12:13 PM EDT Pulse 63 05/04/2024 12:13 PM EDT Temperature 36.4 C (97.6 F) 05/04/2024 12:13 PM EDT Respiratory Rate 18 05/04/2024 12:13 PM EDT Oxygen Saturation 96% 05/04/2024 12:13 PM EDT Inhaled Oxygen Concentration - - Weight 93 kg (205 lb) 05/04/2024 12:13 PM EDT Height 172.7 cm (5' 8 ) 05/04/2024 12:13 PM EDT Body Mass Index 31.17 05/04/2024 12:13 PM EDT Plan of Treatment Health Maintenance Due Date Last Done Comments Adult Td,Tdap Booster 1948 CREATININE LEVEL 1948 LIPID PANEL 1948 POTASSIUM LEVEL 1948 DEPRESSION SCREENING 1960 HEPATITIS C SCREENING 1966 SMOKING STATUS SCREENING (On ce After 26 Yrs) 1974 PNEUMOCOCCAL VACCINES (50+ y ears) (1 of 1 - PCV) 1998 ZOSTER VACCINES (1 of 2) 1998 OSTEOPOROSIS SCREENING INITI AL (ONE-TIME) 2013 INFLUENZA VACCINE (#1) 2025 07/26/2023 COVID-19 VACCINE (2 - 2024-2 6 season) 2025 07/26/2023 RSV VACCINE Completed 07/26/2023 HEPATITIS A VACCINES Aged Out No long er eligible based on patient's age to complete this topic HIB VACCINES Aged Out No longer eligi ble based on patient's age to complete this topic MENINGOCOCCAL VACCINES (ACWY) Aged Out No longer eligible based on patient's age to complete this topic MENINGOCOCCAL VACCINES (B) Aged Out N o longer eligible based on patient's age to complete this topic Medical Devices Not on file Insurance [facility]AC[facility] WELLCARE PPO MEDICARE REPLACEMENT WELLCARE PPO MEDICARE REPLACEMENT WELLCARE PPO MEDICARE REPLACEMENT WELLC[employer] PPO MEDICARE REPLACEMENT WELL[employer] PPO MEDICARE REPLACEMENT WE[employer] PPO MEDICARE REPLACEMENT WE[employer] PPO MEDICARE REPLACEMENT WELL[employer] PPO MEDICARE REPLACEMENT WE[employer] PPO MEDICARE REPLACEMENT [facility] Care Teams Explosive Ordnance Specialist Relationship Specialty Start Date End Date Perry Silverio PA [address] [place] [address] PCP - General Physician Line Manager 06/13/23 Additional Source Comments The information contained in this document represents components of the legal health record. It is not the complete legal health record.[facility]
--- OUTSIDE RECORDS SUMMARY | 2025-07-25 07:10 | XMS_ITS | Encounter Summary ---
Author Organization [facility] Address [address] [place] [address] Phone Care Team Providers Care Analog Device Designer Name Role Phone Perry Silverio Primary Care Provider + Encounter Details Date Type Department Care Team (Late st Contact Info) Description 06/13/2023 Procedure Pass [facility], [address] [address] Social History Tobacco Use Types Packs/Day Years [...] on filedocumented in this encounter Care Teams Analog Device Designer Relationship Specialty Start Date End Date Perry Silverio PA [address] [place] [address] PCP - General Physician Cnc Lathe Programmer 06/13/23 documented as of this encounter Additional Source Comments The information contained in this document represents components of the legal health record. It is not the complete legal health record.[facility]
--- OUTSIDE RECORDS SUMMARY | 2025-07-25 07:10 | XMS_ITS | Encounter Summary ---
Author Organization [facility] Address [address] [facility] [address] [place] [address] Phone Care Team Providers Care Planning Associate Name Role Phone Perry Silverio Primary Care Provider + Encounter Details Date Type Department Care Team (Late st Contact Info) Description 06/06/2024 Procedure Pass [facility], [facility] [address] [place] [address] Social History Tobacco Use Types Packs/Day Years [...] on filedocumented in this encounter Care Teams Planning Associate Relationship Specialty Start Date End Date Perry Silverio PA [address] [place] [address] PCP - General Physician Pourer Metal 06/13/23 documented as of this encounter Additional Source Comments The information contained in this document represents components of the legal health record. It is not the complete legal health record.[facility]
== END 2025-07-25 07:08 | disposition home or self-care (01) ==
LOC: HO.MAMMO 07:07
PROVIDERS: PCP Physician Assistant; Visit Provider Physician Assistant
DX: Z12.31 Encounter for screening mammogram for malignant neoplasm of breast (principal)
CPT/HCPCS: 77063; 77067

== ENCOUNTER → 2025-07-25 07:30 | Outpatient (BNV) | payer MEDICARE, SELFPAY | PROVIDERS: PCP Physician Assistant; Visit Provider Internal Medicine | DX: Z12.31 Encounter for screening mammogram for malignant neoplasm of breast (principal) | CPT/HCPCS: 77063; 77067 ==

== ENCOUNTER 2025-09-10 11:22 | Outpatient (REF) | payer MEDICARE, SELFPAY ==
--- NOTE | ~2025-09-10 | MM_ITS ---
EXAMINATION: MM DIAGNOSTIC DIGITAL BREAST TOMOSYNTHESIS, LEFT Limited left breast ultrasound. CLINICAL INFORMATION: Call back from screening for asymmetry in the superior left breast on MLO view. COMPARISON: Mammography: Prior imaging on PACS TECHNIQUE: Digital breast tomosynthesis is performed in both the craniocaudal and mediolateral oblique views along with computer-aided detection (CAD). Synthesized 2D images are generated from the tomosynthesis. FINDINGS: The breasts are heterogeneously dense, which may obscure small masses. Previously seen asymmetry in the superior left breast on MLO view does not persist on additional imaging projections and likely represented overlapping breast tissue. There are no significant masses, abnormal calcifications, or other abnormalities. Targeted color Doppler ultrasound scanning in the superior left breast from 10 2:00 demonstrates normal fibronodular breast tissue. There is no sonographic abnormal finding. MM/MM tomosynthesis added views L IMPRESSION: No mammographic evidence of malignancy. ASSESSMENT: BI-RADS Category 1: Negative RECOMMENDATION: 1 year F/U Results were provided to the patient at time of visit by the technologist. This patient's information was entered into a reminder system with a target due date for their next mammogram. Electronically signed by: Gabriela Howell DO 09/10/2025 12:13 PM [facility]
--- OUTSIDE RECORDS SUMMARY | 2025-09-10 17:34 | XMS_ITS | Encounter Summary ---
Author Organization [facility] Address [address] [place] [phone] Phone Care Team Providers Care Tub Mender Name Role Phone Perry Silverio Primary Care Provider + Encounter Details Date Type Department Care Team (Late st Contact Info) Description 06/13/2023 Procedure Pass [facility], [address] [address] Social History Tobacco Use Types Packs/Day Years [...] on filedocumented in this encounter Care Teams Tub Mender Relationship Specialty Start Date End Date Perry Silverio PA [address] [place] [address] PCP - General Physician Cd Reactor Operator 06/13/23 documented as of this encounter Additional Source Comments The information contained in this document represents components of the legal health record. It is not the complete legal health record.[facility]
--- OUTSIDE RECORDS SUMMARY | 2025-09-10 17:35 | XMS_ITS | Clinical Summary ---
Author Organization [facility] Address [address] [place] [address] Phone Care Team Providers Care Pen Tender Name Role Phone Perry Silverio Primary Care [...] on patient's age to complete this topic IPV VACCINES Aged Out No longer eligi ble based on patient's age to complete this topic MENINGOCOCCAL VACCINES (ACWY) Aged Out No longer eligible based on patient's age to complete this topic MENINGOCOCCAL VACCINES (B) Aged Out N o longer eligible based on patient's age to complete this topic Medical Devices Not on file Insurance [facility] MEDICARE REPLACEMENT [place] [id number] WELLCARE PPO MEDICARE REPLACEMENT WELLCARE PPO MEDICARE REPLACEMENT [place] [id number] WELLCARE PPO MEDICARE REPLACEMENT WELLCARE PPO MEDICARE REPLACEMENT WELL[employer] PPO MEDICARE REPLACEMENT WELL[employer] PPO MEDICARE REPLACEMENT WELL[employer]ARE PPO MEDICARE REPLACEMENT WELL[employer]ARE PPO MEDICARE REPLACEMENT WELL[employer] PPO MEDICARE REPLACEMENT [facility] MEDICARE REPLACEMENT Care Teams Pen Tender Relationship Specialty Start Date End Date Perry Silverio PA [address] [place] [id number] PCP - General Physician Team Leader/Research Psychologist 06/13/23 Additional Source Comments The information contained in this document represents components of the legal health record. It is not the complete legal health record.[facility]
--- OUTSIDE RECORDS SUMMARY | 2025-09-10 17:35 | XMS_ITS | Encounter Summary ---
Author Organization [facility] Address [address] [facility] [address] [place] [address] Phone Care Team Providers Care Immunologist Name Role Phone Perry Silverio Primary Care Provider + Encounter Details Date Type Department Care Team (Late st Contact Info) Description 06/06/2024 Procedure Pass [facility], [facility] [address] [place] [address] Social History Tobacco Use Types Packs/Day Years [...] on filedocumented in this encounter Care Teams Immunologist Relationship Specialty Start Date End Date Perry Silverio PA [address] [place] [address] PCP - General Physician Computer Laboratory Technician 06/13/23 documented as of this encounter Additional Source Comments The information contained in this document represents components of the legal health record. It is not the complete legal health record.[facility]
--- OUTSIDE RECORDS SUMMARY | 2025-09-10 17:35 | XMS_ITS | Encounter Summary ---
Author Organization [facility] Address [address] [place] [address] Phone Care Team Providers Care Annealing Torch Operator Name Role Phone Perry Silverio Primary Care Provider + Encounter Details Date Type Department Care Team (Late st Contact Info) Description 06/13/2023 Transcribe Orders Virtual Department [address] [place] [address] Perry Silverio PA [address] [place] [address] Breast screening (Primary Dx) Social History Tobacco [...] unspecified documented in this encounter Care Teams Annealing Torch Operator Relationship Specialty Start Date End Date Perry Silverio PA [address] [place] [address] PCP - General Physician Mdm Developer 06/13/23 documented as of this encounter Additional Source Comments The information contained in this document represents components of the legal health record. It is not the complete legal health record.[facility]
== END 2025-09-10 11:23 | disposition home or self-care (01) ==
LOC: HO.MAMMO 11:22
PROVIDERS: PCP Physician Assistant; Visit Provider Physician Assistant
DX: N64.89 Other specified disorders of breast (principal)
CPT/HCPCS: 76642; 77061; 77065

== ENCOUNTER → 2025-09-10 11:30 | Outpatient (BNV) | payer MEDICARE, SELFPAY | PROVIDERS: PCP Physician Assistant; Visit Provider Internal Medicine | DX: R92.8 Other abnormal and inconclusive findings on diagnostic imaging of breast (principal) | CPT/HCPCS: 76642; 77065; G0279 ==

== ENCOUNTER 2025-09-11 12:11 | Outpatient (REF) | payer MEDICARE, SELFPAY ==
[2025-09-11 12:33] LABS: Anion Gap 12 (12-20); Carbon Dioxide 29 mmol/L (22-29); Chloride 103 mmol/L (96-108); Potassium 5.1 mmol/L (3.3-5.1); Sodium 139 mmol/L (135-145)
--- OUTSIDE RECORDS SUMMARY | 2025-09-11 12:44 | XMS_ITS | Encounter Summary ---
Author Organization [facility] Address [address] [place] [address] Phone Care Team Providers Care Supervisor Metal Hanging Name Role Phone Perry Silverio Primary Care Provider + Encounter Details Date Type Department Care Team (Late st Contact Info) Description 06/13/2023 Procedure Pass [facility], [address] [address] Social History Tobacco Use Types Packs/Day Years [...] on filedocumented in this encounter Care Teams Supervisor Metal Hanging Relationship Specialty Start Date End Date Perry Silverio PA [address] [place] [address] PCP - General Physician Workday Manager 06/13/23 documented as of this encounter Additional Source Comments The information contained in this document represents components of the legal health record. It is not the complete legal health record.[facility]
--- OUTSIDE RECORDS SUMMARY | 2025-09-11 12:45 | XMS_ITS | Encounter Summary ---
Author Organization [facility] Address [address] [facility] [address] [place] [address] Phone Care Team Providers Care Thermal Engineer Name Role Phone Perry Silverio Primary Care Provider + Encounter Details Date Type Department Care Team (Late st Contact Info) Description 06/06/2024 Procedure Pass [facility], [facility] [address] [place] [address] Social History Tobacco Use Types Packs/Day Years [...] on filedocumented in this encounter Care Teams Thermal Engineer Relationship Specialty Start Date End Date Perry Silverio PA [address] [place] [address] PCP - General Physician Java Engineer 06/13/23 documented as of this encounter Additional Source Comments The information contained in this document represents components of the legal health record. It is not the complete legal health record.[facility]
--- OUTSIDE RECORDS SUMMARY | 2025-09-11 12:45 | XMS_ITS | Encounter Summary ---
Author Organization [facility] Address [address] [place] [address] Phone Care Team Providers Care Environmental Remediation Engineer Name Role Phone Perry Silverio Primary Care Provider + Encounter Details Date Type Department Care Team (Late st Contact Info) Description 06/13/2023 Transcribe Orders Virtual Department [address] [place] [address] Perry Silverio PA [address] [place] [address] Breast screening (Primary Dx) Social History Tobacco [...] unspecified documented in this encounter Care Teams Environmental Remediation Engineer Relationship Specialty Start Date End Date Perry Silverio PA [address] [place] [address] PCP - General Physician Cable Armorer Operator 06/13/23 documented as of this encounter Additional Source Comments The information contained in this document represents components of the legal health record. It is not the complete legal health record.[facility]
--- OUTSIDE RECORDS SUMMARY | 2025-09-11 12:45 | XMS_ITS | Clinical Summary ---
Author Organization [facility] Address [address] [place] [address] Phone Care Team Providers Care Graduate Teaching Assistant Name Role Phone Perry Silverio Primary Care [...] topic Medical Devices Not on file Insurance [facility] RE[facility]AC[facility] WELLCARE PPO MEDICARE REPLACEMENT WE[employer] PPO MEDICARE REPLACEMENT WELLCARE PPO MEDICARE REPLACEMENT WE[employer] PPO MEDICARE REPLACEMENT WE[employer] PPO MEDICARE REPLACEMENT [employer] PPO MEDICARE REPLACEMENT [employer] PPO MEDICARE REPLACEMENT WE[employer] PPO MEDICARE REPLACEMENT [employer] PPO MEDICARE REPLACEMENT [facility] RE[facility]EMENT Care Teams Graduate Teaching Assistant Relationship Specialty Start Date End Date Perry Silverio PA [address] [place] [address] PCP - General Physician Protohistorian 06/13/23 Additional Source Comments The information contained in this document represents components of the legal health record. It is not the complete legal health record.[facility]
== END 2025-09-11 12:12 | disposition home or self-care (01) ==
LOC: HO.LAB 12:11
PROVIDERS: PCP Physician Assistant; Visit Provider Orthopaedic Surgery
DX: Z01.818 Encounter for other preprocedural examination (principal)
CPT/HCPCS: 36415; 80051

== ENCOUNTER 2025-10-09 15:06 | Outpatient (REF) | payer MEDICARE, SELFPAY ==
--- NOTE | ~2025-10-09 | US_ITS ---
EXAMINATION: US RETROPERITONEAL LIMITED (RENAL ONLY) CLINICAL INFORMATION: N 20.0. Calculus of kidney COMPARISON: August 07, 2024 TECHNIQUE: Real-time ultrasound kidneys using grayscale technique. FINDINGS: RIGHT KIDNEY: 11 x 5 x 5 cm (SAG x AP x TRV). Volume: 124 cc. Normal echotexture. Renal cortical thickness is normal. No hydronephrosis. 5 mm hyperechoic structure in the corticomedullary junction midportion. LEFT KIDNEY: 10 x 6 x 4 cm (SAG x AP x TRV). Volume: 146 cc. Normal echotexture. Renal cortical thickness is normal. No hydronephrosis. No solid or cystic lesion. US/US renal BI IMPRESSION: 5 mm nonobstructing calculus, right kidney.. Electronically signed by: Vinay Abdi MD 10/09/2025 03:39 PM EST
--- OUTSIDE RECORDS SUMMARY | 2025-10-09 16:20 | XMS_ITS | Encounter Summary ---
Author Organization [facility] Address [address] [facility] [address] [place] [address] Phone Care Team Providers Care Manager Bank Name Role Phone Perry Silverio Primary Care Provider + Encounter Details Date Type Department Care Team (Late st Contact Info) Description 06/06/2024 Procedure Pass [facility], [facility] [address] [place] [address] Social History Tobacco Use Types Packs/Day Years [...] on filedocumented in this encounter Care Teams Manager Bank Relationship Specialty Start Date End Date Perry Silverio PA [address] [place] [address] PCP - General Physician Manager Registration 06/13/23 documented as of this encounter Additional Source Comments The information contained in this document represents components of the legal health record. It is not the complete legal health record.[facility]
--- OUTSIDE RECORDS SUMMARY | 2025-10-09 16:20 | XMS_ITS | Clinical Summary ---
Author Organization [facility] Address [address] [place] [address] Phone Care Team Providers Care Director Money Name Role Phone Perry Silverio Primary Care [...] topic Medical Devices Not on file Insurance [facility] REPLACEMENT WELLCARE PPO MEDICARE REPLACEMENT WELLCARE PPO MEDICARE REPLACEMENT WELLC[employer] PPO MEDICARE REPLACEMENT WE[employer] PPO MEDICARE REPLACEMENT WE[employer] PPO MEDICARE REPLACEMENT WE[employer] PPO MEDICARE REPLACEMENT WE[employer] PPO MEDICARE REPLACEMENT WELLCARE PPO MEDICARE REPLACEMENT WE[employer] PPO MEDICARE REPLACEMENT [facility] Care Teams Director Money Relationship Specialty Start Date End Date Perry Silverio PA [address] [place] [address] PCP - General Physician Fruit Peeler 06/13/23 Additional Source Comments The information contained in this document represents components of the legal health record. It is not the complete legal health record.[facility]
--- OUTSIDE RECORDS SUMMARY | 2025-10-09 16:20 | XMS_ITS | Encounter Summary ---
Author Organization [facility] Address [address] [place] [phone] Phone Care Team Providers Care Treater Name Role Phone Perry Silverio Primary Care Provider + Encounter Details Date Type Department Care Team (Late st Contact Info) Description 06/13/2023 Procedure Pass [facility], [address] [address] Social History Tobacco Use Types Packs/Day Years [...] on filedocumented in this encounter Care Teams Treater Relationship Specialty Start Date End Date Perry Silverio PA [address] [place] [address] PCP - General Physician Technical Support Assistant 06/13/23 documented as of this encounter Additional Source Comments The information contained in this document represents components of the legal health record. It is not the complete legal health record.[facility]
--- OUTSIDE RECORDS SUMMARY | 2025-10-09 16:20 | XMS_ITS | Encounter Summary ---
Author Organization [facility] Address [address] [place] [phone] Phone Care Team Providers Care Pumping [place] Supervisor Name Role Phone Perry Silverio Primary Care Provider + Encounter Details Date Type Department Care Team (Late st Contact Info) Description 06/13/2023 Transcribe Orders Virtual Department [address] [place] [address] Perry Silverio PA [address] [place] [address] Breast screening (Primary Dx) Social History Tobacco [...] unspecified documented in this encounter Care Teams Pumping [place] Supervisor Relationship Specialty Start Date End Date Perry Silverio PA [address] [place] [address] PCP - General Physician Manager Php 06/13/23 documented as of this encounter Additional Source Comments The information contained in this document represents components of the legal health record. It is not the complete legal health record.[facility]
== END 2025-10-09 15:07 | disposition home or self-care (01) ==
LOC: HO.US 15:06
PROVIDERS: PCP Physician Assistant; Visit Provider Urology
DX: N20.0 Calculus of kidney (principal)
CPT/HCPCS: 76775

== ENCOUNTER → 2025-10-09 15:08 | Outpatient (BNV) | payer MEDICARE, SELFPAY | PROVIDERS: PCP Physician Assistant; Visit Provider Radiology Diagnostic Radiology | DX: N20.0 Calculus of kidney (principal) | CPT/HCPCS: 76775 ==